=== PATIENT | male | born 1940 | race Caucasian/White ===

== ENCOUNTER 2018-01-25 16:14 | Inpatient (IN) | payer MEDICARE ==
[2018-01-25] MEDS ORDERED: SODIUM CHLORIDE 0.9% 500 ML IV STA (16:49)
[2018-01-25] MEDS ORDERED: DILTIAZEM DRIP BOLUS FROM BAG 1 MG SOLN IV ONE (16:54)
--- NOTE | 2018-01-25 16:54 | ED ---
General Adult HPI - General Chief complaint: Shortness of Breath Stated complaint: JAMES Source: patient Mode of arrival: wheelchair Limitations: no limitations - History of Present Illness Initial comments: Dictation was produced using [employer] dictation software. please excuse any grammatical, word or spelling errors. Chief Complaint: 77-year-old male past medical history of paroxysmal atrial fibrillation ablation, COPD, coronary artery disease, dyslipidemia presents with shortness of breath. History of Present Illness: He reports that he woke up this morning about 5:30 PM when he felt short of breath. He did not think much of it. He went about his business throughout the day. He was at lunch with his friends when his shortness breath was persistent. Patient is on home oxygen at 2 L. Turn his oxygen up to 3 L however still is short of breath. Patient felt like he was in A. fib came to the emergency department. 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 Patient has any pain symptoms. Denies any lower extremity symptoms. The ROS documented in this emergency department record has been reviewed and confirmed by me. Those systems with pertinent positive or negative responses have been documented in the HPI. All other systems are other negative and/or noncontributory. - Related Data Home Medications Medication Instructions Recorded Confirmed Ipratropium/Albuterol Sulfate 3 ml INHALATION RT-QID 11/13/13 01/25/18 [Duoneb 0.5 mg-3 mg/3 ml Soln] Montelukast [Singulair] 10 mg PO HS 11/13/13 01/25/18 Ranitidine HCl [Zantac] 300 mg PO DAILY 11/13/13 01/25/18 Atorvastatin [Lipitor] 40 mg PO HS 08/14/14 01/25/18 Budesonide [Pulmicort] 1 mg INHALATION RT-BID 01/25/18 01/25/18 Cholecalciferol [Vitamin D3] 1,000 unit PO DAILY 01/25/18 01/25/18 Furosemide [Lasix] 20 mg PO DAILY 01/25/18 01/25/18 HYDROcodone/APAP 5-325MG [[place] 1 tab PO DAILY PRN 01/25/18 01/25/18 5-325] Magnesium 200 mg PO DAILY 01/25/18 01/25/18 Previous Rx's Medication Instructions Recorded Aspirin EC [Ecotrin Low Dose] 81 mg PO DAILY #30 tablet. 08/19/14 Metoprolol Tartrate [Lopressor] 25 mg PO BID #60 tab 08/19/14 Allergies Allergy/AdvReac Type Severity Reaction Status Date / Time No Known Allergies Allergy Verified 01/25/18 17:00 Review of Systems ROS Statement: Those systems with pertinent positive or pertinent negative responses have been documented in the HPI. ROS Other: All systems not noted in ROS Statement are negative. Past Medical History Past Medical History: Atrial Fibrillation, Asthma, Coronary Artery Disease (CAD) , Cancer, COPD, GERD/Reflux, GI Bleed, Hyperlipidemia, Hypertension, Myocardial Infarction (MD), Osteoarthritis (OA), Pneumonia Additional Past Medical History / Comment(s): Other HX: Home O2 on a prn basis at 1.8-2L/NC. GI bleed 2010 from duodenal ulcer, MONO when a child, shingelles as a child, SKIN CANCER, OA bilateral hands, L leg vein graft site got infected. Last Myocardial Infarction Date:: unknown History of Any Multi-Drug Resistant Organisms: None Reported Past Surgical History: Cardiac Valve Replacement, Coronary Bypass/CABG, Heart Catheterization, Tonsillectomy Additional Past Surgical History / Comment(s): 2010 AORTIC ANEURYSM REPAIR, 1993 cardiac angioplasty, 2011 CABG with mitral vavle replacement with #30 Esquivel mitral ring and triple bypass with reverse saphenous venous graft to the LAD, RCA, intermediate branch,, EGD, colonoscopy, bilateral cataract removal, right carpal tunnel release, bilateral inguinal hernia repair, bilateral facial cyst removed, aortobifemoral bypass, bilateral profundoplasty. Past Anesthesia/Blood Transfusion Reactions: No Reported Reaction Additional Past Anesthesia/Blood Transfusion Reaction / Comment(s): Pt has had blood transfusion without reaction. Past Psychological History: No Psychological Hx Reported Smoking Status: Former smoker Past Alcohol Use History: Daily Past Drug Use History: None Reported - Past Family History Mother Family Medical History: Coronary Artery Disease (CAD) (Mother at age of 77 from coronary artery disease and she also developed cardiac dysrhythmia and had permanent pacemaker placement as well as abdominal aortic aneurysm.) Additional Family Medical History / Comment(s): Mother had pacemaker. She at age 77yrs. Father Family Medical History: Coronary Artery Disease (CAD) (Father at age of 60 from coronary artery disease as well as atherosclerosis.) Additional Family Medical History / Comment(s): Father at age 60 yrs after having Flu. Brother(s) Family Medical History: Vascular Disorder (Brother at age of 64 from a ruptured aortic aneurysm) Additional Family Medical History / Comment(s): Brother of ruptured abdominal aortic anuerysm at age 64 yrs. General Exam - General Exam Comments Initial Comments: PHYSICAL EXAM: General Impression: Alert and oriented x3, not in acute distress HEENT: Normocephalic atraumatic, extra-ocular movements intact, pupils equal and reactive to light bilaterally, mucous membranes moist. Cardiovascular: Heart regular rate and rhythm, S1&S2 audible, no murmurs, rubs or gallops Chest: Mild lung crackles diffusely Abdomen: Bowel sounds present, abdomen soft, non-tender, non-distended, no organomegaly Musculoskeletal: Pulses present and equal in all extremities, no peripheral edema Motor: Power 5/5 bilaterally, no focal deficits noted Neurological: CN II-XII grossly intact, no focal motor or sensory deficits noted Skin: Intact with no visualized rashes Psych: Normal affect and mood Limitations: no limitations Course Vital Signs 01/25/18 01/25/18 01/25/18 16:17 17:15 18:05 Temperature 98.4 F Pulse Rate 120 H 110 H 79 Respiratory 22 20 18 Rate Blood Pressure 122/74 90/65 101/58 O2 Sat by Pulse 84 L 87 L 90 L Oximetry 01/25/18 01/25/18 18:38 19:00 Temperature 98.5 F Pulse Rate 95 74 Respiratory 20 18 Rate Blood Pressure 147/70 109/73 O2 Sat by Pulse 88 L 94 L Oximetry Medical Decision Making - Medical Decision Making ED course: 77-year-old male with past medical history of paroxysmal atrial fibrillation presents with shortness of breath 1 day. It is unclear when his symptoms started. He progressed through today where his symptoms worse. As upon arrival shows heart rate of 120, oxygen of 84. Patient is hypoxic. He is normally on 2 L. Patient however does appear well. Denies any chest pain. Patient started on Cardizem. Patient has a known history of paroxysmal atrial fibrillation and has not been on any anticoagulation. Patient 's symptoms began prior to 48 hours. At this point I feel the risks outweigh the benefits before starting heparin. Laboratory evaluation obtained. Leukocytosis of 11.0. Hemoglobin stable. Platelets 113. Coag panel unremarkable. Metabolic panel shows sodium 133. Chloride of 97. Mild elevation in V1. Total bilirubin 1.5. Mild nonspecific transaminitis. Elevated troponin. Chest x-ray was obtained showing findings that may suggest pulmonary infiltrates. There is some concern that patient's symptoms may reflect pulmonary embolus. CT angios obtained showing no findings to suggest pulmonary embolus. There was however [place] to suggest pulmonary infiltrate. His atrial fibrillation likely secondary to pulmonary infection. Patient treated with antibiotics. Patient be admitted for hypoxic respiratory failure, A. fib with rapid ventricular rate, and pneumonia EKG Interpretation: A 12 lead EKG was obtained. It was interpreted by myself and attending physician. There is a P wave before every QRS complex. Rate is 108. Rhythm is H or fibrillation with RVR, QRS 136, QTC 418. QT is not prolonged. No ST segment depression or elevation. This EKG was compared to a previous EKG that was obtained on [default value] and showed no significant change. Overall, this EKG is unremarkable - Lab Data Result diagrams: 01/25/18 16:41 01/25/18 16:41 Lab Results 01/25/18 01/25/18 01/25/18 Range/Units 16:41 16:41 16:41 WBC 11.0 H (3.8-10.6) k/uL RBC 5.15 (4.30-5.90) m/uL Hgb 16.4 (13.0-17.5) gm/dL Hct 48.5 (39.0-53.0) % MCV 94.3 (80.0-100.0) fL MCH 31.9 (25.0-35.0) pg MCHC 33.8 (31.0-37.0) g/dL RDW 14.0 (11.5-15.5) % Plt Count 113 L (150-450) k/uL Neutrophils % 88 % Lymphocytes % 5 % Monocytes % 5 % Eosinophils % 1 % Basophils % 0 % Neutrophils # 9.6 H (1.3-7.7) k/uL Lymphocytes # 0.5 L (1.0-4.8) k/uL Monocytes # 0.6 (0-1.0) k/uL Eosinophils # 0.1 (0-0.7) k/uL Basophils # 0.1 (0-0.2) k/uL PT (9.0-12.0) sec INR (<1.2) APTT (22.0-30.0) sec Sodium 133 L (137-145) mmol/L Potassium 4.3 (3.5-5.1) mmol/L Chloride 97 L (98-107) mmol/L Carbon Dioxide 24 (22-30) mmol/L Anion Gap 12 mmol/L BUN 26 H (9-20) mg/dL Creatinine 1.10 (0.66-1.25) mg/dL Est GFR (CKD-EPI)AfAm 75 (>60 ml/min/1.73 sqM) Est GFR (CKD-EPI)NonAf 65 (>60 ml/min/1.73 sqM) Glucose 83 (74-99) mg/dL Calcium 9.3 (8.4-10.2) mg/dL Total Bilirubin 1.5 H (0.2-1.3) mg/dL AST 37 (17-59) U/L ALT 33 (21-72) U/L Alkaline Phosphatase 147 H (38-126) U/L Total Creatine Kinase 68 (55-170) U/L CK-MB (CK-2) 2.9 H* (0.0-2.4) ng/mL CK-MB (CK-2) Rel Index 4.3 Troponin I 0.017 (0.000-0.034) ng/mL Total Protein 6.8 (6.3-8.2) g/dL Albumin 4.1 (3.5-5.0) g/dL 01/25/18 Range/Units 16:41 WBC (3.8-10.6) k/uL RBC (4.30-5.90) m/uL Hgb (13.0-17.5) gm/dL Hct (39.0-53.0) % MCV (80.0-100.0) fL MCH (25.0-35.0) pg MCHC (31.0-37.0) g/dL RDW (11.5-15.5) % Plt Count (150-450) k/uL Neutrophils % % Lymphocytes % % Monocytes % % Eosinophils % % Basophils % % Neutrophils # (1.3-7.7) k/uL Lymphocytes # (1.0-4.8) k/uL Monocytes # (0-1.0) k/uL Eosinophils # (0-0.7) k/uL Basophils # (0-0.2) k/uL PT 11.0 (9.0-12.0) sec INR 1.1 (<1.2) APTT 24.5 (22.0-30.0) sec Sodium (137-145) mmol/L Potassium (3.5-5.1) mmol/L Chloride (98-107) mmol/L Carbon Dioxide (22-30) mmol/L Anion Gap mmol/L BUN (9-20) mg/dL Creatinine (0.66-1.25) mg/dL Est GFR (CKD-EPI)AfAm (>60 ml/min/1.73 sqM) Est GFR (CKD-EPI)NonAf (>60 ml/min/1.73 sqM) Glucose (74-99) mg/dL Calcium (8.4-10.2) mg/dL Total Bilirubin (0.2-1.3) mg/dL AST (17-59) U/L ALT (21-72) U/L Alkaline Phosphatase (38-126) U/L Total Creatine Kinase (55-170) U/L CK-MB (CK-2) (0.0-2.4) ng/mL CK-MB (CK-2) Rel Index Troponin I (0.000-0.034) ng/mL Total Protein (6.3-8.2) g/dL Albumin (3.5-5.0) g/dL Disposition Clinical Impression: Atrial fibrillation with RVR, Community acquired bacterial pneumonia, Acute respiratory failure with hypoxia Disposition: ADMITTED IP TO THIS HOSP Condition: Fair Referrals: Erasmo Mary MD [Primary Care Provider] - 1-2 days Time of Disposition: 19:50
[2018-01-25] MEDS ORDERED: METOPROLOL TARTRATE 5 MG/5 ML VIAL IVP SCH (17:00)
[2018-01-25 17:14] LABS: Basophils # (A) 0.1 k/uL (0-0.2); Basophils % (A) 0 %; Eosinophils # (A) 0.1 k/uL (0-0.7); Eosinophils % (A) 1 %; HCT 48.5 % (39.0-53.0); HGB 16.4 gm/dL (13.0-17.5); Lymphocytes # (A) 0.5 k/uL (1.0-4.8); Lymphocytes % (A) 5 %; MCH 31.9 pg (25.0-35.0); MCHC 33.8 g/dL (31.0-37.0); MCV 94.3 fL (80.0-100.0); Mean Platelet Volume 9.2; Monocytes # (A) 0.6 k/uL (0-1.0); Monocytes % (A) 5 %; Neutrophils # (A) 9.6 k/uL (1.3-7.7); Neutrophils % (A) 88 %; Platelet Count 113 k/uL (150-450); RBC 5.15 m/uL (4.30-5.90)
[2018-01-25] MEDS: DILTIAZEM 50 MG in SODIUM CHLORIDE 0.9% 40 ML IV SCH (17:17)
[2018-01-25 17:29] LABS: INR 1.1 (<1.2); Partial Thromboplastin Time 24.5 sec (22.0-30.0)
[2018-01-25 17:31] LABS: Albumin 4.1 g/dL (3.5-5.0); Calcium 9.3 mg/dL (8.4-10.2); Potassium 4.3 mmol/L (3.5-5.1); Total Bilirubin 1.5 mg/dL (0.2-1.3); Total Protein 6.8 g/dL (6.3-8.2)
--- NOTE | 2018-01-25 17:37 | XR ---
EXAMINATION TYPE: XR chest 2V DATE OF EXAM: 01/25/2018 COMPARISON: 03/19/2015 HISTORY: Short of breath TECHNIQUE: Frontal and lateral views of the chest are obtained. FINDINGS: There is some patchy infiltrate in the lower lobes. There are sternal wires. There are renetta st leads. There is no gross heart failure. IMPRESSION: Interstitial lower lobe pulmonary infiltrates are increased compared to old exam. No marlene ss heart failure.
[2018-01-25 17:42] LABS: Troponin I 0.017 ng/mL (0.000-0.034)
[2018-01-25 18:03] LABS: Creatine Kinase MB 2.9 ng/mL (0.0-2.4)
[2018-01-25] MEDS ORDERED: AZITHROMYCIN 500 MG in DEXTROSE 5% IN WATER 250 ML IVPB STA ×2 (18:31)
[2018-01-25] MEDS ORDERED: cefTRIAXone IN SWFI 1,000 MG/10 ML SYRINGE IVP ONE (18:45)
--- NOTE | 2018-01-25 19:15 | CT ---
EXAMINATION TYPE: CT angio chest DATE OF EXAM: 01/25/2018 7:06 PM COMPARISON: 10/30/2011 HISTORY: Shortness of breath. CT DLP: 593 mGycm Automated exposure control for dose reduction was used. CONTRAST: CTA scan of the thorax is performed with IV Contrast, patient injected with 100 mL of Isovue 370, pul monary embolism protocol. There are 3-D post processed images.. FINDINGS: There is diffuse pulmonary emphysema. There is subpleural reticular interstitial infiltrate in the po sterior lung smith. There is a wedge-shaped area of patchy consolidation in the right middle lobe. I see no filling defects in the pulmonary arteries. Thoracic aorta is atheromatous. There is no evide nce of aneurysm or dissection. There is no mediastinal adenopathy. There are no hilar masses. There a re large central pulmonary arteries. There is large right atrium. Right ventricle is relatively small . IMPRESSION: NO EVIDENCE OF PULMONARY EMBOLISM. PULMONARY EMPHYSEMA. THERE IS CLEARING OF THE PLEURAL EFFUSIONS CO MPARED TO OLD EXAM. THERE IS NEW RIGHT MIDDLE LOBE CONSOLIDATION ALONG THE RIGHT LATERAL CHEST WALL. PULMONARY FIBROSIS. THERE IS ENLARGEMENT OF THE RIGHT ATRIUM COMPARED TO OLD EXAM COULD RELATE TO TRI CUSPID STENOSIS.
[2018-01-25] MEDS ORDERED: NALOXONE 0.4 MG/ML 1 ML VIAL IV PRN (19:46)
[2018-01-25 22:33] VITALS: BMI 21.3
[2018-01-26] MEDS: DILTIAZEM 50 MG in SODIUM CHLORIDE 0.9% 40 ML IV SCH ×3 (05:50→23:04)
[2018-01-26] MEDS: METOPROLOL TARTRATE 25 MG TAB PO SCH ×2 (08:15→21:37)
[2018-01-26] MEDS: ASPIRIN 81 MG PO SCH (08:15)
[2018-01-26] MEDS: IPRATROPIUM-ALBUTEROL 3 ML NEB INHALATION SCH ×3 (10:36→19:03)
--- NOTE | 2018-01-26 10:54 | P.CRDCN ---
History of Present Illness Consult date: 01/26/18 Requesting physician: Farhad Grullon Consult reason: atrial fibrillation Chief complaint: Shortness of breath History of present illness: This is a 77 year old gentleman who follows regularly with Dr. Hagan in the office, he has a previous medical history significant for hypertension, coronary artery disease with prior myocardial infarction, prior bypass surgery with the patient underwent a reverse saphenous vein graft to the LAD, intermediate branch, and RCA, along with a #31. Mitral valve ring, history of aortic aneurysm status post repair, history of paroxysmal atrial fibrillation, patient is not on anticoagulation, he does have history of prior bleeding ulcers , and states that he does not want to be on blood thinners although Dr. Hagan has discussed this with him on several different occasions. History also of COPD with home O2 use. He presents to the hospital on this occasion with symptoms of progressively worsening shortness of breath. Initial chest x-ray on arrival here showed interstitial lower lobe pulmonary infiltrates increased as compared with prior exam. CTA of the chest was performed which did not reveal any evidence of pulmonary embolism. It did show pulmonary emphysema and clearing of pleural effusions as compared with prior exam. There is a new right middle lobe consolidation noted. Pulmonary fibrosis. EKG on arrival here showed atrial fibrillation with a rapid ventricular response, right bundle branch block pattern and nonspecific ST-T wave changes. White blood cell count is normal, hemoglobin 16.4, platelet count 113. Sodium 133, potassium 4.3, BUN 26, creatinine 1.1, troponin 0.107. At the time of my examination this morning , patient states his breathing is short but normal for him according to the patient. Past Medical History Past Medical History: Atrial Fibrillation, Asthma, Coronary Artery Disease (CAD) , Cancer, COPD, GERD/Reflux, GI Bleed, Hyperlipidemia, Hypertension, Myocardial Infarction (CT), Osteoarthritis (OA), Pneumonia Additional Past Medical History / Comment(s): Other HX: Home O2 at 2L/NC. GI bleed 2010 from duodenal ulcer, MONO when a child, shingelles as a child, SKIN CANCER, OA bilateral hands, L leg vein graft site got infected. Last Myocardial Infarction Date:: unknown History of Any Multi-Drug Resistant Organisms: None Reported Past Surgical History: Cardiac Valve Replacement, Coronary Bypass/CABG, Heart Catheterization, Tonsillectomy Additional Past Surgical History / Comment(s): 2010 AORTIC ANEURYSM REPAIR, 1993 cardiac angioplasty, 2011 CABG with mitral vavle replacement with #30 Esquivel mitral ring and triple bypass with reverse saphenous venous graft to the LAD, RCA, intermediate branch,, EGD, colonoscopy, bilateral cataract removal, right carpal tunnel release, bilateral inguinal hernia repair, bilateral facial cyst removed, aortobifemoral bypass, bilateral profundoplasty. Past Anesthesia/Blood Transfusion Reactions: No Reported Reaction Additional Past Anesthesia/Blood Transfusion Reaction / Comment(s): Pt has had blood transfusion without reaction. Past Psychological History: No Psychological Hx Reported Additional Psychological History / Comment(s): Pt lives alone. Pt is independent. Pt drives a car. Pt cooks. Pt sometimes has a person come in to do lite housework. Pt has home oxygen that he uses on a prn basis. Pt did stay at [facility] for a few days after CABG surgery when he had a L leg vein graft infection. Smoking Status: Former smoker Past Alcohol Use History: Daily Additional Past Alcohol Use History / Comment(s): Pt drinks 2 alcoholic beverages a day. Past Drug Use History: None Reported - Past Family History Mother Family Medical History: Coronary Artery Disease (CAD) Additional Family Medical History / Comment(s): Mother had pacemaker. She at age 77yrs. Father Family Medical History: Coronary Artery Disease (CAD) Additional Family Medical History / Comment(s): Father at age 60 yrs after having Flu. Brother(s) Family Medical History: Vascular Disorder Additional Family Medical History / Comment(s): Brother of ruptured abdominal aortic anuerysm at age 64 yrs. Medications and Allergies Home Medications Medication Instructions Recorded Confirmed Type Ipratropium/Albuterol Sulfate 3 ml INHALATION RT-QID 11/13/13 01/25/18 History [Duoneb 0.5 mg-3 mg/3 ml Soln] Montelukast [Singulair] 10 mg PO HS 11/13/13 01/25/18 History Ranitidine HCl [Zantac] 300 mg PO DAILY 11/13/13 01/25/18 History Atorvastatin [Lipitor] 40 mg PO HS 08/14/14 01/25/18 History Aspirin EC [Ecotrin Low Dose] 81 mg PO DAILY #30 tablet. 08/19/14 01/25/18 Rx Metoprolol Tartrate [Lopressor] 25 mg PO BID #60 tab 08/19/14 01/25/18 Rx Budesonide [Pulmicort] 1 mg INHALATION RT-BID 01/25/18 01/25/18 History Cholecalciferol [Vitamin D3] 1,000 unit PO DAILY 01/25/18 01/25/18 History Furosemide [Lasix] 20 mg PO DAILY 01/25/18 01/25/18 History HYDROcodone/APAP 5-325MG [[place] 1 tab PO DAILY PRN 01/25/18 01/25/18 History 5-325] Magnesium 200 mg PO DAILY 01/25/18 01/25/18 History Allergies Allergy/AdvReac Type Severity Reaction Status Date / Time No Known Allergies Allergy Verified 01/25/18 17:00 Physical Exam Vitals: Vital Signs Temp Pulse Pulse Resp BP BP Pulse Ox 01/26/18 03:25 97.4 F L 61 18 155/65 94 L 01/25/18 23:45 97.4 F L 65 18 125/55 94 L 01/25/18 22:22 98.2 F 56 L 20 133/60 93 L 01/25/18 21:48 98.4 F 69 20 120/72 94 L 01/25/18 21:01 71 16 90 L 01/25/18 19:00 98.5 F 74 18 109/73 94 L 01/25/18 18:38 95 20 147/70 88 L 01/25/18 18:05 79 18 101/58 90 L 01/25/18 17:15 110 H 20 90/65 87 L 01/25/18 16:17 98.4 F 120 H 22 122/74 84 L Intake and Output 01/25/18 01/26/18 01/26/18 22:59 06:59 14:59 Other: Voiding Method Urinal # Voids 0 1 Weight 60 kg 60.3 kg PHYSICAL EXAMINATION: 77-year-old gentleman in no apparent distress at the time of my examination HEENT: Head is atraumatic, normocephalic. Pupils equal, round. Neck is supple. There is no elevated jugular venous pressure. HEART EXAMINATION: Heart S1 and S2 irregular irregular a systolic murmur is heard CHEST EXAMINATION: Lungs are clear to auscultation and precussion. No chest wall tenderness is noted on palpation or with deep breathing. ABDOMEN: Soft, nontender. Bowel sounds are heard. No organomegaly noted. EXTREMITIES: 1+ peripheral pulses with no evidence of peripheral edema and no calf tenderness noted. NEUROLOGIC patient is awake, alert and oriented -3. Results 01/25/18 16:41 01/25/18 16:41 Cardiac Enzymes 01/25/18 01/25/18 Range/Units 16:41 16:41 AST 37 (17-59) U/L CK-MB (CK-2) 2.9 H* (0.0-2.4) ng/mL Troponin I 0.017 (0.000-0.034) ng/mL Coagulation 01/25/18 Range/Units 16:41 PT 11.0 (9.0-12.0) sec APTT 24.5 (22.0-30.0) sec CBC 01/25/18 Range/Units 16:41 WBC 11.0 H (3.8-10.6) k/uL RBC 5.15 (4.30-5.90) m/uL Hgb 16.4 (13.0-17.5) gm/dL Hct 48.5 (39.0-53.0) % Plt Count 113 L (150-450) k/uL Comprehensive Metabolic Panel 01/25/18 Range/Units 16:41 Sodium 133 L (137-145) mmol/L Potassium 4.3 (3.5-5.1) mmol/L Chloride 97 L (98-107) mmol/L Carbon Dioxide 24 (22-30) mmol/L BUN 26 H (9-20) mg/dL Creatinine 1.10 (0.66-1.25) mg/dL Glucose 83 (74-99) mg/dL Calcium 9.3 (8.4-10.2) mg/dL AST 37 (17-59) U/L ALT 33 (21-72) U/L Alkaline Phosphatase 147 H (38-126) U/L Total Protein 6.8 (6.3-8.2) g/dL Albumin 4.1 (3.5-5.0) g/dL Current Medications Generic Name Dose Route Start Last Admin Trade Name Freq PRN Reason Stop Dose Admin Hydrocodone Bitart/Acetaminophen 1 each 01/26/18 10:00 [place] 5-325 PO DAILY PRN Moderate Pain Albuterol/Ipratropium 3 ml 01/26/18 12:00 Duoneb 0.5 Mg-3 Mg/3 Ml Soln INHALATION RT-QID [facility] Aspirin 81 mg 01/26/18 09:00 01/26/18 08:15 Aspirin PO 81 mg DAILY [facility] Administration Atorvastatin Calcium 40 mg 01/26/18 21:00 Lipitor PO HS ELOISE Budesonide 1 mg 01/26/18 20:00 Pulmicort INHALATION RT-BID [facility] Cholecalciferol 1,000 unit 01/27/18 09:00 Vitamin D3 PO DAILY [facility] Famotidine 20 mg 01/26/18 10:15 Pepcid PO DAILY ELOISE Furosemide 20 mg 01/27/18 09:00 Lasix PO DAILY [facility] Heparin Sodium (Porcine) 5,000 unit 01/26/18 10:15 Heparin SQ Q8HR [facility] Diltiazem HCl 50 mg/ Sodium 50 mls @ 5 mls/hr 01/25/18 17:00 01/26/18 05:50 Chloride IV Not Given .Q10H ELOISE 5 MG/HR Insulin Aspart 0 unit 01/26/18 12:30 Novolog SQ ACHS [facility] Protocol Magnesium Oxide 400 mg 01/27/18 09:00 Mag-Ox PO DAILY [facility] Methylprednisolone Sodium Succinate 60 mg 01/26/18 12:00 Solu-Medrol IV Q6HR [facility] Metoprolol Tartrate 25 mg 01/26/18 09:00 01/26/18 08:15 Lopressor PO 25 mg BID [facility] Administration Montelukast Sodium 10 mg 01/26/18 21:00 Singulair PO HS [facility] Naloxone HCl 0.2 mg 01/25/18 19:46 Narcan IV Q2M PRN Opioid Reversal Intake and Output 01/25/18 01/26/18 01/26/18 22:59 06:59 14:59 Other: Voiding Method Urinal # Voids 0 1 Weight 60 kg 60.3 kg 01/25/18 16:41 01/25/18 16:41 EKG Interpretations (text) EKG shows atrial fibrillation with right bundle branch block pattern Assessment and Plan Plan: Assessment and plan #1 atrial fibrillation, paroxysmal #2 history of upper GI bleed #3 coronary artery disease with prior bypass surgery #4 history of mitral valve ring #5 history of AAA #6 hyperlipidemia #7 COPD with home O2 use #8 evidence of pneumonia on chest x-ray Plan We will obtain an echocardiogram with Doppler study. IV Cardizem has been discontinued, heart rate in the 60s, continue metoprolol. Because of the patient's history of prior GI bleeding, anticoagulation contraindicated because of history of GI bleeding. Further Recommendations to follow DNP note has been reviewed, I agree with a documented findings and plan of care. Patient was seen and examined.
[2018-01-26] MEDS: FAMOTIDINE 20 MG TAB PO SCH (11:54)
[2018-01-26] MEDS: methylPREDNISolone SOD SUCCI 125 MG/2 ML VIAL IV SCH ×3 (11:54→23:19)
[2018-01-26] MEDS: HEPARIN SODIUM,PORCINE 5,000 UNIT/ML 1 ML VIAL SQ SCH ×3 (11:54→23:19)
[2018-01-26 12:34] LABS: Glucose,Whole Blood 77 mg/dL (75-99)
--- NOTE | 2018-01-26 13:34 | P.HPIM ---
History of Present Illness H&P Date: 01/26/18 Chief Complaint: Dyspnea and shortness of breath, A. fib with RVR, middle lobe pneumonia, CO 77-year-old male one of Dr. Erasmo Mary's patient who was Dr. Hagan patient at cardiology as well was known to have history of coronary artery disease, post AK in the past post CABG and angioplasty who is also known to have history of mitral valve disease and aortic aneurysm postrepair. Patient also had paroxysmal atrophy fibrillation on and off has been treated medically he is not on any anticoagulation 4. History of bleeding and full discussion with Dr. Hagan in Dr. Mary about the comorbidity not been on anticoagulation. Patient apparently developed to have worsening symptom over the last 48 hours with significant shortness of breath, not been able to ambulate and walk and developed to have mild tightness and pressure with palpitation. Apparently had seen Dr. Childers and Dr. Mary in the past month for his current medical problem no major abnormality of A. fib with RVR was found at the time of infection. Patient presented to the emergency department at [facility] with above problem. Chest x-ray and CAT scan of the chest showed right middle lobe pneumonia, EKG and heart monitor shows A. fib with RVR. Patient also had a right bundle-branch block with nonspecific ST elevation. Patient also mildly marginal white blood cell elevation troponin was normal. Patient was started on antibiotics and started on Cardizem drip initially pulse rate become slow he will be back on his oral metoprolol and further discussion with cardiology for further management whether benefit from increasing the metoprolol or add Cardizem or not will be up to cardiology. Review of Systems CONSTITUTIONAL: Well-developed no acute respiratory distress. EYES: No icterus sclerae, no conjunctivitis. EARS, NOSE, MOUTH, THROAT, and FACE: No sore throat, lymphadenopathy, carotid bruits or deformity. RESPIRATORY: Positive shortness of breath cough wheezes CARDIOVASCULAR: Positive dyspnea with palpitation, PND and orthopnea. GASTROINTESTINAL: No Abd pain, Nausea or vomiting, no Diarrhea or constipation, No GI Bleed, no distention or masses. GENITOURINARY: Negative for Hematuria or UTI, no kidney stones. INTEGUMENT/BREAST: Negative for any muscular injury with mild osteoarthritis.. HEMATOLOGIC/LYMPHATIC: Negative for bleed or purpura. MUSCULOSKELTAL: Negative for Myalgia or arthralgia. NEURLOGICAL: No LOC, Sz or syncope, blurred vision dizziness or abnormality.. BEHAVIORAL/PSYCH: Negative. ENDOCRINE: Negative. Past Medical History Past Medical History: Atrial Fibrillation, Asthma, Coronary Artery Disease (CAD) , Cancer, COPD, GERD/Reflux, GI Bleed, Hyperlipidemia, Hypertension, Myocardial Infarction (AK), Osteoarthritis (OA), Pneumonia Additional Past Medical History / Comment(s): Other HX: Home O2 at 2L/NC. GI bleed 2010 from duodenal ulcer, MONO when a child, shingelles as a child, SKIN CANCER, OA bilateral hands, L leg vein graft site got infected. Last Myocardial Infarction Date:: unknown History of Any Multi-Drug Resistant Organisms: None Reported Past Surgical History: Cardiac Valve Replacement, Coronary Bypass/CABG, Heart Catheterization, Tonsillectomy Additional Past Surgical History / Comment(s): 2010 AORTIC ANEURYSM REPAIR, 1993 cardiac angioplasty, 2011 CABG with mitral vavle replacement with #30 Esquivel mitral ring and triple bypass with reverse saphenous venous graft to the LAD, RCA, intermediate branch,, EGD, colonoscopy, bilateral cataract removal, right carpal tunnel release, bilateral inguinal hernia repair, bilateral facial cyst removed, aortobifemoral bypass, bilateral profundoplasty. Past Anesthesia/Blood Transfusion Reactions: No Reported Reaction Additional Past Anesthesia/Blood Transfusion Reaction / Comment(s): Pt has had blood transfusion without reaction. Past Psychological History: No Psychological Hx Reported Additional Psychological History / Comment(s): Pt lives alone. Pt is independent. Pt drives a car. Pt cooks. Pt sometimes has a person come in to do lite housework. Pt has home oxygen that he uses on a prn basis. Pt did stay at [facility] for a few days after CABG surgery when he had a L leg vein graft infection. Smoking Status: Former smoker Past Alcohol Use History: Daily Additional Past Alcohol Use History / Comment(s): Pt drinks 2 alcoholic beverages a day. Past Drug Use History: None Reported - Past Family History Mother Family Medical History: Coronary Artery Disease (CAD) Additional Family Medical History / Comment(s): Mother had pacemaker. She at age 77yrs. Father Family Medical History: Coronary Artery Disease (CAD) Additional Family Medical History / Comment(s): Father at age 60 yrs after having Flu. Brother(s) Family Medical History: Vascular Disorder Additional Family Medical History / Comment(s): Brother of ruptured abdominal aortic anuerysm at age 64 yrs. Medications and Allergies Home Medications Medication Instructions Recorded Confirmed Type Ipratropium/Albuterol Sulfate 3 ml INHALATION RT-QID 11/13/13 01/25/18 History [Duoneb 0.5 mg-3 mg/3 ml Soln] Montelukast [Singulair] 10 mg PO HS 11/13/13 01/25/18 History Ranitidine HCl [Zantac] 300 mg PO DAILY 11/13/13 01/25/18 History Atorvastatin [Lipitor] 40 mg PO HS 08/14/14 01/25/18 History Aspirin EC [Ecotrin Low Dose] 81 mg PO DAILY #30 tablet. 08/19/14 01/25/18 Rx Metoprolol Tartrate [Lopressor] 25 mg PO BID #60 tab 08/19/14 01/25/18 Rx Budesonide [Pulmicort] 1 mg INHALATION RT-BID 01/25/18 01/25/18 History Cholecalciferol [Vitamin D3] 1,000 unit PO DAILY 01/25/18 01/25/18 History Furosemide [Lasix] 20 mg PO DAILY 01/25/18 01/25/18 History HYDROcodone/APAP 5-325MG [[place] 1 tab PO DAILY PRN 01/25/18 01/25/18 History 5-325] Magnesium 200 mg PO DAILY 01/25/18 01/25/18 History Allergies Allergy/AdvReac Type Severity Reaction Status Date / Time No Known Allergies Allergy Verified 01/25/18 17:00 Physical Exam Vitals: Vital Signs Temp Pulse Pulse Resp BP BP Pulse Ox 01/26/18 11:46 91 18 01/26/18 10:48 68 01/26/18 10:37 64 01/26/18 08:00 98.1 F 91 18 107/69 98 01/26/18 03:25 97.4 F L 61 18 155/65 94 L 01/25/18 23:45 97.4 F L 65 18 125/55 94 L 01/25/18 22:22 98.2 F 56 L 20 133/60 93 L 01/25/18 21:48 98.4 F 69 20 120/72 94 L 01/25/18 21:01 71 16 90 L 01/25/18 19:00 98.5 F 74 18 109/73 94 L 01/25/18 18:38 95 20 147/70 88 L 01/25/18 18:05 79 18 101/58 90 L 01/25/18 17:15 110 H 20 90/65 87 L 01/25/18 16:17 98.4 F 120 H 22 122/74 84 L Intake and Output 01/25/18 01/26/18 01/26/18 22:59 06:59 14:59 Intake Total 180 Balance 180 Intake: Oral 180 Other: Voiding Method Urinal Urinal # Voids 0 1 Weight 60 kg 60.3 kg General Appearance: Alert, cooperative, no distress, appears stated age. Neck HEENT: Supple, no lymphadenopathy, no thyroid enlargement, no carotid bruits. Lungs: Decreased breaths in bilaterally with fine rhonchi positive mild expiratory wheezes in both side with more crackles in the right middle and lower side than the left side. Chest Wall: Chest wall normal expansion with deep inspiration no tenderness and no deformity was found on exam, no costochondral pain or discomfort. Heart: Irregular rhythm and rate S1-S2 positive S3 positive JVD positive mitral valve click with systolic murmur. Back: Symmetric, no curvature, ROM normal, no CVA tenderness. Abdomen: Soft, non-tender, bowel sounds active all four quadrants, no masses, no organomegaly. Extremities: Trace edema, decreased pulse in the dorsalis pedis and posterior tibial. Pulses: 2+ and symmetric. Skin: Skin color, texture, tugor normal, no rashes or lesions. Neurologic: Alert oriented x3 cranial nerves II through XII intact, no motor deficit, no abnormal balance or gait. Results CBC & Chem 7: 01/25/18 16:41 01/25/18 16:41 Labs: Abnormal Lab Results - Last 24 Hours (Table) 01/25/18 01/25/18 01/25/18 Range/Units 16:41 16:41 16:41 WBC 11.0 H (3.8-10.6) k/uL Plt Count 113 L (150-450) k/uL Neutrophils # 9.6 H (1.3-7.7) k/uL Lymphocytes # 0.5 L (1.0-4.8) k/uL Sodium 133 L (137-145) mmol/L Chloride 97 L (98-107) mmol/L BUN 26 H (9-20) mg/dL Total Bilirubin 1.5 H (0.2-1.3) mg/dL Alkaline Phosphatase 147 H (38-126) U/L CK-MB (CK-2) 2.9 H* (0.0-2.4) ng/mL Thrombosis Risk Factor Assmnt - DVT/VTE Prophylaxis DVT/VTE Prophylaxis: Mechanical Prophylaxis ordered - Choose All That Apply Any of the Below Risk Factors Present?: Yes Each Factor Represents 1 point: Abnormal pulmonary function (COPD), Serious lung disease incl. pneumonia (< 1month) Other Risk Factors: Yes Each Risk Factor Represents 3 Points: Age 75 years or older Thrombosis Risk Factor Assessment Total Risk Factor Score: 5 Thrombosis Risk Factor Assessment Level: High Risk Assessment and Plan Plan: 1 severe dyspnea and shortness of breath: Combination off A. fib with RVR, COPD exacerbation, and right middle lobe pneumonia with treat although street problem keep watching symptoms. 2 A. fib with RVR: Most likely brought by the hypoxia caused by the pneumonia and COPD. Patient was on Cardizem drip we'll convert him back to oral beta marlen and whether adding Cardizem or verapamil orally or not will be left up to cardiology. Patient still insists not going on any anticoagulation. Also he is not a good candidate for product like amiodarone in the long run specially with his current lung problem. 3 COPD exacerbation: Patient is seen Dr. Childers will consult Dr. Childers, also patient will be started on Solu-Medrol, along with DuoNeb and Pulmicort and resume patient's Singulair. 4 right middle lobe pneumonia: With his current symptoms patient be started on azithromycin and Rocephin chest x-ray will be repeated in 48 hours, will consult pulmonary as well. 5 CAD: Post CABG and angioplasty, had been seeing cardiology regular basis. 6 history of GI bleed: With no sign of anemia or bleeding lately patient is still insists not been on any anticoagulation. 7 hyperlipidemia: Remain on Lipitor 40 mg a day. 8 hypertension: Still on metoprolol if needed smaller dose of abdias inhibitor can be beneficial. 9 chronic pain syndrome: Has been on hydrocodone 5/325 mg every 6 hours as needed. 10 GI prophylaxis: Patient will be on Pepcid 20 mg daily switch him back to his ranitidine when he leaves the hospital. 11 DVT prophylaxis: Patient cannot be on any anticoagulation will continue Venodyne boots and knee-high DOUGIE hose, early mobilization and watch for any symptoms. CODE STATUS: Full code. Admit patient to inpatient status for more than 2 nights.
--- NOTE | 2018-01-26 14:33 | P.CNPUL ---
History of Present Illness Consult date: 01/26/18 Reason for consult: COPD, pneumonia Chief complaint: shortness of breath History of present illness: The 77-year-old male patient being seen examined and evaluated today for consultation while covering for Dr. Childers. The patient follows with Dr. Childers closely in the outpatient setting. He came into the hospital with having ongoing severity of shortness of breath and weakness. The patient also did complain of some mild chest tightness and pressure with palpitations. Chest x- ray and CAT scan of the chest showed right middle lobe pneumonia, EKG and heart monitor shows A. fib with RVR. Patient also had a right bundle-branch block with nonspecific ST elevation. Patient also mildly marginal white blood cell elevation troponin was normal. Patient was started on antibiotics and started on Cardizem drip which as been stopped and switched to oral agents. Upon examination the patient is admitted on 4 L of supplemental oxygen via nasal cannula. He does utilize 2 L of oxygen at home. He did require 6 L of oxygen at one point. Continues to complain of shortness of breath cough and congestion and green productive sputum. Review of Systems 14 point review of systems was completed and is negative unless noted in the HPI. Past Medical History Past Medical History: Atrial Fibrillation, Asthma, Coronary Artery Disease (CAD) , Cancer, COPD, GERD/Reflux, GI Bleed, Hyperlipidemia, Hypertension, Myocardial Infarction (VT), Osteoarthritis (OA), Pneumonia Additional Past Medical History / Comment(s): Other HX: Home O2 at 2L/NC. GI bleed 2010 from duodenal ulcer, MONO when a child, shingelles as a child, SKIN CANCER, OA bilateral hands, L leg vein graft site got infected. Last Myocardial Infarction Date:: unknown History of Any Multi-Drug Resistant Organisms: None Reported Past Surgical History: Cardiac Valve Replacement, Coronary Bypass/CABG, Heart Catheterization, Tonsillectomy Additional Past Surgical History / Comment(s): 2010 AORTIC ANEURYSM REPAIR, 1993 cardiac angioplasty, 2011 CABG with mitral vavle replacement with #30 Esquivel mitral ring and triple bypass with reverse saphenous venous graft to the LAD, RCA, intermediate branch,, EGD, colonoscopy, bilateral cataract removal, right carpal tunnel release, bilateral inguinal hernia repair, bilateral facial cyst removed, aortobifemoral bypass, bilateral profundoplasty. Past Anesthesia/Blood Transfusion Reactions: No Reported Reaction Additional Past Anesthesia/Blood Transfusion Reaction / Comment(s): Pt has had blood transfusion without reaction. Past Psychological History: No Psychological Hx Reported Additional Psychological History / Comment(s): Pt lives alone. Pt is independent. Pt drives a car. Pt cooks. Pt sometimes has a person come in to do lite housework. Pt has home oxygen that he uses on a prn basis. Pt did stay at [facility] for a few days after CABG surgery when he had a L leg vein graft infection. Smoking Status: Former smoker Past Alcohol Use History: Daily Additional Past Alcohol Use History / Comment(s): Pt drinks 2 alcoholic beverages a day. Past Drug Use History: None Reported - Past Family History Mother Family Medical History: Coronary Artery Disease (CAD) Additional Family Medical History / Comment(s): Mother had pacemaker. She at age 77yrs. Father Family Medical History: Coronary Artery Disease (CAD) Additional Family Medical History / Comment(s): Father at age 60 yrs after having Flu. Brother(s) Family Medical History: Vascular Disorder Additional Family Medical History / Comment(s): Brother of ruptured abdominal aortic anuerysm at age 64 yrs. Medications and Allergies Home Medications Medication Instructions Recorded Confirmed Type Ipratropium/Albuterol Sulfate 3 ml INHALATION RT-QID 11/13/13 01/25/18 History [Duoneb 0.5 mg-3 mg/3 ml Soln] Montelukast [Singulair] 10 mg PO HS 11/13/13 01/25/18 History Ranitidine HCl [Zantac] 300 mg PO DAILY 11/13/13 01/25/18 History Atorvastatin [Lipitor] 40 mg PO HS 08/14/14 01/25/18 History Aspirin EC [Ecotrin Low Dose] 81 mg PO DAILY #30 tablet. 08/19/14 01/25/18 Rx Metoprolol Tartrate [Lopressor] 25 mg PO BID #60 tab 08/19/14 01/25/18 Rx Budesonide [Pulmicort] 1 mg INHALATION RT-BID 01/25/18 01/25/18 History Cholecalciferol [Vitamin D3] 1,000 unit PO DAILY 01/25/18 01/25/18 History Furosemide [Lasix] 20 mg PO DAILY 01/25/18 01/25/18 History HYDROcodone/APAP 5-325MG [[place] 1 tab PO DAILY PRN 01/25/18 01/25/18 History 5-325] Magnesium 200 mg PO DAILY 01/25/18 01/25/18 History Allergies Allergy/AdvReac Type Severity Reaction Status Date / Time No Known Allergies Allergy Verified 01/25/18 17:00 Physical Exam Vitals: Vital Signs Temp Pulse Pulse Resp BP BP Pulse Ox 01/26/18 11:46 91 18 01/26/18 10:48 68 01/26/18 10:37 64 01/26/18 08:00 98.1 F 91 18 107/69 98 01/26/18 03:25 97.4 F L 61 18 155/65 94 L 01/25/18 23:45 97.4 F L 65 18 125/55 94 L 01/25/18 22:22 98.2 F 56 L 20 133/60 93 L 01/25/18 21:48 98.4 F 69 20 120/72 94 L 01/25/18 21:01 71 16 90 L 01/25/18 19:00 98.5 F 74 18 109/73 94 L 01/25/18 18:38 95 20 147/70 88 L 01/25/18 18:05 79 18 101/58 90 L 01/25/18 17:15 110 H 20 90/65 87 L 01/25/18 16:17 98.4 F 120 H 22 122/74 84 L Intake and Output 01/25/18 01/26/18 01/26/18 22:59 06:59 14:59 Intake Total 180 Balance 180 Intake: Oral 180 Other: Voiding Method Urinal Urinal # Voids 0 1 Weight 60 kg 60.3 kg GENERAL EXAM: Alert, active, comfortable in no apparent distress. HEAD: Normocephalic. EYES: Normal reaction of pupils, equal size. NOSE: Clear with pink turbinates. THROAT: No erythema or exudates. NECK: No masses, + JVD. CHEST: No chest wall deformity. LUNGS: Lungs noted to be coarse rhonchi throughout with some expiratory wheezing , some basilar crackles. CVS: S1 and S2 normal with no audible mumurs, A. fib ABDOMEN: No hepatosplenomegaly, normal bowel sounds, no guarding or rigidity. EXTREMITIES: trace edema noted, pedal pulses palpable. CENTRAL NERVOUS SYSTEM: No focal deficits, tone is normal in all 4 extremities. Results - Laboratory Findings CBC and BMP: 01/25/18 16:41 01/25/18 16:41 PT/INR, D-dimer PT 11.0 sec (9.0-12.0) 01/25/18 16:41 INR 1.1 (<1.2) 01/25/18 16:41 Abnormal lab findings: Abnormal Labs 01/25/18 01/25/18 01/25/18 16:41 16:41 16:41 WBC 11.0 H Plt Count 113 L Neutrophils # 9.6 H Lymphocytes # 0.5 L Sodium 133 L Chloride 97 L BUN 26 H Total Bilirubin 1.5 H Alkaline Phosphatase 147 H CK-MB (CK-2) 2.9 H* - Diagnostic Findings Chest x-ray: report reviewed, image reviewed CT scan - chest: report reviewed, image reviewed Assessment and Plan Assessment: Assessment Atrial fibrillation Acute on chronic hypoxic respiratory failure requiring supplemental oxygen Pneumonia Tracheobronchitis Acute exacerbation of COPD CAD Hypertension Hyperlipidemia Plan Medications have been reviewed and will be continued as ordered. Antibiotics and steroids. Cardio on consult as well Obtain sputum culture Mucinex Encourage IS and flutter valve Continue with pulmonary hygiene, coughing and deep breathing exercises, and supportive care. Supplemental oxygen to maintain oxygen saturations of 92% or better. Continue nebulizer treatments. GI and DVT prophylaxis. We will continue to monitor labs/results and adjust treatment as necessary. Further recommendations pending. I performed an examination of the patient and discussed their management with the nurse practitioner. I have reviewed the nurse practitioner's note and agree with the documented findings and plan of care.
[2018-01-26] MEDS: INSULIN ASPART 100 UNIT/ML 1 ML 10 ML VIAL SQ SCH ×3 (15:17→21:32)
[2018-01-26] MEDS: AZITHROMYCIN 500 MG in DEXTROSE 5% IN WATER 250 ML IVPB SCH ×2 (15:27)
[2018-01-26] MEDS: HYDROcodone/APAP 5-325MG 1 EACH TAB PO PRN (15:28)
[2018-01-26] MEDS: cefTRIAXone IN SWFI 1,000 MG/10 ML SYRINGE IVP SCH (15:28)
[2018-01-26] MEDS: guaiFENesin 600 MG TABLET.ER PO SCH ×2 (15:29→21:36)
[2018-01-26 16:47] LABS: Glucose,Whole Blood 135 mg/dL (75-99)
[2018-01-26] MEDS: BUDESONIDE 1 MG/2 ML NEBU INHALATION SCH (19:03)
[2018-01-26 20:31] LABS: Glucose,Whole Blood 176 mg/dL (75-99)
[2018-01-26] MEDS: ATORVASTATIN 40 MG TAB PO SCH (21:32)
[2018-01-26] MEDS: MONTELUKAST 10 MG TAB PO SCH (21:37)
[2018-01-27] MEDS: methylPREDNISolone SOD SUCCI 125 MG/2 ML VIAL IV SCH (05:39)
[2018-01-27 06:24] LABS: Basophils % (A) 0 %; Eosinophils % (A) 0 %; HCT 45.1 % (39.0-53.0); Lymphocytes # (A) 0.8 k/uL (1.0-4.8); Lymphocytes % (A) 8 %; MCH 32.2 pg (25.0-35.0); MCHC 33.3 g/dL (31.0-37.0); MCV 96.7 fL (80.0-100.0); Mean Platelet Volume 9.1; Monocytes # (A) 0.4 k/uL (0-1.0); Monocytes % (A) 4 %; Neutrophils # (A) 8.5 k/uL (1.3-7.7); Neutrophils % (A) 88 %; Platelet Count 106 k/uL (150-450); RBC 4.66 m/uL (4.30-5.90); WBC 9.7 k/uL (3.8-10.6)
[2018-01-27 06:35] LABS: Glucose,Whole Blood 180 mg/dL (75-99)
[2018-01-27 06:35] LABS: Albumin 3.5 g/dL (3.5-5.0); Calcium 8.9 mg/dL (8.4-10.2); Total Bilirubin 1.1 mg/dL (0.2-1.3)
[2018-01-27] MEDS: INSULIN ASPART 100 UNIT/ML 1 ML 10 ML VIAL SQ SCH ×4 (06:44→21:40)
[2018-01-27] MEDS: FAMOTIDINE 20 MG TAB PO SCH (08:13)
[2018-01-27] MEDS: MAGNESIUM OXIDE 400 MG TAB PO SCH (08:13)
[2018-01-27] MEDS: ASPIRIN 81 MG PO SCH (08:13)
[2018-01-27] MEDS: METOPROLOL TARTRATE 25 MG TAB PO SCH ×2 (08:13→20:09)
[2018-01-27] MEDS: FUROSEMIDE 20 MG TAB PO SCH (08:13)
[2018-01-27] MEDS: guaiFENesin 600 MG TABLET.ER PO SCH ×2 (08:13→20:09)
[2018-01-27] MEDS: CHOLECALCIFEROL 1,000 UNIT TAB PO SCH (08:14)
[2018-01-27] MEDS: cefTRIAXone IN SWFI 1,000 MG/10 ML SYRINGE IVP SCH (08:14)
[2018-01-27] MEDS: HEPARIN SODIUM,PORCINE 5,000 UNIT/ML 1 ML VIAL SQ SCH ×3 (08:14→23:58)
[2018-01-27] MEDS: IPRATROPIUM-ALBUTEROL 3 ML NEB INHALATION SCH ×4 (08:28→18:57)
[2018-01-27] MEDS: BUDESONIDE 1 MG/2 ML NEBU INHALATION SCH ×2 (08:28→18:57)
[2018-01-27] MEDS ORDERED: FAMOTIDINE 20 MG TAB PO SCH (09:00)
[2018-01-27] MEDS: AZITHROMYCIN 500 MG in DEXTROSE 5% IN WATER 250 ML IVPB SCH ×2 (09:35)
--- NOTE | 2018-01-27 10:53 | P.PN ---
Subjective Progress Note Date: 01/27/18 77-year-old male one of Dr. Erasmo Mary's patient who was Dr. Hagan patient at cardiology as well was known to have history of coronary artery disease, post [place] in the past post CABG and angioplasty who is also known to have history of mitral valve disease and aortic aneurysm postrepair. Patient also had paroxysmal atrophy fibrillation on and off has been treated medically he is not on any anticoagulation 4. History of bleeding and full discussion with Dr. Hagan in Dr. Mary about the comorbidity not been on anticoagulation. Patient apparently developed to have worsening symptom over the last 48 hours with significant shortness of breath, not been able to ambulate and walk and developed to have mild tightness and pressure with palpitation. Apparently had seen Dr. Childers and Dr. Mary in the past month for his current medical problem no major abnormality of A. fib with RVR was found at the time of infection. Patient presented to the emergency department at [facility] with above problem. Chest x-ray and CAT scan of the chest showed right middle lobe pneumonia, EKG and heart monitor shows A. fib with RVR. Patient also had a right bundle-branch block with nonspecific ST elevation. Patient also mildly marginal white blood cell elevation troponin was normal. Patient was started on antibiotics and started on Cardizem drip initially pulse rate become slow he will be back on his oral metoprolol and further discussion with cardiology for further management whether benefit from increasing the metoprolol or add Cardizem or not will be up to cardiology. 01/27: Patient has been seen by cardiology, Cardizem drip discontinued as heart rate was low and patient was recommended to continue metoprolol. Anticoagulation has been contraindicated because of history of GI bleeding. Pulmonary medicine is following for COPD exacerbation and pneumonia. Pulse ox is 95% on 2 L nasal cannula. Patient is on home O2 at 2 L nasal cannula. He states he has had a little bit of blood in his sputum. His white count is now down to 9.7. Breathing is improving and we'll change Solu-Medrol down to 40 mg every 12 hours. Objective - Vital Signs Vital signs: Vital Signs Temp 97.7 F 01/27/18 04:00 Pulse 67 01/27/18 04:00 Resp 18 01/27/18 04:00 BP 137/72 01/27/18 04:00 Pulse Ox 95 01/27/18 04:00 Intake & Output 01/26/18 01/27/18 01/27/18 18:59 06:59 18:59 Intake Total 600 480 Output Total 600 Balance 0 480 Weight 60.5 kg Intake: Oral 600 480 Output: Urine 600 Other: Voiding Method Urinal Toilet Urinal # Voids 2 - Exam General Appearance: Alert, cooperative, no distress, appears stated age. Neck HEENT: Supple, no lymphadenopathy, no thyroid enlargement, no carotid bruits. Lungs: Decreased breaths in bilaterally with fine rhonchi positive mild expiratory wheezes in both side with more crackles in the right middle and lower side than the left side. Chest Wall: Chest wall normal expansion with deep inspiration no tenderness and no deformity was found on exam, no costochondral pain or discomfort. Heart: Irregular rhythm and rate S1-S2 positive S3 positive JVD positive mitral valve click with systolic murmur. Back: Symmetric, no curvature, ROM normal, no CVA tenderness. Abdomen: Soft, non-tender, bowel sounds active all four quadrants, no masses, no organomegaly. Extremities: Trace edema, decreased pulse in the dorsalis pedis and posterior tibial. Pulses: 2+ and symmetric. Skin: Skin color, texture, tugor normal, no rashes or lesions. Neurologic: Alert oriented x3 cranial nerves II through XII intact, no motor deficit, no abnormal balance or gait. - Labs CBC & Chem 7: 01/27/18 05:51 01/27/18 05:51 Labs: Abnormal Lab Results - Last 24 Hours (Table) 01/26/18 01/26/18 01/27/18 Range/Units 16:41 20:28 05:51 Plt Count 106 L (150-450) k/uL Neutrophils # 8.5 H (1.3-7.7) k/uL Lymphocytes # 0.8 L (1.0-4.8) k/uL Sodium (137-145) mmol/L BUN (9-20) mg/dL Glucose (74-99) mg/dL POC Glucose (mg/dL) 135 H 176 H (75-99) mg/dL Total Protein (6.3-8.2) g/dL 01/27/18 01/27/18 Range/Units 05:51 06:31 Plt Count (150-450) k/uL Neutrophils # (1.3-7.7) k/uL Lymphocytes # (1.0-4.8) k/uL Sodium 133 L (137-145) mmol/L BUN 26 H (9-20) mg/dL Glucose 119 H (74-99) mg/dL POC Glucose (mg/dL) 180 H (75-99) mg/dL Total Protein 6.0 L (6.3-8.2) g/dL Assessment and Plan Plan: 1. Acute on chronic hypoxic respiratory failure requiring increased oxygen needs with known home O2 at 2 L nasal cannula secondary to a combination of A. fib with RVR, COPD exacerbation, and right middle lobe pneumonia. Consult with cardiology and pulmonary medicine appreciated. 2 A. fib with RVR: Most likely brought by the hypoxia caused by the pneumonia and COPD with underlying paroxysmal atrial fibrillation. Continue Lopressor 25 mg twice daily. Patient has not been a candidate for anticoagulation due to history of GI bleed. Cardiology consult is appreciated. 3 COPD exacerbation: Patient is seen Dr. Childers. Pulmonary consult is appreciated. Continue DuoNeb treatments 4 times daily, Pulmicort 1 mg twice daily, azithromycin and Rocephin, Solu-Medrol decreased to 40 mg every 12 hours 4 right middle lobe pneumonia: Continue azathioprine mycin and ceftriaxone. 5 CAD: Post CABG and angioplasty, had been seeing cardiology regular basis. 6 history of GI bleed: With no sign of anemia or bleeding lately patient is still insists not been on any anticoagulation. 7 hyperlipidemia: Remain on Lipitor 40 mg a day. 8 hypertension: Still on metoprolol if needed smaller dose of abdias inhibitor can be beneficial. 9 chronic pain syndrome: Has been on hydrocodone 5/325 mg every 6 hours as needed. 10 GI prophylaxis: Patient will be on Pepcid 20 mg daily switch him back to his ranitidine when he leaves the hospital. 11 DVT prophylaxis: Patient cannot be on any anticoagulation will continue Venodyne boots and knee-high DOUGIE hose, early mobilization and watch for any symptoms. CODE STATUS: Full code. Discharge plan: Return home dose likely tomorrow Impression and plan of care have been directed as dictated by the signing physician. Maylin Arcos nurse practitioner acting as scribe for signing physician.
[2018-01-27 11:48] LABS: Glucose,Whole Blood 153 mg/dL (75-99)
--- NOTE | 2018-01-27 13:15 | PN ---
PROGRESS NOTE DATE OF SERVICE: 01/27/2018 He was seen again on January2017. He has been hemodynamically stable. He has been having some hemoptysis, but this is quite minimal at this time. PHYSICAL EXAMINATION: His respiratory rate is 18, pulse rate 96, temperature 98.8, blood pressure 108/62, O2 saturation on 2 L by nasal cannula is 94%. HEENT: Unremarkable. Chest reveals occasional rhonchi. Cardiovascular system is S1, S2. ABDOMEN: Soft. There is no pedal edema. LABS: Reviewed. Medications were reviewed. IMPRESSION: 1. Atrial fibrillation. 2. Acute on chronic respiratory failure. 3. Chronic obstructive pulmonary disease with exacerbation. 4. Hemoptysis, most likely secondary to chronic obstructive pulmonary disease. 5. Pneumonia in the right middle zone, which is new and may be due to aspiration etiology because of its location. Would continue current antibiotics as he is improving. Continue IV steroids as this may help decrease inflammatory status of the airways. May require a repeat CT scan if he continues to bleed. We will follow him closely during his hospital stay. MMBABARL / IJN: [id number] /
--- NOTE | 2018-01-27 13:40 | P.PN ---
Subjective Progress Note Date: 01/27/18 This is a 77 year old gentleman who follows regularly with Dr. Hagan in the office, he has a previous medical history significant for hypertension, coronary artery disease with prior myocardial infarction, prior bypass surgery with the patient underwent a reverse saphenous vein graft to the LAD, intermediate branch, and RCA, along with a #31. Mitral valve ring, history of aortic aneurysm status post repair, history of paroxysmal atrial fibrillation, patient is not on anticoagulation, he does have history of prior bleeding ulcers , and states that he does not want to be on blood thinners although Dr. Hagan has discussed this with him on several different occasions. History also of COPD with home O2 use. He presents to the hospital on this occasion with symptoms of progressively worsening shortness of breath. Initial chest x-ray on arrival here showed interstitial lower lobe pulmonary infiltrates increased as compared with prior exam. CTA of the chest was performed which did not reveal any evidence of pulmonary embolism. It did show pulmonary emphysema and clearing of pleural effusions as compared with prior exam. There is a new right middle lobe consolidation noted. Pulmonary fibrosis. EKG on arrival here showed atrial fibrillation with a rapid ventricular response, right bundle branch block pattern and nonspecific ST-T wave changes. White blood cell count is normal, hemoglobin 16.4, platelet count 113. Sodium 133, potassium 4.3, BUN 26, creatinine 1.1, troponin 0.107. At the time of my examination this morning , patient states his breathing is short but normal for him according to the patient. 01/27/2018 Patient seen and examined this morning, coughing up blood-tinged sputum today. Continues to be in atrial fibrillation with a heart rate in the 60s. Blood pressure 124/50. Hemoglobin stable, platelet count 106. Sodium 133, potassium 5.0, BUN 26, creatinine 1.1. Objective - Vital Signs Vital signs: Vital Signs Temp 98.8 F 01/27/18 08:00 Pulse 66 01/27/18 12:04 Resp 18 01/27/18 12:00 BP 124/55 01/27/18 12:00 Pulse Ox 96 01/27/18 12:00 Intake & Output 01/26/18 01/27/18 01/27/18 18:59 06:59 18:59 Intake Total 600 480 615 Output Total 600 450 Balance 0 480 165 Weight 60.5 kg Intake: Intake, IV Titration 255 Amount Azithromycin 500 mg In 250 Dextrose 5% in Water 250 ml @ 125 mls/hr IVPB DAILY ELOISE Rx#:[id number] cefTRIAXone 1,000 mg In 5 Sodium Chloride 0.9% 50 ml @ 100 mls/hr IVPB Q24HR ELOISE Rx#:[id number] Oral 600 480 360 Output: Urine 600 450 Other: Voiding Method Urinal Toilet Urinal # Voids 2 - Exam PHYSICAL EXAMINATION: 77-year-old gentleman in no apparent distress at the time of my examination HEENT: Head is atraumatic, normocephalic. Pupils equal, round. Neck is supple. There is no elevated jugular venous pressure. HEART EXAMINATION: Heart S1 and S2 irregular irregular a systolic murmur is heard CHEST EXAMINATION: Lungs are clear to auscultation and precussion. No chest wall tenderness is noted on palpation or with deep breathing. ABDOMEN: Soft, nontender. Bowel sounds are heard. No organomegaly noted. EXTREMITIES: 1+ peripheral pulses with no evidence of peripheral edema and no calf tenderness noted. NEUROLOGIC patient is awake, alert and oriented -3. - Labs CBC & Chem 7: 01/27/18 05:51 01/27/18 05:51 Labs: Abnormal Lab Results - Last 24 Hours (Table) 01/26/18 01/26/18 01/27/18 Range/Units 16:41 20:28 05:51 Plt Count 106 L (150-450) k/uL Neutrophils # 8.5 H (1.3-7.7) k/uL Lymphocytes # 0.8 L (1.0-4.8) k/uL Sodium (137-145) mmol/L BUN (9-20) mg/dL Glucose (74-99) mg/dL POC Glucose (mg/dL) 135 H 176 H (75-99) mg/dL Total Protein (6.3-8.2) g/dL 01/27/18 01/27/18 01/27/18 Range/Units 05:51 06:31 11:35 Plt Count (150-450) k/uL Neutrophils # (1.3-7.7) k/uL Lymphocytes # (1.0-4.8) k/uL Sodium 133 L (137-145) mmol/L BUN 26 H (9-20) mg/dL Glucose 119 H (74-99) mg/dL POC Glucose (mg/dL) 180 H 153 H (75-99) mg/dL Total Protein 6.0 L (6.3-8.2) g/dL Microbiology - Last 24 Hours (Table) 01/26/18 15:38 Gram Stain - Preliminary Sputum Sputum Culture - Preliminary Assessment and Plan Plan: Assessment and plan #1 atrial fibrillation, paroxysmal #2 history of upper GI bleed #3 coronary artery disease with prior bypass surgery #4 history of mitral valve ring #5 history of AAA #6 hyperlipidemia #7 COPD with home O2 use #8 evidence of pneumonia on chest x-ray Plan From cardiology's perspective, we will recommend to continue the patient on his current medications. DNP note has been reviewed, I agree with a documented findings and plan of care. Patient was seen and examined.
[2018-01-27 17:00] LABS: Glucose,Whole Blood 112 mg/dL (75-99)
[2018-01-27] MEDS: methylPREDNISolone SOD SUCCI 40 MG/ML 1 ML VIAL IV SCH (17:21)
[2018-01-27] MEDS: ATORVASTATIN 40 MG TAB PO SCH (20:09)
[2018-01-27] MEDS: MONTELUKAST 10 MG TAB PO SCH (20:09)
[2018-01-27 20:53] LABS: Glucose,Whole Blood 167 mg/dL (75-99)
[2018-01-28 03:52] VITALS: RESP 18
[2018-01-28] MEDS: methylPREDNISolone SOD SUCCI 40 MG/ML 1 ML VIAL IV SCH (06:08)
[2018-01-28 06:14] LABS: Glucose,Whole Blood 118 mg/dL (75-99)
[2018-01-28] MEDS: INSULIN ASPART 100 UNIT/ML 1 ML 10 ML VIAL SQ SCH ×2 (06:15→12:00)
[2018-01-28] MEDS: IPRATROPIUM-ALBUTEROL 3 ML NEB INHALATION SCH ×2 (07:33→11:07)
[2018-01-28] MEDS: BUDESONIDE 1 MG/2 ML NEBU INHALATION SCH (07:33)
[2018-01-28] MEDS: guaiFENesin 600 MG TABLET.ER PO SCH (08:20)
[2018-01-28] MEDS: HEPARIN SODIUM,PORCINE 5,000 UNIT/ML 1 ML VIAL SQ SCH (08:20)
[2018-01-28] MEDS: ASPIRIN 81 MG PO SCH (08:20)
[2018-01-28] MEDS: CHOLECALCIFEROL 1,000 UNIT TAB PO SCH (08:20)
[2018-01-28] MEDS: MAGNESIUM OXIDE 400 MG TAB PO SCH (08:20)
[2018-01-28] MEDS: METOPROLOL TARTRATE 25 MG TAB PO SCH (08:20)
[2018-01-28] MEDS: FAMOTIDINE 20 MG TAB PO SCH (08:20)
[2018-01-28] MEDS: AZITHROMYCIN 500 MG in DEXTROSE 5% IN WATER 250 ML IVPB SCH ×2 (08:21)
[2018-01-28] MEDS: cefTRIAXone IN SWFI 1,000 MG/10 ML SYRINGE IVP SCH (08:21)
[2018-01-28] MEDS: FUROSEMIDE 20 MG TAB PO SCH (08:21)
[2018-01-28 08:33] VITALS: BP 119/70; TEMP 97.5
[2018-01-28] MEDS: HYDROcodone/APAP 5-325MG 1 EACH TAB PO PRN (08:36)
--- NOTE | 2018-01-28 10:44 | P.DS ---
Providers Date of admission: 01/25/18 19:47 Expected date of discharge: 01/28/18 Attending physician: Farhad Grullon Consults: 01/25/18 22:16 Consult Physician Routine Consulting Provider: Adebayo Coto Consult Reason/Comments: afib w rvr Do you want consulting provider notified?: Yes, Notify in am 01/26/18 10:07 Consult Physician Routine Consulting Provider: Hermelindo Childers Consult Reason/Comments: copd Do you want consulting provider notified?: Yes Primary care physician: Erasmo [facility] [place] [facility] Course: 77-year-old male one of Dr. Erasmo Mary's patient who was Dr. Hagan patient at cardiology as well was known to have history of coronary artery disease, post [place] in the past post CABG and angioplasty who is also known to have history of mitral valve disease and aortic aneurysm postrepair. Patient also had paroxysmal atrophy fibrillation on and off has been treated medically he is not on any anticoagulation 4. History of bleeding and full discussion with Dr. Hagan in Dr. Mary about the comorbidity not been on anticoagulation. Patient apparently developed to have worsening symptom over the last 48 hours with significant shortness of breath, not been able to ambulate and walk and developed to have mild tightness and pressure with palpitation. Apparently had seen Dr. Childers and Dr. Mary in the past month for his current medical problem no major abnormality of A. fib with RVR was found at the time of infection. Patient presented to the emergency department at [facility] with above problem. Chest x-ray and CAT scan of the chest showed right middle lobe pneumonia, EKG and heart monitor shows A. fib with RVR. Patient also had a right bundle-branch block with nonspecific ST elevation. Patient also mildly marginal white blood cell elevation troponin was normal. Patient was started on antibiotics and started on Cardizem drip initially pulse rate become slow he will be back on his oral metoprolol and further discussion with cardiology for further management whether benefit from increasing the metoprolol or add Cardizem or not will be up to cardiology. 01/27: Patient has been seen by cardiology, Cardizem drip discontinued as heart rate was low and patient was recommended to continue metoprolol. Anticoagulation has been contraindicated because of history of GI bleeding. Pulmonary medicine is following for COPD exacerbation and pneumonia. Pulse ox is 95% on 2 L nasal cannula. Patient is on home O2 at 2 L nasal cannula. He states he has had a little bit of blood in his sputum. His white count is now down to 9.7. Breathing is improving and we'll change Solu-Medrol down to 40 mg every 12 hours. 01/28: has been afebrile. Pulse ox is 95-98% on 2 L nasal cannula. Sputum cultures in progress. Patient states that his breathing is much improved. Heart rate is currently controlled in the 60s and 70s. Patient will be discharged home today in stable condition. Discharge diagnoses: 1. Acute on chronic hypoxic respiratory failure requiring increased oxygen needs with known home O2 at 2 L nasal cannula secondary to a combination of A. fib with RVR, COPD exacerbation, and right middle lobe pneumonia. 2 A. fib with RVR: Most likely brought on by hypoxia caused by the pneumonia and COPD with underlying paroxysmal atrial fibrillation. 3 COPD exacerbation 4 right middle lobe pneumonia 5 CAD: Post CABG and angioplasty 6 history of GI bleed: With no sign of anemia or bleeding 7 hyperlipidemia 8 hypertension 9 chronic pain syndrome Discharge plan: Return home Impression and plan of care have been directed as dictated by the signing physician. Maylin Arcos nurse practitioner acting as scribe for signing physician. Patient Condition at Discharge: Good Plan - Discharge Summary New Discharge Prescriptions: New guaiFENesin [Mucinex] 1,200 mg PO Q12HR tablet.er Azithromycin [Zithromax] 500 mg PO DAILY #7 tab Continue Ipratropium/Albuterol Sulfate [Duoneb 0.5 mg-3 mg/3 ml Soln] 3 ml INHALATION RT-QID Ranitidine HCl [Zantac] 300 mg PO DAILY Montelukast [Singulair] 10 mg PO HS Atorvastatin [Lipitor] 40 mg PO HS Metoprolol Tartrate [Lopressor] 25 mg PO BID #60 tab Aspirin EC [Ecotrin Low Dose] 81 mg PO DAILY #30 tablet.dr Magnesium 200 mg PO DAILY Furosemide [Lasix] 20 mg PO DAILY Cholecalciferol [Vitamin D3] 1,000 unit PO DAILY Budesonide [Pulmicort] 1 mg INHALATION RT-BID HYDROcodone/APAP 5-325MG [[place] 5-325] 1 tab PO DAILY PRN PRN Reason: Pain Discharge Medication List Ipratropium/Albuterol Sulfate [Duoneb 0.5 mg-3 mg/3 ml Soln] 3 ml INHALATION RT- QID 11/13/13 [History] Montelukast [Singulair] 10 mg PO HS 11/13/13 [History] Ranitidine HCl [Zantac] 300 mg PO DAILY 11/13/13 [History] Atorvastatin [Lipitor] 40 mg PO HS 08/14/14 [History] Aspirin EC [Ecotrin Low Dose] 81 mg PO DAILY #30 tablet.dr 08/19/14 [Rx] Metoprolol Tartrate [Lopressor] 25 mg PO BID #60 tab 08/19/14 [Rx] Budesonide [Pulmicort] 1 mg INHALATION RT-BID 01/25/18 [History] Cholecalciferol [Vitamin D3] 1,000 unit PO DAILY 01/25/18 [History] Furosemide [Lasix] 20 mg PO DAILY 01/25/18 [History] HYDROcodone/APAP 5-325MG [[place] 5-325] 1 tab PO DAILY PRN 01/25/18 [History] Magnesium 200 mg PO DAILY 01/25/18 [History] Azithromycin [Zithromax] 500 mg PO DAILY #7 tab 01/28/18 [Rx] guaiFENesin [Mucinex] 1,200 mg PO Q12HR tablet.er 01/28/18 [Rx] Follow up Appointment(s)/Referral(s): Jaxon Hagan MD [STAFF PHYSICIAN] - 2 Weeks Hermelindo Childers MD [STAFF PHYSICIAN] - 1 Week Erasmo Mary MD [Primary Care Provider] - 1 Week Discharge Disposition: HOME SELF-CARE
[2018-01-28 11:20] VITALS: PULSE 85
[2018-01-28 12:16] LABS: Glucose,Whole Blood 93 mg/dL (75-99)
--- NOTE | 2018-01-28 13:34 | PN ---
PROGRESS NOTE DATE OF SERVICE: January 28, 2018. He is hemodynamically stable. He has less hemoptysis. On physical examination, vital signs are stable. He is afebrile. His chest reveals faint expiratory wheeze. Cardiovascular system is S1, S2. Abdomen is soft. There is no pedal edema. LABS: Labs and medications were reviewed. CT scan of the chest was personally reviewed by me and the airway was reconstructed using virtual bronchoscopy software and failed to show any endobronchial lesions. IMPRESSION: At this time: 1. Hemoptysis, most likely secondary to airway inflammation. 2. Atrial fibrillation with RVR. 3. Pneumonia. Continue current medications. Increase his activity level. His prognosis is fair. MMODL / IJN: [id number] /
--- NOTE | 2018-01-28 13:43 | PN ---
PROGRESS NOTE Mr. Ac is a 77-year-old male with known history of coronary artery disease, history of atrial fibrillation, history of chronic obstructive lung disease, who presented with symptoms of progressive dyspnea. He has chronic atrial fibrillation, but has declined anticoagulation. He is status post mitral valve surgery. He is feeling well this morning. His is breathing stable. He has some cough with blood- tinged sputum, but better. He denies any dizziness or palpitations. He has been ambulating without difficulty. He continues to be at this time on aspirin 81 mg daily, Lipitor 40 mg daily, furosemide 20 mg daily, methylprednisone, metoprolol tartrate 25 mg twice a day. PHYSICAL EXAMINATION: Blood pressure 119/70 with a heart rate in the 60s. LUNGS: Clear. Heart irregularly irregular, S1, S2. No S3. No rub with a systolic murmur. ABDOMEN: Soft nontender. EXTREMITIES: No edema. IMPRESSION: 1. Atrial fibrillation, persistent. Patient has declined anticoagulation. 2. History of upper gastrointestinal bleeding. 3. Coronary artery disease status post coronary artery bypass grafting with mitral valve repair. 4. Prior history of abdominal aortic aneurysm repair. 5. History of chronic obstructive pulmonary disease. 6. Pneumonia on presentation. RECOMMENDATIONS: Patient is stable to be discharged home from the cardiac standpoint, and he will be followed as an outpatient. MMODL / IJN: [id number] /
== END 2018-01-28 14:25 | disposition home or self-care (01) | DRG 193 ==
LOC: EC 16:14 → 6SEL 19:47
PROVIDERS: ADMIT Internal Medicine Geriatric Medicine; ATTEND Internal Medicine Geriatric Medicine
DX: J18.9 Pneumonia, unspecified organism (principal); J96.21 Acute and chronic respiratory failure with hypoxia; J44.0 Chronic obstructive pulmonary disease with (acute) lower respiratory infection; J44.1 Chronic obstructive pulmonary disease with (acute) exacerbation; J90 Pleural effusion, not elsewhere classified; R04.2 Hemoptysis; E78.5 Hyperlipidemia, unspecified; G89.4 Chronic pain syndrome; I05.9 Rheumatic mitral valve disease, unspecified; I10 Essential (primary) hypertension; I25.10 Atherosclerotic heart disease of native coronary artery without angina pectoris; I25.2 Old myocardial infarction; I45.10 Unspecified right bundle-branch block; I48.2 Chronic atrial fibrillation; J84.10 Pulmonary fibrosis, unspecified; K21.9 Gastro-esophageal reflux disease without esophagitis; M19.042 Primary osteoarthritis, left hand; M19.041 Primary osteoarthritis, right hand; Z79.82 Long term (current) use of aspirin; Z79.899 Other long term (current) drug therapy; Z99.81 Dependence on supplemental oxygen; Z95.2 Presence of prosthetic heart valve; Z95.1 Presence of aortocoronary bypass graft; Z87.891 Personal history of nicotine dependence; Z86.79 Personal history of other diseases of the circulatory system; Z85.828 Personal history of other malignant neoplasm of skin; Z87.01 Personal history of pneumonia (recurrent); Z98.42 Cataract extraction status, left eye; Z98.41 Cataract extraction status, right eye; Z96.1 Presence of intraocular lens; Z87.11 Personal history of peptic ulcer disease; Z82.49 Family history of ischemic heart disease and other diseases of the circulatory system
CPT/HCPCS: 36415; 71046; 71275; 80053; 82550; 82553; 83036; 84484; 85025; 85610; 85730; 87070; 87205; 93005; 94640; 94667; 96365; 96366; 96368; 96375; 96376; 99285

== ENCOUNTER 2019-05-10 02:07 | Inpatient (IN) | payer MEDICARE ==
--- NOTE | 2019-05-10 02:17 | ED ---
SOB HPI - General Chief Complaint: Shortness of Breath Stated Complaint: JAMES Time Seen by Provider: 05/10/19 02:15 Source: patient, EMS Mode of arrival: EMS Limitations: no limitations - History of Present Illness Initial Comments: Grant is a 79-year-old gentleman with past medical history of coronary artery disease, CHF, A. fib for which he is not on anticoagulation, COPD oxygen dependent at 2-3 L at baseline. Patient presents the emergency department today for evaluation of progressively worsening shortness of breath. Patient reports over the past week he's had nonproductive cough, he's been using 60 breathing treatments a day, he feels short of breath. He denies any chest pain though does report palpitations especially after breathing treatments. Patient denies any recent fevers chills nausea or vomiting. Patient reports he went to his primary care office to get a flu shot however there was a long wait and he decided not to therefore he hasn't had a flu shot yet this season. - Related Data Home Medications Medication Instructions Recorded Confirmed Ipratropium/Albuterol Sulfate 3 ml INHALATION RT-QID 11/13/13 05/10/19 [Duoneb 0.5 mg-3 mg/3 ml Soln] Montelukast [Singulair] 10 mg PO HS 11/13/13 05/10/19 Ranitidine HCl [Zantac] 300 mg PO DAILY 11/13/13 05/10/19 Atorvastatin [Lipitor] 40 mg PO HS 08/14/14 05/10/19 Budesonide [Pulmicort] 1 mg INHALATION RT-BID 01/25/18 05/10/19 Cholecalciferol [Vitamin D3 (25 1,000 unit PO DAILY 01/25/18 05/10/19 Mcg = 1000 Iu)] Furosemide [Lasix] 20 mg PO DAILY 01/25/18 05/10/19 HYDROcodone/APAP 5-325MG [[place] 1 tab PO DAILY PRN 01/25/18 05/10/19 5-325] Magnesium 200 mg PO DAILY 01/25/18 05/10/19 Potassium Chloride [Klor-Con 10] 10 meq PO DAILY 05/10/19 05/10/19 Previous Rx's Medication Instructions Recorded Aspirin EC [Ecotrin Low Dose] 81 mg PO DAILY #30 tablet. 08/19/14 Metoprolol Tartrate [Lopressor] 25 mg PO BID #60 tab 08/19/14 Allergies Allergy/AdvReac Type Severity Reaction Status Date / Time prednisone AdvReac Unknown Verified 05/10/19 02:23 Review of Systems ROS Statement: Those systems with pertinent positive or pertinent negative responses have been documented in the HPI. ROS Other: All systems not noted in ROS Statement are negative. Past Medical History Past Medical History: Atrial Fibrillation, Asthma, Coronary Artery Disease (CAD), Cancer, COPD, GERD/Reflux, GI Bleed, Hyperlipidemia, Hypertension, Myocardial Infarction (NC), Osteoarthritis (OA), Pneumonia Additional Past Medical History / Comment(s): Other HX: Home O2 at 2L/NC. GI bleed 2010 from duodenal ulcer, MONO when a child, shingelles as a child, SKIN CANCER, OA bilateral hands, L leg vein graft site got infected. Last Myocardial Infarction Date:: unknown History of Any Multi-Drug Resistant Organisms: None Reported Past Surgical History: Cardiac Valve Replacement, Coronary Bypass/CABG, Heart Catheterization, Tonsillectomy Additional Past Surgical History / Comment(s): 2010 AORTIC ANEURYSM REPAIR, 1993 cardiac angioplasty, 2011 CABG with mitral vavle replacement with #30 [place] mitral ring and triple bypass with reverse saphenous venous graft to the LAD, RCA, intermediate branch,, EGD, colonoscopy, bilateral cataract removal, right carpal tunnel release, bilateral inguinal hernia repair, bilateral facial cyst removed, aortobifemoral bypass, bilateral profundoplasty. Past Anesthesia/Blood Transfusion Reactions: No Reported Reaction Additional Past Anesthesia/Blood Transfusion Reaction / Comment(s): Pt has had blood transfusion without reaction. Past Psychological History: No Psychological Hx Reported Smoking Status: Former smoker Past Alcohol Use History: Daily Past Drug Use History: None Reported - Past Family History Mother Family Medical History: Coronary Artery Disease (CAD) Additional Family Medical History / Comment(s): Mother had pacemaker. She at age 77yrs. Father Family Medical History: Coronary Artery Disease (CAD) Additional Family Medical History / Comment(s): Father at age 60 yrs after having Flu. Brother(s) Family Medical History: Vascular Disorder Additional Family Medical History / Comment(s): Brother of ruptured abdominal aortic anuerysm at age 64 yrs. General Exam - General Exam Comments Initial Comments: Physical Exam GENERAL: Elderly, chronically ill-appearing HENT: Normocephalic, Atraumatic. EYES: PERRL, EOMI PULMONARY: Mild expiratory wheezing CARDIOVASCULAR: Irregularly irregular, tachycardic, warm and well perfused extremities ABDOMEN: Soft and nontender with normal bowel sounds. SKIN: Skin is clear with no lesions or rashes and otherwise unremarkable. : Deferred NEUROLOGIC: Patient is alert and oriented x3. Moving all extremities spontaneously MUSCULOSKELETAL: Normal extremities with adequate strength and full range of motion. No lower extremity swelling or edema. No calf tenderness. PSYCHIATRIC: Normal psychiatric evaluation. Limitations: no limitations Course Vital Signs 05/10/19 02:09 Temperature 98 F Pulse Rate 120 H Respiratory 23 Rate Blood Pressure 114/88 O2 Sat by Pulse 90 L Oximetry Medical Decision Making - Medical Decision Making The patient was seen and evaluated, history is obtained from the patient and review of medical record EKG was obtained due to tachycardia, EKG was obtained at 2:11 AM, rate is 1:15 rhythm is narrow complex irregularly irregular tachycardia consistent with atrial fibrillation ER, there is a right bundle branch block. QRS is 134, QTC is 495. When this EKG was compared EKGs obtained in 2018 there is no significant change in the morphology. Labs and chest x-ray were ordered Chest x-ray was reviewed, the patient significantly rotated but there is no definitive consolidations, no pleural effusions, there is emphysematous changes Labs with elevated BNP consistent with heart failure, otherwise no emergent abnormalities In the patient's advanced age, multiple comorbidities, presentation with CHF, COPD A. fib with RVR in the setting of using additional reading treatments that he would patient would benefit from admission to the hospital [id number] steroids [id number] breathing treatments evaluation by cardiology and pulmonology. This plan was discussed with the admitting physician Dr. Ramirez who agrees. Admission orders were placed. - Lab Data Result diagrams: 05/10/19 02:18 05/10/19 02:18 Lab Results 05/10/19 05/10/19 05/10/19 Range/Units 02:18 02:18 02:18 WBC 11.2 H (3.8-10.6) k/uL RBC 5.40 (4.30-5.90) m/uL Hgb 16.9 (13.0-17.5) gm/dL Hct 51.4 (39.0-53.0) % MCV 95.1 (80.0-100.0) fL MCH 31.2 (25.0-35.0) pg MCHC 32.8 (31.0-37.0) g/dL RDW 14.0 (11.5-15.5) % Plt Count 107 L (150-450) k/uL Neutrophils % 88 % Lymphocytes % 3 % Monocytes % 4 % Eosinophils % 2 % Basophils % 3 % Neutrophils # 9.8 H (1.3-7.7) k/uL Lymphocytes # 0.4 L (1.0-4.8) k/uL Monocytes # 0.4 (0-1.0) k/uL Eosinophils # 0.2 (0-0.7) k/uL Basophils # 0.3 H (0-0.2) k/uL PT (9.0-12.0) sec INR (<1.2) APTT (22.0-30.0) sec Sodium 136 L (137-145) mmol/L Potassium 4.8 (3.5-5.1) mmol/L Chloride 100 (98-107) mmol/L Carbon Dioxide 27 (22-30) mmol/L Anion Gap 9 mmol/L BUN 15 (9-20) mg/dL Creatinine 0.98 (0.66-1.25) mg/dL Est GFR (CKD-EPI)AfAm 86 (>60 ml/min/1.73 sqM) Est GFR (CKD-EPI)NonAf 74 (>60 ml/min/1.73 sqM) Glucose 100 H (74-99) mg/dL Calcium 9.1 (8.4-10.2) mg/dL Magnesium 1.7 (1.6-2.3) mg/dL Total Bilirubin 1.3 (0.2-1.3) mg/dL AST 51 (17-59) U/L ALT 30 (21-72) U/L Alkaline Phosphatase 125 (38-126) U/L Troponin I (0.000-0.034) ng/mL NT-Pro-B Natriuret Pep 4390 pg/mL Total Protein 7.3 (6.3-8.2) g/dL Albumin 4.2 (3.5-5.0) g/dL 05/10/19 05/10/19 Range/Units 02:18 02:18 WBC (3.8-10.6) k/uL RBC (4.30-5.90) m/uL Hgb (13.0-17.5) gm/dL Hct (39.0-53.0) % MCV (80.0-100.0) fL MCH (25.0-35.0) pg MCHC (31.0-37.0) g/dL RDW (11.5-15.5) % Plt Count (150-450) k/uL Neutrophils % % Lymphocytes % % Monocytes % % Eosinophils % % Basophils % % Neutrophils # (1.3-7.7) k/uL Lymphocytes # (1.0-4.8) k/uL Monocytes # (0-1.0) k/uL Eosinophils # (0-0.7) k/uL Basophils # (0-0.2) k/uL PT 10.6 (9.0-12.0) sec INR 1.0 (<1.2) APTT 26.6 (22.0-30.0) sec Sodium (137-145) mmol/L Potassium (3.5-5.1) mmol/L Chloride (98-107) mmol/L Carbon Dioxide (22-30) mmol/L Anion Gap mmol/L BUN (9-20) mg/dL Creatinine (0.66-1.25) mg/dL Est GFR (CKD-EPI)AfAm (>60 ml/min/1.73 sqM) Est GFR (CKD-EPI)NonAf (>60 ml/min/1.73 sqM) Glucose (74-99) mg/dL Calcium (8.4-10.2) mg/dL Magnesium (1.6-2.3) mg/dL Total Bilirubin (0.2-1.3) mg/dL AST (17-59) U/L ALT (21-72) U/L Alkaline Phosphatase (38-126) U/L Troponin I 0.026 (0.000-0.034) ng/mL NT-Pro-B Natriuret Pep pg/mL Total Protein (6.3-8.2) g/dL Albumin (3.5-5.0) g/dL Disposition Clinical Impression: Congestive heart failure, Acute exacerbation of chronic obstructive pulmonary disease, Atrial fibrillation with RVR, Hx of CABG Disposition: ADMITTED IP TO THIS HOSP Condition: Serious Referrals: Erasmo Mary MD [Primary Care Provider] - 1-2 days
[2019-05-10] MEDS ORDERED: SODIUM CHLORIDE 0.9% 500 ML 500 ML IV STA (02:19)
[2019-05-10 02:30] LABS: Basophils # (A) 0.3 k/uL (0-0.2); Basophils % (A) 3 %; Eosinophils # (A) 0.2 k/uL (0-0.7); Eosinophils % (A) 2 %; HCT 51.4 % (39.0-53.0); HGB 16.9 gm/dL (13.0-17.5); Lymphocytes # (A) 0.4 k/uL (1.0-4.8); Lymphocytes % (A) 3 %; MCH 31.2 pg (25.0-35.0); MCHC 32.8 g/dL (31.0-37.0); MCV 95.1 fL (80.0-100.0); Mean Platelet Volume 8.9; Monocytes # (A) 0.4 k/uL (0-1.0); Monocytes % (A) 4 %; Neutrophils # (A) 9.8 k/uL (1.3-7.7); Neutrophils % (A) 88 %; Platelet Count 107 k/uL (150-450); WBC 11.2 k/uL (3.8-10.6)
[2019-05-10 02:40] LABS: Albumin 4.2 g/dL (3.5-5.0); Calcium 9.1 mg/dL (8.4-10.2); Magnesium 1.7 mg/dL (1.6-2.3); Partial Thromboplastin Time 26.6 sec (22.0-30.0); Prothrombin Time 10.6 sec (9.0-12.0); Total Bilirubin 1.3 mg/dL (0.2-1.3); Total Protein 7.3 g/dL (6.3-8.2)
--- NOTE | 2019-05-10 02:40 | XR ---
EXAMINATION TYPE: XR chest 2V DATE OF EXAM: 05/10/2019 COMPARISON: NONE HISTORY: Difficulty breathing TECHNIQUE: Frontal and lateral views of the chest are obtained. FINDINGS: There is coarsening of the mid and lower lobe lung markings. There are sternal wires. Ther e are chest leads. There is osteopenia. There is mild anterior wedging of mid thoracic vertebra. IMPRESSION: Pulmonary fibrotic changes. No obvious heart failure. There is probably some new mild at electasis right lower lobe compared to old exam. Stable multiple osteoporotic thoracic compression fr actures.
[2019-05-10 02:43] LABS: Potassium 4.8 mmol/L (3.5-5.1)
[2019-05-10] MEDS: FUROSEMIDE 10 MG/ML 4 ML VIAL IV SCH ×2 (03:54→15:06)
[2019-05-10 04:39] LABS: Glucose,Whole Blood 99 mg/dL (75-99)
[2019-05-10] MEDS: IPRATROPIUM-ALBUTEROL 3 ML NEB INHALATION SCH ×5 (05:21→19:53)
[2019-05-10] MEDS: METOPROLOL TARTRATE 25 MG TAB PO SCH ×2 (08:24→21:07)
[2019-05-10] MEDS ORDERED: HEPARIN SODIUM,PORCINE 5,000 UNIT/ML 1 ML VIAL SQ SCH (09:00)
[2019-05-10 10:15] VITALS: BMI 21.4
--- NOTE | 2019-05-10 10:34 | ECHOF ---
Referral Reason:acute chf MEASUREMENTS -------- HEIGHT: 162.6 cm WEIGHT: 56.7 kg BP: 119/85 RVIDd: 4.3 cm (< 3.3) IVSd: 1.4 cm (0.6 - 1.1) LVIDd: 3.1 cm (3.9 - 5.3) LVPWd: 1.6 cm (0.6 - 1.1) IVSs: 1.8 cm LVIDs: 2.7 cm LVPWs: 1.7 cm LA Diam: 4.7 cm (2.7 - 3.8) Ao Diam: 3.0 cm (2.0 - 3.7) MV E Mp: 1.11 m/s MV DecT: 167 ms MV A Mp: 0.22 m/s MV E/A Ratio: 5.13 AV maxP.68 mmHg AV meanP.59 mmHg RAP: 5.00 mmHg RVSP: 64.45 mmHg FINDINGS -------- Sinus rhythm. This was a technically adequate study. The left ventricular size is normal. There is moderate concentric left ventricular hypertrophy. O verall left ventricular systolic function is low-normal with, an EF between 50 - 55 %. The right ventricle is mild to moderately enlarged. The left atrium is moderately dilated. The right atrium is moderately enlarged. Interatrial and interventricular septum intact. There is mild aortic valve sclerosis. There is mild aortic regurgitation. Peak/mean gradient acro ss the Aortic Valve is 11.68mmHg / 6.59mmHg. The peak and mean MV gradients are 7.06mmHg 1.64mmHg as measured by doppler. Mitral ring annullopla sty is in place. Mild tricuspid regurgitation present. Right ventricular systolic pressure is normal at < 35 mmHg. There is moderate pulmonary hypertension. Trace/mild (physiologic) pulmonic regurgitation. The aortic root size is normal. There is no pericardial effusion. CONCLUSIONS -------- 1. Sinus rhythm. 2. This was a technically adequate study. 3. The left ventricular size is normal. 4. There is moderate concentric left ventricular hypertrophy. 5. Overall left ventricular systolic function is low-normal with, an EF between 50 - 55 %. 6. The right ventricle is mild to moderately enlarged. 7. The left atrium is moderately dilated. 8. The right atrium is moderately enlarged. 9. Interatrial and interventricular septum intact. 10. There is mild aortic valve sclerosis. 11. There is mild aortic regurgitation. 12. Peak/mean gradient across the Aortic Valve is 11.68mmHg / 6.59mmHg. 13. The peak and mean MV gradients are 7.06mmHg 1.64mmHg as measured by doppler. 14. Mitral ring annulloplasty is in place. 15. Mild tricuspid regurgitation present. 16. Right ventricular systolic pressure is normal at < 35 mmHg. 17. There is moderate pulmonary hypertension. 18. Trace/mild (physiologic) pulmonic regurgitation. 19. The aortic root size is normal. 20. There is no pericardial effusion. BELT WORKER: Chantale Serrano RDCS
--- NOTE | 2019-05-10 11:55 | CONS ---
JEANNETTE Burns is a 79-year-old gentleman with history of coronary artery disease, mitral regurgitation, status post mitral valve repair, congestive heart failure, atrial fibrillation, and COPD who presented to hospital complaining of progressively worsening shortness of breath for the last 1 week. He also has nonproductive cough. He denies any chest pain. There is no history of leg edema, PND or orthopnea. At the time of my evaluation, patient is appearing comfortable at rest and is on oxygen. Patient has chronic atrial fibrillation, but opted not to take any anticoagulation. His admission BNP was elevated at 4390. Troponin is 0.026. Potassium is 4.8, hemoglobin is 16.9. PHYSICAL EXAM: Patient is comfortable at rest. Vital signs are stable. Chest exam reveals good air entry bilaterally. Heart exam reveals first and second heart sounds, a grade 3 x 6 systolic murmur at the left lower sternal border. Abdomen is soft. Exam of extremities did not reveal any edema. Peripheral pulses are felt. LABS: Show that one set of troponin is negative. BNP is elevated. Potassium is normal. Hemoglobin is 16.9. ASSESSMENT: 1. Acute exacerbation of chronic systolic heart failure. 2. Persistent atrial fibrillation. 3. Coronary artery disease, status post coronary artery bypass grafting. 4. Mitral regurgitation status post mitral valve repair. PLAN: I will obtain a 2D echo on him to document his LV functions. Review his records. Obtain serial troponins to rule out myocardial infarction, continue the IV Lasix, aspirin, Lipitor, and beta-marlen that he is on and adjust therapies based on testing and clinical response. MMODL / IJN: [id number] /
[2019-05-10] MEDS ORDERED: HYDROcodone/APAP 5-325MG 1 EACH TAB PO PRN (12:04)
[2019-05-10] MEDS ORDERED: FAMOTIDINE 20 MG TAB PO SCH (12:15)
[2019-05-10] MEDS ORDERED: ASPIRIN 81 MG PO SCH (12:15)
[2019-05-10] MEDS: HYDROcodone/APAP 5-325MG 1 EACH TAB PO PRN (13:25)
[2019-05-10] MEDS: POTASSIUM CHLORIDE ER 10 MEQ TAB.ER.PRT PO SCH (13:25)
[2019-05-10] MEDS: methylPREDNISolone SOD SUCCI 40 MG/ML 1 ML VIAL IV SCH ×2 (13:26→18:39)
--- NOTE | 2019-05-10 14:37 | P.HPIM ---
History of Present Illness H&P Date: 05/10/19 79 years old male patient of Dr. Erasmo Hagan with past medical history of coronary artery disease, history of [place] status post CABG and angioplasty also known history of mitral valve disease and aortic aneurysm repair, history of paroxysmal atrial fibrillation arm treated medically not on any anticoagulation due to history of bleeding comes in with shortness of breath progressing over the past week. Patient is currently on 2 L off oxygen from his COPD and pulmonary fibrosis and sees Dr. Childers. Patient has been short of breath on walking short distance and has been using his breathing treatment multiple times a day without any improvement. On evaluation in the ER, patient was afebrile tachycardic 120 in atrial fibrillation respiratory rate of 23 saturating at 90% on 2 L oxygen was increased to 4 L. EKG was done that suggested irregularly irregular tachycardia suggested atrial fibrillation with right bundle branch block on chest x-ray was negative for any acute changes. BNP was elevated. Patient was admitted for CHF exacerbation COPD exacerbation. Dr. Reynaga consulted. Review of Systems Constitutional: Denies chills, Denies fever, Denies lethargy, Denies malaise, Denies poor appetite, Denies weakness, Denies weight loss Eyes: denies decreased vision, denies diplopia, denies discharge, denies pain Ears: deny: decreased hearing Ears, nose, mouth and throat: Denies dental pain, Denies headache, Denies nasal discharge, Denies nose pain Cardiovascular: Denies chest pain, Denies decreased exercise tolerance, Denies edema, Denies high blood pressure, Denies irregular heart beat, Denies palpitations, Denies paroxysmal nocturnal dyspnea, endorses rapid heart beat, endorses shortness of breath Respiratory: Denies congestion, endorses nonproductive cough, Denies cough with sputum, endorses dyspnea, uses 2 L home oxygen, Denies wheezing Gastrointestinal: Denies abdominal pain, Denies change in bowel habits, Denies coffee ground emesis, Denies early satiety, Denies excessive gas, Denies heartburn, Denies hematemesis, Denies hematochezia, Denies loss of appetite, Denies nausea, Denies vomiting Genitourinary: Denies dysuria, Denies flank pain, Denies kidney stones, Denies menorrhagia, Denies urgency, Denies urinary frequency Musculoskeletal: Denies gait dysfunction, Denies limitation of motion, Denies morning stiffness, Denies muscle cramps Integumentary: Denies rash, Denies wounds, Denies brittle nails, Denies change in hair/nails, Denies darkening of skin Neurological: Denies balance difficulties, Denies change in speech, Denies double vision, Denies gait dysfunction, Denies loss of vision, Denies motor disturbance, Denies numbness, Denies paralysis, Denies paresthesias, Denies seizures Psychiatric: Denies anxiety, Denies depression Endocrine: Denies excessive sweating, Denies excessive thirst, Denies high blood sugars, Denies palpitations Hematologic/Lymphatic: Denies easy bruising, Denies lymphadenopathy Past Medical History Past Medical History: Atrial Fibrillation, Asthma, Coronary Artery Disease (CAD), Cancer, COPD, GERD/Reflux, GI Bleed, Hyperlipidemia, Hypertension, Myocardial Infarction ([place]), Osteoarthritis (OA), Pneumonia Additional Past Medical History / Comment(s): Other HX: Home O2 at 2L/[place]. GI bleed 2010 from duodenal ulcer, MONO when a child, shingelles as a child, SKIN CANCER, OA bilateral hands, L leg vein graft site got infected. Last Myocardial Infarction Date:: unknown History of Any Multi-Drug Resistant Organisms: None Reported Past Surgical History: Cardiac Valve Replacement, Coronary Bypass/CABG, Heart Catheterization, Tonsillectomy Additional Past Surgical History / Comment(s): 2010 AORTIC ANEURYSM REPAIR, 1993 cardiac angioplasty, 2011 CABG with mitral vavle replacement with #30 Esquivel mitral ring and triple bypass with reverse saphenous venous graft to the LAD, RCA, intermediate branch,, EGD, colonoscopy, bilateral cataract removal, right carpal tunnel release, bilateral inguinal hernia repair, bilateral facial cyst removed, aortobifemoral bypass, bilateral profundoplasty. Past Anesthesia/Blood Transfusion Reactions: No Reported Reaction Additional Past Anesthesia/Blood Transfusion Reaction / Comment(s): Pt has had blood transfusion without reaction. Past Psychological History: No Psychological Hx Reported Additional Psychological History / Comment(s): Pt lives alone. Pt is independent. Pt drives a car. Pt cooks. Pt sometimes has a person come in to do lite housework. Pt has home oxygen that he uses on a prn basis. Pt did stay at [facility] for a few days after CABG surgery when he had a L leg vein graft infection. Smoking Status: Former smoker Past Alcohol Use History: Daily Additional Past Alcohol Use History / Comment(s): Pt drinks 2 alcoholic beverages a day. Past Drug Use History: None Reported - Past Family History Mother Family Medical History: Coronary Artery Disease (CAD) Additional Family Medical History / Comment(s): Mother had pacemaker. She at age 77yrs. Father Family Medical History: Coronary Artery Disease (CAD) Additional Family Medical History / Comment(s): Father at age 60 yrs after having Flu. Brother(s) Family Medical History: Vascular Disorder Additional Family Medical History / Comment(s): Brother of ruptured abdominal aortic anuerysm at age 64 yrs. Medications and Allergies Home Medications Medication Instructions Recorded Confirmed Type Ipratropium/Albuterol Sulfate 3 ml INHALATION RT-QID 11/13/13 05/10/19 History [Duoneb 0.5 mg-3 mg/3 ml Soln] Montelukast [Singulair] 10 mg PO HS 11/13/13 05/10/19 History Ranitidine HCl [Zantac] 300 mg PO DAILY 11/13/13 05/10/19 History Atorvastatin [Lipitor] 40 mg PO HS 08/14/14 05/10/19 History Aspirin EC [Ecotrin Low Dose] 81 mg PO DAILY #30 tablet. 08/19/14 05/10/19 Rx Metoprolol Tartrate [Lopressor] 25 mg PO BID #60 tab 08/19/14 05/10/19 Rx Budesonide [Pulmicort] 1 mg INHALATION RT-BID 01/25/18 05/10/19 History Cholecalciferol [Vitamin D3 (25 1,000 unit PO DAILY 01/25/18 05/10/19 History Mcg = 1000 Iu)] Furosemide [Lasix] 20 mg PO DAILY 01/25/18 05/10/19 History HYDROcodone/APAP 5-325MG [[place] 1 tab PO DAILY PRN 01/25/18 05/10/19 History 5-325] Magnesium 200 mg PO DAILY 01/25/18 05/10/19 History Potassium Chloride [Klor-Con 10] 10 meq PO DAILY 05/10/19 05/10/19 History Allergies Allergy/AdvReac Type Severity Reaction Status Date / Time prednisone Allergy Unknown Verified 05/10/19 10:31 Physical Exam Vitals: Vital Signs Temp Pulse Resp BP Pulse Ox 05/10/19 12:12 88 05/10/19 12:00 98.9 F 87 18 122/67 93 L 05/10/19 11:59 87 05/10/19 08:00 98.7 F 92 17 123/74 92 L 05/10/19 07:52 87 05/10/19 07:41 86 05/10/19 05:36 92 05/10/19 05:21 92 05/10/19 05:00 97.8 F 90 24 119/85 92 L 05/10/19 03:58 110 H 21 110/82 91 L 05/10/19 02:09 98 F 120 H 23 114/88 90 L Intake and Output 05/09/19 05/10/19 05/10/19 22:59 06:59 14:59 Intake Total 240 Output Total 0 200 Balance 0 40 Intake: Oral 240 Output: Urine 0 200 Other: Voiding Method Urinal Urinal # Voids 1 Weight 56.699 kg 56.699 kg - Constitutional General appearance: cooperative, no acute distress, thin-appearing - EENT Eyes: anicteric sclerae, PERRLA, normal appearance ENT: hearing grossly normal - Neck Neck: no lymphadenopathy, normal ROM, no other, no rigidity, no stridor, no thyromegaly - Respiratory Respiratory: Deformity of the chest noted with midline scarring decreased air entry bilaterally with fine crackles diminished air entry bilaterally - Cardiovascular Rhythm: Irregularly irregular Heart sounds: normal: S1, S2 Abnormal Heart Sounds: no systolic murmur, no diastolic murmur, no rub, no S3 Gallop, no S4 Gallop, no click, no other - Gastrointestinal General gastrointestinal: normal bowel sounds, soft - Integumentary Integumentary: no rash - Neurologic Neurologic: CNII-XII intact - Musculoskeletal Musculoskeletal: gait normal, strength equal bilaterally - Psychiatric Psychiatric: A&O x's 3, appropriate affect Results CBC & Chem 7: 05/10/19 02:18 05/10/19 02:18 Labs: Abnormal Lab Results - Last 24 Hours (Table) 05/10/19 05/10/19 05/10/19 Range/Units 01:20 01:20 02:18 WBC 11.2 H (3.8-10.6) k/uL Plt Count 107 L (150-450) k/uL Neutrophils # 9.8 H (1.3-7.7) k/uL Lymphocytes # 0.4 L (1.0-4.8) k/uL Basophils # 0.3 H (0-0.2) k/uL Sodium (137-145) mmol/L Glucose (74-99) mg/dL Troponin I 0.068 H* (0.000-0.034) ng/mL C-Reactive Protein 57.0 H (<10.0) mg/L 05/10/19 05/10/19 Range/Units 02:18 08:36 WBC (3.8-10.6) k/uL Plt Count (150-450) k/uL Neutrophils # (1.3-7.7) k/uL Lymphocytes # (1.0-4.8) k/uL Basophils # (0-0.2) k/uL Sodium 136 L (137-145) mmol/L Glucose 100 H (74-99) mg/dL Troponin I 0.059 H* (0.000-0.034) ng/mL C-Reactive Protein (<10.0) mg/L Thrombosis Risk Factor Assmnt - DVT/VTE Prophylaxis DVT/VTE Prophylaxis: Low risk, early ambulation encouraged - Choose All That Apply Each Factor Represents 1 point: Abnormal pulmonary function (COPD), Heart failure (<1month) Other Risk Factors: No Other congenital or acquired thrombophilia - If yes, enter type in comment: No Thrombosis Risk Factor Assessment Total Risk Factor Score: 2 Thrombosis Risk Factor Assessment Level: Low Risk Assessment and Plan Plan: #1 acute on chronic hypoxic respiratory failure requiring go for liter of oxygen and uses 2 L of oxygen at home for the combination of atrial fibrillation with R VR, COPD exacerbation, CHF. Pulmonary consult placed. Continue Lasix at 40 IV twice a day continue Solu-Medrol 40 IV every 6 with duo nebs as needed for shortness of breath Pulmicort twice twice a day #2 atrial fibrillation with RVR heart rate controlled with metoprolol 25 twice a day. Not on anticoagulation due to history of GI bleed in the past from a duodenal ulcer. #3 acute CHF exacerbation continue Lasix 40 IV twice a day. I nose monitor daily weights continue daily potassium 10 mEq daily magnesium 200 mg by mouth daily #4 coronary artery disease status post CABG and angioplasty. Continue aspirin and Lipitor continue metoprolol 25 twice a day #6 history of GI bleed. No sign of anemia or bleeding currently. Patient insists on not being on anticoagulation Dr. Mary aware of patient's risk and has discussed that with the patient and cardiology in the past and decision was made to continue patient off anticoagulation for treatment of atrial fibrillation #7 hyperlipidemia continue Lipitor 40 mg by mouth daily #7 can history of hypertension continue metoprolol. #92 chronic pain syndrome continue hydrocodone 11/09/2024 every 6 hours #10 history of GI prophylaxis continue Pepcid 20 mg by mouth daily #11 DVT prophylaxis. Early mobilization #12 CODE STATUS full code #13 discharge plan patient will need 1-2 inpatient nights for recovery discharge as patient is medically stable
--- NOTE | 2019-05-10 15:10 | P.CNPUL ---
History of Present Illness Consult date: 05/10/19 Reason for consult: dyspnea, cough, COPD, hypoxemia, pneumonia Chief complaint: Shortness of breath along with A. fib and RVR History of present illness: This is a 79-year-old patient with the significant past medical history of coronary artery disease status post CABG also has a history a history of aneurysm which was repaired in the past, 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 has been on supplemental oxygen at 2 L at rest and 3 L on exertion and activity 24 7, he is also on nebulizer treatment at home, patient presented in emergency department is 1 week history of increasing shortness of breath cough congestion and purulent sputum production, patient is afebrile but found to be in atrial fibrillation with RVR and respiratory distress patient has been admitted into the selective care and has been on IV steroids breathing treatments antibiotics are being initiated, sputum samples are obtained, sputum is thick tenacious green in discoloration, heart rate is down to 70-80 in A. fib, patient is not on long-term anticoagulation due to history of prior multiple GI bleeds and ulceration Review of Systems All systems: negative Past Medical History Past Medical History: Atrial Fibrillation, Asthma, Coronary Artery Disease (CAD), Cancer, COPD, GERD/Reflux, GI Bleed, Hyperlipidemia, Hypertension, Hua cardial Infarction ([place]), Osteoarthritis (OA), Pneumonia Additional Past Medical History / Comment(s): Other HX: Home O2 at 2L/[place]. GI bleed 2010 from duodenal ulcer, MONO when a child, shingelles as a child, SKIN CANCER, OA bilateral hands, L leg vein graft site got infected. Last Myocardial Infarction Date:: unknown History of Any Multi-Drug Resistant Organisms: None Reported Past Surgical History: Cardiac Valve Replacement, Coronary Bypass/CABG, Heart Catheterization, Tonsillectomy Additional Past Surgical History / Comment(s): 2010 AORTIC ANEURYSM REPAIR, 1993 cardiac angioplasty, 2011 CABG with mitral vavle replacement with #30 Esquivel mitral ring and triple bypass with reverse saphenous venous graft to the LAD, RCA, intermediate branch,, EGD, colonoscopy, bilateral cataract removal, right carpal tunnel release, bilateral inguinal hernia repair, bilateral facial cyst removed, aortobifemoral bypass, bilateral profundoplasty. Past Anesthesia/Blood Transfusion Reactions: No Reported Reaction Additional Past Anesthesia/Blood Transfusion Reaction / Comment(s): Pt has had blood transfusion without reaction. Past Psychological History: No Psychological Hx Reported Additional Psychological History / Comment(s): Pt lives alone. Pt is independent. Pt drives a car. Pt cooks. Pt sometimes has a person come in to do lite housework. Pt has home oxygen that he uses on a prn basis. Pt did stay at [facility] for a few days after CABG surgery when he had a L leg vein graft infection. Smoking Status: Former smoker Past Alcohol Use History: Daily Additional Past Alcohol Use History / Comment(s): Pt drinks 2 alcoholic beverages a day. Past Drug Use History: None Reported - Past Family History Mother Family Medical History: Coronary Artery Disease (CAD) Additional Family Medical History / Comment(s): Mother had pacemaker. She at age 77yrs. Father Family Medical History: Coronary Artery Disease (CAD) Additional Family Medical History / Comment(s): Father at age 60 yrs after having Flu. Brother(s) Family Medical History: Vascular Disorder Additional Family Medical History / Comment(s): Brother of ruptured abdominal aortic anuerysm at age 64 yrs. Medications and Allergies Home Medications Medication Instructions Recorded Confirmed Type Ipratropium/Albuterol Sulfate 3 ml INHALATION RT-QID 11/13/13 05/10/19 History [Duoneb 0.5 mg-3 mg/3 ml Soln] Montelukast [Singulair] 10 mg PO HS 11/13/13 05/10/19 History Ranitidine HCl [Zantac] 300 mg PO DAILY 11/13/13 05/10/19 History Atorvastatin [Lipitor] 40 mg PO HS 08/14/14 05/10/19 History Aspirin EC [Ecotrin Low Dose] 81 mg PO DAILY #30 tablet. 08/19/14 05/10/19 Rx Metoprolol Tartrate [Lopressor] 25 mg PO BID #60 tab 08/19/14 05/10/19 Rx Budesonide [Pulmicort] 1 mg INHALATION RT-BID 01/25/18 05/10/19 History Cholecalciferol [Vitamin D3 (25 1,000 unit PO DAILY 01/25/18 05/10/19 History Mcg = 1000 Iu)] Furosemide [Lasix] 20 mg PO DAILY 01/25/18 05/10/19 History HYDROcodone/APAP 5-325MG [[place] 1 tab PO DAILY PRN 01/25/18 05/10/19 History 5-325] Magnesium 200 mg PO DAILY 01/25/18 05/10/19 History Potassium Chloride [Klor-Con 10] 10 meq PO DAILY 05/10/19 05/10/19 History Allergies Allergy/AdvReac Type Severity Reaction Status Date / Time prednisone Allergy Unknown Verified 05/10/19 10:31 Physical Exam Vitals: Vital Signs Temp Pulse Resp BP Pulse Ox 05/10/19 12:12 88 05/10/19 12:00 98.9 F 87 18 122/67 93 L 05/10/19 11:59 87 05/10/19 08:00 98.7 F 92 17 123/74 92 L 05/10/19 07:52 87 05/10/19 07:41 86 05/10/19 05:36 92 05/10/19 05:21 92 05/10/19 05:00 97.8 F 90 24 119/85 92 L 05/10/19 03:58 110 H 21 110/82 91 L 05/10/19 02:09 98 F 120 H 23 114/88 90 L Intake and Output 05/09/19 05/10/19 05/10/19 22:59 06:59 14:59 Intake Total 240 Output Total 0 200 Balance 0 40 Intake: Oral 240 Output: Urine 0 200 Other: Voiding Method Urinal Urinal # Voids 1 Weight 56.699 kg 56.699 kg - Constitutional General appearance: average body habitus, disheveled, mild distress - EENT Eyes: EOMI, PERRLA, normal appearance ENT: normal oropharynx Ears: bilateral: normal - Neck Neck: lymphadenopathy Carotids: bilateral: upstroke normal Thyroid: bilateral: normal size - Respiratory Respiratory: bilateral: diminished, rales, rhonchi, wheezing, negative: CTA, dullness - Cardiovascular Rhythm: regular Heart sounds: normal: S1, S2 - Gastrointestinal General gastrointestinal: decreased bowel sounds, normal bowel sounds, soft - Neurologic Neurologic: CNII-XII intact - Musculoskeletal Musculoskeletal: gait normal, generalized weakness, strength equal bilaterally - Psychiatric Psychiatric: A&O x's 3, appropriate affect, intact judgment & insight Results - Laboratory Findings CBC and BMP: 05/10/19 02:18 05/10/19 02:18 PT/INR, D-dimer PT 10.6 sec (9.0-12.0) 05/10/19 02:18 INR 1.0 (<1.2) 05/10/19 02:18 Abnormal lab findings: Abnormal Labs 05/10/19 05/10/19 05/10/19 01:20 01:20 02:18 WBC 11.2 H Plt Count 107 L Neutrophils # 9.8 H Lymphocytes # 0.4 L Basophils # 0.3 H Sodium Glucose Troponin I 0.068 H* C-Reactive Protein 57.0 H 05/10/19 05/10/19 02:18 08:36 WBC Plt Count Neutrophils # Lymphocytes # Basophils # Sodium 136 L Glucose 100 H Troponin I 0.059 H* C-Reactive Protein - Diagnostic Findings Chest x-ray: report reviewed, image reviewed (Bilateral basal pneumonia cannot be excluded) Assessment and Plan Assessment: Bilateral basal pneumonia Acute on chronic hypoxic respiratory failure Acute COPD exacerbation Atrial fibrillation chronic with rapid ventricular response Coronary artery disease History of severe COPD History of GI bleed with gastric ulceration Plan: Broad-spectrum antibiotics Gentle rehydration IV steroids Supplemental oxygen Breathing treatments Sputum for Gram stain and culture Further recommendations pending plan of care as per clinical response of the patient Time with Patient: Greater than 30
[2019-05-10] MEDS: BUDESONIDE 1 MG/2 ML NEBU INHALATION SCH (19:53)
[2019-05-10] MEDS: MONTELUKAST 10 MG TAB PO SCH (21:07)
[2019-05-10] MEDS: ATORVASTATIN 40 MG TAB PO SCH (21:07)
[2019-05-11] MEDS: IPRATROPIUM-ALBUTEROL 3 ML NEB INHALATION SCH ×7 (00:02→23:37)
[2019-05-11] MEDS: methylPREDNISolone SOD SUCCI 40 MG/ML 1 ML VIAL IV SCH ×4 (00:16→23:51)
[2019-05-11 04:44] LABS: HCT 42.7 % (39.0-53.0); HGB 14.3 gm/dL (13.0-17.5); MCH 32.4 pg (25.0-35.0); MCHC 33.5 g/dL (31.0-37.0); MCV 96.6 fL (80.0-100.0); Mean Platelet Volume 8.9; Platelet Count 101 k/uL (150-450); RBC 4.42 m/uL (4.30-5.90); RDW 13.9 % (11.5-15.5); WBC 12.5 k/uL (3.8-10.6)
[2019-05-11 04:56] LABS: Potassium 4.6 mmol/L (3.5-5.1)
[2019-05-11] MEDS: ASPIRIN 325 MG TAB PO SCH ×2 (05:09→08:37)
[2019-05-11] MEDS: HYDROcodone/APAP 5-325MG 1 EACH TAB PO PRN (05:09)
[2019-05-11] MEDS: FUROSEMIDE 10 MG/ML 4 ML VIAL IV SCH (05:09)
--- NOTE | 2019-05-11 06:05 | XR ---
EXAMINATION TYPE: XR chest 1V portable DATE OF EXAM: 05/11/2019 HISTORY: exertional dyspnea. REFERENCE: NONE. FINDINGS: There has been a midline sternotomy. The lungs are overinflated. There is an infiltrate present in the right basilar region. I suspect this is in the right lower lobe . Left lung is clear. Pleural spaces are clear. The heart is enlarged. IMPRESSION: 1. COPD. 2. CARDIOMEGALY. 3. RIGHT LOWER LOBE INFILTRATE, LIKELY REPRESENTING PNEUMONIA.
[2019-05-11] MEDS: BUDESONIDE 1 MG/2 ML NEBU INHALATION SCH ×2 (07:58→19:41)
[2019-05-11] MEDS: METOPROLOL TARTRATE 25 MG TAB PO SCH ×3 (08:34→21:36)
[2019-05-11] MEDS: MAGNESIUM OXIDE 400 MG TAB PO SCH (08:34)
[2019-05-11] MEDS: POTASSIUM CHLORIDE ER 10 MEQ TAB.ER.PRT PO SCH (08:35)
[2019-05-11] MEDS: FAMOTIDINE 20 MG TAB PO SCH (08:35)
--- NOTE | 2019-05-11 13:12 | P.PN ---
Subjective Progress Note Date: 05/11/19 79 years old male patient of Dr. Erasmo Hagan with past medical history of coronary artery disease, history of OR status post CABG and angioplasty also known history of mitral valve disease and aortic aneurysm repair, history of paroxysmal atrial fibrillation arm treated medically not on any anticoagulation due to history of bleeding comes in with shortness of breath progressing over the past week. Patient is currently on 2 L off oxygen from his COPD and pulmonary fibrosis and sees Dr. Childers. Patient has been short of breath on walking short distance and has been using his breathing treatment multiple times a day without any improvement. On evaluation in the ER, patient was afebrile tachycardic 120 in atrial fibrillation respiratory rate of 23 saturating at 90% on 2 L oxygen was increased to 4 L. EKG was done that suggested irregularly irregular tachycardia suggested atrial fibrillation with right bundle branch block on chest x-ray was negative for any acute changes. BNP was elevated. Patient was admitted for CHF exacerbation COPD exacerbation. Dr. Reynaga consulted. 05/11/19: Patient is resting sitting up in bed without any acute distress. Patient states that his breathing is better than it was yesterday. Chest x-ray shows COPD, cardiomegaly, right lower lobe infiltrate likely representing pneumonia. The CBC 12.5, hemoglobin 14.3, platelets 101, potassium 4.6, BUN 22, creatinine 1.04 pro-calcitonin 0.85, urinalysis is adequate, vital signs of hemodynamic be stable, patient is afebrile, patient's pulse ox a 94% on 3 L. Patient did have an episode of seeing a woman struggling in the parking lot getting into a car. However recently view showing trees. We will continue to monitor this. Review of Systems: Constitutional: Denies chills, Denies fever, Denies lethargy, Denies malaise, Denies poor appetite, Denies weakness, Denies weight loss Eyes: denies decreased vision, denies diplopia, denies discharge, denies pain Ears: deny: decreased hearing Ears, nose, mouth and throat: Denies dental pain, Denies headache, Denies nasal discharge, Denies nose pain Cardiovascular: Denies chest pain, Denies decreased exercise tolerance, Denies edema, Denies high blood pressure, Denies irregular heart beat, Denies palpitations, Denies paroxysmal nocturnal dyspnea, endorses rapid heart beat, endorses shortness of breath Respiratory: Denies congestion, endorses nonproductive cough, Denies cough with sputum, endorses dyspnea, uses 2 L home oxygen, Denies wheezing Gastrointestinal: Denies abdominal pain, Denies change in bowel habits, Denies coffee ground emesis, Denies early satiety, Denies excessive gas, Denies heartburn, Denies hematemesis, Denies hematochezia, Denies loss of appetite, Denies nausea, Denies vomiting Genitourinary: Denies dysuria, Denies flank pain, Denies kidney stones, Denies menorrhagia, Denies urgency, Denies urinary frequency Musculoskeletal: Denies gait dysfunction, Denies limitation of motion, Denies morning stiffness, Denies muscle cramps Integumentary: Denies rash, Denies wounds, Denies brittle nails, Denies change in hair/nails, Denies darkening of skin Neurological: Denies balance difficulties, Denies change in speech, Denies double vision, Denies gait dysfunction, Denies loss of vision, Denies motor disturbance, Denies numbness, Denies paralysis, Denies paresthesias, Denies seizures Psychiatric: Denies anxiety, Denies depression Endocrine: Denies excessive sweating, Denies excessive thirst, Denies high blood sugars, Denies palpitations Hematologic/Lymphatic: Denies easy bruising, Denies lymphadenopathy Objective - Vital Signs Vital signs: Vital Signs Temp 97.8 F 05/11/19 12:00 Pulse 93 05/11/19 12:00 Resp 26 H 05/11/19 12:00 BP 117/91 05/11/19 12:00 Pulse Ox 97 05/11/19 12:00 Intake & Output 05/10/19 05/11/19 05/11/19 18:59 06:59 18:59 Intake Total 240 100 Output Total 750 675 250 Balance -654 -675 -150 Weight 56.699 kg 59.7 kg Intake: IV 100 cefTRIAXone 1 gm In 100 Sodium Chloride 0.9% 50 ml @ 100 mls/hr IVPB Q24HR [facility] Rx#:[id number] Oral 240 Output: Urine 750 675 250 Other: Voiding Method Urinal Urinal Urinal # Voids 1 1 - Exam General Appearance: Alert, cooperative, no distress, appears stated age. Neck HEENT: Supple, no lymphadenopathy, no thyroid enlargement, no carotid bruits. Lungs: Deformity of the chest noted with midline scar and decreased air entry bilaterally with fine crackles diminished air entry bilaterally Chest Wall: Chest wall normal expansion with deep inspiration no tenderness and no deformity was found on exam, no costochondral pain or discomfort. Heart: Regular rate and rhythm, S1, S2 normal, no murmur, rub or gallop. Back: Symmetric, no curvature, ROM normal, no CVA tenderness. Abdomen: Soft, non-tender, no rebound or rigidity, no hepatosplenomegaly. Extremities: Extremities normal, atraumatic, no cyanosis or edema. Pulses: 2+ and symmetric. Skin: Skin color, texture, tugor normal, no rashes or lesions. Neurologic: Alert oriented x3 cranial nerves II through XII intact, no motor deficit - Labs CBC & Chem 7: 05/11/19 04:21 05/11/19 04:21 Labs: Abnormal Lab Results - Last 24 Hours (Table) 05/10/19 05/10/19 05/10/19 Range/Units 01:20 01:20 01:20 WBC (3.8-10.6) k/uL Plt Count (150-450) k/uL BUN (9-20) mg/dL Glucose (74-99) mg/dL Troponin I 0.068 H* (0.000-0.034) ng/mL C-Reactive Protein 57.0 H (<10.0) mg/L Procalcitonin 0.85 H (0.02-0.09) ng/mL 05/11/19 05/11/19 Range/Units 04:21 04:21 WBC 12.5 H (3.8-10.6) k/uL Plt Count 101 L (150-450) k/uL BUN 22 H (9-20) mg/dL Glucose 128 H (74-99) mg/dL Troponin I (0.000-0.034) ng/mL C-Reactive Protein (<10.0) mg/L Procalcitonin (0.02-0.09) ng/mL Microbiology - Last 24 Hours (Table) 05/10/19 14:28 Gram Stain - Preliminary Sputum Sputum Culture - Preliminary Assessment and Plan Plan: 1. acute on chronic hypoxic respiratory failure requiring go for liter of oxygen and uses 2 L of oxygen at home for the combination of atrial fibrillation with RVR, COPD exacerbation, CHF. Pulmonary consult placed. Continue Lasix at 40 IV twice a day continue Solu-Medrol 40 IV every 6 with duo nebs as needed for shortness of breath Pulmicort twice twice a day 2. atrial fibrillation with RVR heart rate controlled with metoprolol 25 twice a day. Not on anticoagulation due to history of GI bleed in the past from a duodenal ulcer. 3. acute CHF exacerbation continue Lasix 40 IV twice a day. I nose monitor daily weights continue daily potassium 10 mEq daily magnesium 200 mg by mouth daily 4. coronary artery disease status post CABG and angioplasty. Continue aspirin and Lipitor continue metoprolol 25 twice a day 5. history of GI bleed. No sign of anemia or bleeding currently. Patient insists on not being on anticoagulation Dr. Mary aware of patient's risk and has discussed that with the patient and cardiology in the past and decision was made to continue patient off anticoagulation for treatment of atrial fibrillation 6. hyperlipidemia continue Lipitor 40 mg by mouth day 7. can history of hypertension continue metoprolol. 8. chronic pain syndrome continue hydrocodone 11/09/2024 every 6 hours 9. GI prophylaxis continue Pepcid 20 mg by mouth daily 10. DVT prophylaxis. Early mobilization CODE STATUS: full code discharge plan: 1-2 inpatient nights for recovery discharge as patient is medically stable Impression and plan of care have been directed as dictated by the signing physician. Alia Fernandez nurse practitioner acting as scribe for signing physician.
--- NOTE | 2019-05-11 13:44 | PN ---
PROGRESS NOTE Mr. Ac is a gentleman, chronic atrial fibrillation, status post mitral valve repair, came in with predominantly exacerbation of COPD and some CHF with a faster rate. His atrial fib rate is better controlled. He is on low metoprolol tartrate 25 mg b.i.d. I am going to increase this to t.i.d. He is resting comfortable. Breathing is easier. His lungs are clearer. Vitals are stable JVD is 1 cm. No carotid bruit. S1-S2 heard normally with irregular rhythm. Short systolic murmur. Lungs reveal improved air entry. Abdomen is soft. Lower extremities reveal diminished pulses. Central nervous system is normal. His atrial fibrillation rate is better controlled. I am recommending that we will increase the metoprolol tartrate 25 mg 3 times a day and switch him from IV to oral Lasix this evening and see how he does. HOLLIE / GUALBERTO: [id number] /
[2019-05-11] MEDS: FUROSEMIDE 40 MG TAB PO SCH (15:51)
[2019-05-11] MEDS: ATORVASTATIN 40 MG TAB PO SCH (21:36)
[2019-05-11] MEDS: MONTELUKAST 10 MG TAB PO SCH (21:36)
[2019-05-12] MEDS: IPRATROPIUM-ALBUTEROL 3 ML NEB INHALATION SCH ×5 (03:21→19:41)
[2019-05-12 04:35] LABS: Basophils % (A) 0 %; Eosinophils % (A) 0 %; HCT 40.7 % (39.0-53.0); HGB 13.7 gm/dL (13.0-17.5); Lymphocytes # (A) 0.6 k/uL (1.0-4.8); Lymphocytes % (A) 5 %; MCH 32.2 pg (25.0-35.0); MCHC 33.6 g/dL (31.0-37.0); MCV 95.8 fL (80.0-100.0); Mean Platelet Volume 8.6; Monocytes # (A) 0.3 k/uL (0-1.0); Monocytes % (A) 3 %; Neutrophils # (A) 10.5 k/uL (1.3-7.7); Neutrophils % (A) 91 %; Platelet Count 103 k/uL (150-450); RBC 4.25 m/uL (4.30-5.90); RDW 13.7 % (11.5-15.5); WBC 11.5 k/uL (3.8-10.6)
[2019-05-12 04:43] LABS: Calcium 8.3 mg/dL (8.4-10.2); Potassium 4.2 mmol/L (3.5-5.1)
[2019-05-12] MEDS: BUDESONIDE 1 MG/2 ML NEBU INHALATION SCH ×2 (07:23→19:41)
--- NOTE | 2019-05-12 07:50 | PN ---
PROGRESS NOTE Mr. Ac is in atrial fib. Rate is well controlled. He is feeling better. He has a mitral valve repair, history of recurrent GI bleed, not on anticoagulants. Vital signs stable. Heart rate is in the 70s to 80s. S1-S2 are normal. Short systolic murmur audible. Lungs are clear. Abdomen and lower extremity exam unchanged. Plan is to increase Lopressor to 50 mg b.i.d., decrease Solu-Medrol and patient can be moved to telemetry when bed is available. I will see the patient as needed. MMODL / IJN: [id number] /
--- NOTE | 2019-05-12 08:16 | P.PN ---
Subjective Progress Note Date: 05/11/19 Principal diagnosis: Bilateral basal pneumonia Acute on chronic hypoxic respiratory failure Acute COPD exacerbation Atrial fibrillation chronic with rapid ventricular response Coronary artery disease History of severe COPD History of GI bleed with gastric ulceration 05/11/2019, vision was still having significant shortness of breath however denies any chest pain remains in atrial fibrillation without any rapid ventricular response labs reviewed medications reviewed noted troponin are mildly elevated, sputum culture results are pending patient has been tolerating IV steroids and breathing treatment along with antibiotics fairly well This is a 79-year-old patient with the significant past medical history of coronary artery disease status post CABG also has a history a history of aneurysm which was repaired in the past, 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 has been on supplemental oxygen at 2 L at rest and 3 L on exertion and activity 24 7, he is also on nebulizer treatment at home, patient presented in emergency department is 1 week history of increasing shortness of breath cough congestion and purulent sputum production, patient is afebrile but found to be in atrial fibrillation with RVR and respiratory distress patient has been admitted into the selective care and has been on IV steroids breathing treatments antibiotics are being initiated, sputum samples are obtained, sputum is thick tenacious green in discoloration, heart rate is down to 70-80 in A. fib, patient is not on long-term anticoagulation due to history of prior multiple GI bleeds and ulceration Objective - Vital Signs Vital signs: Vital Signs Temp 97.5 F L 05/11/19 20:00 Pulse 76 05/11/19 23:49 Resp 23 05/11/19 20:00 BP 126/70 05/11/19 20:00 Pulse Ox 94 L 05/11/19 20:00 Intake & Output 05/11/19 05/11/19 05/12/19 06:59 18:59 05:59 Intake Total 650 Output Total 675 500 375 Balance -675 150 -375 Weight 59.7 kg Intake: IV 100 cefTRIAXone 1 gm In 100 Sodium Chloride 0.9% 50 ml @ 100 mls/hr IVPB Q24HR [facility] Rx#:[id number] Oral 550 Output: Urine 675 500 375 Other: Voiding Method Urinal Urinal # Voids 1 - Exam - Constitutional General appearance: average body habitus, disheveled, mild distress - EENT Eyes: EOMI, PERRLA, normal appearance ENT: normal oropharynx Ears: bilateral: normal - Neck Neck: lymphadenopathy Carotids: bilateral: upstroke normal Thyroid: bilateral: normal size - Respiratory Respiratory: bilateral: diminished, rales, rhonchi, wheezing, negative: CTA, dullness - Cardiovascular Rhythm: regular Heart sounds: normal: S1, S2 - Gastrointestinal General gastrointestinal: decreased bowel sounds, normal bowel sounds, soft - Neurologic Neurologic: CNII-XII intact - Musculoskeletal Musculoskeletal: gait normal, generalized weakness, strength equal bilaterally - Psychiatric Psychiatric: A&O x's 3, appropriate affect, intact judgment & insight - Labs CBC & Chem 7: 05/12/19 03:56 05/12/19 04:00 Labs: Abnormal Lab Results - Last 24 Hours (Table) 05/11/19 05/11/19 Range/Units 04:21 04:21 WBC 12.5 H (3.8-10.6) k/uL Plt Count 101 L (150-450) k/uL BUN 22 H (9-20) mg/dL Glucose 128 H (74-99) mg/dL Microbiology - Last 24 Hours (Table) 05/10/19 14:28 Gram Stain - Preliminary Sputum Sputum Culture - Preliminary Assessment and Plan Assessment: Bilateral basal pneumonia Acute on chronic hypoxic respiratory failure Acute COPD exacerbation Atrial fibrillation chronic with rapid ventricular response Coronary artery disease History of severe COPD History of GI bleed with gastric ulceration Plan: Broad-spectrum antibiotics Gentle rehydration IV steroids Supplemental oxygen Breathing treatments Follow-up on Sputum for Gram stain and culture Further recommendations pending plan of care as per clinical response of the patient Time with Patient: Greater than 30
--- NOTE | 2019-05-12 08:19 | P.PN ---
Subjective Progress Note Date: 05/12/19 Principal diagnosis: Bilateral basal pneumonia Acute on chronic hypoxic respiratory failure Acute COPD exacerbation Atrial fibrillation chronic with rapid ventricular response Coronary artery disease History of severe COPD History of GI bleed with gastric ulceration 05/12/2019, patient seen eval reexamined during the rounds labs reviewed medications reviewed care plan discussed with the patient at length wheezing cough congestion is improved patient remains in proximal atrial fibrillation but controlled ventricular response, chest x-ray at last performed on May 11 continue show resolving right lower lobe pneumonia along with COPD and cardiomegaly 05/11/2019, patient was still having significant shortness of breath however denies any chest pain remains in atrial fibrillation without any rapid ventricular response labs reviewed medications reviewed noted troponin are mildly elevated, sputum culture results are pending patient has been tolerating IV steroids and breathing treatment along with antibiotics fairly well This is a 79-year-old patient with the significant past medical history of coronary artery disease status post CABG also has a history a history of aneurysm which was repaired in the past, 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 has been on supplemental oxygen at 2 L at rest and 3 L on exertion and activity 24 7, he is also on nebulizer treatment at home, patient presented in emergency department is 1 week history of increasing shortness of breath cough congestion and purulent sputum production, patient is afebrile but found to be in atrial fibrillation with RVR and respiratory distress patient has been admitted into the selective care and has been on IV steroids breathing treatments antibiotics are being initiated, sputum samples are obtained, sputum is thick tenacious green in discoloration, heart rate is down to 70-80 in A. fib, patient is not on long-term anticoagulation due to history of prior multiple GI bleeds and ulceration Objective - Vital Signs Vital signs: Vital Signs Temp 97.4 F L 05/12/19 04:00 Pulse 87 05/12/19 07:38 Resp 10 L 05/12/19 04:00 BP 110/63 05/12/19 04:00 Pulse Ox 94 L 05/12/19 04:00 Intake & Output 05/11/19 05/12/19 05/12/19 19:59 06:59 18:59 Intake Total Output Total Balance Weight Intake: IV cefTRIAXone 1 gm In Sodium Chloride 0.9% 50 ml @ 100 mls/hr IVPB Q24HR [facility] Rx#:[id number] Oral Output: Urine Other: Voiding Method - Exam - Constitutional General appearance: average body habitus, disheveled, mild distress - EENT Eyes: EOMI, PERRLA, normal appearance ENT: normal oropharynx Ears: bilateral: normal - Neck Neck: lymphadenopathy Carotids: bilateral: upstroke normal Thyroid: bilateral: normal size - Respiratory Respiratory: bilateral: diminished, rales, rhonchi, wheezing, negative: CTA, dullness - Cardiovascular Rhythm: regular Heart sounds: normal: S1, S2 - Gastrointestinal General gastrointestinal: decreased bowel sounds, normal bowel sounds, soft - Neurologic Neurologic: CNII-XII intact - Musculoskeletal Musculoskeletal: gait normal, generalized weakness, strength equal bilaterally - Psychiatric Psychiatric: A&O x's 3, appropriate affect, intact judgment & insight - Labs CBC & Chem 7: 05/12/19 03:56 05/12/19 04:00 Labs: Abnormal Lab Results - Last 24 Hours (Table) 05/12/19 05/12/19 Range/Units 03:56 04:00 WBC 11.5 H (3.8-10.6) k/uL RBC 4.25 L (4.30-5.90) m/uL Plt Count 103 L (150-450) k/uL Neutrophils # 10.5 H (1.3-7.7) k/uL Lymphocytes # 0.6 L (1.0-4.8) k/uL Sodium 133 L (137-145) mmol/L Chloride 97 L (98-107) mmol/L BUN 26 H (9-20) mg/dL Glucose 122 H (74-99) mg/dL Calcium 8.3 L (8.4-10.2) mg/dL Microbiology - Last 24 Hours (Table) 05/10/19 14:28 Gram Stain - Preliminary Sputum Sputum Culture - Preliminary Assessment and Plan Assessment: Bilateral basal pneumonia, predominant right lower lobe pneumonia Acute on chronic hypoxic respiratory failure Acute COPD exacerbation Atrial fibrillation chronic with rapid ventricular response Coronary artery disease History of severe COPD History of GI bleed with gastric ulceration Plan: Broad-spectrum antibiotics Gentle rehydration IV steroids Supplemental oxygen Breathing treatments Follow-up on Sputum for Gram stain and culture still pending Further recommendations pending plan of care as per clinical response of the patient should be stable next 24-48 hours for possible discharge
[2019-05-12] MEDS: methylPREDNISolone SOD SUCCI 40 MG/ML 1 ML VIAL IV SCH ×2 (08:34→20:48)
[2019-05-12] MEDS: ASPIRIN 325 MG TAB PO SCH (08:35)
[2019-05-12] MEDS: POTASSIUM CHLORIDE ER 10 MEQ TAB.ER.PRT PO SCH (08:35)
[2019-05-12] MEDS: FAMOTIDINE 20 MG TAB PO SCH (08:35)
[2019-05-12] MEDS: METOPROLOL TARTRATE 50 MG TAB PO SCH ×2 (08:35→20:47)
[2019-05-12] MEDS: FUROSEMIDE 40 MG TAB PO SCH ×2 (08:35→19:07)
[2019-05-12] MEDS: MAGNESIUM OXIDE 400 MG TAB PO SCH (08:35)
[2019-05-12 12:19] LABS: Glucose,Whole Blood 107 mg/dL (75-99)
--- NOTE | 2019-05-12 13:32 | P.PN ---
Subjective Progress Note Date: 05/12/19 79 years old male patient of Dr. Erasmo Hagan with past medical history of coronary artery disease, history of [place] status post CABG and angioplasty also known history of mitral valve disease and aortic aneurysm repair, history of paroxysmal atrial fibrillation arm treated medically not on any anticoagulation due to history of bleeding comes in with shortness of breath progressing over the past week. Patient is currently on 2 L off oxygen from his COPD and pulmonary fibrosis and sees Dr. Childers. Patient has been short of breath on walking short distance and has been using his breathing treatment multiple times a day without any improvement. On evaluation in the ER, patient was afebrile tachycardic 120 in atrial fibrillation respiratory rate of 23 saturating at 90% on 2 L oxygen was increased to 4 L. EKG was done that suggested irregularly irregular tachycardia suggested atrial fibrillation with right bundle branch block on chest x-ray was negative for any acute changes. BNP was elevated. Patient was admitted for CHF exacerbation COPD exacerbation. Dr. Reynaga consulted. 05/11/19: Patient is resting sitting up in bed without any acute distress. Patient states that his breathing is better than it was yesterday. Chest x-ray shows COPD, cardiomegaly, right lower lobe infiltrate likely representing pneumonia. The CBC 12.5, hemoglobin 14.3, platelets 101, potassium 4.6, BUN 22, creatinine 1.04 pro-calcitonin 0.85, urinalysis is adequate, vital signs of hemodynamic be stable, patient is afebrile, patient's pulse ox a 94% on 3 L. Patient did have an episode of seeing a woman struggling in the parking lot getting into a car. However recently view showing trees. We will continue to monitor this. 11.3: Patient is resting sitting up in bed without any acute distress. Patient states that his breathing is much better he is more talkative compared to yesterday. Didn't feel 0.5, hemoglobin 13.7, platelets 103, potassium 4.2, BUN 26, creatinine 1.1 patient has been afebrile, vital signs hemodynamically stable. No concerns of seen hallucinations or confusion noted today. Review Of Systems: Constitutional: No fever, no chills, no night sweats. No weight change. No weakness, fatigue or lethargy. No daytime sleepiness. EENT: No headache. No blurred vision or double vision, no loss of vision. No loss of Hearing, no ringing in the ears, no dizziness. No nasal drainage or congestion. No epistaxis. No sore throat. Lungs: No shortness of breath, cough, no sputum production. No wheezing. Cardiovascular: No chest pain, no lower extremity edema. No palpitations. No paroxysmal nocturnal dyspnea. No orthopnea. No lightheadedness or dizziness. No syncopal episodes. Abdominal: no abdominal discomfort. No nausea, vomiting. no diarrhea. No constipation. No bloody or tarry stools. no loss of appetite. Genitourinary: No dysuria, increased frequency, urgency. No urinary retention. Musculoskeletal: No myalgias. No muscle weakness, no gait dysfunction, no frequent falls. No back pain. No neck pain. Integumentary: No wounds, no lesions. No rash or pruritus. No unusual bruising. No change in hair or nails. Neurologic: No aphasia. No facial droop. No change in mentation. No head injury. No headache. No paralysis. No paresthesia. Psychiatric: No depression. No anxiety. No mood swings. Endocrine: No abnormal blood sugars. No weight change. No excessive sweating or thirst. Objective - Vital Signs Vital signs: Vital Signs Temp 98.0 F 05/12/19 08:00 Pulse 81 05/12/19 11:30 Resp 10 L 05/12/19 08:00 BP 128/83 05/12/19 08:00 Pulse Ox 95 05/12/19 08:00 Intake & Output 05/11/19 05/12/19 05/12/19 19:59 06:59 18:59 Intake Total 50 Output Total 200 Balance -150 Weight Intake: IV 50 cefTRIAXone 1 gm In 50 Sodium Chloride 0.9% 50 ml @ 100 mls/hr IVPB Q24HR [facility] Rx#:[id number] Oral Output: Urine 200 Other: Voiding Method Urinal # Voids 1 - Exam General Appearance: Alert, cooperative, no distress, appears stated age. Neck HEENT: Supple, no lymphadenopathy, no thyroid enlargement, no carotid bruits. Lungs: Deformity of the chest noted with midline scar and decreased air entry bilaterally with fine crackles diminished air entry bilaterally Chest Wall: Chest wall normal expansion with deep inspiration no tenderness and no deformity was found on exam, no costochondral pain or discomfort. Heart: Regular rate and rhythm, S1, S2 normal, no murmur, rub or gallop. Back: Symmetric, no curvature, ROM normal, no CVA tenderness. Abdomen: Soft, non-tender, no rebound or rigidity, no hepatosplenomegaly. Extremities: Extremities normal, atraumatic, no cyanosis or edema. Pulses: 2+ and symmetric. Skin: Skin color, texture, tugor normal, no rashes or lesions. Neurologic: Alert oriented x3 cranial nerves II through XII intact, no motor deficit - Labs CBC & Chem 7: 05/12/19 03:56 05/12/19 04:00 Labs: Abnormal Lab Results - Last 24 Hours (Table) 05/12/19 05/12/19 05/12/19 Range/Units 03:56 04:00 12:07 WBC 11.5 H (3.8-10.6) k/uL RBC 4.25 L (4.30-5.90) m/uL Plt Count 103 L (150-450) k/uL Neutrophils # 10.5 H (1.3-7.7) k/uL Lymphocytes # 0.6 L (1.0-4.8) k/uL Sodium 133 L (137-145) mmol/L Chloride 97 L (98-107) mmol/L BUN 26 H (9-20) mg/dL Glucose 122 H (74-99) mg/dL POC Glucose (mg/dL) 107 H (75-99) mg/dL Calcium 8.3 L (8.4-10.2) mg/dL Assessment and Plan Plan: 1. acute on chronic hypoxic respiratory failure requiring go for liter of oxygen and uses 2 L of oxygen at home for the combination of atrial fibrillation with RVR, COPD exacerbation, CHF. Pulmonary consult placed. Continue Lasix at 40 IV twice a day continue Solu-Medrol 40 IV every 6 with duo nebs as needed for shortness of breath Pulmicort twice twice a day 2. atrial fibrillation with RVR heart rate controlled with metoprolol 25 twice a day. Not on anticoagulation due to history of GI bleed in the past from a duodenal ulcer. 3. acute CHF exacerbation continue Lasix 40 IV twice a day. I nose monitor daily weights continue daily potassium 10 mEq daily magnesium 200 mg by mouth daily 4. coronary artery disease status post CABG and angioplasty. Continue aspirin and Lipitor continue metoprolol 25 twice a day 5. history of GI bleed. No sign of anemia or bleeding currently. Patient insists on not being on anticoagulation Dr. Mary aware of patient's risk and has discussed that with the patient and cardiology in the past and decision was made to continue patient off anticoagulation for treatment of atrial fibri llation 6. hyperlipidemia continue Lipitor 40 mg by mouth day 7. can history of hypertension continue metoprolol. 8. chronic pain syndrome continue hydrocodone 11/09/2024 every 6 hours 9. GI prophylaxis continue Pepcid 20 mg by mouth daily 10. DVT prophylaxis. Early mobilization CODE STATUS: full code discharge plan: 1-2 inpatient nights for recovery discharge as patient is medically stable Impression and plan of care have been directed as dictated by the signing physician. Alia Fernandez nurse practitioner acting as scribe for signing physician.
[2019-05-12] MEDS: ATORVASTATIN 40 MG TAB PO SCH (20:47)
[2019-05-12] MEDS: MONTELUKAST 10 MG TAB PO SCH (20:47)
[2019-05-12] MEDS: HYDROcodone/APAP 5-325MG 1 EACH TAB PO PRN (20:47)
[2019-05-13] MEDS: IPRATROPIUM-ALBUTEROL 3 ML NEB INHALATION SCH ×6 (00:18→20:19)
[2019-05-13 04:54] LABS: Basophils % (A) 0 %; Eosinophils % (A) 0 %; HCT 41.1 % (39.0-53.0); HGB 13.5 gm/dL (13.0-17.5); Lymphocytes # (A) 0.6 k/uL (1.0-4.8); Lymphocytes % (A) 8 %; MCH 31.5 pg (25.0-35.0); MCHC 32.9 g/dL (31.0-37.0); MCV 95.8 fL (80.0-100.0); Mean Platelet Volume 8.5; Monocytes # (A) 0.3 k/uL (0-1.0); Monocytes % (A) 4 %; Neutrophils % (A) 86 %; Platelet Count 120 k/uL (150-450); RBC 4.29 m/uL (4.30-5.90); RDW 13.7 % (11.5-15.5)
[2019-05-13 05:05] LABS: Calcium 8.2 mg/dL (8.4-10.2)
[2019-05-13 05:35] LABS: Potassium 4.3 mmol/L (3.5-5.1)
[2019-05-13] MEDS: BUDESONIDE 1 MG/2 ML NEBU INHALATION SCH ×2 (08:14→20:20)
[2019-05-13] MEDS: FAMOTIDINE 20 MG TAB PO SCH (09:14)
[2019-05-13] MEDS: METOPROLOL TARTRATE 50 MG TAB PO SCH ×2 (09:14→20:07)
[2019-05-13] MEDS: POTASSIUM CHLORIDE ER 10 MEQ TAB.ER.PRT PO SCH (09:14)
[2019-05-13] MEDS: ASPIRIN 325 MG TAB PO SCH (09:15)
[2019-05-13] MEDS: methylPREDNISolone SOD SUCCI 40 MG/ML 1 ML VIAL IV SCH ×2 (09:15→20:07)
[2019-05-13] MEDS: FUROSEMIDE 40 MG TAB PO SCH ×2 (09:15→17:29)
[2019-05-13] MEDS: MAGNESIUM OXIDE 400 MG TAB PO SCH (09:15)
--- NOTE | 2019-05-13 11:34 | P.PN ---
Subjective Progress Note Date: 05/13/19 Principal diagnosis: Bilateral basal pneumonia Acute on chronic hypoxic respiratory failure Acute COPD exacerbation Atrial fibrillation chronic with rapid ventricular response Coronary artery disease History of severe COPD History of GI bleed with gastric ulceration 05/13/2019, patient seen eval examined during the rounds labs reviewed medications reviewed and she is feeling better with decreased cough congestion shortness of breath is present left from today has been reviewed white cell count is down to 7000 sodium is up to 07/13/1933 BUN/creatinine remains stable, breathing has significantly improved as well his sputum is negative is predominantly normal respiratory josemanuel 05/12/2019, patient seen eval reexamined during the rounds labs reviewed medications reviewed care plan discussed with the patient at length wheezing cough congestion is improved patient remains in proximal atrial fibrillation but controlled ventricular response, chest x-ray at last performed on May 11 continue show resolving right lower lobe pneumonia along with COPD and cardiomegaly 05/11/2019, patient was still having significant shortness of breath however denies any chest pain remains in atrial fibrillation without any rapid ventricular response labs reviewed medications reviewed noted troponin are mildly elevated, sputum culture results are pending patient has been tolerating IV steroids and breathing treatment along with antibiotics fairly well This is a 79-year-old patient with the significant past medical history of coronary artery disease status post CABG also has a history a history of aneurysm which was repaired in the past, 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 has been on supplemental oxygen at 2 L at rest and 3 L on exertion and activity 24 7, he is also on nebulizer treatment at home, patient presented in emergency department is 1 week history of increasing shortness of breath cough congestion and purulent sputum production, patient is afebrile but found to be in atrial fibrillation with RVR and respiratory distress patient has been admitted into the selective care and has been on IV steroids breathing treatments antibiotics are being initiated, sputum samples are obtained, sputum is thick tenacious green in discoloration, heart rate is down to 70-80 in A. fib, patient is not on long-term anticoagulation due to history of prior multiple GI bleeds and ulceration Objective - Vital Signs Vital signs: Vital Signs Temp 97.8 F 05/13/19 08:00 Pulse 78 05/13/19 08:35 Resp 22 05/13/19 08:00 BP 113/80 05/13/19 08:00 Pulse Ox 96 05/13/19 08:00 Intake & Output 05/12/19 05/13/19 05/13/19 18:59 06:59 18:59 Intake Total 50 200 Output Total 600 Balance -550 200 Weight 56.2 kg Intake: IV 50 cefTRIAXone 1 gm In 50 Sodium Chloride 0.9% 50 ml @ 100 mls/hr IVPB Q24HR [facility] Rx#:[id number] Oral 200 Output: Urine 600 Other: Voiding Method Urinal Toilet Toilet Urinal Urinal # Voids 1 2 - Exam - Constitutional General appearance: average body habitus, disheveled, mild distress - EENT Eyes: EOMI, PERRLA, normal appearance ENT: normal oropharynx Ears: bilateral: normal - Neck Neck: lymphadenopathy Carotids: bilateral: upstroke normal Thyroid: bilateral: normal size - Respiratory Respiratory: bilateral: diminished, rales, rhonchi, wheezing, negative: CTA, dullness - Cardiovascular Rhythm: regular Heart sounds: normal: S1, S2 - Gastrointestinal General gastrointestinal: decreased bowel sounds, normal bowel sounds, soft - Neurologic Neurologic: CNII-XII intact - Musculoskeletal Musculoskeletal: gait normal, generalized weakness, strength equal bilaterally - Psychiatric Psychiatric: A&O x's 3, appropriate affect, intact judgment & insight - Labs CBC & Chem 7: 05/13/19 04:08 05/13/19 04:11 Labs: Abnormal Lab Results - Last 24 Hours (Table) 05/12/19 05/13/19 05/13/19 Range/Units 12:07 04:08 04:11 RBC 4.29 L (4.30-5.90) m/uL Plt Count 120 L (150-450) k/uL Lymphocytes # 0.6 L (1.0-4.8) k/uL Sodium 135 L (137-145) mmol/L Carbon Dioxide 32 H (22-30) mmol/L BUN 30 H (9-20) mg/dL Glucose 114 H (74-99) mg/dL POC Glucose (mg/dL) 107 H (75-99) mg/dL Calcium 8.2 L (8.4-10.2) mg/dL Microbiology - Last 24 Hours (Table) 05/10/19 14:28 Gram Stain - Final Sputum Sputum Culture - Final Assessment and Plan Assessment: Bilateral basal pneumonia, predominant right lower lobe pneumonia Acute on chronic hypoxic respiratory failure Acute COPD exacerbation Atrial fibrillation chronic with rapid ventricular response Coronary artery disease History of severe COPD History of GI bleed with gastric ulceration Plan: Can go home from pulmonary standpoint in next 24 hours with follow-up in one week Broad-spectrum antibiotics, switched to oral like Ceftin 250 mg by mouth 2 times a day for a week Gentle rehydration IV steroids, we'll not give oral prednisone given history of GI bleed and patient's reluctance of taking it in the past Supplemental oxygen Breathing treatments Reviewed Sputum for Gram stain and culture normal respiratory josemanuel Further recommendations pending plan of care as per clinical response of the patient should be stable next 24-48 hours for possible discharge Time with Patient: Greater than 30
--- NOTE | 2019-05-13 13:36 | P.PN ---
Subjective Progress Note Date: 05/13/19 This is a 79-year-old male patient of Dr. Erasmo Hagan with past medical history of coronary artery disease, history of [place] status post CABG and angioplasty also known history of mitral valve disease and aortic aneurysm repair, history of paroxysmal atrial fibrillation arm treated medically not on any anticoagulation due to history of bleeding comes in with shortness of breath progressing over the past week. Patient is currently on 2 L off oxygen from his COPD and pulmonary fibrosis and sees Dr. Childers. Patient has been short of breath on walking short distance and has been using his breathing treatment multiple times a day without any improvement. On evaluation in the ER, patient was afebrile tachycardic 120 in atrial fibrillation respiratory rate of 23 saturating at 90% on 2 L oxygen was increased to 4 L. EKG was done that suggested irregularly irregular tachycardia suggested atrial fibrillation with right bundle branch block on chest x-ray was negative for any acute changes. BNP was elevated. Patient was admitted for CHF exacerbation COPD exacerbation. Dr. Reynaga consulted. 05/11/19: Patient is resting sitting up in bed without any acute distress. Patient states that his breathing is better than it was yesterday. Chest x-ray shows COPD, cardiomegaly, right lower lobe infiltrate likely representing pneumonia. The CBC 12.5, hemoglobin 14.3, platelets 101, potassium 4.6, BUN 22, creatinine 1.04 pro-calcitonin 0.85, urinalysis is adequate, vital signs of hemodynamic be stable, patient is afebrile, patient's pulse ox a 94% on 3 L. Patient did have an episode of seeing a woman struggling in the parking lot getting into a car. However recently view showing trees. We will continue to monitor this. 11.3: Patient is resting in bed without any acute distress. Patient states that his breathing is much better he is more talkative compared to yesterday. Didn't feel 0.5, hemoglobin 13.7, platelets 103, potassium 4.2, BUN 26, creatinine 1.1 patient has been afebrile, vital signs hemodynamically stable. No concerns of seen hallucinations or confusion noted today. 05/13: Patient remains in intensive care unit but has been downgraded waiting for bed side. Patient states his breathing is much improved and getting better each day. He is followed by cardiology and Dr. Childers. 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 No anticoagulation due to history of GI bleed. Patient is afebrile, heart rate 87, blood pressure 126/80, pulse ox 94% on 2 L nasal cannula. WBC 7.0, hemoglobin 13.5, CO2 is 32, BUN 30 creatinine 1.02. Weight is down a total of 3.5 kg. Anticipate discharge home tomorrow. Review Of Systems: Constitutional: No fever, no chills, no night sweats. No weakness, fatigue or lethargy. No daytime sleepiness. EENT: No headache. No blurred vision or double vision, no loss of vision. No loss of Hearing, no ringing in the ears, no dizziness. No nasal drainage or congestion. No epistaxis. No sore throat. Lungs: No shortness of breath, cough, no sputum production. No wheezing. Cardiovascular: No chest pain, no lower extremity edema. No palpitations. No paroxysmal nocturnal dyspnea. No orthopnea. No lightheadedness or dizziness. No syncopal episodes. Abdominal: no abdominal discomfort. No nausea, vomiting. no diarrhea. No constipation. No bloody or tarry stools. no loss of appetite. Genitourinary: No dysuria, increased frequency, urgency. No urinary retention. Musculoskeletal: No myalgias. No muscle weakness, no gait dysfunction, no frequent falls. No back pain. No neck pain. Integumentary: No wounds, no lesions. No rash or pruritus. No unusual bruising. No change in hair or nails. Neurologic: No aphasia. No facial droop. No change in mentation. No head injury. No headache. No paralysis. No paresthesia. Psychiatric: No depression. No anxiety. No mood swings. Endocrine: No abnormal blood sugars. Objective - Vital Signs Vital signs: Vital Signs Temp 97.8 F 05/13/19 08:00 Pulse 78 05/13/19 08:35 Resp 22 05/13/19 08:00 BP 113/80 05/13/19 08:00 Pulse Ox 96 05/13/19 08:00 Intake & Output 05/12/19 05/13/19 05/13/19 18:59 06:59 18:59 Intake Total 50 200 Output Total 600 Balance -550 200 Weight 56.2 kg Intake: IV 50 cefTRIAXone 1 gm In 50 Sodium Chloride 0.9% 50 ml @ 100 mls/hr IVPB Q24HR [facility] Rx#:[id number] Oral 200 Output: Urine 600 Other: Voiding Method Urinal Toilet Toilet Urinal Urinal # Voids 1 2 - Exam General Appearance: Alert, cooperative, no distress, appears stated age. Patient is resting in the ICU. Neck HEENT: Supple, no lymphadenopathy, no thyroid enlargement, no carotid bruits. Lungs: Deformity of the chest noted with midline scar and decreased air entry bilaterally with diminished air entry bilaterally Chest Wall: Chest wall normal expansion with deep inspiration no tenderness and no deformity was found on exam, no costochondral pain or discomfort. Heart: Regular rate and rhythm, S1, S2 normal, systolic murmur, rub or gallop. Back: Symmetric, no curvature, ROM normal, no CVA tenderness. Abdomen: Soft, non-tender, no rebound or rigidity, no hepatosplenomegaly. Extremities: Extremities normal, atraumatic, no cyanosis or edema. Pulses: 2+ and symmetric. Skin: Skin color, texture, tugor normal, no rashes or lesions. Neurologic: Alert oriented x3 cranial nerves II through XII intact, no motor deficit - Labs CBC & Chem 7: 05/13/19 04:08 05/13/19 04:11 Labs: Abnormal Lab Results - Last 24 Hours (Table) 05/12/19 05/13/19 05/13/19 Range/Units 12:07 04:08 04:11 RBC 4.29 L (4.30-5.90) m/uL Plt Count 120 L (150-450) k/uL Lymphocytes # 0.6 L (1.0-4.8) k/uL Sodium 135 L (137-145) mmol/L Carbon Dioxide 32 H (22-30) mmol/L BUN 30 H (9-20) mg/dL Glucose 114 H (74-99) mg/dL POC Glucose (mg/dL) 107 H (75-99) mg/dL Calcium 8.2 L (8.4-10.2) mg/dL Microbiology - Last 24 Hours (Table) 05/10/19 14:28 Gram Stain - Final Sputum Sputum Culture - Final Assessment and Plan Plan: 1. Acute on chronic hypoxic respiratory failure requiring 4L oxygen and uses 2 L of oxygen at home for the combination of atrial fibrillation with RVR, COPD exacerbation, CHF. Pulmonary consult placed. Continue Lasix at 40 IV twice a day continue Solu-Medrol 40 IV every 6 with duo nebs as needed for shortness of breath Pulmicort twice twice a day 2. Chronic persistent atrial fibrillation presenting with RVR. Continue metoprolol 25 twice a day. Not on anticoagulation due to history of GI bleed in the past from a duodenal ulcer. 3. Acute on chronic systolic heart failure. Continue to monitor I&O and daily weights. Cardiology consult appreciated. Continue Lasix 40 mg twice daily. 4. Acute exacerbation of COPD. Continue Solu-Medrol 40 mg IV every 12 hours, DuoNeb treatments every 4 hours, Pulmicort 1 mg twice daily. Consult with Dr. Childers appreciated. 5. Coronary artery disease status post CABG and angioplasty. Continue aspirin and Lipitor continue metoprolol increased to 50 twice a day 6. History of GI bleed. No sign of anemia or bleeding currently. Patient insists on not being on anticoagulation. Dr. Mary aware of patient's risk and has discussed that with the patient and cardiology in the past and decision was made to continue patient off anticoagulation for treatment of atrial fibr illation 7. Hyperlipidemia continue Lipitor 40 mg by mouth day 8. Hypertension continue metoprolol. 9. Chronic pain syndrome continue hydrocodone 11/09/2024 every 6 hours GI prophylaxis continue Pepcid 20 mg by mouth daily DVT prophylaxis. Early mobilization CODE STATUS: full code Discharge plan: Home Monday with [facility]. Impression and plan of care have been directed as dictated by the signing physician. Maylin Arcos nurse practitioner acting as scribe for signing physician.
--- NOTE | 2019-05-13 14:06 | PN ---
PROGRESS NOTE Grant is a 79-year-old gentleman with history of chronic atrial fibrillation, mitral valve repair, who is admitted to the hospital with shortness of breath. At the time of my evaluation this morning, his heart rate is well controlled, shortness of breath has improved and he does not have any leg edema. Patient has opted not to take long-term anticoagulation. PHYSICAL EXAM: He is comfortable at rest. Heart rate is 88 beats per minute. Blood pressure is 113/80. Respirations 18. Chest exam reveals diminished air entry at the bases with occasional rhonchi. Heart exam reveals first and second heart sounds, irregular rhythm and a systolic murmur at the left lower sternal border. Abdomen is soft. Exam of extremities reveals trace edema. Peripheral pulses are felt. LAB: Show a hemoglobin of 13.5, potassium is 4.3. Creatinine is 1. ASSESSMENT: 1. Persistent atrial fibrillation with controlled ventricular rate. 2. Mitral regurgitation status post mitral valve repair. 3. Coronary artery disease, status post coronary artery bypass grafting. 4. Congestive heart failure exacerbation. 5. Chronic obstructive pulmonary disease exacerbation. PLAN: Patient is doing well. He will continue current medications including aspirin Lipitor, oral Lasix, Lopressor, and along with nebulizers and antibiotics. Hopefully, the patient will be discharged home tomorrow. MMODL / IJN: [id number] /
[2019-05-13] MEDS: MONTELUKAST 10 MG TAB PO SCH (20:07)
[2019-05-13] MEDS: ATORVASTATIN 40 MG TAB PO SCH (20:07)
[2019-05-14] MEDS: IPRATROPIUM-ALBUTEROL 3 ML NEB INHALATION SCH ×4 (00:14→10:48)
[2019-05-14] MEDS: HYDROcodone/APAP 5-325MG 1 EACH TAB PO PRN (01:34)
[2019-05-14] MEDS: BUDESONIDE 1 MG/2 ML NEBU INHALATION SCH (07:34)
[2019-05-14] MEDS ORDERED: INFLUENZA VACCINE (6 MOS+) 60 MCG/0.5 ML SYRINGE IM ONE (08:00)
[2019-05-14] MEDS: FUROSEMIDE 40 MG TAB PO SCH (08:22)
[2019-05-14] MEDS: ASPIRIN 325 MG TAB PO SCH (08:22)
[2019-05-14] MEDS: MAGNESIUM OXIDE 400 MG TAB PO SCH (08:23)
[2019-05-14] MEDS: FAMOTIDINE 20 MG TAB PO SCH (08:23)
[2019-05-14] MEDS: METOPROLOL TARTRATE 50 MG TAB PO SCH (08:23)
[2019-05-14] MEDS: POTASSIUM CHLORIDE ER 10 MEQ TAB.ER.PRT PO SCH (08:23)
[2019-05-14] MEDS: methylPREDNISolone SOD SUCCI 40 MG/ML 1 ML VIAL IV SCH (08:23)
--- NOTE | 2019-05-14 13:26 | PN ---
PROGRESS NOTE Grant is a 79-year-old gentleman who is admitted to the hospital with persistent atrial fibrillation, chronic systolic heart failure, and COPD. At the time of my evaluation this morning, he remains in atrial fibrillation with controlled ventricular rate. His shortness of breath had improved. He is ready to be discharged home. On exam, patient is afebrile. Heart rate is 80 beats per minute, blood pressure is 118/75, respiratory rate is 14. There is no jugular venous distention. Carotid upstroke is diminished. Chest exam reveals good air entry bilaterally. I do not hear any crackles or rhonchi. Heart exam reveals first and second heart sounds and a systolic murmur at the apex. Abdomen is soft. Exam of the extremities reveals mild edema. Labs show a hemoglobin of 13.5. Potassium is 4.3. Creatinine is 1. ASSESSMENT: 1. Shortness of breath secondary to a combination of chronic obstructive pulmonary disease and congestive heart failure exacerbations. 2. Coronary artery disease status post CABG. 3. Mitral regurgitation status post mitral valve repair. 4. Chronic persistent atrial fibrillation with controlled ventricular rate. PLAN: The patient will continue with current medications. He has opted not to take an anticoagulant. Stable for discharge. Followup with Dr. Hagan in the office. MMODL / IJN: [id number] /
[2019-05-14 14:04] VITALS: BP 112/83; PULSE 80; RESP 28; TEMP 97.8
--- NOTE | 2019-05-14 14:14 | P.PN ---
Subjective Progress Note Date: 05/14/19 Principal diagnosis: Bilateral basal pneumonia Acute on chronic hypoxic respiratory failure Acute COPD exacerbation Atrial fibrillation chronic with rapid ventricular response Coronary artery disease History of severe COPD History of GI bleed with gastric ulceration May 14 2019, patient seen eval reexamined during the rounds labs reviewed medications reviewed cough congestion shortness of breath is improved breathing is improved as well not wheezing 05/13/2019, patient seen eval examined during the rounds labs reviewed medications reviewed and she is feeling better with decreased cough congestion shortness of breath is present left from today has been reviewed white cell count is down to 7000 sodium is up to [birth year]/1934 BUN/creatinine remains stable, breathing has significantly improved as well his sputum is negative is predominantly normal respiratory josemanuel 05/12/2019, patient seen eval reexamined during the rounds labs reviewed medications reviewed care plan discussed with the patient at length wheezing cough congestion is improved patient remains in proximal atrial fibrillation but controlled ventricular response, chest x-ray at last performed on May 11 continue show resolving right lower lobe pneumonia along with COPD and cardiomegaly 05/11/2019, patient was still having significant shortness of breath however denies any chest pain remains in atrial fibrillation without any rapid ventricular response labs reviewed medications reviewed noted troponin are mildly elevated, sputum culture results are pending patient has been tolerating IV steroids and breathing treatment along with antibiotics fairly well This is a 79-year-old patient with the significant past medical history of coronary artery disease status post CABG also has a history a history of aneurysm which was repaired in the past, 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 has been on supplemental oxygen at 2 L at rest and 3 L on exertion and activity 24 7, he is also on nebulizer treatment at home, patient presented in emergency department is 1 week history of increasing shortness of breath cough congestion and purulent sputum production, patient is afebrile but found to be in atrial fibrillation with RVR and respiratory distress patient has been admitted into the selective care and has been on IV steroids breathing treatments antibiotics are being initiated, sputum samples are obtained, sputum is thick tenacious green in discoloration, heart rate is down to 70-80 in A. fib, patient is not on long-term anticoagulation due to history of prior multiple GI bleeds and ulceration Objective - Vital Signs Vital signs: Vital Signs Temp 97.8 F 05/14/19 12:00 Pulse 80 05/14/19 12:00 Resp 28 H 05/14/19 12:00 BP 112/83 05/14/19 12:00 Pulse Ox 96 05/14/19 12:00 Intake & Output 05/13/19 05/14/19 05/14/19 18:59 06:59 18:59 Intake Total 50 350 50 Balance 50 350 50 Weight 55.6 kg Intake: IV 50 50 cefTRIAXone 1 gm In 50 50 Sodium Chloride 0.9% 50 ml @ 100 mls/hr IVPB Q24HR [facility] Rx#:[id number] Oral 350 Other: Voiding Method Toilet Toilet Urinal Urinal # Voids 1 1 1 - Exam - Constitutional General appearance: average body habitus, disheveled, mild distress - EENT Eyes: EOMI, PERRLA, normal appearance ENT: normal oropharynx Ears: bilateral: normal - Neck Neck: lymphadenopathy Carotids: bilateral: upstroke normal Thyroid: bilateral: normal size - Respiratory Respiratory: bilateral: diminished, rales, rhonchi, wheezing, negative: CTA, dullness - Cardiovascular Rhythm: regular Heart sounds: normal: S1, S2 - Gastrointestinal General gastrointestinal: decreased bowel sounds, normal bowel sounds, soft - Neurologic Neurologic: CNII-XII intact - Musculoskeletal Musculoskeletal: gait normal, generalized weakness, strength equal bilaterally - Psychiatric Psychiatric: A&O x's 3, appropriate affect, intact judgment & insight - Labs CBC & Chem 7: 05/13/19 04:08 05/13/19 04:11 Labs: Microbiology - Last 24 Hours (Table) 05/10/19 14:28 Gram Stain - Final Sputum Sputum Culture - Final Assessment and Plan Assessment: Bilateral basal pneumonia, predominant right lower lobe pneumonia Acute on chronic hypoxic respiratory failure Acute COPD exacerbation Atrial fibrillation chronic with rapid ventricular response Coronary artery disease History of severe COPD History of GI bleed with gastric ulceration Plan: Can go home from pulmonary standpoint with follow-up in one week Broad-spectrum antibiotics, switched to oral like Ceftin 250 mg by mouth 2 times a day for a week Gentle rehydration IV steroids, we'll not give oral prednisone given history of GI bleed and patient's reluctance of taking it in the past, Medrol is okay Supplemental oxygen Breathing treatments Reviewed Sputum for Gram stain and culture normal respiratory josemanuel Further recommendations pending plan of care as per clinical response of the patient should be stable next 24-48 hours for possible discharge Time with Patient: Greater than 30
== END 2019-05-14 14:53 | disposition home health service (06) | DRG 291 ==
LOC: EC 02:07 → 2SICU 03:29
PROVIDERS: ADMIT Internal Medicine; ATTEND Internal Medicine
DX: I11.0 Hypertensive heart disease with heart failure (principal); J18.1 Lobar pneumonia, unspecified organism; J96.21 Acute and chronic respiratory failure with hypoxia; I48.19 Other persistent atrial fibrillation; E78.5 Hyperlipidemia, unspecified; G89.4 Chronic pain syndrome; I25.10 Atherosclerotic heart disease of native coronary artery without angina pectoris; I25.2 Old myocardial infarction; I34.0 Nonrheumatic mitral (valve) insufficiency; I45.10 Unspecified right bundle-branch block; I50.23 Acute on chronic systolic (congestive) heart failure; J84.10 Pulmonary fibrosis, unspecified; Z79.82 Long term (current) use of aspirin; Z79.899 Other long term (current) drug therapy; Z79.891 Long term (current) use of opiate analgesic; J43.9 Emphysema, unspecified; Z79.51 Long term (current) use of inhaled steroids; Z82.49 Family history of ischemic heart disease and other diseases of the circulatory system; Z86.79 Personal history of other diseases of the circulatory system; Z87.11 Personal history of peptic ulcer disease; Z87.891 Personal history of nicotine dependence; Z95.1 Presence of aortocoronary bypass graft; Z95.2 Presence of prosthetic heart valve; Z99.81 Dependence on supplemental oxygen; Z98.61 Coronary angioplasty status; Z85.828 Personal history of other malignant neoplasm of skin; M19.042 Primary osteoarthritis, left hand; M19.041 Primary osteoarthritis, right hand; R44.1 Visual hallucinations
CPT/HCPCS: 36415; 71045; 71046; 80048; 80053; 83735; 83880; 84145; 84484; 85025; 85027; 85610; 85730; 86140; 87070; 87205; 93005; 93306; 94640; 96361; 96374; 99285

== ENCOUNTER 2019-06-05 06:21 | Observation (INO) | payer MEDICARE ==
[2019-06-05] MEDS ORDERED: PANTOPRAZOLE 40 MG/10 ML VIAL IVP STA (06:35)
--- NOTE | 2019-06-05 06:37 | ED ---
GI Bleed HPI - General Chief complaint: GI Bleed Stated complaint: GI Bleed Time Seen by Provider: 06/05/19 06:22 Source: patient, EMS, RN notes reviewed Mode of arrival: EMS Limitations: no limitations - History of Present Illness Initial comments: 79-year-old male presents emergency department via EMS chief complaint of abdominal discomfort, black tarry stools. He states the pain is intermittent. He states he's been up all night with slightly loose black tarry stools. Patient has a history of GI bleed. Patient does take current baby dose aspirin for A. fib. Patient states also states he has underlying COPD, recent misperceived be CHF. Patient states that his breathing is improving he still wears at home oxygen. Patient states he feels weak, fatigued. Patient has no dysuria no hematuria. Denies any recent abdominal surgeries. Patient denies fever, chills - Related Data Home Medications Medication Instructions Recorded Confirmed Ipratropium/Albuterol Sulfate 3 ml INHALATION RT-QID 11/13/13 06/05/19 [Duoneb 0.5 mg-3 mg/3 ml Soln] Montelukast [Singulair] 10 mg PO HS 11/13/13 06/05/19 Atorvastatin [Lipitor] 40 mg PO HS 08/14/14 06/05/19 Budesonide [Pulmicort] 1 mg INHALATION RT-BID 01/25/18 06/05/19 Cholecalciferol [Vitamin D3 (25 1,000 unit PO DAILY 01/25/18 06/05/19 Mcg = 1000 Iu)] HYDROcodone/APAP 5-325MG [[place] 1 tab PO DAILY PRN 01/25/18 06/05/19 5-325] Magnesium 200 mg PO DAILY 01/25/18 06/05/19 Potassium Chloride [Klor-Con 10] 10 meq PO DAILY 05/10/19 06/05/19 Previous Rx's Medication Instructions Recorded Aspirin EC [Ecotrin Low Dose] 81 mg PO DAILY #30 tablet. 08/19/14 Metoprolol Tartrate [Lopressor] 25 mg PO BID #60 tab 08/19/14 Famotidine [Pepcid] 20 mg PO DAILY tab 05/14/19 Furosemide [Lasix] 40 mg PO BID #0 05/14/19 Allergies Allergy/AdvReac Type Severity Reaction Status Date / Time prednisone Allergy Unknown Verified 06/05/19 08:30 Review of Systems ROS Statement: Those systems with pertinent positive or pertinent negative responses have been documented in the HPI. ROS Other: All systems not noted in ROS Statement are negative. Past Medical History Past Medical History: Atrial Fibrillation, Asthma, Coronary Artery Disease (CAD), Cancer, COPD, GERD/Reflux, GI Bleed, Hyperlipidemia, Hypertension, Myocardial Infarction (NC), Osteoarthritis (OA), Pneumonia Additional Past Medical History / Comment(s): Other HX: Home O2 at 2L/NC. GI bleed 2010 from duodenal ulcer, MONO when a child, shingelles as a child, SKIN CANCER, OA bilateral hands, L leg vein graft site got infected. Last Myocardial Infarction Date:: unknown History of Any Multi-Drug Resistant Organisms: None Reported Past Surgical History: Cardiac Valve Replacement, Coronary Bypass/CABG, Heart Catheterization, Tonsillectomy Additional Past Surgical History / Comment(s): 2010 AORTIC ANEURYSM REPAIR, 1993 cardiac angioplasty, 2011 CABG with mitral vavle replacement with #30 [place] mitral ring and triple bypass with reverse saphenous venous graft to the LAD, RCA, intermediate branch,, EGD, colonoscopy, bilateral cataract removal, right carpal tunnel release, bilateral inguinal hernia repair, bilateral facial cyst removed, aortobifemoral bypass, bilateral profundoplasty. Past Anesthesia/Blood Transfusion Reactions: No Reported Reaction Additional Past Anesthesia/Blood Transfusion Reaction / Comment(s): Pt has had blood transfusion without reaction. Past Psychological History: No Psychological Hx Reported Smoking Status: Former smoker Past Alcohol Use History: Daily Past Drug Use History: None Reported - Past Family History Mother Family Medical History: Coronary Artery Disease (CAD) Additional Family Medical History / Comment(s): Mother had pacemaker. She at age 77yrs. Father Family Medical History: Coronary Artery Disease (CAD) Additional Family Medical History / Comment(s): Father at age 60 yrs after having Flu. Brother(s) Family Medical History: Vascular Disorder Additional Family Medical History / Comment(s): Brother of ruptured abdominal aortic anuerysm at age 64 yrs. General Exam Limitations: no limitations General appearance: alert, in no apparent distress Head exam: Present: atraumatic, normocephalic, normal inspection Eye exam: Present: normal appearance, PERRL, EOMI. Absent: scleral icterus, conjunctival injection, periorbital swelling ENT exam: Present: normal exam, normal oropharynx, mucous membranes moist Neck exam: Present: normal inspection. Absent: tenderness, meningismus, lymp hadenopathy Respiratory exam: Present: wheezes, decreased breath sounds, other (Patient is barrel chested). Absent: normal lung sounds bilaterally, respiratory distress, rales, rhonchi, stridor Cardiovascular Exam: Present: regular rate, normal rhythm, normal heart sounds. Absent: systolic murmur, diastolic murmur, rubs, gallop, clicks GI/Abdominal exam: Present: soft, tenderness (Minimal nonlocalized), normal bowel sounds. Absent: distended, guarding, rebound, rigid Back exam: Absent: CVA tenderness (R), CVA tenderness (L) Neurological exam: Present: alert, oriented X3 Skin exam: Present: warm, dry, intact, normal color. Absent: rash Course Vital Signs 06/05/19 06/05/19 06:24 07:43 Temperature 97.6 F Pulse Rate 94 92 Respiratory 20 16 Rate Blood Pressure 125/51 78/52 O2 Sat by Pulse 97 95 Oximetry - Reevaluation(s) Reevaluation #1: 06/05/19 08:18 Reevaluated states he has no complaints at this time blood pressure was noted to be lower than prior. Patient ordered fluid bolus. He has no current abdominal pain denies feeling more weak, fatigued than he was. Denies chest pain or shortness of breath. Medical Decision Making - Medical Decision Making Patiently admitted for GI bleed with GI consult, repeat H&H and blood pressure monitoring. - Lab Data Result diagrams: 06/05/19 07:03 06/05/19 07:03 Lab Results 06/05/19 06/05/19 06/05/19 Range/Units 07:03 07:03 07:03 WBC 10.1 (3.8-10.6) k/uL RBC 4.31 (4.30-5.90) m/uL Hgb 14.0 (13.0-17.5) gm/dL Hct 41.2 (39.0-53.0) % MCV 95.7 (80.0-100.0) fL MCH 32.5 (25.0-35.0) pg MCHC 34.0 (31.0-37.0) g/dL RDW 14.2 (11.5-15.5) % Plt Count 87 L (150-450) k/uL Neutrophils % 86 % Lymphocytes % 7 % Monocytes % 3 % Eosinophils % 3 % Basophils % 0 % Neutrophils # 8.7 H (1.3-7.7) k/uL Lymphocytes # 0.7 L (1.0-4.8) k/uL Monocytes # 0.3 (0-1.0) k/uL Eosinophils # 0.3 (0-0.7) k/uL Basophils # 0.0 (0-0.2) k/uL Manual Slide Review Performed RBC Morphology Normal PT (9.0-12.0) sec INR (<1.2) APTT (22.0-30.0) sec Sodium 140 (137-145) mmol/L Potassium 3.8 (3.5-5.1) mmol/L Chloride 100 (98-107) mmol/L Carbon Dioxide 33 H (22-30) mmol/L Anion Gap 7 mmol/L BUN 32 H (9-20) mg/dL Creatinine 1.11 (0.66-1.25) mg/dL Est GFR (CKD-EPI)AfAm 73 (>60 ml/min/1.73 sqM) Est GFR (CKD-EPI)NonAf 63 (>60 ml/min/1.73 sqM) Glucose 91 (74-99) mg/dL Calcium 9.3 (8.4-10.2) mg/dL Magnesium 1.9 (1.6-2.3) mg/dL Total Bilirubin 1.7 H (0.2-1.3) mg/dL AST 35 (17-59) U/L ALT 38 (21-72) U/L Alkaline Phosphatase 150 H (38-126) U/L Troponin I (0.000-0.034) ng/mL NT-Pro-B Natriuret Pep pg/mL Total Protein 6.1 L (6.3-8.2) g/dL Albumin 3.0 L (3.5-5.0) g/dL Lipase 62 (23-300) U/L Stool Occult Blood (Negative) Blood Type O Positive Blood Type Recheck O Pos Bld Type Recheck Status No Antibody Screen NEGATIVE Spec Expiration Date 06/08/2019230206/05/1906/05/19 11/27/19 Range/Units 07:03 07:03 07:03 WBC (3.8-10.6) k/uL RBC (4.30-5.90) m/uL Hgb (13.0-17.5) gm/dL Hct (39.0-53.0) % MCV (80.0-100.0) fL MCH (25.0-35.0) pg MCHC (31.0-37.0) g/dL RDW (11.5-15.5) % Plt Count (150-450) k/uL Neutrophils % % Lymphocytes % % Monocytes % % Eosinophils % % Basophils % % Neutrophils # (1.3-7.7) k/uL Lymphocytes # (1.0-4.8) k/uL Monocytes # (0-1.0) k/uL Eosinophils # (0-0.7) k/uL Basophils # (0-0.2) k/uL Manual Slide Review RBC Morphology PT 10.8 (9.0-12.0) sec INR 1.0 (<1.2) APTT 26.9 (22.0-30.0) sec Sodium (137-145) mmol/L Potassium (3.5-5.1) mmol/L Chloride (98-107) mmol/L Carbon Dioxide (22-30) mmol/L Anion Gap mmol/L BUN (9-20) mg/dL Creatinine (0.66-1.25) mg/dL Est GFR (CKD-EPI)AfAm (>60 ml/min/1.73 sqM) Est GFR (CKD-EPI)NonAf (>60 ml/min/1.73 sqM) Glucose (74-99) mg/dL Calcium (8.4-10.2) mg/dL Magnesium (1.6-2.3) mg/dL Total Bilirubin (0.2-1.3) mg/dL AST (17-59) U/L ALT (21-72) U/L Alkaline Phosphatase (38-126) U/L Troponin I 0.043 H* (0.000-0.034) ng/mL NT-Pro-B Natriuret Pep 2150 pg/mL Total Protein (6.3-8.2) g/dL Albumin (3.5-5.0) g/dL Lipase (23-300) U/L Stool Occult Blood (Negative) Blood Type Blood Type Recheck Bld Type Recheck Status Antibody Screen Spec Expiration Date 06/05/19 Range/Units 07:50 WBC (3.8-10.6) k/uL RBC (4.30-5.90) m/uL Hgb (13.0-17.5) gm/dL Hct (39.0-53.0) % MCV (80.0-100.0) fL MCH (25.0-35.0) pg MCHC (31.0-37.0) g/dL RDW (11.5-15.5) % Plt Count (150-450) k/uL Neutrophils % % Lymphocytes % % Monocytes % % Eosinophils % % Basophils % % Neutrophils # (1.3-7.7) k/uL Lymphocytes # (1.0-4.8) k/uL Monocytes # (0-1.0) k/uL Eosinophils # (0-0.7) k/uL Basophils # (0-0.2) k/uL Manual Slide Review RBC Morphology PT (9.0-12.0) sec INR (<1.2) APTT (22.0-30.0) sec Sodium (137-145) mmol/L Potassium (3.5-5.1) mmol/L Chloride (98-107) mmol/L Carbon Dioxide (22-30) mmol/L Anion Gap mmol/L BUN (9-20) mg/dL Creatinine (0.66-1.25) mg/dL Est GFR (CKD-EPI)AfAm (>60 ml/min/1.73 sqM) Est GFR (CKD-EPI)NonAf (>60 ml/min/1.73 sqM) Glucose (74-99) mg/dL Calcium (8.4-10.2) mg/dL Magnesium (1.6-2.3) mg/dL Total Bilirubin (0.2-1.3) mg/dL AST (17-59) U/L ALT (21-72) U/L Alkaline Phosphatase (38-126) U/L Troponin I (0.000-0.034) ng/mL NT-Pro-B Natriuret Pep pg/mL Total Protein (6.3-8.2) g/dL Albumin (3.5-5.0) g/dL Lipase (23-300) U/L Stool Occult Blood Positive (Negative) Blood Type Blood Type Recheck Bld Type Recheck Status Antibody Screen Spec Expiration Date - EKG Data -: EKG Interpreted by Me EKG Comments: EKG performed at 6:31 A. fib with PVCs, right bundle rate of 92 QRS 136 QT/QTC 398/492 Critical Care Time Critical Care Time: Yes Total Critical Care Time: 35 Critical Care Time: Total 35 minutes of critical care time were used to initially evaluated patient, reviewed past medical history, medications and vitals. Patient had labs including CBC, CMP, type and screen, troponin EKG and chest x-ray. Chest x-ray shows resolving infiltrate in which she has been treated for. I do not feel there is an infiltrate. Patient is Hemoccult positive, patient was given Protonix. Patient also found to have mild hypotension given fluid bolus and which this did resolve. Patient will be admitted case discussed with admitting physician, consult to GI. Disposition Clinical Impression: Melena, GI bleed, A-fib, Dehydration Disposition: ADMITTED IP TO THIS [facility] Condition: Serious Referrals: Erasmo Mary MD [Primary Care Provider] - 1-2 days
--- NOTE | 2019-06-05 07:06 | XR ---
EXAMINATION TYPE: XR chest 2V DATE OF EXAM: 06/05/2019 COMPARISON: Chest x-ray May 11, 2019 and older studies. CTA chest January 25, 2018. HISTORY: Shortness of breath. TECHNIQUE: Frontal and lateral views of the chest are obtained. FINDINGS: There is background chronic emphysematous change with scattered parenchymal fibrosis. Ther e is developing right basilar opacity thought present. No pleural effusion or pneumothorax is seen. C ardiac silhouette size is stable and within normal limits with right-sided shift redemonstrated. Athe rosclerotic aorta is again seen. Overlying sternal wires are redemonstrated. Mitral valvular ring ag ain seen. The osseous structures are intact. IMPRESSION: Chronic emphysematous and parenchymal fibrotic changes with new right basilar infiltrate thought present.
[2019-06-05 07:31] LABS: Partial Thromboplastin Time 26.9 sec (22.0-30.0); Prothrombin Time 10.8 sec (9.0-12.0)
[2019-06-05 07:33] LABS: Calcium 9.3 mg/dL (8.4-10.2); Magnesium 1.9 mg/dL (1.6-2.3); Potassium 3.8 mmol/L (3.5-5.1); Total Bilirubin 1.7 mg/dL (0.2-1.3); Total Protein 6.1 g/dL (6.3-8.2)
[2019-06-05] MEDS ORDERED: SODIUM CHLORIDE 0.9% 500 ML 500 ML IV STA (07:47)
[2019-06-05 08:14] LABS: Basophils % (A) 0 %; Eosinophils # (A) 0.3 k/uL (0-0.7); Eosinophils % (A) 3 %; HCT 41.2 % (39.0-53.0); Lymphocytes # (A) 0.7 k/uL (1.0-4.8); Lymphocytes % (A) 7 %; MCH 32.5 pg (25.0-35.0); MCV 95.7 fL (80.0-100.0); Mean Platelet Volume 8.5; Monocytes # (A) 0.3 k/uL (0-1.0); Monocytes % (A) 3 %; Neutrophils # (A) 8.7 k/uL (1.3-7.7); Neutrophils % (A) 86 %; RBC 4.31 m/uL (4.30-5.90); RDW 14.2 % (11.5-15.5); WBC 10.1 k/uL (3.8-10.6)
[2019-06-05] MEDS ORDERED: SODIUM CHLORIDE 0.9% 1,000 ML IV ONE (08:16)
[2019-06-05 08:33] LABS: Platelet Count 87 k/uL (150-450)
[2019-06-05] MEDS ORDERED: ACETAMINOPHEN TAB 325 MG TAB PO PRN (08:48)
[2019-06-05] MEDS ORDERED: ONDANSETRON 4 MG/2 ML VIAL IVP PRN (08:48)
[2019-06-05] MEDS ORDERED: NALOXONE 0.4 MG/ML 1 ML VIAL IV PRN (08:48)
[2019-06-05] MEDS: PANTOPRAZOLE 40 MG/10 ML VIAL IV SCH ×2 (09:04→21:16)
[2019-06-05] MEDS: HYDROcodone/APAP 5-325MG 1 EACH TAB PO PRN (10:27)
[2019-06-05] MEDS ORDERED: HYDROcodone/APAP 5-325MG 1 EACH TAB PO PRN (12:22)
[2019-06-05 13:43] LABS: Basophils % (A) 0 %; Eosinophils # (A) 0.3 k/uL (0-0.7); Eosinophils % (A) 4 %; HGB 11.7 gm/dL (13.0-17.5); Lymphocytes # (A) 0.9 k/uL (1.0-4.8); Lymphocytes % (A) 10 %; MCH 32.7 pg (25.0-35.0); MCHC 34.4 g/dL (31.0-37.0); MCV 95.1 fL (80.0-100.0); Mean Platelet Volume 8.2; Monocytes # (A) 0.4 k/uL (0-1.0); Monocytes % (A) 4 %; Neutrophils # (A) 7.3 k/uL (1.3-7.7); Neutrophils % (A) 81 %; RBC 3.57 m/uL (4.30-5.90); RDW 14.2 % (11.5-15.5); WBC 9.1 k/uL (3.8-10.6)
--- NOTE | 2019-06-05 13:43 | P.HPIM ---
History of Present Illness H&P Date: 06/05/19 79 years old male patient of Dr. Erasmo Hagan and with past medical history of coronary artery disease history of ME status post CABG and angioplasty, known history of mitral valve disease and aortic aneurysm repair history of paroxysmal atrial fibrillation not on any anticoagulation due to history of bleeding last admitted on 05/23 acute on chronic hypoxic respirato ry failure secondary to COPD CHF and atrial fibrillation with RVR. patient comes in to the ER with multiple episodes of dark stools. Patient states that he felt like passing out but did not lose his consciousness he called his friend at 5 in the morning and called ambulance to come to the ER. Patient endorses rectal pain but denies any abdominal pain. Patient denies any nausea and vomiting but does drink alcohol every day. He denies any use of NSAIDs or previous such episodes. He denies any nausea or bright red blood via vomiting or stool. Vital signs as suggest a pulse of 92 irregular blood pressure 78/52 and saturating at 95% on 2 L blood pressure improved to 105/16 after a liter and a half of IV fluids. On evaluation of the lab patient has a hemoglobin of 14 and platelet is low 87 carbon dioxide of 33 BUN 32 LFTs are normal,.. Stool occult was positive. One dose of 80 mg IV Protonix was given and patient was initiated on Protonix 40 mg IV twice a day. Gastroenterology consult was placed. Patient is kept nothing by mouth until evaluated by GI Review of Systems Constitutional: Denies chills, Denies fever, endorses lethargy Denies poor appetite Denies weight loss Eyes: denies decreased vision, denies diplopia, denies discharge, denies pain Ears: deny: decreased hearing Ears, nose, mouth and throat: Denies dental pain, Denies headache, Denies nasal discharge, Denies nose pain Cardiovascular: Denies chest pain, Denies decreased exercise tolerance, Denies edema, Denies high blood pressure, endorses irregular heart beat, Denies palpitations, Denies paroxysmal nocturnal dyspnea, Denies rapid heart beat, Denies shortness of breath Respiratory: Denies congestion, Denies cough, Denies cough with sputum, Denies dyspnea, on 2 L home oxygen, Denies wheezing Gastrointestinal: Endorses rectal pain, endorses loose bowel movement Denies coffee ground emesis, Denies early satiety, Denies excessive gas, Denies heartburn, Denies hematemesis, Denies hematochezia, Denies loss of appetite, Denies nausea, Denies vomiting endorses melena Genitourinary: Denies dysuria, Denies flank pain, Denies kidney stones, Denies menorrhagia, Denies urgency, Denies urinary frequency Musculoskeletal: Denies gait dysfunction, Denies limitation of motion, Denies morning stiffness, Denies muscle cramps Integumentary: Denies rash, Denies wounds, Denies brittle nails, Denies change in hair/nails, Denies darkening of skin Neurological: Denies balance difficulties, Denies change in speech, Denies double vision, Denies gait dysfunction, Denies loss of vision, Denies motor disturbance, Denies numbness, Denies paralysis, Denies paresthesias, Denies seizures Psychiatric: Denies anxiety, Denies depression Endocrine: Denies excessive sweating, Denies excessive thirst, Denies high blood sugars, Denies palpitations Hematologic/Lymphatic: Denies easy bruising, Denies lymphadenopathy Past Medical History Past Medical History: Atrial Fibrillation, Asthma, Coronary Artery Disease (CAD), Cancer, COPD, GERD/Reflux, GI Bleed, Hyperlipidemia, Hypertension, Myocardial Infarction (ME), Osteoarthritis (OA), Pneumonia, Vascular Disorder Additional Past Medical History / Comment(s): Pt recently admitted to [facility] on 05/10/19 with acute on chronic hypoxic respiratory failure/Afib with RVR/acute on chronic exacerbations of CHF and COPD. Other hx: Home oxygen at 2L/[place] ATC, lower GI bleed, duodenal and antral ulcers, pt states he was told he had a ME after CABG-saw area of damage, PAD bilateral legs, chronic arthritic pain in bilateral hands, squamous cell skin cancer removal, mono and shingelles as a child Last Myocardial Infarction Date:: unknown History of Any Multi-Drug Resistant Organisms: None Reported Past Surgical History: Cardiac Valve Replacement, Coronary Bypass/CABG, Heart Catheterization, Orthopedic Surgery, Tonsillectomy Additional Past Surgical History / Comment(s): 2010 AORTIC ANEURYSM REPAIR/aorto bifem bypass, 1993 cardiac angioplasty, 2011 CABG 3 vessel with mitral valve replacement, EGD, colonoscopy, bilateral cataract removal with lens implants, right carpal tunnel release, bilateral facial cyst removed, cyst removed from back, skin cancer removal, aortobifemoral bypass, bilateral profundoplasty, EGD, colonoscopy. Past Anesthesia/Blood Transfusion Reactions: No Reported Reaction Additional Past Anesthesia/Blood Transfusion Reaction / Comment(s): Pt has had blood transfusion without reaction. Smoking Status: Former smoker (Smoked for 25 years) Past Alcohol Use History: Daily - Past Family History Mother Family Medical History: Coronary Artery Disease (CAD) Additional Family Medical History / Comment(s): Mother had pacemaker. She at age 77yrs. Father Family Medical History: Coronary Artery Disease (CAD) Additional Family Medical History / Comment(s): Father at age 60 yrs after having Flu. Brother(s) Family Medical History: Vascular Disorder Additional Family Medical History / Comment(s): Brother of ruptured abdominal aortic anuerysm at age 64 yrs. Medications and Allergies Home Medications Medication Instructions Recorded Confirmed Type Ipratropium/Albuterol Sulfate 3 ml INHALATION RT-QID 11/13/13 06/05/19 History [Duoneb 0.5 mg-3 mg/3 ml Soln] Montelukast [Singulair] 10 mg PO HS 11/13/13 06/05/19 History Atorvastatin [Lipitor] 40 mg PO HS 08/14/14 06/05/19 History Aspirin EC [Ecotrin Low Dose] 81 mg PO DAILY #30 tablet. 08/19/14 06/05/19 Rx Metoprolol Tartrate [Lopressor] 25 mg PO BID #60 tab 08/19/14 06/05/19 Rx Budesonide [Pulmicort] 1 mg INHALATION RT-BID 01/25/18 06/05/19 History Cholecalciferol [Vitamin D3 (25 1,000 unit PO DAILY 01/25/18 06/05/19 History Mcg = 1000 Iu)] HYDROcodone/APAP 5-325MG [[place] 1 tab PO DAILY PRN 01/25/18 06/05/19 History 5-325] Magnesium 200 mg PO DAILY 01/25/18 06/05/19 History Potassium Chloride [Klor-Con 10] 10 meq PO DAILY 05/10/19 06/05/19 History Famotidine [Pepcid] 20 mg PO DAILY tab 05/14/19 06/05/19 Rx Furosemide [Lasix] 40 mg PO BID #0 05/14/19 06/05/19 Rx Allergies Allergy/AdvReac Type Severity Reaction Status Date / Time prednisone Allergy Unknown Verified 06/05/19 08:30 Physical Exam Vitals: Vital Signs Temp Pulse Resp BP Pulse Ox 06/05/19 11:31 96 16 105/68 95 06/05/19 09:52 89 16 102/55 97 06/05/19 08:40 106/72 06/05/19 08:15 80/65 06/05/19 07:43 92 16 78/52 95 06/05/19 06:24 97.6 F 94 20 125/51 97 Intake and Output 06/04/19 06/05/19 06/05/19 22:59 06:59 14:59 Other: Weight 56.69 kg 56.69 kg - Constitutional General appearance: cooperative, no acute distress, cachectic appearing - EENT Eyes: anicteric sclerae, PERRLA, normal appearance ENT: hearing grossly normal - Neck Neck: no lymphadenopathy, normal ROM, no other, no rigidity, no stridor, no thyromegaly - Respiratory Respiratory: bilateral: CTA, negative: diminished, dullness, rales, rhonchi - Cardiovascular Rhythm: Irregularly irregular Heart sounds: normal: S1, S2 Abnormal Heart Sounds: 2/6 systolic murmur, no diastolic murmur, no rub, no S3 Gallop, no S4 Gallop, no click, no other - Gastrointestinal General gastrointestinal: normal bowel sounds, soft nontender with central incision scar healed - Integumentary Integumentary: no rash - Neurologic Neurologic: CNII-XII intact - Musculoskeletal Musculoskeletal: gait normal, strength equal bilaterally - Psychiatric Psychiatric: A&O x's 3, appropriate affect Results CBC & Chem 7: 06/05/19 07:03 06/05/19 07:03 Labs: Abnormal Lab Results - Last 24 Hours (Table) 06/05/19 06/05/19 06/05/19 Range/Units 07:03 07:03 07:03 Plt Count 87 L (150-450) k/uL Neutrophils # 8.7 H (1.3-7.7) k/uL Lymphocytes # 0.7 L (1.0-4.8) k/uL Carbon Dioxide 33 H (22-30) mmol/L BUN 32 H (9-20) mg/dL Total Bilirubin 1.7 H (0.2-1.3) mg/dL Alkaline Phosphatase 150 H (38-126) U/L Troponin I 0.043 H* (0.000-0.034) ng/mL Total Protein 6.1 L (6.3-8.2) g/dL Albumin 3.0 L (3.5-5.0) g/dL Thrombosis Risk Factor Assmnt - DVT/VTE Prophylaxis DVT/VTE Prophylaxis: Mechanical Prophylaxis ordered, Contraindicated - See note (Low platelets) - Choose All That Apply Any of the Below Risk Factors Present?: Yes Each Factor Represents 1 point: Abnormal pulmonary function (COPD), Serious lung disease incl. pneumonia (< 1month) Other Risk Factors: Yes Each Risk Factor Represents 2 Points: Malignancy Each Risk Factor Represents 3 Points: Age 75 years or older Other congenital or acquired thrombophilia - If yes, enter type in comment: No Thrombosis Risk Factor Assessment Total Risk Factor Score: 7 Thrombosis Risk Factor Assessment Level: High Risk Assessment and Plan Plan: #1 melena likely secondary to GI bleed. History of peptic ulcer disease/du odenal ulcer in the past patient denies any use of NSAIDs. But does drink alcohol every single day keep patient nothing by mouth have gastroenterology come and see the patient. Continue Protonix 40 mg IV twice a day status post 80 mg of IV Protonix one dose. CBC every 6 hours hemoglobin stable at this point #2 end-stage COPD on home oxygen patient does have wheezing on examination and has ALLERGY to prednisone. Will continue with breathing treatment and Pulmicort for now patient is currently not complaining of shortness of breath and always have some baseline wheezing will continue to monitor #2 atrial fibrillation rate controlled heart rate controlled with metoprolol 25 twice a day. Not on anticoagulation due to history of GI bleed in the past from a duodenal ulcer. Hold aspirin #3 history of diastolic CHF will hold Lasix as patient's blood pressure is on the lower side continue to monitor daily weights daily iron on his #4 coronary artery disease status post CABG and angioplasty. Hold aspirin continue Lipitor continue metoprolol 25 twice a day #6 thrombocytopenia patient has low platelets and the previous visits. We will evaluate with PT/INR PTT and peripheral smear. #7 hyperlipidemia continue Lipitor 40 mg by mouth daily #hypertensive cardiovascular diseaseue metoprolol. #92 chronic pain syndrome continue hydrocodone 11/09/2024 every 6 hours #10 history of GI prophylaxis contin Protonix 40 IV twice a day #11 DVT prophylaxis. Early mobilizationLow platelets #12 CODE STATUS full code #13 discharge plan patient will need 1-2 inpatient nights for recovery discharge as patient is medically stable
[2019-06-05 13:54] LABS: Platelet Count 77 k/uL (150-450)
[2019-06-05] MEDS: IPRATROPIUM-ALBUTEROL 3 ML NEB INHALATION SCH ×2 (14:03→20:04)
[2019-06-05 14:53] VITALS: BMI 20.1
[2019-06-05] MEDS: METOPROLOL TARTRATE 25 MG TAB PO SCH ×2 (15:27→21:16)
[2019-06-05 19:46] LABS: HCT 34.2 % (39.0-53.0); HGB 11.6 gm/dL (13.0-17.5); MCH 33.1 pg (25.0-35.0); MCHC 34.1 g/dL (31.0-37.0); Mean Platelet Volume 8.4; RBC 3.52 m/uL (4.30-5.90); RDW 14.3 % (11.5-15.5); WBC 8.9 k/uL (3.8-10.6)
[2019-06-05 19:49] LABS: Platelet Count 70 k/uL (150-450)
[2019-06-05] MEDS: BUDESONIDE 1 MG/2 ML NEBU INHALATION SCH (20:04)
[2019-06-05] MEDS: ATORVASTATIN 40 MG TAB PO SCH (21:16)
[2019-06-05] MEDS: MONTELUKAST 10 MG TAB PO SCH (21:16)
[2019-06-06] MEDS: HYDROcodone/APAP 5-325MG 1 EACH TAB PO PRN ×2 (01:10→06:04)
[2019-06-06] MEDS: IPRATROPIUM-ALBUTEROL 3 ML NEB INHALATION SCH ×4 (07:58→19:59)
[2019-06-06] MEDS: BUDESONIDE 1 MG/2 ML NEBU INHALATION SCH ×2 (07:58→19:59)
[2019-06-06] MEDS: METOPROLOL TARTRATE 25 MG TAB PO SCH ×2 (08:49→21:43)
[2019-06-06] MEDS: MAGNESIUM OXIDE 400 MG TAB PO SCH (08:49)
[2019-06-06] MEDS: PANTOPRAZOLE 40 MG/10 ML VIAL IV SCH ×2 (08:49→21:43)
--- NOTE | 2019-06-06 09:47 | CONS ---
CONSULTATION CHIEF COMPLAINT: Elevated troponin Mr. Ac is a 79-year-old gentleman with history of coronary artery disease, mitral regurgitation status post mitral valve repair, congestive heart failure, atrial fibrillation, and COPD who presented to hospital with progressively worsening shortness of breath, fatigue and tired. He also complains of black tarry stools. The patient is currently being evaluated for GI bleed and I have been consulted because of elevated troponin. The patient does not have any chest pain. There is no history of leg edema, PND or orthopnea. He has known coronary artery disease and has had bypass surgery. He has history of atrial fibrillation, but is currently not on an anticoagulant due to history of GI bleed. On this admission, the EKG showed atrial fibrillation with right bundle branch block and secondary ST-T wave changes. LABS: Labs show that the troponin is elevated at 0.04, 0.05 and 0.1. BNP is elevated at 2150. The patient is anemic with a hemoglobin of 11.6, platelet count is 70. Potassium is 3.8, BUN is 32, and creatinine is 1.1. The patient's clinical presentation is probably related to the GI bleed and COPD. The patient had an echocardiogram at his last admission, which was just 2 weeks ago and his ejection fraction was 50-55 percent with a moderately dilated left atrium and mild aortic stenosis. The patient's troponin elevation could be due to anemia and supply demand mismatch. He is not a candidate for invasive procedures at this time given the GI bleed and melanotic stools. We are unable to give him any antiplatelets or anticoagulants. For the same reason, he is not a candidate for intravenous heparin. We will treat him with optimal medical therapy with Lipitor and Lopressor and I will add nitrates to what he is on. PAST MEDICAL HISTORY: Significant for coronary artery disease status post CABG, COPD, mitral regurgitation status post mitral valve repair, chronic persistent atrial fibrillation, and GI bleed. MEDICATIONS: Medications at home included K-Dur, Singulair, Lopressor 25 b.i.d., DuoNeb, [place], Lasix, Pepcid, Pulmicort, Lipitor and aspirin. ALLERGIES: ALLERGIC TO PENICILLIN. FAMILY HISTORY: Negative for premature coronary artery disease. SOCIAL HISTORY: Negative for current smoking, EtOH abuse, or drug abuse. REVIEW OF SYSTEMS: HEENT is unremarkable. Cardiac as described above. Respiratory as described above. GI significant for melanotic stools. Genitourinary negative. Allergy/Immunology: Negative. Skin negative. Musculoskeletal significant for arthritis. Psychosocial negative. Endocrine negative. Derm negative. Constitutional significant for fatigue and tiredness. Rest of the system review is not relevant. EXAM: Patient is afebrile. Heart rate is 90 beats per minute, blood pressure is 110/57, respiratory O2 sat is 98% on 2 L. There is no jugular venous distention. Chest exam reveals occasional rhonchi bilaterally with diminished air entry. Heart exam reveals first and second heart sounds. Systolic murmur in the left lower sternal border and an ejection systolic murmur in the left upper sternal border. ABDOMEN: Soft. Exam of extremities did not reveal any edema. Peripheral pulses are felt. LABORATORY DATA: Lab show a hemoglobin of 11.6 that is a drop from 14 on admission. Platelet count is low at 70. Potassium is normal at 3.8, BUN is elevated at 32, creatinine is 1.1. Tropes are elevated at 0.04, 0.05 and 0.1. ASSESSMENT: 1. Elevated troponin probably secondary to supply demand mismatch. 2. Melanotic stools, probably related to gastrointestinal bleed. 3. BNP elevation inconsistent with a diagnosis of congestive heart failure. 4. Chronic chronic obstructive pulmonary disease. 5. Coronary artery disease status post coronary artery bypass grafting. 6. Mitral regurgitation status post mitral valve repair. PLAN: Patient is not a candidate for invasive procedures. We will treat him with optimal medical therapy with nitrates, beta blockers and statin. I am going to add Imdur 30 mg daily and I will resume the Lasix that he was on at home. MMODL / IJN: [id number] /
--- NOTE | 2019-06-06 10:41 | P.CONS ---
History of Present Illness - Reason for Consult Consult date: 06/05/19 GI bleed Requesting physician: Kal Ramirez - Chief Complaint Melena - History of Present Illness 79-year-old male with multiple medical comorbidities including coronary artery disease status post prior coronary artery bypass grafting, aortic aneurysm repair, paroxysmal atrial fibrillation, COPD on home oxygen therapy who was recently admitted earlier in the month. He presented back to the hospital for evaluation of dark-colored stools. The patient reports approximately 2 days of dark-colored stool. He reports multiple episodes more than he could count of dark stool. No bright red blood per rectum, nausea, vomiting, coffee-ground emesis or hematemesis reported. The patient denies any NSAID therapy but does take baby aspirin daily. He is not on any home PPI therapy. She was previously seen for GI bleed in 2014 at which time he reports he is on prednisone therapy. He did have an EGD on 08/2014 with findings of an antral ulcer and reports findings of a duodenal ulcer on EGD prior to this. He has a remote history of colonoscopy. He also reports associated symptoms of shortness of breath dizziness and fatigue. Review of Systems REVIEW OF SYSTEMS: CONSTITUTIONAL: Denies any fevers, chills, weight change but does report fatigue. CARDIOVASCULAR: Denies any chest pain, palpitations high or low blood pressures, but does have a known history of atrial fibrillation. RESPIRATORY: Denies any hemoptysis or cough but does have shortness of breath MUSCULOSKELETAL: No weakness reported. GENITOURINARY: No dysuria or hematuria. SKIN: Denies any new rashes or lesions, jaundice or pallor. PSYCHIATRIC: Denies any depression or anxiety. NEUROLOGY: Denies headache, denies any new focal deficits. EARS/NOSE/THROAT: No recent hearing change, congestion, nasal discharge or sore throat. EYES: No pain in eyes, discharge or change in vision. GASTROINTESTINAL: As per HPI Past Medical History Past Medical History: Atrial Fibrillation, Asthma, Coronary Artery Disease (CAD), Cancer, COPD, GERD/Reflux, GI Bleed, Hyperlipidemia, Hypertension, Myocardial Infarction (MD), Osteoarthritis (OA), Pneumonia, Vascular Disorder Additional Past Medical History / Comment(s): Pt recently admitted to [facility] on 05/10/19 with acute on chronic hypoxic respiratory failure/Afib with RVR/acute on chronic exacerbations of CHF and COPD. Other hx: Home oxygen at 2L/[place] ATC, lower GI bleed, duodenal and antral ulcers, pt states he was told he had a MD after CABG-saw area of damage, PAD bilateral legs, chronic arthritic pain in bilateral hands, squamous cell skin cancer removal, mono and shingelles as a child Last Myocardial Infarction Date:: unknown History of Any Multi-Drug Resistant Organisms: None Reported Past Surgical History: Cardiac Valve Replacement, Coronary Bypass/CABG, Heart Catheterization, Orthopedic Surgery, Tonsillectomy Additional Past Surgical History / Comment(s): 2010 AORTIC ANEURYSM REPAIR/aortobifem bypass, 1993 cardiac angioplasty, 2011 CABG 3 vessel with mitral valve replacement, EGD, colonoscopy, bilateral cataract removal with lens implants, right carpal tunnel release, bilateral facial cyst removed, cyst removed from back, skin cancer removal, aortobifemoral bypass, bilateral profundoplasty, EGD, colonoscopy. Past Anesthesia/Blood Transfusion Reactions: No Reported Reaction Additional Past Anesthesia/Blood Transfusion Reaction / Comm: Pt has had blood transfusion without reaction. Smoking Status: Former smoker - Past Family History Mother Family Medical History: Coronary Artery Disease (CAD) Additional Family Medical History / Comment(s): Mother had pacemaker. She at age 77yrs. Father Family Medical History: Coronary Artery Disease (CAD) Additional Family Medical History / Comment(s): Father at age 60 yrs after having Flu. Brother(s) Family Medical History: Vascular Disorder Additional Family Medical History / Comment(s): Brother of ruptured abdominal aortic anuerysm at age 64 yrs. Medications and Allergies Home Medications Medication Instructions Recorded Confirmed Type Ipratropium/Albuterol Sulfate 3 ml INHALATION RT-QID 11/13/13 06/05/19 History [Duoneb 0.5 mg-3 mg/3 ml Soln] Montelukast [Singulair] 10 mg PO HS 11/13/13 06/05/19 History Atorvastatin [Lipitor] 40 mg PO HS 08/14/14 06/05/19 History Aspirin EC [Ecotrin Low Dose] 81 mg PO DAILY #30 tablet. 08/19/14 06/05/19 Rx Metoprolol Tartrate [Lopressor] 25 mg PO BID #60 tab 08/19/14 06/05/19 Rx Budesonide [Pulmicort] 1 mg INHALATION RT-BID 01/25/18 06/05/19 History Cholecalciferol [Vitamin D3 (25 1,000 unit PO DAILY 01/25/18 06/05/19 History Mcg = 1000 Iu)] HYDROcodone/APAP 5-325MG [[place] 1 tab PO DAILY PRN 01/25/18 06/05/19 History 5-325] Magnesium 200 mg PO DAILY 01/25/18 06/05/19 History Potassium Chloride [Klor-Con 10] 10 meq PO DAILY 05/10/19 06/05/19 History Famotidine [Pepcid] 20 mg PO DAILY tab 05/14/19 06/05/19 Rx Furosemide [Lasix] 40 mg PO BID #0 05/14/19 06/05/19 Rx Allergies Allergy/AdvReac Type Severity Reaction Status Date / Time prednisone Allergy Unknown Verified 06/05/19 08:30 Physical Exam Vitals: Vital Signs Temp Pulse Resp BP Pulse Ox 06/05/19 11:31 96 16 105/68 95 06/05/19 09:52 89 16 102/55 97 06/05/19 08:40 106/72 06/05/19 08:15 80/65 06/05/19 07:43 92 16 78/52 95 06/05/19 06:24 97.6 F 94 20 125/51 97 Intake and Output 06/04/19 06/05/19 06/05/19 22:59 06:59 14:59 Other: Weight 56.69 kg 56.69 kg On physical examination, patient appears comfortable in no apparent distress. HEAD: Normocephalic, atraumatic. EYES: No scleral icterus. No conjunctival injection. MOUTH: No lesions, tongue midline. NECK: Trachea midline, no gross abnormalities. CHEST: Decreased air entry appreciated in all lung smith with no wheezing appreciated. HEART: S1-S2 appreciated. ABDOMEN: Soft, thin. Bowel sounds are positive. No organomegaly. No guarding or rigidity. EXTREMITIES: No pedal edema. SKIN: No rashes, no jaundice. NEUROLOGIC: Alert and oriented x3. No focal deficits. Results CBC & Chem 7: 06/05/19 19:05 06/05/19 07:03 Labs: Abnormal Lab Results - Last 24 Hours (Table) 06/05/19 06/05/19 06/05/19 Range/Units 07:03 07:03 07:03 Plt Count 87 L (150-450) k/uL Neutrophils # 8.7 H (1.3-7.7) k/uL Lymphocytes # 0.7 L (1.0-4.8) k/uL Carbon Dioxide 33 H (22-30) mmol/L BUN 32 H (9-20) mg/dL Total Bilirubin 1.7 H (0.2-1.3) mg/dL Alkaline Phosphatase 150 H (38-126) U/L Troponin I 0.043 H* (0.000-0.034) ng/mL Total Protein 6.1 L (6.3-8.2) g/dL Albumin 3.0 L (3.5-5.0) g/dL Chest x-ray: report reviewed (Chronic emphysematous and parenchymal fibrotic changes seen on chest x-ray.) Assessment and Plan (1) GI bleed Narrative/Plan: 79-year-old male with multiple medical comorbidities who presented to the hospital after recent discharge during which she was treated for an exacerbation of his CHF and COPD with complaints of dark tarry stool. The patient has a remote history of prior upper GI bleed which he associates with prior prednisone therapy. He reports 2 days of dark-colored bowel movements with no associated nausea, vomiting, hematemesis or bright red blood per rectum. No abdominal pain reported. His last EGD was in 08/2014 at which time he had findings of an antral ulcer. Hemoglobin on presentation was found to be 14 from 13.5 previously was subsequently fell. He denies any home NSAID therapy but is on aspirin daily. He reports using Tylenol for pain. Remote history of colonoscopy. Unknown etiology with suspicion for upper GI bleed with differential including peptic ulcer disease, AVM, Dieulafoy lesion, or other etiology. Current Visit: Yes Status: Acute Code(s): K92.2 - GASTROINTESTINAL HEMORRHAGE, UNSPECIFIED SNOMED Code(s): 25290274 (2) Anemia associated with acute blood loss Current Visit: Yes Status: Acute Code(s): D62 - ACUTE POSTHEMORRHAGIC ANEMIA SNOMED Code(s): 724262920 (3) Melena Current Visit: Yes Status: Acute Code(s): K92.1 - MELENA SNOMED Code(s): 4051746 Plan: Supportive care Okay for clear liquid diet Protonix 40 mg IV twice daily Avoid NSAID therapy Continue to monitor hemoglobin and hematocrit and transfuse as needed Continue to monitor stool output Plan for upper endoscopy with timing to be determined based on medical stability Thank you for allowing us to participate in the care of the patient we will continue to follow
--- NOTE | 2019-06-06 12:00 | P.PN ---
Subjective Progress Note Date: 06/06/19 79 years old male patient of Dr. Erasmo Hagan and with past medical history of coronary artery disease history of HI status post CABG and angioplasty, known history of mitral valve disease and aortic aneurysm repair history of paroxysmal atrial fibrillation not on any anticoagulation due to history of bleeding last admitted on 05/23 acute on chronic hypoxic respiratory failure secondary to COPD CHF and atrial fibrillation with RVR. patient comes in to the ER with multiple episodes of dark stools. Patient states that he felt like passing out but did not lose his consciousness he called his friend at 5 in the morning and called ambulance to come to the ER. Patient endorses rectal pain but denies any abdominal pain. Patient denies any nausea and vomiting but does drink alcohol every day. He denies any use of NSAIDs or previous such episodes. He denies any nausea or bright red blood via vomiting or stool. Vital signs as suggest a pulse of 92 irregular blood p ressure 78/52 and saturating at 95% on 2 L blood pressure improved to 105/16 after a liter and a half of IV fluids. On evaluation of the lab patient has a hemoglobin of 14 and platelet is low 87 carbon dioxide of 33 BUN 32 LFTs are normal,.. Stool occult was positive. One dose of 80 mg IV Protonix was given and patient was initiated on Protonix 40 mg IV twice a day. Gastroenterology consult was placed. Patient is kept nothing by mouth until evaluated by GI Review of Systems Constitutional: Denies chills, Denies fever, endorses lethargy Denies poor appetite Denies weight loss Eyes: denies decreased vision, denies diplopia, denies discharge, denies pain Ears: deny: decreased hearing Ears, nose, mouth and throat: Denies dental pain, Denies headache, Denies nasal discharge, Denies nose pain Cardiovascular: Denies chest pain, Denies decreased exercise tolerance, Denies edema, Denies high blood pressure, endorses irregular heart beat, Denies palpitations, Denies paroxysmal nocturnal dyspnea, Denies rapid heart beat, Denies shortness of breath Respiratory: Denies congestion, Denies cough, Denies cough with sputum, Denies dyspnea, on 2 L home oxygen, Denies wheezing Gastrointestinal: Endorses rectal pain, endorses loose bowel movement Denies coffee ground emesis, Denies early satiety, Denies excessive gas, Denies heartburn, Denies hematemesis, Denies hematochezia, Denies loss of appetite, Denies nausea, Denies vomiting endorses melena Genitourinary: Denies dysuria, Denies flank pain, Denies kidney stones, Denies menorrhagia, Denies urgency, Denies urinary frequency Musculoskeletal: Denies gait dysfunction, Denies limitation of motion, Denies morning stiffness, Denies muscle cramps Integumentary: Denies rash, Denies wounds, Denies brittle nails, Denies change in hair/nails, Denies darkening of skin Neurological: Denies balance difficulties, Denies change in speech, Denies double vision, Denies gait dysfunction, Denies loss of vision, Denies motor disturbance, Denies numbness, Denies paralysis, Denies paresthesias, Denies seizures Psychiatric: Denies anxiety, Denies depression Endocrine: Denies excessive sweating, Denies excessive thirst, Denies high blood sugars, Denies palpitations Hematologic/Lymphatic: Denies easy bruising, Denies lymphadenopathy Objective - Vital Signs Vital signs: Vital Signs Temp 97.5 F L 06/06/19 04:00 Pulse 88 06/06/19 11:39 Resp 16 06/06/19 09:45 BP 112/64 06/06/19 08:47 Pulse Ox 99 06/06/19 08:47 Intake & Output 06/05/19 06/06/19 06/06/19 18:59 06:59 18:59 Intake Total 240 Output Total 850 0 Balance -610 0 Weight 56.69 kg 33 kg Intake: Oral 240 Output: Urine 850 0 Straight 425 Other: Voiding Method Urinal Urinal Urinal Diaper Diaper # Voids 1 - Exam General Appearance: Alert, cooperative, no distress, appears older stated age. Neck HEENT: Supple, no lymphadenopathy, no thyroid enlargement, no carotid bruits. Lungs: Clear to auscultation without crackles or wheezes no rhonchi, no deformity. Chest Wall: Chest wall normal expansion with deep inspiration no tenderness and no deformity was found on exam, no costochondral pain or discomfort. Heart: Irregularly irregular, 2/6 systolic murmur , S1, S2 normal, no rub or gallop. Back: Symmetric, no curvature, ROM normal, no CVA tenderness. Abdomen: Soft, non-tender, no rebound or rigidity, no hepatosplenomegaly. Central incision scar healed Extremities: Extremities normal, atraumatic, no cyanosis or edema. Pulses: 2+ and symmetric. Skin: Skin color pale, texture dry, tugor decrease, no rashes or lesions. Neurologic: Alert oriented x3 cranial nerves II through XII intact, no motor deficit, - Labs CBC & Chem 7: 06/05/19 19:05 06/05/19 07:03 Labs: Abnormal Lab Results - Last 24 Hours (Table) 06/05/19 06/05/19 06/05/19 Range/Units 13:17 13:55 19:05 RBC 3.57 L (4.30-5.90) m/uL Hgb 11.7 L (13.0-17.5) gm/dL Hct 34.0 L (39.0-53.0) % Plt Count 77 L (150-450) k/uL Lymphocytes # 0.9 L (1.0-4.8) k/uL Troponin I 0.050 H* 0.150 H* (0.000-0.034) ng/mL 06/05/19 Range/Units 19:05 RBC 3.52 L (4.30-5.90) m/uL Hgb 11.6 L (13.0-17.5) gm/dL Hct 34.2 L (39.0-53.0) % Plt Count 70 L (150-450) k/uL Lymphocytes # (1.0-4.8) k/uL Troponin I (0.000-0.034) ng/mL Assessment and Plan Plan: 1. melena likely secondary to GI bleed. History of peptic ulcer disease/duodenal ulcer in the past patient denies any use of NSAIDs. But does drink alcohol every single day keep patient nothing by mouth have gastroenterology come and see the patient. Continue Protonix 40 mg IV twice a day status post 80 mg of IV Protonix one dose. CBC every 6 hours hemoglobin stable at this point. GI consult appreciated. Patient is scheduled for colonoscopy tomorrow. 2. end-stage COPD on home oxygen patient does have wheezing on examination and has ALLERGY to prednisone. Will continue with breathing treatment and Pulmicort for now patient is currently not complaining of shortness of breath and always have some baseline wheezing will continue to monitor 3. atrial fibrillation rate controlled heart rate controlled with metoprolol 25 twice a day. Not on anticoagulation due to history of GI bleed in the past from a duodenal ulcer. Hold aspirin 4. history of diastolic CHF will hold Lasix continue to monitor daily weights daily iron 5. coronary artery disease status post CABG and angioplasty. Hold aspirin continue Lipitor continue metoprolol 25 twice a day 6. thrombocytopenia patient has low platelets and the previous visits. We will evaluate with PT/INR PTT and peripheral smear. 7. hyperlipidemia continue Lipitor 40 mg by mouth daily 8. hypertensive cardiovascular diseaseue metoprolol. 9. chronic pain syndrome continue hydrocodone 11/09/2024 every 6 hours 10. history of GI prophylaxis contin Protonix 40 IV twice a day 11. DVT prophylaxis. Early mobilizationLow platelets CODE STATUS full code Discharge plan patient will need 1-2 inpatient nights for recovery discharge as patient is medically stable Impression and plan of care have been directed as dictated by the signing physician. Alia Fernandez nurse practitioner acting as scribe for signing physician.
[2019-06-06] MEDS: FUROSEMIDE 20 MG TAB PO SCH (13:29)
[2019-06-06] MEDS: ISOSORBIDE MONONITRATE ER 30 MG TAB.ER.24H PO SCH (13:30)
[2019-06-06] MEDS: CHOLECALCIFEROL 1,000 UNIT TAB PO SCH (13:30)
[2019-06-06] MEDS: MONTELUKAST 10 MG TAB PO SCH (21:42)
[2019-06-06] MEDS: ATORVASTATIN 40 MG TAB PO SCH (21:42)
[2019-06-07 01:40] VITALS: RESP 18
[2019-06-07 04:55] VITALS: TEMP 97.6
[2019-06-07] MEDS: BUDESONIDE 1 MG/2 ML NEBU INHALATION SCH (07:52)
[2019-06-07] MEDS: IPRATROPIUM-ALBUTEROL 3 ML NEB INHALATION SCH ×2 (07:52→11:28)
[2019-06-07] MEDS: PANTOPRAZOLE 40 MG/10 ML VIAL IV SCH (08:39)
[2019-06-07 08:45] VITALS: BP 115/55
[2019-06-07] MEDS ORDERED: LIDOCAINE 1% INJ 10MG/ML (20 ML MDV) ONE (08:53)
[2019-06-07] MEDS ORDERED: PHENYLEPHRINE-0.9% NACL SYG 1 MG/10 ML SYRINGE ONE (08:53)
[2019-06-07] MEDS ORDERED: PROPOFOL 10 MG/ML 20 ML VIAL IV ONE (08:53)
[2019-06-07] MEDS ORDERED: LACTATED RINGERS 1,000 ML IV ONE (08:59)
--- NOTE | 2019-06-07 09:18 | P.PN ---
Subjective Progress Note Date: 06/06/19 Principal diagnosis: Melena, GI bleed Patient is seen lying in bed still reporting dark stool. No abdominal pain reported. He has tolerated a liquid diet. Objective - Vital Signs Vital signs: Vital Signs Temp 97.5 F L 06/06/19 04:00 Pulse 88 06/06/19 11:39 Resp 16 06/06/19 09:45 BP 112/64 06/06/19 08:47 Pulse Ox 99 06/06/19 08:47 Intake & Output 06/05/19 06/06/19 06/06/19 18:59 06:59 18:59 Intake Total 240 Output Total 850 0 Balance -610 0 Weight 56.69 kg 33 kg Intake: Oral 240 Output: Urine 850 0 Straight 425 Other: Voiding Method Urinal Urinal Urinal Diaper Diaper # Voids 1 - Exam On physical examination, patient appears comfortable in no apparent distress. HEAD: Normocephalic, atraumatic. EYES: No scleral icterus. No conjunctival injection. MOUTH: No lesions, tongue midline. NECK: Trachea midline, no gross abnormalities. CHEST: Decreased air entry in all lung smith. ABDOMEN: Soft, thin and nontender. Bowel sounds are positive. No organomegaly. No guarding or rigidity. EXTREMITIES: No pedal edema. SKIN: No rashes, no jaundice. NEUROLOGIC: Alert and oriented x3. No focal deficits. - Labs CBC & Chem 7: 06/05/19 19:05 06/05/19 07:03 Labs: Abnormal Lab Results - Last 24 Hours (Table) 06/05/19 06/05/19 06/05/19 Range/Units 13:17 13:55 19:05 RBC 3.57 L (4.30-5.90) m/uL Hgb 11.7 L (13.0-17.5) gm/dL Hct 34.0 L (39.0-53.0) % Plt Count 77 L (150-450) k/uL Lymphocytes # 0.9 L (1.0-4.8) k/uL Troponin I 0.050 H* 0.150 H* (0.000-0.034) ng/mL 06/05/19 Range/Units 19:05 RBC 3.52 L (4.30-5.90) m/uL Hgb 11.6 L (13.0-17.5) gm/dL Hct 34.2 L (39.0-53.0) % Plt Count 70 L (150-450) k/uL Lymphocytes # (1.0-4.8) k/uL Troponin I (0.000-0.034) ng/mL Assessment and Plan (1) GI bleed Narrative/Plan: 79-year-old male with multiple medical comorbidities who presented to the hospital after recent discharge during which she was treated for an exacerbation of his CHF and COPD with complaints of dark tarry stool. The patient has a remote history of prior upper GI bleed which he associates with prior prednisone therapy. He reports 2 days of dark-colored bowel movements with no associated nausea, vomiting, hematemesis or bright red blood per rectum. No abdominal pain reported. His last EGD was in 08/2014 at which time he had findings of an antral ulcer. Hemoglobin on presentation was found to be 14 from 13.5 previously was subsequently fell. He denies any home NSAID therapy but is on aspirin daily. He reports using Tylenol for pain. Remote history of colonoscopy. Unknown etiology with suspicion for upper GI bleed with differential including peptic ulcer disease, AVM, Dieulafoy lesion, or other etiology. Current Visit: Yes Status: Acute Code(s): K92.2 - GASTROINTESTINAL HEMORRHAGE, UNSPECIFIED SNOMED Code(s): 14493598 (2) Anemia associated with acute blood loss Current Visit: Yes Status: Acute Code(s): D62 - ACUTE POSTHEMORRHAGIC ANEMIA SNOMED Code(s): 484421124 (3) Melena Current Visit: Yes Status: Acute Code(s): K92.1 - MELENA SNOMED Code(s): 8300340 Plan: Supportive care Okay for clear liquid diet, nothing by mouth after midnight Protonix 40 mg IV twice daily Avoid NSAID therapy Continue to monitor hemoglobin and hematocrit and transfuse as needed Continue to monitor stool output Plan for upper endoscopy tomorrow Thank you for allowing us to participate in the care of the patient we will continue to follow
--- NOTE | 2019-06-07 09:23 | P.PCN ---
Date of Procedure: 06/07/19 Description of Procedure: BRIEF HISTORY: 79-year-old male with multiple medical comorbidities including coronary artery disease status post prior coronary artery bypass grafting, aortic aneurysm repair, paroxysmal atrial fibrillation, COPD on home oxygen therapy who was recently admitted earlier in the month. He presented back to the hospital for evaluation of dark-colored stools. The patient reports approximately 2 days of dark-colored stool. He reports multiple episodes more than he could count of dark stool. No bright red blood per rectum, nausea, vomiting, coffee-ground emesis or hematemesis reported. The patient denies any NSAID therapy but does take baby aspirin daily. He is not on any home PPI therapy. She was previously seen for GI bleed in 2014 at which time he reports he is on prednisone therapy. He did have an EGD on 08/2014 with findings of an antral ulcer and reports findings of a duodenal ulcer on EGD prior to this. He has a remote history of colonoscopy. He also reports associated symptoms of shortness of breath dizziness and fatigue.. PROCEDURE PERFORMED: Esophagogastroduodenoscopy with biopsy. PREOPERATIVE DIAGNOSIS: GI bleed, melena. ESTIMATED BLOOD LOSS: Minimal. IV sedation per anesthesia. PROCEDURE: After informed consent was obtained, the patient was brought into the endoscopy unit. IV sedation was administered by Anesthesia under continuous monitoring. Initially the Olympus GIF-190 video endoscope was inserted into the mouth. Esophagus intubated without any difficulty. It was gradually advanced into the stomach and duodenum and carefully examined. The bulb and the second part of the duodenum appeared normal, with biopsies taken. The scope at this time was withdrawn to the stomach, adequately insufflated with air, and upon careful examination, mucosa of the antrum, body, cardia and the fundus appeared grossly normal however there were 2 superficial nonbleeding antral ulcers noted in the antrum of the stomach. No high or stigmata were noted from the ulcers. Mild scattered erythema in the antrum and body suggestive of mild gastritis, biopsies were taken of the gastric antrum and body to rule out Helicobacter pylori. The scope was then withdrawn into the esophagus. The GE junction was located at 36 cm from the incisors, with a small hiatal hernia noted. The esophagus appeared normal. There were no erosions or ulcerations seen and the patient tolerated the procedure well. IMPRESSION: 1. No active bleeding or old blood noted on EGD. 2. 2 nonbleeding antral ulcers without high-risk. 3. Mild gastritis antrum body, biopsied 4. Small hiatal hernia 5. Duodenal biopsies RECOMMENDATIONS: The findings of this examination were discussed with the patient. Okay to resume diet. Okay to resume the medications today. Okay to resume any anticoagulation if needed tomorrow. Continue to monitor hemoglobin and hematocrit. Patient should be discharged on Protonix 40 mg twice daily. Consideration for repeat EGD in 6 weeks to check for ulcer healing.
[2019-06-07 09:53] LABS: HCT 33.9 % (39.0-53.0); MCH 33.7 pg (25.0-35.0); MCHC 35.3 g/dL (31.0-37.0); MCV 95.5 fL (80.0-100.0); Mean Platelet Volume 7.7; RBC 3.55 m/uL (4.30-5.90); RDW 14.5 % (11.5-15.5); WBC 6.9 k/uL (3.8-10.6)
[2019-06-07 09:56] LABS: Platelet Count 64 k/uL (150-450)
[2019-06-07 10:13] LABS: Albumin 2.2 g/dL (3.5-5.0); Calcium 7.4 mg/dL (8.4-10.2); Potassium 3.8 mmol/L (3.5-5.1); Total Bilirubin 1.9 mg/dL (0.2-1.3); Total Protein 4.8 g/dL (6.3-8.2)
[2019-06-07] MEDS: FUROSEMIDE 20 MG TAB PO SCH (10:47)
[2019-06-07] MEDS: MAGNESIUM OXIDE 400 MG TAB PO SCH (10:47)
[2019-06-07] MEDS: METOPROLOL TARTRATE 25 MG TAB PO SCH (10:47)
[2019-06-07] MEDS: CHOLECALCIFEROL 1,000 UNIT TAB PO SCH (10:47)
[2019-06-07] MEDS: ISOSORBIDE MONONITRATE ER 30 MG TAB.ER.24H PO SCH (10:48)
[2019-06-07 11:30] VITALS: PULSE 92
--- NOTE | 2019-06-07 12:15 | P.DS ---
Providers Date of admission: 06/05/19 08:48 Expected date of discharge: 06/07/19 Attending physician: Kal Ramirez MD Consults: 06/05/19 08:48 Consult Physician Stat Consulting Provider: Jeremy Rankin Consult Reason/Comments: GI bleed Do you want consulting provider notified?: Yes 06/05/19 13:37 Consult Physician Routine Consulting Provider: Jaxon Hagan Consult Reason/Comments: troponin elevation, h/o CAD, ECG with q waves in inferior leads Do you want consulting provider notified?: Yes [facility]: 79 years old male patient of Dr. Erasmo Hagan and with past medical history of coronary artery disease history of HI status post CABG and angioplasty, known history of mitral valve disease and aortic aneurysm repair history of paroxysmal atrial fibrillation not on any anticoagulation due to history of bleeding last admitted on 05/23 acute on chronic hypoxic respiratory failure secondary to COPD CHF and atrial fibrillation with RVR. patient comes in to the ER with multiple episodes of dark stools. Patient states that he felt like passing out but did not lose his consciousness he called his friend at 5 in the morning and called ambulance to come to the ER. Patient endorses rectal pain but denies any abdominal pain. Patient denies any nausea and vomiting but does drink alcohol every day. He denies any use of NSAIDs or previous such episodes. He denies any nausea or bright red blood via vomiting or stool. Vital signs as suggest a pulse of 92 irregular blood pressure 78/52 and saturating at 95% on 2 L blood pressure improved to 105/16 after a liter and a half of IV fluids. On evaluation of the lab patient has a hemoglobin of 14 and platelet is low 87 carbon dioxide of 33 BUN 32 LFTs are normal,.. Stool occult was positive. One dose of 80 mg IV Protonix was given and patient was initiated on Protonix 40 mg IV twice a day. Gastroenterology consult was placed. Patient is kept nothing by mouth until evaluated by GI 06/07: Patient underwent EGD and biopsy that found no bleeding or old blood noted. 2 nonbleeding antral ulcers without high risk. Mild gastritis antrum body which was biopsied. Small hiatal hernia, duodenal biopsies. Recommendations to continue Protonix 40 mg twice daily and consider repeat EGD in 6 weeks. Patient will be started on diet and plan for discharge home today. Repeat hemoglobin is 12, platelet count 64, BUN 27 creatinine 1. Patient was seen by Dr. Helen Boo for elevated troponin secondary to supply demand mismatch. He recommends optimizing medical therapy with beta marlen statin and added Imdur, resume Lasix. Patient will be discharged home later today. We will resume home Lasix at a lower dose. Discharge diagnoses: 1. melena likely secondary to GI bleed possibly related to gastritis and nonbleeding ulcers found on EGD. 2. end-stage COPD with chronic hypoxic respiratory failure on home O2 3. Chronic atrial fibrillation rate controlled 4. Chronic diastolic heart failure 5. coronary artery disease status post CABG and angioplasty. 6. thrombocytopenia, chronic 7. hyperlipidemia 8. hypertensive cardiovascular disease 9. chronic pain syndrome Discharge plan: home Impression and plan of care have been directed as dictated by the signing physician. Maylin Arcos nurse practitioner acting as scribe for signing physician. Patient Condition at Discharge: Good Plan - Discharge Summary Discharge Rx Participant: No New Discharge Prescriptions: New Pantoprazole [Protonix] 40 mg PO BID #60 tablet. Isosorbide Mononitrate ER [Imdur] 30 mg PO DAILY #30 tab.er.24h Continue Ipratropium/Albuterol Sulfate [Duoneb 0.5 mg-3 mg/3 ml Soln] 3 ml INHALATION RT-QID Montelukast [Singulair] 10 mg PO HS Atorvastatin [Lipitor] 40 mg PO HS Metoprolol Tartrate [Lopressor] 25 mg PO BID #60 tab Aspirin EC [Ecotrin Low Dose] 81 mg PO DAILY #30 tablet. Magnesium 200 mg PO DAILY Cholecalciferol [Vitamin D3 (25 Mcg = 1000 Iu)] 1,000 unit PO DAILY Budesonide [Pulmicort] 1 mg INHALATION RT-BID HYDROcodone/APAP 5-325MG [Opp 5-325] 1 tab PO DAILY PRN PRN Reason: Pain Potassium Chloride [Klor-Con 10] 10 meq PO DAILY Changed Furosemide [Lasix] 20 mg PO BID #0 Discontinued Famotidine [Pepcid] 20 mg PO DAILY tab Discharge Medication List Ipratropium/Albuterol Sulfate [Duoneb 0.5 mg-3 mg/3 ml Soln] 3 ml INHALATION RT- QID 11/13/13 [History] Montelukast [Singulair] 10 mg PO HS 11/13/13 [History] Atorvastatin [Lipitor] 40 mg PO HS 08/14/14 [History] Aspirin EC [Ecotrin Low Dose] 81 mg PO DAILY #30 tablet. 08/19/14 [Rx] Metoprolol Tartrate [Lopressor] 25 mg PO BID #60 tab 08/19/14 [Rx] Budesonide [Pulmicort] 1 mg INHALATION RT-BID 01/25/18 [History] Cholecalciferol [Vitamin D3 (25 Mcg = 1000 Iu)] 1,000 unit PO DAILY 01/25/18 [History] HYDROcodone/APAP 5-325MG [Opp 5-325] 1 tab PO DAILY PRN 01/25/18 [History] Magnesium 200 mg PO DAILY 01/25/18 [History] Potassium Chloride [Klor-Con 10] 10 meq PO DAILY 05/10/19 [History] Furosemide [Lasix] 20 mg PO BID #0 06/07/19 [Rx] Isosorbide Mononitrate ER [Imdur] 30 mg PO DAILY #30 tab.er.24h 06/07/19 [Rx] Pantoprazole [Protonix] 40 mg PO BID #60 tablet. 06/07/19 [Rx] Follow up Appointment(s)/Referral(s): Jaxon Hagan MD [STAFF PHYSICIAN] - 06/18/19 4:30 pm Erasmo Mary MD [Primary Care Provider] - 1 Week (Office closed until Monday. Please call Monday for a follow up appointment. ) Jeremy Raknin MD [STAFF PHYSICIAN] - 4 Weeks (Message left for office to return call with a follow up appointment. ) Patient Instructions/Handouts: Gastrointestinal Bleeding (DC), Diet for Stomach Ulcers and Gastritis (ED) Activity/Diet/Wound Care/Special Instructions: GI BLEED 1. Take all new medication as directed. 2. Avoid foods that can be irritating to your intestines (See dietary teaching). 3. Avoid motrin (ibuprofen) and aleve (naproxen). These medications can increase your risk of internal bleeding. Tylenol (acetaminophen) is safe to take as long as you do not have any liver disease. 4. Avoid drinking alcohol and smoking, these can also irritate your intestines and increase risk of internal bleeding. 5. Increase activity gradually, do not overexert yourself. Your blood count is lower and your body will need time to recover. Discharge Disposition: HOME SELF-CARE
[2019-06-07] MEDS ORDERED: PANTOPRAZOLE 40 MG TABLET PO SCH (17:30)
== END 2019-06-07 13:59 | disposition home or self-care (01) ==
LOC: EC 06:21 → 3SCARD 08:48
PROVIDERS: ADMIT Internal Medicine; ATTEND Internal Medicine
DX: K29.81 Duodenitis with bleeding (principal); K29.51 Unspecified chronic gastritis with bleeding; K25.4 Chronic or unspecified gastric ulcer with hemorrhage; K44.9 Diaphragmatic hernia without obstruction or gangrene; J44.9 Chronic obstructive pulmonary disease, unspecified; J96.11 Chronic respiratory failure with hypoxia; I48.19 Other persistent atrial fibrillation; I11.0 Hypertensive heart disease with heart failure; I50.30 Unspecified diastolic (congestive) heart failure; I25.10 Atherosclerotic heart disease of native coronary artery without angina pectoris; D69.6 Thrombocytopenia, unspecified; E78.5 Hyperlipidemia, unspecified; G89.4 Chronic pain syndrome; D62 Acute posthemorrhagic anemia; E86.0 Dehydration; I95.9 Hypotension, unspecified; I49.3 Ventricular premature depolarization; K21.9 Gastro-esophageal reflux disease without esophagitis; M19.90 Unspecified osteoarthritis, unspecified site; I71.9 Aortic aneurysm of unspecified site, without rupture; I73.9 Peripheral vascular disease, unspecified; M19.042 Primary osteoarthritis, left hand; M19.041 Primary osteoarthritis, right hand; K08.109 Complete loss of teeth, unspecified cause, unspecified class; I45.10 Unspecified right bundle-branch block; I25.2 Old myocardial infarction; Z79.82 Long term (current) use of aspirin; Z87.19 Personal history of other diseases of the digestive system; Z79.899 Other long term (current) drug therapy; Z79.51 Long term (current) use of inhaled steroids; Z79.891 Long term (current) use of opiate analgesic; Z88.8 Allergy status to other drugs, medicaments and biological substances; Z88.0 Allergy status to penicillin; Z85.828 Personal history of other malignant neoplasm of skin; Z87.01 Personal history of pneumonia (recurrent); Z99.81 Dependence on supplemental oxygen; Z86.19 Personal history of other infectious and parasitic diseases; Z95.2 Presence of prosthetic heart valve; Z95.1 Presence of aortocoronary bypass graft; Z98.890 Other specified postprocedural states; Z90.89 Acquired absence of other organs; Z98.61 Coronary angioplasty status; Z98.42 Cataract extraction status, left eye; Z98.41 Cataract extraction status, right eye; Z96.1 Presence of intraocular lens; Z86.69 Personal history of other diseases of the nervous system and sense organs; Z87.891 Personal history of nicotine dependence; Z87.09 Personal history of other diseases of the respiratory system; Z87.11 Personal history of peptic ulcer disease; Z82.49 Family history of ischemic heart disease and other diseases of the circulatory system
CPT/HCPCS: 96361; 96374; 99285; 36415; 94640 ×5; 93005; 86900; 86901; 88305; 83880; 80053 ×2; 83690; 83735; 84484; 85025; 85027 ×2; 85610; 85730; 86850; 82272; 71046; 43239; G0378 ×3; J2001; J2370; J2704; C9113 ×3

== ENCOUNTER 2020-02-12 22:16 | Inpatient (IN) | payer MEDICARE ==
[2020-02-12] MEDS ORDERED: SODIUM CHLORIDE 0.9% 1,000 ML IV STA (22:51)
[2020-02-12] MEDS ORDERED: SODIUM CHLORIDE 0.9% 1,200 ML IV ONE (22:51)
--- NOTE | 2020-02-12 22:51 | ED ---
General Adult HPI - General Chief complaint: Shortness of Breath Stated complaint: SOB Time Seen by Provider: 02/12/20 22:34 Source: patient, EMS Mode of arrival: EMS Limitations: no limitations - History of Present Illness Initial comments: This patient is 79-year-old man with COPD and other medical problems, who presents to be evaluated for generalized weakness and fatigue. The patient states that he has not been feeling right since the morning. Earlier in the day he was feeling short of breath, he had a neighbor come over and found that he had been disconnected from his home oxygen supply. Once that problem was fixed, the patient still was having generalized weakness and fatigue. He found that he was not able to make the walk from his sofa to his kitchen which is usually able to do. The patient denies having any specific symptoms of infection, no fever or chills. No new cough. Patient has some underlying dyspnea related to his COPD. He is not having nausea, vomiting or diarrhea. No change in urination. No change in leg swelling. No leg pain. Onset/Timin -: days(s) Severity scale (1-10): 0 Improves with: none Worsens with: none Associated Symptoms: weakness Treatments Prior to Arrival: none - Related Data Home Medications Medication Instructions Recorded Confirmed Ipratropium/Albuterol Sulfate 3 ml INHALATION RT-QID 11/13/13 06/05/19 [Duoneb 0.5 mg-3 mg/3 ml Soln] Montelukast [Singulair] 10 mg PO HS 11/13/13 06/05/19 Atorvastatin [Lipitor] 40 mg PO HS 08/14/14 06/05/19 Budesonide [Pulmicort] 1 mg INHALATION RT-BID 01/25/18 06/05/19 Cholecalciferol [Vitamin D3 (25 1,000 unit PO DAILY 01/25/18 06/05/19 Mcg = 1000 Iu)] HYDROcodone/APAP 5-325MG [[place] 1 tab PO DAILY PRN 01/25/18 06/05/19 5-325] Magnesium 200 mg PO DAILY 01/25/18 06/05/19 Potassium Chloride [Klor-Con 10] 10 meq PO DAILY 05/10/19 06/05/19 Previous Rx's Medication Instructions Recorded Aspirin EC [Ecotrin Low Dose] 81 mg PO DAILY #30 tablet. 08/19/14 Metoprolol Tartrate [Lopressor] 25 mg PO BID #60 tab 08/19/14 Furosemide [Lasix] 20 mg PO BID #0 06/07/19 Isosorbide Mononitrate ER [Imdur] 30 mg PO DAILY #30 tab.er.24h 06/07/19 Pantoprazole [Protonix] 40 mg PO BID #60 tablet. 06/07/19 Allergies Allergy/AdvReac Type Severity Reaction Status Date / Time prednisone Allergy Unknown Verified 02/12/20 22:36 Review of Systems ROS Statement: Those systems with pertinent positive or pertinent negative responses have been documented in the HPI. ROS Other: All systems not noted in ROS Statement are negative. Constitutional: Reports: weakness. Denies: fever, chills Eyes: Denies: vision change ENT: Denies: congestion Respiratory: Reports: as per HPI, dyspnea. Denies: cough, wheezes, hemoptysis Cardiovascular: Reports: dyspnea on exertion. Denies: chest pain, palpitations, orthopnea, edema, syncope Gastrointestinal: Denies: abdominal pain, nausea, vomiting, diarrhea, melena, hematochezia Genitourinary: Denies: dysuria, hematuria Musculoskeletal: Denies: back pain Skin: Denies: rash Neurological: Denies: headache, weakness, numbness, paresthesias Past Medical History Past Medical History: Atrial Fibrillation, Asthma, Coronary Artery Disease (CAD), Cancer, COPD, GERD/Reflux, GI Bleed, Hyperlipidemia, Hypertension, Myocardial Infarction ([place]), Osteoarthritis (OA), Pneumonia, Vascular Disorder Additional Past Medical History / Comment(s): Pt recently admitted to [facility] on 05/10/19 with acute on chronic hypoxic respiratory failure/Afib with RVR/acute on chronic exacerbations of CHF and COPD. Other hx: Home oxygen at 2L/[place] AT C, lower GI bleed, duodenal and antral ulcers, pt states he was told he had a [place] after CABG-saw area of damage, PAD bilateral legs, chronic arthritic pain in bilateral hands, squamous cell skin cancer removal, mono and shingelles as a child Last Myocardial Infarction Date:: unknown History of Any Multi-Drug Resistant Organisms: None Reported Past Surgical History: Cardiac Valve Replacement, Coronary Bypass/CABG, Heart Catheterization, Orthopedic Surgery, Tonsillectomy Additional Past Surgical History / Comment(s): 2010 AORTIC ANEURYSM REPAIR/aortobifem bypass, 1993 cardiac angioplasty, 2011 CABG 3 vessel with mitral valve replacement, EGD, colonoscopy, bilateral cataract removal with lens implants, right carpal tunnel release, bilateral facial cyst removed, cyst removed from back, skin cancer removal, aortobifemoral bypass, bilateral profundoplasty, EGD, colonoscopy. Past Anesthesia/Blood Transfusion Reactions: No Reported Reaction Additional Past Anesthesia/Blood Transfusion Reaction / Comment(s): Pt has had blood transfusion without reaction. Past Psychological History: No Psychological Hx Reported Past Alcohol Use History: Daily - Past Family History Mother Family Medical History: Coronary Artery Disease (CAD) Additional Family Medical History / Comment(s): Mother had pacemaker. She at age 77yrs. Father Family Medical History: Coronary Artery Disease (CAD) Additional Family Medical History / Comment(s): Father at age 60 yrs after having Flu. Brother(s) Family Medical History: Vascular Disorder Additional Family Medical History / Comment(s): Brother of ruptured abdominal aortic anuerysm at age 64 yrs. General Exam Limitations: no limitations General appearance: alert, in no apparent distress, cachectic Head exam: Present: atraumatic, normocephalic Eye exam: Present: normal appearance. Absent: scleral icterus, conjunctival injection ENT exam: Present: normal oropharynx Neck exam: Present: normal inspection, full ROM Respiratory exam: Present: wheezes (Mild wheeze throughout). Absent: respiratory distress, rales, rhonchi, stridor, accessory muscle use, decreased breath sounds, prolonged expiratory Cardiovascular Exam: Present: tachycardia, irregular rhythm, systolic murmur. Absent: diastolic murmur, rubs, gallop GI/Abdominal exam: Present: soft. Absent: distended, tenderness, guarding, rebound, rigid, normal bowel sounds Extremities exam: Present: normal inspection, normal capillary refill. Absent: pedal edema, calf tenderness Back exam: Present: normal inspection. Absent: CVA tenderness (R), CVA tenderness (L) Neurological exam: Present: alert. Absent: motor sensory deficit Skin exam: Present: warm, dry, intact, normal color. Absent: rash Course Vital Signs 02/12/20 02/12/20 02/12/20 22:21 22:23 23:00 Temperature 98.5 F Pulse Rate 113 H 82 Respiratory 18 21 Rate Blood Pressure 91/73 71/34 O2 Sat by Pulse 81 L 96 88 L Oximetry 02/12/20 02/12/20 02/12/20 23:27 23:54 23:59 Temperature Pulse Rate Respiratory 18 Rate Blood Pressure 99/54 O2 Sat by Pulse 96 Oximetry 02/13/20 02/13/20 02/13/20 00:00 00:30 01:15 Temperature Pulse Rate 90 86 Respiratory 12 22 Rate Blood Pressure 148/128 71/55 116/84 O2 Sat by Pulse 96 88 L Oximetry 02/13/20 02/13/20 02/13/20 01:58 02:15 03:00 Temperature Pulse Rate 86 79 66 Respiratory 15 18 18 Rate Blood Pressure 90/62 88/57 97/59 O2 Sat by Pulse 97 90 L 100 Oximetry 02/13/20 02/13/20 02/13/20 03:30 03:51 04:55 Temperature 99.8 F H Pulse Rate 86 85 90 Respiratory 20 20 20 Rate Blood Pressure 79/67 101/72 78/58 O2 Sat by Pulse 95 Oximetry 02/13/20 05:00 Temperature Pulse Rate 92 Respiratory 18 Rate Blood Pressure 133/93 O2 Sat by Pulse 91 L Oximetry EKG Findings - EKG Comments: EKG Findings:: Suspect there is old inferior infarct. ECG is similar to comparison from 06/05/2019 - EKG Results: EKG: normal axis - Dysrhythmias: Supraventricular dysrhythmia: atrial fibrillation (Rate approximately 96 bpm) - Blocks, [place], Hypertrophy, ST Abn: AV and intraventricular conduction: right bundle branch block (fixed/intermittent, complete/incomplete) Chamber hypertrophy or enlargement: right ventricular hypertrophy or enlargement Procedures - Sepsis Sepsis Focused Exam #1 Time Sepsis Criteria Met: 22:50 Sepsis Focused Exam Date: 02/13/20 Sepsis Focused Exam Time: 03:35 Sepsis Focused Exam Complete: Yes Vital Signs & RN Notes Reviewed: Yes Capillary Refill: < 2 Seconds: Fingers Peripheral Pulses: Weak: Radial (R) Skin Color: Mottled Respiratory Exam: wheezes, rhonchi Cardiovascular Exam: irregular rhythm, systolic murmur Medical Decision Making - Lab Data Result diagrams: 02/12/20 22:56 02/12/20 22:56 Lab Results 02/12/20 02/12/20 02/12/20 Range/Units 22:56 22:56 22:56 WBC 13.1 H (3.8-10.6) k/uL RBC 4.54 (4.30-5.90) m/uL Hgb 12.8 L (13.0-17.5) gm/dL Hct 40.0 (39.0-53.0) % MCV 88.0 (80.0-100.0) fL MCH 28.3 (25.0-35.0) pg MCHC 32.1 (31.0-37.0) g/dL RDW 14.2 (11.5-15.5) % Plt Count 128 L (150-450) k/uL Neutrophils % (Manual) 72 % Band Neutrophils % 13 % Lymphocytes % (Manual) 5 % Monocytes % (Manual) 10 % Neutrophils # (Manual) 11.10 H (1.3-7.7) k/uL Lymphocytes # (Manual) 0.66 L (1.0-4.8) k/uL Monocytes # (Manual) 1.31 H (0-1.0) k/uL Nucleated RBCs 0 (0-0) /100 WBC Differential Comment Manual Slide Review Performed Ovalocytes Present PT 12.4 H (9.0-12.0) sec INR 1.2 H (<1.2) APTT 29.5 (22.0-30.0) sec Sodium 130 L (137-145) mmol/L Potassium 4.4 (3.5-5.1) mmol/L Chloride 94 L (98-107) mmol/L Carbon Dioxide 26 (22-30) mmol/L Anion Gap 10 mmol/L BUN 19 (9-20) mg/dL Creatinine 1.24 (0.66-1.25) mg/dL Est GFR (CKD-EPI)AfAm 64 (>60 ml/min/1.73 sqM) Est GFR (CKD-EPI)NonAf 56 (>60 ml/min/1.73 sqM) Glucose 84 (74-99) mg/dL Lactic Ac Sepsis Rflx Plasma Lactic Acid Archie (0.7-2.0) mmol/L Calcium 9.1 (8.4-10.2) mg/dL Magnesium 1.5 L (1.6-2.3) mg/dL Total Bilirubin 1.7 H (0.2-1.3) mg/dL AST 39 (17-59) U/L ALT 13 (4-49) U/L Alkaline Phosphatase 114 (38-126) U/L Troponin I (0.000-0.034) ng/mL NT-Pro-B Natriuret Pep pg/mL Total Protein 6.3 (6.3-8.2) g/dL Albumin 3.3 L (3.5-5.0) g/dL 02/12/20 02/12/20 02/12/20 Range/Units 22:56 22:56 22:56 WBC (3.8-10.6) k/uL RBC (4.30-5.90) m/uL Hgb (13.0-17.5) gm/dL Hct (39.0-53.0) % MCV (80.0-100.0) fL MCH (25.0-35.0) pg MCHC (31.0-37.0) g/dL RDW (11.5-15.5) % Plt Count (150-450) k/uL Neutrophils % (Manual) % Band Neutrophils % % Lymphocytes % (Manual) % Monocytes % (Manual) % Neutrophils # (Manual) (1.3-7.7) k/uL Lymphocytes # (Manual) (1.0-4.8) k/uL Monocytes # (Manual) (0-1.0) k/uL Nucleated RBCs (0-0) /100 WBC Differential Comment Manual Slide Review Ovalocytes PT (9.0-12.0) sec INR (<1.2) APTT (22.0-30.0) sec Sodium (137-145) mmol/L Potassium (3.5-5.1) mmol/L Chloride (98-107) mmol/L Carbon Dioxide (22-30) mmol/L Anion Gap mmol/L BUN (9-20) mg/dL Creatinine (0.66-1.25) mg/dL Est GFR (CKD-EPI)AfAm (>60 ml/min/1.73 sqM) Est GFR (CKD-EPI)NonAf (>60 ml/min/1.73 sqM) Glucose (74-99) mg/dL Lactic Ac Sepsis Rflx Plasma Lactic Acid Archie 3.1 H* (0.7-2.0) mmol/L Calcium (8.4-10.2) mg/dL Magnesium (1.6-2.3) mg/dL Total Bilirubin (0.2-1.3) mg/dL AST (17-59) U/L ALT (4-49) U/L Alkaline Phosphatase (38-126) U/L Troponin I 0.117 H* (0.000-0.034) ng/mL NT-Pro-B Natriuret Pep 6600 pg/mL Total Protein (6.3-8.2) g/dL Albumin (3.5-5.0) g/dL 02/12/20 Range/Units 23:23 WBC (3.8-10.6) k/uL RBC (4.30-5.90) m/uL Hgb (13.0-17.5) gm/dL Hct (39.0-53.0) % MCV (80.0-100.0) fL MCH (25.0-35.0) pg MCHC (31.0-37.0) g/dL RDW (11.5-15.5) % Plt Count (150-450) k/uL Neutrophils % (Manual) % Band Neutrophils % % Lymphocytes % (Manual) % Monocytes % (Manual) % Neutrophils # (Manual) (1.3-7.7) k/uL Lymphocytes # (Manual) (1.0-4.8) k/uL Monocytes # (Manual) (0-1.0) k/uL Nucleated RBCs (0-0) /100 WBC Differential Comment Manual Slide Review Ovalocytes PT (9.0-12.0) sec INR (<1.2) APTT (22.0-30.0) sec Sodium (137-145) mmol/L Potassium (3.5-5.1) mmol/L Chloride (98-107) mmol/L Carbon Dioxide (22-30) mmol/L Anion Gap mmol/L BUN (9-20) mg/dL Creatinine (0.66-1.25) mg/dL Est GFR (CKD-EPI)AfAm (>60 ml/min/1.73 sqM) Est GFR (CKD-EPI)NonAf (>60 ml/min/1.73 sqM) Glucose (74-99) mg/dL Lactic Ac Sepsis Rflx Y Plasma Lactic Acid Archie (0.7-2.0) mmol/L Calcium (8.4-10.2) mg/dL Magnesium (1.6-2.3) mg/dL Total Bilirubin (0.2-1.3) mg/dL AST (17-59) U/L ALT (4-49) U/L Alkaline Phosphatase (38-126) U/L Troponin I (0.000-0.034) ng/mL NT-Pro-B Natriuret Pep pg/mL Total Protein (6.3-8.2) g/dL Albumin (3.5-5.0) g/dL Critical Care Time Critical Care Time: Yes (35 minutes) Disposition Clinical Impression: Afib, Sepsis, Elevated troponin I level, COPD (chronic obstructive pulmonary disease), Urinary tract infection Disposition: ADMITTED IP TO THIS HOSP Condition: Serious
--- NOTE | 2020-02-12 23:09 | XR ---
EXAMINATION TYPE: XR chest 1V portable DATE OF EXAM: 02/12/2020 COMPARISON: 06/05/2019 HISTORY: Short of breath TECHNIQUE: Single view FINDINGS: Heart is enlarged. There is some pulmonary vascular congestion. There is coarse interstitia l density in the lungs. There are chest leads. There are sternal wires. IMPRESSION: Pulmonary interstitial infiltrates. Mild pulmonary vascular congestion. Infiltrate in the right lower lobe is partly cleared compared to old exam. Appearance of the chest is consistent with mild heart failure and underlying pulmonary fibrosis.
[2020-02-12 23:10] LABS: HGB 12.8 gm/dL (13.0-17.5); MCH 28.3 pg (25.0-35.0); MCHC 32.1 g/dL (31.0-37.0); Platelet Count 128 k/uL (150-450); RBC 4.54 m/uL (4.30-5.90); RDW 14.2 % (11.5-15.5); WBC 13.1 k/uL (3.8-10.6)
[2020-02-12 23:18] LABS: Albumin 3.3 g/dL (3.5-5.0); Calcium 9.1 mg/dL (8.4-10.2); Magnesium 1.5 mg/dL (1.6-2.3); Potassium 4.4 mmol/L (3.5-5.1); Total Bilirubin 1.7 mg/dL (0.2-1.3); Total Protein 6.3 g/dL (6.3-8.2)
[2020-02-12 23:21] LABS: INR 1.2 (<1.2); Partial Thromboplastin Time 29.5 sec (22.0-30.0); Prothrombin Time 12.4 sec (9.0-12.0)
[2020-02-12 23:35] LABS: Band Neutrophils % 13 %; Lymphocytes # (M) 0.66 k/uL (1.0-4.8); Monocytes # (M) 1.31 k/uL (0-1.0); Neutrophils % (M) 72 %; Nucleated Red Blood Cells 0 /100 WBC (0-0); Total Cells Counted 100
[2020-02-12 23:36] LABS: Ovalocytes Present
[2020-02-13] MEDS ORDERED: HYDROcodone/APAP 5-325MG 1 EACH TAB PO PRN (03:34)
[2020-02-13] MEDS ORDERED: PIPERACILLIN-TAZOBACTAM 3.375 GM in SODIUM CHLORIDE 0.9% 100 ML IVPB STA (04:07)
[2020-02-13] MEDS: NOREPINEPHRINE 4 MG in SODIUM CHLORIDE 0.9% 250 ML IV ONE (04:19)
[2020-02-13] MEDS ORDERED: LEVOFLOXACIN 750MG-D5W PMX 750 MG in DEXTROSE/WATER 1 150ML.BAG IVPB ONE (04:30)
[2020-02-13 05:06] LABS: Appearance,Urine Cloudy (Clear); Bacteria,Urine Rare /hpf; Bilirubin,Urine Negative (Negative); Blood,Urine Small (Negative); Color,Urine Yellow; Glucose,Urine (UA) Negative (Negative); Ketones,Urine Negative (Negative); Leukocyte Esterase,Urine Large (Negative); Nitrite,Urine Negative (Negative); Protein,Urine Trace (Negative); RBC,Urine 3 /hpf (0-5); Specific Gravity,Urine 1.016 (1.001-1.035); Squamous Epithelial Cell,Urine 1 /hpf (0-4); Urobilinogen,Urine <2.0 mg/dL (<2.0); WBC,Urine >182 /hpf (0-5)
[2020-02-13] MEDS ORDERED: Magnesium Replacement Protocol 1 EACH MISC MISCELLANE PRN (05:08)
[2020-02-13] MEDS ORDERED: ENOXAPARIN 60 MG/0.6 ML SYRINGE SQ ONE ×2 (05:15→06:00)
[2020-02-13] MEDS: MAGNESIUM SULFATE-D5W PMX 1 GM in DEXTROSE/WATER 1 100ML.BAG IVPB SCH ×2 (05:38→06:44)
[2020-02-13 05:44] LABS: Glucose,Whole Blood 75 mg/dL (75-99)
[2020-02-13] MEDS: BUDESONIDE 1 MG/2 ML NEBU INHALATION SCH ×2 (07:40→19:58)
--- NOTE | 2020-02-13 07:53 | P.CRDCN ---
History of Present Illness Consult date: 02/13/20 Chief complaint: Generalized weakness History of present illness: This is a very pleasant 79-year-old gentleman who sees Dr. Hagan as an outpati ent with a past medical history significant for coronary artery disease and status post CABG, aortic valve replacement using bioprosthetic valve, chronic obstructive pulmonary disease, chronic hypoxic respiratory failure on home oxygen, as well as long-standing persistent atrial fibrillation not on oral anticoagulation secondary to GI bleeding, was admitted to the hospital for further evaluation off increasing shortness of breath. The patient somewhat is a poor historian. For the last several days he has been experiencing symptoms of being more tired and fatigued and has no energy. Beside that he was experiencing increasing in the shortness of breath. No symptoms of fever or chills. No symptoms of chest pain or chest discomfort. No dizziness or lightheadedness or any loss of consciousness or syncope. He called his neighbor to come and check on him were the neighbor from the patient not on oxygen at home which she is normally on and ambulance was called and the patient was brought to the emergency department. When the ambulance was called the patient was hypoxic. He was admitted to the hospital for COPD exacerbation and possible underlying pneumonia/sepsis. As a matter of fact his lactic acid is elevated. Currently the patient is on small doses of norepinephrine. When he was seen this morning he was completely asymptomatic from the cardiovascular standpoint of view. He does have severe diminished breathing sounds bilaterally. The chest x-ray showed findings consistent with COPD may only. The troponin is slightly elevated. The EKG showed atrial fibrillation with diffuse nonspecific ST and T wave abnormalities. The patient remains hemodynamically unstable and requiring small dose of norepinephrine. Past Medical History Past Medical History: Atrial Fibrillation, Asthma, Coronary Artery Disease (CAD), Cancer, COPD, GERD/Reflux, GI Bleed, Hyperlipidemia, Hypertension, Myocardial Infarction ([place]), Osteoarthritis (OA), Pneumonia, Vascular Disorder Additional Past Medical History / Comment(s): Pt recently admitted to [facility] on 05/10/19 with acute on chronic hypoxic respiratory failure/Afib with RVR/acute on chronic exacerbations of CHF and COPD. Other hx: Home oxygen at 2L/[place] ATC, lower GI bleed, duodenal and antral ulcers, pt states he was told he had a [place] after CABG-saw area of damage, PAD bilateral legs, chronic arthritic pain in bilateral hands, squamous cell skin cancer removal, mono and shingelles as a child Last Myocardial Infarction Date:: unknown History of Any Multi-Drug Resistant Organisms: None Reported Past Surgical History: Cardiac Valve Replacement, Coronary Bypass/CABG, Heart Catheterization, Orthopedic Surgery, Tonsillectomy Additional Past Surgical History / Comment(s): 2010 AORTIC ANEURYSM REPAIR/aortobifem bypass, 1993 cardiac angioplasty, 2011 CABG 3 vessel with mitral valve replacement, EGD, colonoscopy, bilateral cataract removal with lens implants, right carpal tunnel release, bilateral facial cyst removed, cyst removed from back, skin cancer removal, aortobifemoral bypass, bilateral profundoplasty, EGD, colonoscopy. Past Anesthesia/Blood Transfusion Reactions: No Reported Reaction Additional Past Anesthesia/Blood Transfusion Reaction / Comment(s): Pt has had blood transfusion without reaction. Past Psychological History: No Psychological Hx Reported Past Alcohol Use History: Daily - Past Family History Mother Family Medical History: Coronary Artery Disease (CAD) Additional Family Medical History / Comment(s): Mother had pacemaker. She at age 77yrs. Father Family Medical History: Coronary Artery Disease (CAD) Additional Family Medical History / Comment(s): Father at age 60 yrs after having Flu. Brother(s) Family Medical History: Vascular Disorder Additional Family Medical History / Comment(s): Brother of ruptured abd ominal aortic anuerysm at age 64 yrs. Medications and Allergies Home Medications Medication Instructions Recorded Confirmed Type Ipratropium/Albuterol Sulfate 3 ml INHALATION RT-QID 11/13/13 06/05/19 History [Duoneb 0.5 mg-3 mg/3 ml Soln] Montelukast [Singulair] 10 mg PO HS 11/13/13 06/05/19 History Atorvastatin [Lipitor] 40 mg PO HS 08/14/14 06/05/19 History Aspirin EC [Ecotrin Low Dose] 81 mg PO DAILY #30 tablet. 08/19/14 06/05/19 Rx Metoprolol Tartrate [Lopressor] 25 mg PO BID #60 tab 08/19/14 06/05/19 Rx Budesonide [Pulmicort] 1 mg INHALATION RT-BID 01/25/18 06/05/19 History Cholecalciferol [Vitamin D3 (25 1,000 unit PO DAILY 01/25/18 06/05/19 History Mcg = 1000 Iu)] HYDROcodone/APAP 5-325MG [[place] 1 tab PO DAILY PRN 01/25/18 06/05/19 History 5-325] Magnesium 200 mg PO DAILY 01/25/18 06/05/19 History Potassium Chloride [Klor-Con 10] 10 meq PO DAILY 05/10/19 06/05/19 History Furosemide [Lasix] 20 mg PO BID #0 06/07/19 06/05/19 Rx Isosorbide Mononitrate ER [Imdur] 30 mg PO DAILY #30 tab.er.24h 06/07/19 Rx Pantoprazole [Protonix] 40 mg PO BID #60 tablet.dr 06/07/19 Rx Allergies Allergy/AdvReac Type Severity Reaction Status Date / Time prednisone Allergy Unknown Verified 02/12/20 22:36 Physical Exam Vitals: Vital Signs Temp Pulse Resp BP Pulse Ox 02/13/20 07:40 76 02/13/20 07:00 74 19 77/48 95 02/13/20 06:00 99.4 F 87 26 H 95/69 95 02/13/20 05:00 92 18 133/93 91 L 02/13/20 04:55 90 20 78/58 02/13/20 03:51 99.8 F H 85 20 101/72 95 02/13/20 03:30 86 20 79/67 02/13/20 03:00 66 18 97/59 100 02/13/20 02:15 79 18 88/57 90 L 02/13/20 01:58 86 15 90/62 97 02/13/20 01:15 116/84 02/13/20 00:30 86 22 71/55 88 L 02/13/20 00:00 90 12 148/128 96 02/12/20 23:59 18 02/12/20 23:54 96 02/12/20 23:27 99/54 02/12/20 23:00 82 21 71/34 88 L 02/12/20 22:23 98.5 F 113 H 18 91/73 96 02/12/20 22:21 81 L Intake and Output 02/12/20 02/13/20 02/13/20 22:59 06:59 14:59 Intake Total 230 330 Output Total 0 0 Balance 230 330 Intake: IV 230 330 Levofloxacin 750Mg-D5w 100 Pmx 750 mg In Dextrose/ Water 1 150ml.bag @ 100 mls/hr IVPB ONCE ONE Rx#: [id number] Magnesium Sulfate-D5w Pmx 200 1 gm In Dextrose/Water 1 100ml.bag @ 100 mls/hr IVPB Q1H [facility] Rx#: [id number] Sodium Chloride 0.9% 1, 130 130 000 ml @ 130 mls/hr IV . Q7H42M STA Rx#:[id number] Output: Urine 0 0 Other: Voiding Method Urinal Weight 52.163 kg 52.163 kg - Constitutional General appearance: no acute distress - Respiratory Respiratory: bilateral: diminished - Cardiovascular Rhythm: irregularly irregular Heart sounds: normal: S1, S2 Abnormal Heart Sounds: systolic murmur Results 02/12/20 22:56 02/12/20 22:56 Cardiac Enzymes 02/12/20 02/12/20 02/13/20 Range/Units 22:56 22:56 04:04 AST 39 (17-59) U/L Troponin I 0.117 H* 0.483 H* (0.000-0.034) ng/mL Coagulation 02/12/20 Range/Units 22:56 PT 12.4 H (9.0-12.0) sec APTT 29.5 (22.0-30.0) sec CBC 02/12/20 Range/Units 22:56 WBC 13.1 H (3.8-10.6) k/uL RBC 4.54 (4.30-5.90) m/uL Hgb 12.8 L (13.0-17.5) gm/dL Hct 40.0 (39.0-53.0) % Plt Count 128 L (150-450) k/uL Comprehensive Metabolic Panel 02/12/20 Range/Units 22:56 Sodium 130 L (137-145) mmol/L Potassium 4.4 (3.5-5.1) mmol/L Chloride 94 L (98-107) mmol/L Carbon Dioxide 26 (22-30) mmol/L BUN 19 (9-20) mg/dL Creatinine 1.24 (0.66-1.25) mg/dL Glucose 84 (74-99) mg/dL Calcium 9.1 (8.4-10.2) mg/dL AST 39 (17-59) U/L ALT 13 (4-49) U/L Alkaline Phosphatase 114 (38-126) U/L Total Protein 6.3 (6.3-8.2) g/dL Albumin 3.3 L (3.5-5.0) g/dL Current Medications Generic Name Dose Route Start Last Admin Trade Name Freq PRN Reason Stop Dose Admin Hydrocodone Bitart/Acetaminophen 1 each 02/13/20 03:34 [place] 5-325 PO DAILY PRN Pain Aspirin 81 mg 02/13/20 09:00 Aspirin PO DAILY [facility] Atorvastatin Calcium 40 mg 02/13/20 21:00 Lipitor PO HS [facility] Budesonide 1 mg 02/13/20 08:00 02/13/20 07:40 Pulmicort INHALATION 1 mg RT-BID [facility] Administration Cholecalciferol 1,000 unit 02/13/20 09:00 Vitamin D3 (25 Mcg = 1000 Iu) PO DAILY [facility] Famotidine 20 mg 02/13/20 09:00 Pepcid IV BID [facility] Norepinephrine Bitartrate 4 mg 254 mls @ 9.937 mls/hr 02/13/20 04:00 02/13/20 04:19 / Sodium Chloride IV 02/14/20 03:59 0.05 mcg/kg/min .Q24H ONE 9.937 mls/hr Administration Protocol 0.05 MCG/KG/MIN Piperacillin Sod/Tazobactam 100 mls @ 25 mls/hr 02/13/20 13:00 Sod 3.375 gm/ Sodium Chloride IVPB Q8H [facility] Levofloxacin 750 mg/ IV 150 mls @ 100 mls/hr 02/15/20 06:00 Solution IVPB Q48H [facility] Sodium Chloride 1,000 mls @ 75 mls/hr 02/13/20 07:30 Saline 0.9% IV .[id number] [facility] Miscellaneous Information 1 each 02/13/20 05:08 Magnesium Per Protocol MISCELLANE DAILY PRN Per Protocol Protocol Montelukast Sodium 10 mg 02/13/20 21:00 Singulair PO HS [facility] Intake and Output 02/12/20 02/13/20 02/13/20 22:59 06:59 14:59 Intake Total 230 330 Output Total 0 0 Balance 230 330 Intake: IV 230 330 Levofloxacin 750Mg-D5w 100 Pmx 750 mg In Dextrose/ Water 1 150ml.bag @ 100 mls/hr IVPB ONCE ONE Rx#: [id number] Magnesium Sulfate-D5w Pmx 200 1 gm In Dextrose/Water 1 100ml.bag @ 100 mls/hr IVPB Q1H [facility] Rx#: [id number] Sodium Chloride 0.9% 1, 130 130 000 ml @ 130 mls/hr IV . Q7H42M [facility] Rx#:[id number] Output: Urine 0 0 Other: Voiding Method Urinal Weight 52.163 kg 52.163 kg 02/12/20 22:56 02/12/20 22:56 Assessment and Plan Assessment: Assessment #1 pneumonia/sepsis #2 COPD exacerbation #3 mildly abnormal troponin #4 coronary artery disease with prior revascularization #5 status post aortic valve replacement in the past #6 long-standing persistent atrial fibrillation was controlled heart rate #7 history of GI bleeding #8 multiple comorbid conditions Plan #1 consider conservative medical approach for the mildly abnormal troponin in view of the asymptomatic state. #2 the abnormalities in the troponin is likely related to hypotension as well as hypoxemia #3 discontinue the oral nitrate at this point in view of the low blood pressure requiring norepinephrine #4 continue the aspirin and statin #5 obtain an echocardiogram was Doppler #6 follow-up with the patient
[2020-02-13] MEDS: SODIUM CHLORIDE 0.9% 1,000 ML IV SCH ×2 (08:09→20:08)
[2020-02-13] MEDS: CHOLECALCIFEROL 1,000 UNIT TAB PO SCH (08:09)
[2020-02-13] MEDS: ASPIRIN 81 MG PO SCH (08:09)
[2020-02-13] MEDS ORDERED: FAMOTIDINE 20 MG/2 ML VIAL IV SCH (09:00)
[2020-02-13] MEDS ORDERED: ISOSORBIDE MONONITRATE ER 30 MG TAB.ER.24H PO SCH (09:00)
[2020-02-13] MEDS ORDERED: AZITHROMYCIN 500 MG TAB PO SCH (09:00)
[2020-02-13] MEDS ORDERED: IPRATROPIUM-ALBUTEROL 3 ML NEB INHALATION PRN (10:58)
--- NOTE | 2020-02-13 11:27 | P.HPIM ---
History of Present Illness H&P Date: 02/13/20 Chief Complaint: Difficulty breathing History of Present Illness This is a 79-year-old male patient of Dr. Erasmo Mary, Dr. Hagan, Dr. 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 Patient presented to [facility] for generalized weakness and fatigue after he was found by the neighbor and was disconnected from his home oxygen supply. Patient presented with pulse ox of 81%, afebrile, heart rate 113, blood pressure was low initially 91/73 but then dropped to 71/34. EKG atrial fibrillation with diffuse nonspecific ST and T-wave abnormalities, right bundle branch block. WBC 13.1, hemoglobin 12.8, platelet count 128. Sodium 130, potassium 4.4, chloride 94, CO2 26, BUN 19 and creatinine 1.24, blood sugar 84. Blood sugar 84. Magnesium 1.5, total bilirubin 1.7, AST 39, a ALT 13, alkaline phosphatase 114. Lactic acid 3.1. Initial troponin 0.117. ProBNP 6600. Chest x-ray reveals pulmonary interstitial infiltrates. Mild pulmonary vascular congestion. Infiltrate in the right lower lobe is partly cleared compared to old exam. Appearance of the chest is consistent with mild heart failure and underlying pulmonary fibrosis. Patient was started on norepinephrine and admitted into the intensive care unit with consult for cardiology, infectious disease and pulmonary medicine. Review of Systems Constitutional: No fever, no chills, no night sweats. No weight change. Reports weakness, Reports fatigue Reports lethargy. Reports daytime sleepiness. EENT: No headache. No blurred vision or double vision, no loss of vision. no dizziness. No nasal drainage or congestion. No epistaxis. No sore throat. Lungs: No shortness of breath, cough, no sputum production. No wheezing. Cardiovascular: No chest pain, no lower extremity edema. No palpitations. No paroxysmal nocturnal dyspnea. No orthopnea. No lightheadedness or dizziness. No syncopal episodes. Abdominal: No abdominal pain. No nausea, vomiting. No diarrhea. No consti pation. No bloody or tarry stools.. No loss of appetite. Genitourinary: No dysuria, increased frequency, urgency. No urinary retention. Musculoskeletal: No myalgias. No muscle weakness, no gait dysfunction, no frequent falls. No back pain. No neck pain. Integumentary: No wounds, no lesions. No rash or pruritus. No unusual bruising. No change in hair or nails. Neurologic: No aphasia. No facial droop. No change in mentation. No head injury. No headache. No paralysis. No paresthesia. Psychiatric: No depression. No anxiety. No mood swings. Endocrine: No abnormal blood sugars. No weight change. No excessive sweating or thirst. No cold intolerance. Physical Examination Gen: This is a 79-year-old thin male, he is resting in the ICU bed and appears to be comfortable at rest. HEENT: Head is atraumatic, normocephalic. Pupils equal, round. Sclerae is anicteric. NECK: Supple. No JVD. No lymphadenopathy. No thyromegaly. LUNGS: Diminished bilaterally with bibasilar rhonchi, prolonged expiration. No intercostal retractions. HEART: Regular rate and rhythm. No murmur. ABDOMEN: Soft. Bowel sounds are present. No masses. No tenderness. EXTREMITIES: No pedal edema. No calf tenderness. NEUROLOGICAL: Patient is awake, alert and oriented x3. Cranial nerves 2 through 12 are grossly intact. Assessment and Plan 1. Acute on chronic hypoxic respiratory failure secondary to COPD exacerbation, possible pneumonia, gram-negative pneumonia, chronic diastolic heart failure. Consult with pulmonary medicine, continue oxygen therapy. 2. Sepsis and lactic acidosis. Patient has required vasopressor support. Continue Zosyn, Levaquin, consult with Dr. Childers in infectious disease. 3. Persistent atrial fibrillation. Cardiology consult appreciated. 4. Mild elevation in troponin most likely secondary to sepsis, rule out non-ST elevated myocardial infarction. Cardiology consult. Echocardiogram has been ordered. Repeat troponins. 5. COPD exacerbation. Continue Pulmicort 1 mg twice daily, DuoNeb treatments 4 times daily and as needed, pulmonary consult. 6. History of CAD status post CABG as well as mitral regurgitation status post mitral valve replacement. Hold Imdur, Lasix and Lopressor secondary to hypot ension. Continue aspirin 81 mg daily, Lipitor 40 mg daily. 7. Hypertension and hypertensive cardiovascular disease. Patient is currently hypotensive. 8. Abdominal aortic aneurysm status post repair in 2010, stable. 9. Hyperlipidemia. Continue Lipitor. 10. ALLERGIC rhinitis. Continue singulair 10 mg at bedtime. 11 Chronic thrombocytopenia. 12. Chronic kidney disease stage III. 13. Chronic hyponatremia and hypomagnesemia, status post replacement, recheck in the morning. 14. History of peptic ulcer disease and GI prophylaxis. Continue Protonix 40 mg oral twice daily. 15. Daily alcohol use. 16. Remote history of tobacco use and dependence. 17. DVT prophylaxis. Heparin subcu. 18. COVID-19 testing. Patient will be admitted to the hospital for a minimum of 2 night stay. Discharge plan: To be determined. Impression and plan of care have been directed as dictated by the signing physician. Maylin Arcos nurse practitioner acting as scribe for signing physician. Past Medical History Past Medical History: Atrial Fibrillation, Asthma, Coronary Artery Disease (CAD), Cancer, COPD, GERD/Reflux, GI Bleed, Hyperlipidemia, Hypertension, Myocardial Infarction (NC), Osteoarthritis (OA), Pneumonia, Vascular Disorder Additional Past Medical History / Comment(s): Pt recently admitted to [facility] on 05/10/19 with acute on chronic hypoxic respiratory failure/Afib with RVR/acute on chronic exacerbations of CHF and COPD. Other hx: Home oxygen at 2L/NC ATC, lower GI bleed, duodenal and antral ulcers, pt states he was told he had a NC after CABG-saw area of damage, PAD bilateral legs, chronic arthritic pain in bilateral hands, squamous cell skin cancer removal, mono and shingelles as a child Last Myocardial Infarction Date:: unknown History of Any Multi-Drug Resistant Organisms: None Reported Past Surgical History: Cardiac Valve Replacement, Coronary Bypass/CABG, Heart Catheterization, Orthopedic Surgery, Tonsillectomy Additional Past Surgical History / Comment(s): 2010 AORTIC ANEURYSM REPAIR /aortobifem bypass, 1993 cardiac angioplasty, 2011 CABG 3 vessel with mitral valve replacement, EGD, colonoscopy, bilateral cataract removal with lens implants, right carpal tunnel release, bilateral facial cyst removed, cyst removed from back, skin cancer removal, aortobifemoral bypass, bilateral p rofundoplasty, EGD, colonoscopy. Past Anesthesia/Blood Transfusion Reactions: No Reported Reaction Additional Past Anesthesia/Blood Transfusion Reaction / Comment(s): Pt has had blood transfusion without reaction. Past Psychological History: No Psychological Hx Reported Past Alcohol Use History: Daily Additional Past Alcohol Use History / Comment(s): Patient used to smoke about a pack and a half a day since he was 21-year-old and he quit in 2010. Patient drinks 2 scotch mixed with water on a daily basis. - Past Family History Mother Family Medical History: Coronary Artery Disease (CAD) Additional Family Medical History / Comment(s): Mother at age of 77 from coronary artery disease and she also developed cardiac dysrhythmia and had permanent pacemaker placement as well as abdominal aortic aneurysm. Father Family Medical History: Coronary Artery Disease (CAD) Additional Family Medical History / Comment(s): Father at age 60 yrs after having Flu. Brother(s) Family Medical History: Vascular Disorder Additional Family Medical History / Comment(s): Brother of ruptured abdominal aortic anuerysm at age 64 yrs. Medications and Allergies Home Medications Medication Instructions Recorded Confirmed Type Ipratropium/Albuterol Sulfate 3 ml INHALATION RT-QID 11/13/13 02/13/20 History [Duoneb 0.5 mg-3 mg/3 ml Soln] Montelukast [Singulair] 10 mg PO HS 11/13/13 02/13/20 History Atorvastatin [Lipitor] 40 mg PO HS 08/14/14 02/13/20 History Aspirin EC [Ecotrin Low Dose] 81 mg PO DAILY #30 tablet. 08/19/14 02/13/20 Rx Metoprolol Tartrate [Lopressor] 25 mg PO BID #60 tab 08/19/14 02/13/20 Rx Budesonide [Pulmicort] 1 mg INHALATION RT-BID 01/25/18 02/13/20 History Cholecalciferol [Vitamin D3 (25 1,000 unit PO DAILY 01/25/18 02/13/20 History Mcg = 1000 Iu)] Magnesium 200 mg PO DAILY 01/25/18 02/13/20 History Potassium Chloride [Klor-Con 10] 10 meq PO DAILY 05/10/19 02/13/20 History Isosorbide Mononitrate ER [Imdur] 30 mg PO DAILY #30 tab.er.24h 06/07/19 02/13/20 Rx Pantoprazole [Protonix] 40 mg PO BID #60 tablet. 06/07/19 02/13/20 Rx Furosemide [Lasix] 40 mg PO DAILY 02/13/20 02/13/20 History Allergies Allergy/AdvReac Type Severity Reaction Status Date / Time prednisone Allergy Unknown Verified 02/13/20 08:24 Physical Exam Vitals: Vital Signs Temp Pulse Resp BP Pulse Ox 02/13/20 07:48 75 02/13/20 07:40 76 02/13/20 07:00 74 19 77/48 95 02/13/20 06:00 99.4 F 87 26 H 95/69 95 02/13/20 05:00 92 18 133/93 91 L 02/13/20 04:55 90 20 78/58 02/13/20 03:51 99.8 F H 85 20 101/72 95 02/13/20 03:30 86 20 79/67 02/13/20 03:00 66 18 97/59 100 02/13/20 02:15 79 18 88/57 90 L 02/13/20 01:58 86 15 90/62 97 02/13/20 01:15 116/84 02/13/20 00:30 86 22 71/55 88 L 02/13/20 00:00 90 12 148/128 96 02/12/20 23:59 18 02/12/20 23:54 96 02/12/20 23:27 99/54 02/12/20 23:00 82 21 71/34 88 L 02/12/20 22:23 98.5 F 113 H 18 91/73 96 02/12/20 22:21 81 L Intake and Output 02/12/20 02/13/20 02/13/20 22:59 06:59 14:59 Intake Total 230 330 Output Total 0 0 Balance 230 330 Intake: IV 230 330 Levofloxacin 750Mg-D5w 100 Pmx 750 mg In Dextrose/ Water 1 150ml.bag @ 100 mls/hr IVPB ONCE ONE Rx#: [id number] Magnesium Sulfate-D5w Pmx 200 1 gm In Dextrose/Water 1 100ml.bag @ 100 mls/hr IVPB Q1H [facility] Rx#: [id number] Sodium Chloride 0.9% 1, 130 130 000 ml @ 130 mls/hr IV . Q7H42M [facility] Rx#:[id number] Output: Urine 0 0 Other: Voiding Method Urinal Weight 52.163 kg 52.163 kg Results CBC & Chem 7: 02/14/20 05:12 02/14/20 11:22 Labs: Abnormal Lab Results - Last 24 Hours (Table) 02/12/20 02/12/20 02/12/20 Range/Units 22:56 22:56 22:56 WBC 13.1 H (3.8-10.6) k/uL Hgb 12.8 L (13.0-17.5) gm/dL Plt Count 128 L (150-450) k/uL Neutrophils # (Manual) 11.10 H (1.3-7.7) k/uL Lymphocytes # (Manual) 0.66 L (1.0-4.8) k/uL Monocytes # (Manual) 1.31 H (0-1.0) k/uL PT 12.4 H (9.0-12.0) sec INR 1.2 H (<1.2) Sodium 130 L (137-145) mmol/L Chloride 94 L (98-107) mmol/L Plasma Lactic Acid Archie (0.7-2.0) mmol/L Magnesium 1.5 L (1.6-2.3) mg/dL Total Bilirubin 1.7 H (0.2-1.3) mg/dL Troponin I (0.000-0.034) ng/mL Albumin 3.3 L (3.5-5.0) g/dL Urine Protein (Negative) Urine Blood (Negative) Ur Leukocyte Esterase (Negative) Urine WBC (0-5) /hpf Urine Bacteria (None) /hpf 02/12/20 02/12/20 02/13/20 Range/Units 22:56 22:56 04:04 WBC (3.8-10.6) k/uL Hgb (13.0-17.5) gm/dL Plt Count (150-450) k/uL Neutrophils # (Manual) (1.3-7.7) k/uL Lymphocytes # (Manual) (1.0-4.8) k/uL Monocytes # (Manual) (0-1.0) k/uL PT (9.0-12.0) sec INR (<1.2) Sodium (137-145) mmol/L Chloride (98-107) mmol/L Plasma Lactic Acid Archie 3.1 H* (0.7-2.0) mmol/L Magnesium (1.6-2.3) mg/dL Total Bilirubin (0.2-1.3) mg/dL Troponin I 0.117 H* 0.483 H* (0.000-0.034) ng/mL Albumin (3.5-5.0) g/dL Urine Protein (Negative) Urine Blood (Negative) Ur Leukocyte Esterase (Negative) Urine WBC (0-5) /hpf Urine Bacteria (None) /hpf 02/13/20 Range/Units 04:36 WBC (3.8-10.6) k/uL Hgb (13.0-17.5) gm/dL Plt Count (150-450) k/uL Neutrophils # (Manual) (1.3-7.7) k/uL Lymphocytes # (Manual) (1.0-4.8) k/uL Monocytes # (Manual) (0-1.0) k/uL PT (9.0-12.0) sec INR (<1.2) Sodium (137-145) mmol/L Chloride (98-107) mmol/L Plasma Lactic Acid Archie (0.7-2.0) mmol/L Magnesium (1.6-2.3) mg/dL Total Bilirubin (0.2-1.3) mg/dL Troponin I (0.000-0.034) ng/mL Albumin (3.5-5.0) g/dL Urine Protein Trace H (Negative) Urine Blood Small H (Negative) Ur Leukocyte Esterase Large H (Negative) Urine WBC >182 H (0-5) /hpf Urine Bacteria Rare H (None) /hpf Thrombosis Risk Factor Assmnt - Choose All That Apply Any of the Below Risk Factors Present?: Yes Each Factor Represents 1 point: Abnormal pulmonary function (COPD), Heart failure (<1month), Medical pt on bed rest, Sepsis (< 1month) Other Risk Factors: Yes Each Risk Factor Represents 3 Points: Age 75 years or older Thrombosis Risk Factor Assessment Total Risk Factor Score: 7 Thrombosis Risk Factor Assessment Level: High Risk
[2020-02-13] MEDS: IPRATROPIUM-ALBUTEROL 3 ML NEB INHALATION SCH ×3 (12:27→19:58)
[2020-02-13] MEDS: PANTOPRAZOLE 40 MG TABLET PO SCH ×2 (12:46→18:03)
[2020-02-13] MEDS ORDERED: IPRATROPIUM-ALBUTEROL 3 ML NEB INHALATION SCH (13:00)
[2020-02-13] MEDS: PIPERACILLIN-TAZOBACTAM 3.375 GM in SODIUM CHLORIDE 0.9% 100 ML IVPB SCH ×2 (14:51→20:08)
[2020-02-13] MEDS: MONTELUKAST 10 MG TAB PO SCH (20:08)
[2020-02-13] MEDS: ATORVASTATIN 40 MG TAB PO SCH (20:08)
--- NOTE | 2020-02-13 23:35 | P.CONS ---
History of Present Illness - Reason for Consult Consult date: 02/13/20 Sepsis and antibiotic recommendation Requesting physician: Maylin Arcos - Chief Complaint Weakness and shortness of breath x one day - History of Present Illness Patient is 79-year-old male with a past medical history significant for end-stage COPD on home O2 patient was brought into the ER for evaluation of increasing shortness of breath and weakness patient was noticed by his neighbor he was discontinued from his oxygen that problem was suggested however the patient also complaining of weakness he was unable to move from his couch to his kitchen, patient was complaining of increasing shortness of breath he did have a cough which is [id number] intensity with occasional sputum production. Denies having any nausea and vomiting which revealed "no abdominal pain no diarrhea also has slight difficulty urination but no significant burning suprapubic or flank pain on arrival to the patient was noticed to be hypoxic he did have a low-grade fever of 99.8 patient did have elevated white count 13.1 thousand and did have elevated lactate is 3.1 patient did have a positive UA and a chest x-ray with right lower lobe infiltrate patient was admitted to the ICU has been started on pressors supplemental oxygen was started on Zosyn and Levaquin infectious disease was consulted for further management of antibiotic therapy with concern for possible sepsis Review of Systems Positive point has been mentioned in the HPI rest of the systems are negative Past Medical History Past Medical History: Atrial Fibrillation, Asthma, Coronary Artery Disease (CAD), Cancer, COPD, GERD/Reflux, GI Bleed, Hyperlipidemia, Hypertension, Myocardial Infarction (AL), Osteoarthritis (OA), Pneumonia, Vascular Disorder Additional Past Medical History / Comment(s): Pt recently admitted to [facility] on 05/10/19 with acute on chronic hypoxic respiratory failure/Afib with RVR/acute on chronic exacerbations of CHF and COPD. Other hx: Home oxygen at 2L/NC ATC, lower GI bleed, duodenal and antral ulcers, pt states he was told he had a AL after CABG-saw area of damage, PAD bilateral legs, chronic arthritic pain in bilateral hands, squamous cell skin cancer removal, mono and shingelles as a child Last Myocardial Infarction Date:: unknown History of Any Multi-Drug Resistant Organisms: None Reported Past Surgical History: Cardiac Valve Replacement, Coronary Bypass/CABG, Heart Catheterization, Orthopedic Surgery, Tonsillectomy Additional Past Surgical History / Comment(s): 2010 AORTIC ANEURYSM REPAIR/aortobifem bypass, 1993 cardiac angioplasty, 2011 CABG 3 vessel with arian ral valve replacement, EGD, colonoscopy, bilateral cataract removal with lens implants, right carpal tunnel release, bilateral facial cyst removed, cyst removed from back, skin cancer removal, aortobifemoral bypass, bilateral profundoplasty, EGD, colonoscopy. Past Anesthesia/Blood Transfusion Reactions: No Reported Reaction Additional Past Anesthesia/Blood Transfusion Reaction / Comm: Pt has had blood transfusion without reaction. Past Psychological History: No Psychological Hx Reported Past Alcohol Use History: Daily Additional Past Alcohol Use History / Comment(s): Patient used to smoke about a pack and a half a day since he was 21-year-old and he quit in 2010. Patient drinks 2 scotch mixed with water on a daily basis. - Past Family History Mother Family Medical History: Coronary Artery Disease (CAD) Additional Family Medical History / Comment(s): Mother at age of 77 from co ronary artery disease and she also developed cardiac dysrhythmia and had permanent pacemaker placement as well as abdominal aortic aneurysm. Father Family Medical History: Coronary Artery Disease (CAD) Additional Family Medical History / Comment(s): Father at age 60 yrs after having Flu. Brother(s) Family Medical History: Vascular Disorder Additional Family Medical History / Comment(s): Brother of ruptured abdominal aortic anuerysm at age 64 yrs. Medications and Allergies Home Medications Medication Instructions Recorded Confirmed Type Ipratropium/Albuterol Sulfate 3 ml INHALATION RT-QID 11/13/13 02/13/20 History [Duoneb 0.5 mg-3 mg/3 ml Soln] Montelukast [Singulair] 10 mg PO HS 11/13/13 02/13/20 History Atorvastatin [Lipitor] 40 mg PO HS 08/14/14 02/13/20 History Aspirin EC [Ecotrin Low Dose] 81 mg PO DAILY #30 tablet. 08/19/14 02/13/20 Rx Metoprolol Tartrate [Lopressor] 25 mg PO BID #60 tab 08/19/14 02/13/20 Rx Budesonide [Pulmicort] 1 mg INHALATION RT-BID 01/25/18 02/13/20 History Cholecalciferol [Vitamin D3 (25 1,000 unit PO DAILY 01/25/18 02/13/20 History Mcg = 1000 Iu)] Magnesium 200 mg PO DAILY 01/25/18 02/13/20 History Potassium Chloride [Klor-Con 10] 10 meq PO DAILY 05/10/19 02/13/20 History Isosorbide Mononitrate ER [Imdur] 30 mg PO DAILY #30 tab.er.24h 06/07/19 02/13/20 Rx Pantoprazole [Protonix] 40 mg PO BID #60 tablet.dr 06/07/19 02/13/20 Rx Furosemide [Lasix] 40 mg PO DAILY 02/13/20 02/13/20 History Allergies Allergy/AdvReac Type Severity Reaction Status Date / Time prednisone Allergy Unknown Verified 02/13/20 08:24 Physical Exam Vitals: Vital Signs Temp Pulse Resp BP Pulse Ox 02/13/20 14:00 72 26 H 02/13/20 13:00 98.1 F 85 28 H 90/63 90 L 02/13/20 12:00 98.1 F 72 26 H 113/93 92 L 02/13/20 11:00 90 24 96/47 90 L 02/13/20 10:00 86 28 H 96/60 89 L 02/13/20 09:00 87 28 H 94/78 84 L 02/13/20 08:00 97.6 F 72 24 92 L 02/13/20 07:48 75 02/13/20 07:40 76 02/13/20 07:00 74 19 77/48 95 02/13/20 06:00 99.4 F 87 26 H 95/69 95 02/13/20 05:00 92 18 133/93 91 L 02/13/20 04:55 90 20 78/58 02/13/20 03:51 99.8 F H 85 20 101/72 95 02/13/20 03:30 86 20 79/67 02/13/20 03:00 66 18 97/59 100 02/13/20 02:15 79 18 88/57 90 L 02/13/20 01:58 86 15 90/62 97 02/13/20 01:15 116/84 02/13/20 00:30 86 22 71/55 88 L 02/13/20 00:00 90 12 148/128 96 02/12/20 23:59 18 02/12/20 23:54 96 02/12/20 23:27 99/54 02/12/20 23:00 82 21 71/34 88 L 02/12/20 22:23 98.5 F 113 H 18 91/73 96 02/12/20 22:21 81 L Intake and Output 02/13/20 02/13/20 02/13/20 06:59 14:59 22:59 Intake Total 230 1095 Output Total 0 100 Balance 230 995 Intake: IV 230 330 Levofloxacin 750Mg-D5w 100 Pmx 750 mg In Dextrose/ Water 1 150ml.bag @ 100 mls/hr IVPB ONCE ONE Rx#: [id number] Magnesium Sulfate-D5w Pmx 200 1 gm In Dextrose/Water 1 100ml.bag @ 100 mls/hr IVPB Q1H [facility] Rx#: [id number] Sodium Chloride 0.9% 1, 130 130 000 ml @ 130 mls/hr IV . Q7H42M [facility] Rx#:[id number] Intake, IV Titration 525 Amount Sodium Chloride 0.9% 1, 525 000 ml @ 75 mls/hr IV . [id number] [facility] Rx#:[id number] Oral 240 Output: Urine 0 100 Other: Voiding Method Urinal Weight 52.163 kg 52.163 kg GENERAL DESCRIPTION: Elderly male lying in bed, no distress. No tachypnea or accessory muscle of respiration use. HEENT: Shows Pallor , no scleral icterus. Oral mucous membrane is dry. No pharyngeal erythema or thrush NECK: Trachea central, no thyromegaly. LUNGS: Unlabored breathing. Coarse breath sounds bilaterally HEART: S1, S2, regular rate and rhythm. No loud murmur ABDOMEN: Soft, no tenderness , guarding or rigidity, no organomegaly EXTREMITIES: No edema of feet. SKIN: No rash, no masses palpable. NEUROLOGICAL: The patient is awake, alert, oriented x2, mood and affect normal. Results CBC & Chem 7: 02/12/20 22:56 02/12/20 22:56 Labs: Abnormal Lab Results - Last 24 Hours (Table) 02/12/20 02/12/20 02/12/20 Range/Units 22:56 22:56 22:56 WBC 13.1 H (3.8-10.6) k/uL Hgb 12.8 L (13.0-17.5) gm/dL Plt Count 128 L (150-450) k/uL Neutrophils # (Manual) 11.10 H (1.3-7.7) k/uL Lymphocytes # (Manual) 0.66 L (1.0-4.8) k/uL Monocytes # (Manual) 1.31 H (0-1.0) k/uL PT 12.4 H (9.0-12.0) sec INR 1.2 H (<1.2) Sodium 130 L (137-145) mmol/L Chloride 94 L (98-107) mmol/L Plasma Lactic Acid Archie (0.7-2.0) mmol/L Magnesium 1.5 L (1.6-2.3) mg/dL Total Bilirubin 1.7 H (0.2-1.3) mg/dL Troponin I (0.000-0.034) ng/mL Albumin 3.3 L (3.5-5.0) g/dL Urine Protein (Negative) Urine Blood (Negative) Ur Leukocyte Esterase (Negative) Urine WBC (0-5) /hpf Urine Bacteria (None) /hpf 02/12/20 02/12/20 02/13/20 Range/Units 22:56 22:56 04:04 WBC (3.8-10.6) k/uL Hgb (13.0-17.5) gm/dL Plt Count (150-450) k/uL Neutrophils # (Manual) (1.3-7.7) k/uL Lymphocytes # (Manual) (1.0-4.8) k/uL Monocytes # (Manual) (0-1.0) k/uL PT (9.0-12.0) sec INR (<1.2) Sodium (137-145) mmol/L Chloride (98-107) mmol/L Plasma Lactic Acid Archie 3.1 H* (0.7-2.0) mmol/L Magnesium (1.6-2.3) mg/dL Total Bilirubin (0.2-1.3) mg/dL Troponin I 0.117 H* 0.483 H* (0.000-0.034) ng/mL Albumin (3.5-5.0) g/dL Urine Protein (Negative) Urine Blood (Negative) Ur Leukocyte Esterase (Negative) Urine WBC (0-5) /hpf Urine Bacteria (None) /hpf 02/13/20 02/13/20 Range/Units 04:36 10:30 WBC (3.8-10.6) k/uL Hgb (13.0-17.5) gm/dL Plt Count (150-450) k/uL Neutrophils # (Manual) (1.3-7.7) k/uL Lymphocytes # (Manual) (1.0-4.8) k/uL Monocytes # (Manual) (0-1.0) k/uL PT (9.0-12.0) sec INR (<1.2) Sodium (137-145) mmol/L Chloride (98-107) mmol/L Plasma Lactic Acid Archie (0.7-2.0) mmol/L Magnesium (1.6-2.3) mg/dL Total Bilirubin (0.2-1.3) mg/dL Troponin I 0.693 H* (0.000-0.034) ng/mL Albumin (3.5-5.0) g/dL Urine Protein Trace H (Negative) Urine Blood Small H (Negative) Ur Leukocyte Esterase Large H (Negative) Urine WBC >182 H (0-5) /hpf Urine Bacteria Rare H (None) /hpf Microbiology - Last 24 Hours (Table) 02/13/20 04:36 Urine Culture - Preliminary Urine,Voided Assessment and Plan Assessment: 1- patient is a 79-year-old male with a past medical history signifi cant for end-stage COPD on home O2 presented to hospital with increasing weakness and shortness of breath in this patient noticed to be hypotensive hypoxemic did have elevated white count and elevated lactic acid concern for sepsis possible source pneumonia patient also have some urinary symptoms sy mptomatically detected infection from gram-negative pathogen not entirely excluded (1) Pneumonia Current Visit: Yes Status: Acute Code(s): J18.9 - PNEUMONIA, UNSPECIFIED ORGANISM SNOMED Code(s): 610155927 (2) Sepsis Current Visit: Yes Status: Acute Code(s): A41.9 - SEPSIS, UNSPECIFIED ORGANISM SNOMED Code(s): 53786003 (3) Urinary tract infection Current Visit: Yes Status: Acute Code(s): N39.0 - URINARY TRACT INFECTION, SITE NOT SPECIFIED SNOMED Code(s): 70585840 Plan: 1- obtain sputum for Gram stain and culture 2-Zosyn 3.375 g every 8 hours We will follow on clinical condition and cultures to further adjust medication if needed Thank you for this consultation will follow this patient with you
[2020-02-14] MEDS: NOREPINEPHRINE 4 MG in SODIUM CHLORIDE 0.9% 250 ML IV ONE (00:10)
[2020-02-14] MEDS: PIPERACILLIN-TAZOBACTAM 3.375 GM in SODIUM CHLORIDE 0.9% 100 ML IVPB SCH ×3 (04:41→19:56)
[2020-02-14] MEDS: NOREPINEPHRINE 4 MG in SODIUM CHLORIDE 0.9% 250 ML IV SCH (05:12)
[2020-02-14 05:52] LABS: HCT 40.1 % (39.0-53.0); HGB 12.8 gm/dL (13.0-17.5); Hypochromasia Slight; MCH 28.7 pg (25.0-35.0); MCHC 31.9 g/dL (31.0-37.0); Mean Platelet Volume 10.4; Platelet Count 124 k/uL (150-450); RBC 4.46 m/uL (4.30-5.90); RDW 14.3 % (11.5-15.5); WBC 12.9 k/uL (3.8-10.6)
[2020-02-14 06:00] LABS: Calcium 8.2 mg/dL (8.4-10.2); Magnesium 1.9 mg/dL (1.6-2.3); Potassium 3.8 mmol/L (3.5-5.1)
[2020-02-14] MEDS ORDERED: Potassium Replacement Protocol 1 EACH MISC MISCELLANE PRN (06:14)
[2020-02-14] MEDS: PANTOPRAZOLE 40 MG TABLET PO SCH ×2 (06:41→18:10)
[2020-02-14] MEDS ORDERED: POTASSIUM CHLORIDE ER 20 MEQ TAB.ER PO SCH (07:00)
--- NOTE | 2020-02-14 07:21 | XR ---
EXAMINATION TYPE: XR chest 1V portable DATE OF EXAM: 02/14/2020 CLINICAL HISTORY: Difficulty breathing progress study. TECHNIQUE: Single AP portable upright view of the chest is obtained. COMPARISON: Chest x-ray from 2 days earlier and older studies. CTA chest January 25, 2018. FINDINGS: Overlying sternal wires are redemonstrated. Background chronic emphysematous and fibrotic change with right-sided volume loss all again seen. Worsening bilateral right basilar area more perip heral right midlung opacity. Left lung remains predominantly clear. Vascular calcification bilateral axillary region. Cardiac silhouette size stable and mildly enlarged with atherosclerotic and ectatic aortic knob IMPRESSION: Chronic emphysematous and pulmonary fibrotic changes along with cardiomegaly and right-s ided volume loss all redemonstrated. Worsening right mid and lower lung acute infiltrates noted on ba ckground chronic change.
--- NOTE | 2020-02-14 07:39 | P.PN ---
Subjective Progress Note Date: 02/14/20 Principal diagnosis: Long-standing persistent atrial fibrillation This is a very pleasant 79-year-old gentleman who sees Dr. Hagan as an outpatient with a past medical history significant for coronary artery disease and status post CABG, aortic valve replacement using bioprosthetic valve, chronic obstructive pulmonary disease, chronic hypoxic respiratory failure on home oxygen, as well as long-standing persistent atrial fibrillation not on oral anticoagulation secondary to GI bleeding, was admitted to the hospital for further evaluation off increasing shortness of breath. The patient somewhat is a poor historian. For the last several days he has been experiencing symptoms of being more tired and fatigued and has no energy. Beside that he was experiencing increasing in the shortness of breath. No symptoms of fever or chills. No symptoms of chest pain or chest discomfort. No dizziness or lightheadedness or any loss of consciousness or syncope. He called his neighbor to come and check on him were the neighbor from the patient not on oxygen at home which she is normally on and ambulance was called and the patient was brought to the emergency department. When the ambulance was called the patient was hypoxic. He was admitted to the hospital for COPD exacerbation and possible underlying pneumonia/sepsis. As a matter of fact his lactic acid is elevated. Currently the patient is on small doses of norepinephrine. When he was seen this morning he was completely asymptomatic from the cardiovascular standpoint of view. He does have severe diminished breathing sounds bilaterally. The chest x-ray showed findings consistent with COPD may only. The troponin is slightly elevated. The EKG showed atrial fibrillation with diffuse nonspecific ST and T wave abnormalities. The patient remains hemodynamically unstable and requiring small dose of norepinephrine. The patient was seen today, February [id number]. Overall he is feeling better. Hemodynamically he is stable and he is not on any vasopressors. He continues to be in atrial fibrillation was controlled heart rate. He is not on any AV jay marlen agents but the heart rate is controlled. He is not on any oral anticoagulation in view of history of GI bleeding and the patient refused to damián e any oral anticoagulation. An echocardiogram was ordered and will follow-up on that. Objective - Vital Signs Vital signs: Vital Signs Temp 98.7 F 02/14/20 04:00 Pulse 89 02/14/20 07:00 Resp 18 02/14/20 07:00 BP 94/65 02/14/20 07:00 Pulse Ox 93 L 02/14/20 07:00 Intake & Output 02/13/20 02/14/20 02/14/20 18:59 06:59 18:59 Intake Total 4220.706 4597.409 75 Output Total 400 100 0 Balance 1125.316 977.409 75 Weight 52.163 kg 51.8 kg Intake: IV 330 825 75 Magnesium Sulfate-D5w Pmx 200 1 gm In Dextrose/Water 1 100ml.bag @ 100 mls/hr IVPB Q1H [facility] Rx#: [id number] Sodium Chloride 0.9% 1, 130 000 ml @ 130 mls/hr IV . [id number] [facility] Rx#:[id number] Sodium Chloride 0.9% 1, 825 75 000 ml @ 75 mls/hr IV . [id number] [facility] Rx#:[id number] Intake, IV Titration 955.316 252.409 Amount Norepinephrine 4 mg In 55.316 240.816 Sodium Chloride 0.9% 250 ml @ 0.05 MCG/KG/MIN 9. 937 mls/hr IV .Q24H [facility] Rx#:[id number] Norepinephrine 4 mg In 11.593 Sodium Chloride 0.9% 250 ml @ 0.05 MCG/KG/MIN 9. 937 mls/hr IV .Q24H [facility] Rx#:[id number] Sodium Chloride 0.9% 1, 900 000 ml @ 75 mls/hr IV . [id number] [facility] [place] Rx#:[id number] Oral 240 Output: Urine 400 100 0 Other: Voiding Method Urinal Urinal # Voids 1 - Constitutional General appearance: Present: no acute distress - Respiratory Respiratory: bilateral: diminished - Cardiovascular Rhythm: irregularly irregular Heart sounds: normal: S1, S2 - Labs CBC & Chem 7: 02/14/20 05:12 02/14/20 05:12 Labs: Abnormal Lab Results - Last 24 Hours (Table) 02/13/20 02/14/20 02/14/20 Range/Units 10:30 05:12 05:12 WBC 12.9 H (3.8-10.6) k/uL Hgb 12.8 L (13.0-17.5) gm/dL Plt Count 124 L (150-450) k/uL Sodium 131 L (137-145) mmol/L Carbon Dioxide 20 L (22-30) mmol/L BUN 23 H (9-20) mg/dL Calcium 8.2 L (8.4-10.2) mg/dL Troponin I 0.693 H* (0.000-0.034) ng/mL Microbiology - Last 24 Hours (Table) 02/12/20 23:18 Blood Culture - Preliminary Blood No Growth after 24 hours 02/13/20 04:36 Urine Culture - Preliminary Urine,Voided Assessment and Plan Assessment: Assessment #1 pneumonia/sepsis #2 COPD exacerbation #3 mildly abnormal troponin #4 coronary artery disease with prior revascularization #5 status post aortic valve replacement in the past #6 long-standing persistent atrial fibrillation was controlled heart rate #7 history of GI bleeding #8 multiple comorbid conditions Plan #1 consider conservative medical approach for the mildly abnormal troponin in view of the asymptomatic state. #2 the abnormalities in the troponin is likely related to hypotension as well as hypoxemia #3 follow-up on the echocardiogram
--- NOTE | 2020-02-14 07:50 | P.CNPUL ---
History of Present Illness Consult date: 02/14/20 Reason for consult: dyspnea, cough, pneumonia Chief complaint: Generalized weakness and fatigue History of present illness: Patient was incidentally discovered on my patient list, this patient is well- known to me due to end-stage lung disease and severe COPD, patient was admitted to hospital as he was at home found to be off of oxygen very weak and fatigued, patient was admitted on January 11, he was doing fairly well until this morning, neighbor found to be off of oxygen, due to weakness brought into the hospital for further evaluation, chest x-ray significant for pulmonary interstitial infiltrate along with pulmonary vascular congestion right lower lobe pneumonia, EKG revealed right bundle branch block with RVH old inferior wall [place], patient remains hypotensive requiring levo fed drip, cardiovascular services ID service has been following this patient as well, his x-ray from this morning continue show emphysematous and fibrotic changes with cardiomegaly and right-sided pneumonia, patient currently on bronchodilator continuation of his home medicine along with Zosyn and Levaquin, Review of Systems All systems: negative Past Medical History Past Medical History: Atrial Fibrillation, Asthma, Coronary Artery Disease (CAD), Cancer, COPD, GERD/Reflux, GI Bleed, Hyperlipidemia, Hypertension, Myocardial Infarction ([place]), Osteoarthritis (OA), Pneumonia, Vascular Disorder Additional Past Medical History / Comment(s): Pt recently admitted to [facility] on 05/10/19 with acute on chronic hypoxic respiratory failure/Afib with RVR/acute on chronic exacerbations of CHF and COPD. Other hx: Home oxygen at 2L/NC ATC, lower GI bleed, duodenal and antral ulcers, pt states he was told he had a [place] after CABG-saw area of damage, PAD bilateral legs, chronic arthritic pain in bilateral hands, squamous cell skin cancer removal, mono and shingelles as a child Last Myocardial Infarction Date:: unknown History of Any Multi-Drug Resistant Organisms: None Reported Past Surgical History: Cardiac Valve Replacement, Coronary Bypass/CABG, Heart Catheterization, Orthopedic Surgery, Tonsillectomy Additional Past Surgical History / Comment(s): 2010 AORTIC ANEURYSM REPAIR/aortobifem bypass, 1993 cardiac angioplasty, 2011 CABG 3 vessel with mitral valve replacement, EGD, colonoscopy, bilateral cataract removal with lens implants, right carpal tunnel release, bilateral facial cyst removed, cyst removed from back, skin cancer removal, aortobifemoral bypass, bilateral profundoplasty, EGD, colonoscopy. Past Anesthesia/Blood Transfusion Reactions: No Reported Reaction Additional Past Anesthesia/Blood Transfusion Reaction / Comment(s): Pt has had blood transfusion without reaction. Past Psychological History: No Psychological Hx Reported Past Alcohol Use History: Daily Additional Past Alcohol Use History / Comment(s): Patient used to smoke about a pack and a half a day since he was 21-year-old and he quit in 2010. Patient drinks 2 scotch mixed with water on a daily basis. - Past Family History Mother Family Medical History: Coronary Artery Disease (CAD) Additional Family Medical History / Comment(s): Mother at age of 77 from coronary artery disease and she also developed cardiac dysrhythmia and had permanent pacemaker placement as well as abdominal aortic aneurysm. Father Family Medical History: Coronary Artery Disease (CAD) Additional Family Medical History / Comment(s): Father at age 60 yrs after having Flu. Brother(s) Family Medical History: Vascular Disorder Additional Family Medical History / Comment(s): Brother of ruptured abdominal aortic anuerysm at age 64 yrs. Medications and Allergies Home Medications Medication Instructions Recorded Confirmed Type Ipratropium/Albuterol Sulfate 3 ml INHALATION RT-QID 11/13/13 02/13/20 History [Duoneb 0.5 mg-3 mg/3 ml Soln] Montelukast [Singulair] 10 mg PO HS 11/13/13 02/13/20 History Atorvastatin [Lipitor] 40 mg PO HS 08/14/14 02/13/20 History Aspirin EC [Ecotrin Low Dose] 81 mg PO DAILY #30 tablet.dr 08/19/14 02/13/20 Rx Metoprolol Tartrate [Lopressor] 25 mg PO BID #60 tab 08/19/14 02/13/20 Rx Budesonide [Pulmicort] 1 mg INHALATION RT-BID 01/25/18 02/13/20 History Cholecalciferol [Vitamin D3 (25 1,000 unit PO DAILY 01/25/18 02/13/20 History Mcg = 1000 Iu)] Magnesium 200 mg PO DAILY 01/25/18 02/13/20 History Potassium Chloride [Klor-Con 10] 10 meq PO DAILY 05/10/19 02/13/20 History Isosorbide Mononitrate ER [Imdur] 30 mg PO DAILY #30 tab.er.24h 06/07/19 02/13/20 Rx Pantoprazole [Protonix] 40 mg PO BID #60 tablet.dr 06/07/19 02/13/20 Rx Furosemide [Lasix] 40 mg PO DAILY 02/13/20 02/13/20 History Allergies Allergy/AdvReac Type Severity Reaction Status Date / Time prednisone Allergy Unknown Verified 02/13/20 08:24 Physical Exam Vitals: Vital Signs Temp Pulse Resp BP Pulse Ox 02/14/20 07:00 89 18 94/65 93 L 02/14/20 06:30 85 14 106/69 84 L 02/14/20 06:00 82 17 89/49 96 02/14/20 05:30 82 15 115/50 92 L 02/14/20 05:00 95 26 H 105/68 90 L 02/14/20 04:30 85 17 87/59 91 L 02/14/20 04:00 98.7 F 80 18 97/69 94 L 02/14/20 03:30 90 17 100/56 92 L 02/14/20 03:00 80 15 114/62 93 L 02/14/20 02:30 82 28 H 95 02/14/20 02:00 70 15 97/61 100 02/14/20 01:30 80 16 96/71 95 02/14/20 01:00 75 15 87/64 94 L 02/14/20 00:30 84 15 98/63 97 02/14/20 00:11 79 15 107/47 96 02/14/20 00:00 98.8 F 90 17 106/78 93 L 02/13/20 23:30 95 22 90/67 90 L 02/13/20 23:00 86 17 83/44 93 L 02/13/20 22:30 92 25 H 86/57 91 L 02/13/20 22:00 85 19 84/57 93 L 02/13/20 21:30 97 24 94/72 90 L 02/13/20 21:00 88 19 75/40 93 L 02/13/20 20:30 87 20 94 L 02/13/20 20:09 89 02/13/20 20:00 98.7 F 97 19 113/76 95 02/13/20 19:59 99 02/13/20 19:30 81 18 93/75 90 L 02/13/20 19:00 87 35 H 104/61 87 L 02/13/20 18:30 84 36 H 111/82 90 L 02/13/20 18:00 79 25 H 88 L 02/13/20 17:30 80 24 125/76 91 L 02/13/20 17:00 85 25 H 99/76 95 02/13/20 16:50 78 02/13/20 16:37 78 02/13/20 16:30 80 16 127/112 83 L 02/13/20 16:00 98.1 F 88 24 90 L 02/13/20 15:00 84 24 90/56 93 L 02/13/20 14:00 72 26 H 02/13/20 13:00 98.1 F 85 28 H 90/63 90 L 02/13/20 12:00 98.1 F 72 26 H 113/93 92 L 02/13/20 11:00 90 24 96/47 90 L 02/13/20 10:00 86 28 H 96/60 89 L 02/13/20 09:00 87 28 H 94/78 84 L 02/13/20 08:00 97.6 F 72 24 92 L 02/13/20 07:48 75 Intake and Output 02/13/20 02/14/20 02/14/20 22:59 06:59 14:59 Intake Total 600 852.409 75 Output Total 200 100 0 Balance 400 752.409 75 Intake: IV 225 600 75 Sodium Chloride 0.9% 1, 225 600 75 000 ml @ 75 mls/hr IV . [id number] [facility] Rx#:[id number] Intake, IV Titration 375 252.409 Amount Norepinephrine 4 mg In 240.816 Sodium Chloride 0.9% 250 ml @ 0.05 MCG/KG/MIN 9. 937 mls/hr IV .Q24H [facility] Rx#:[id number] Norepinephrine 4 mg In 11.593 Sodium Chloride 0.9% 250 ml @ 0.05 MCG/KG/MIN 9. 937 mls/hr IV .Q24H [facility] Rx#:[id number] Sodium Chloride 0.9% 1, 375 000 ml @ 75 mls/hr IV . [id number] [facility] Rx#:[id number] Output: Urine 200 100 0 Other: Voiding Method Urinal Urinal # Voids 1 Weight 51.8 kg - Constitutional General appearance: average body habitus, cooperative, disheveled, mild distress - EENT Eyes: PERRLA ENT: normal oropharynx Ears: bilateral: normal - Neck Neck: normal ROM Carotids: bilateral: upstroke normal Thyroid: bilateral: normal size - Respiratory Respiratory: bilateral: diminished, rales - Cardiovascular Rhythm: irregularly irregular Heart sounds: normal: S1, S2 - Gastrointestinal General gastrointestinal: normal bowel sounds - Neurologic Neurologic: CNII-XII intact - Musculoskeletal Musculoskeletal: gait normal, generalized weakness, strength equal bilaterally - Psychiatric Psychiatric: A&O x's 3, appropriate affect, intact judgment & insight Results - Laboratory Findings CBC and BMP: 02/14/20 05:12 02/14/20 05:12 PT/INR, D-dimer PT 12.4 sec (9.0-12.0) H 02/12/20 22:56 INR 1.2 (<1.2) H 02/12/20 22:56 Abnormal lab findings: Abnormal Labs 02/12/20 02/12/20 02/12/20 22:56 22:56 22:56 WBC 13.1 H Hgb 12.8 L Plt Count 128 L Neutrophils # (Manual) 11.10 H Lymphocytes # (Manual) 0.66 L Monocytes # (Manual) 1.31 H PT 12.4 H INR 1.2 H Sodium 130 L Chloride 94 L Carbon Dioxide BUN Plasma Lactic Acid Archie Calcium Magnesium 1.5 L Total Bilirubin 1.7 H Troponin I Albumin 3.3 L Urine Protein Urine Blood Ur Leukocyte Esterase Urine WBC Urine Bacteria 02/12/20 02/12/20 02/13/20 22:56 22:56 04:04 WBC Hgb Plt Count Neutrophils # (Manual) Lymphocytes # (Manual) Monocytes # (Manual) PT INR Sodium Chloride Carbon Dioxide BUN Plasma Lactic Acid Archie 3.1 H* Calcium Magnesium Total Bilirubin Troponin I 0.117 H* 0.483 H* Albumin Urine Protein Urine Blood Ur Leukocyte Esterase Urine WBC Urine Bacteria 02/13/20 02/13/20 02/14/20 04:36 10:30 05:12 WBC Hgb Plt Count Neutrophils # (Manual) Lymphocytes # (Manual) Monocytes # (Manual) PT INR Sodium 131 L Chloride Carbon Dioxide 20 L BUN 23 H Plasma Lactic Acid Archie Calcium 8.2 L Magnesium Total Bilirubin Troponin I 0.693 H* Albumin Urine Protein Trace H Urine Blood Small H Ur Leukocyte Esterase Large H Urine WBC >182 H Urine Bacteria Rare H 02/14/20 05:12 WBC 12.9 H Hgb 12.8 L Plt Count 124 L Neutrophils # (Manual) Lymphocytes # (Manual) Monocytes # (Manual) PT INR Sodium Chloride Carbon Dioxide BUN Plasma Lactic Acid Archie Calcium Magnesium Total Bilirubin Troponin I Albumin Urine Protein Urine Blood Ur Leukocyte Esterase Urine WBC Urine Bacteria - Diagnostic Findings Chest x-ray: report reviewed, image reviewed (Finding as noted above) Assessment and Plan Assessment: Acute on chronic hypoxic respiratory failure Severe sepsis and septic shock due to right-sided pneumonia Right-sided pneumonia Chronic atrial fibrillation with controlled ventricular response cardiovascular services following History of end-stage lung disease secondary severe COPD History of GI bleed with chronic anemia Plan: Continue supplemental oxygen Gentle rehydration Monitor closely A. asim Patient is off of anticoagulation due to GI bleed in the past Continue broad-spectrum antibiotics Continue breathing treatments PICC line Titrate vasopressors down as tolerated
[2020-02-14] MEDS: BUDESONIDE 1 MG/2 ML NEBU INHALATION SCH ×2 (08:40→20:18)
[2020-02-14] MEDS: IPRATROPIUM-ALBUTEROL 3 ML NEB INHALATION SCH ×4 (08:40→20:19)
[2020-02-14] MEDS ORDERED: FAMOTIDINE 20 MG/2 ML VIAL IV SCH (09:00)
[2020-02-14] MEDS: CHOLECALCIFEROL 1,000 UNIT TAB PO SCH (09:04)
[2020-02-14] MEDS: ASPIRIN 81 MG PO SCH (09:04)
[2020-02-14] MEDS: FUROSEMIDE 40 MG TAB PO SCH (09:04)
[2020-02-14] MEDS: POTASSIUM CHLORIDE ER 10 MEQ TAB.ER.PRT PO SCH (09:04)
[2020-02-14] MEDS: HEPARIN SODIUM,PORCINE 5,000 UNIT/ML 1 ML VIAL SQ SCH ×2 (09:04→19:56)
[2020-02-14] MEDS: MAGNESIUM OXIDE 400 MG TAB PO SCH (09:04)
[2020-02-14] MEDS: SODIUM CHLORIDE 0.9% 1,000 ML IV SCH ×2 (09:05→22:39)
--- NOTE | 2020-02-14 12:26 | P.PN ---
Subjective Progress Note Date: 02/14/20 History of Present Illness This is a 79-year-old male patient of Dr. Erasmo Mary, Dr. Hagan, Dr. 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 Patient presented to [facility] emergency center for generalized weakness and fatigue after he was found by the neighbor and was disconnected from his home oxygen supply. Patient presented with pulse ox of 81%, afebrile, heart rate 113, blood pressure was low initially 91/73 but then dropped to 71/34. EKG atrial fibrillation with diffuse nonspecific ST and T-wave abnormalities, right bundle branch block. WBC 13.1, hemoglobin 12.8, platelet count 128. Sodium 130, potassium 4.4, chloride 94, CO2 26, BUN 19 and creatinine 1.24, blood sugar 84. Blood sugar 84. Magnesium 1.5, total bilirubin 1.7, AST 39, a ALT 13, alkaline phosphatase 114. Lactic acid 3.1. Initial troponin 0.117. ProBNP 6600. Chest x-ray reveals pulmonary interstitial infiltrates. Mild pulmonary vascular congestion. Infiltrate in the right lower lobe is partly cleared compared to old exam. Appearance of the chest is consistent with mild heart failure and underlying pulmonary fibrosis. Patient was started on norepinephrine and admitted into the intensive care unit with consult for cardiology, infectious disease and pulmonary medicine. 02/13: Patient remains in the intensive care unit. He is still on norepinephrine and PICC line has been ordered this morning by Dr. Childers. He states his breathing is better today. No lower extremity edema. He denies any abdominal pain. No nausea or vomiting. Repeat chest x-ray reveals chronic emphysematous and pulmonary fibrotic changes along with cardiomegaly and right-sided volume loss. Worsening right mid and lower lung acute infiltrates noted on background of chronic change. Echocardiogram report is pending. Patient has been seen by cardiology and pulmonary medicine. Dr. Murphy is recommending continuing Zosyn and follow up on cultures. Patient has been afebrile, heart rate 90, blood pressure 105/80, pulse ox 94% on 5 L nasal cannula. Repeat blood work reveals WBC 12.9, hemoglobin 12.8, platelet count 124. Sodium 131, potassium 3.8, chloride 102, CO2 20, BUN 23 and creatinine 1.05. Blood culture reveals no growth at 24 hours and urine culture is in progress. COVID-19 testing in process. Review of Systems Constitutional: No fever, no chills, no night sweats. Reports weakness, Reports fatigue Reports lethargy. Reports daytime sleepiness. EENT: No headache. No blurred vision or double vision, no loss of vision. no dizziness. No nasal drainage or congestion. No epistaxis. No sore throat. Lungs: Reports shortness of breath, reports cough, no sputum production. Reports wheezing. Cardiovascular: No chest pain, no lower extremity edema. No palpitations. No paroxysmal nocturnal dyspnea. Abdominal: No abdominal pain. No nausea, vomiting. No diarrhea. No constipation. No bloody or tarry stools.. No loss of appetite. Genitourinary: No dysuria, increased frequency, urgency. No urinary retention. Musculoskeletal: No myalgias. No muscle weakness, no gait dysfunction, no frequent falls. No back pain. No neck pain. Integumentary: No wounds, no lesions. No rash or pruritus. No unusual bruising. No change in hair or nails. Neurologic: No aphasia. No facial droop. No change in mentation. No head injury. No headache. No paralysis. No paresthesia. Psychiatric: No depression. No anxiety. No mood swings. Endocrine: No abnormal blood sugars. No weight change. No excessive sweating or thirst. No cold intolerance. Physical Examination Gen: This is a 79-year-old thin male, he is resting in the ICU bed and appears to be comfortable at rest. HEENT: Head is atraumatic, normocephalic. Pupils equal, round. Sclerae is anicteric. NECK: Supple. No JVD. No lymphadenopathy. No thyromegaly. LUNGS: Diminished bilaterally with bibasilar rhonchi, prolonged expiration. No intercostal retractions. HEART: Regular rate and rhythm. No murmur. ABDOMEN: Soft. Bowel sounds are present. No masses. No tenderness. EXTREMITIES: No pedal edema. No calf tenderness. NEUROLOGICAL: Patient is awake, alert and oriented x3. Cranial nerves 2 through 12 are grossly intact. Assessment and Plan 1. Acute on chronic hypoxic respiratory failure secondary to COPD exacerbation, possible pneumonia, gram-negative pneumonia, chronic diastolic heart failure. Consult with pulmonary medicine, continue oxygen therapy. 2. Sepsis and lactic acidosis. Patient has required vasopressor support. PICC line has been ordered for norepinephrine. Continue Zosyn, Levaquin, consult with Dr. Childers and Dr. Murphy appreciated. 3. Persistent atrial fibrillation. Cardiology consult appreciated. 4. Mild elevation in troponin most likely secondary to sepsis and hypotension, ruled out non-ST elevated myocardial infarction. Cardiology consult appreciated. Echocardiogram has been ordered. 5. COPD exacerbation. Continue Pulmicort 1 mg twice daily, DuoNeb treatments 4 times daily and as needed, pulmonary consult. 6. History of CAD status post CABG as well as mitral regurgitation status post mitral valve replacement. Hold Imdur, Lasix and Lopressor secondary to hypotension. Continue aspirin 81 mg daily, Lipitor 40 mg daily. 7. Hypertension and hypertensive cardiovascular disease. Patient is currently hypotensive. 8. Abdominal aortic aneurysm status post repair in 2010, stable. 9. Hyperlipidemia. Continue Lipitor. 10. ALLERGIC rhinitis. Continue singulair 10 mg at bedtime. 11 Chronic thrombocytopenia. 12. Chronic kidney disease stage III. 13. Chronic hyponatremia and hypomagnesemia, status post replacement, recheck in the morning. 14. History of peptic ulcer disease and GI prophylaxis. Continue Protonix 40 mg oral twice daily. 15. Daily alcohol use. 16. Remote history of tobacco use and dependence. 17. DVT prophylaxis. Heparin subcu. 18. COVID-19 testing. CODE STATUS: No code Discharge plan: Possibly home with VNA. Impression and plan of care have been directed as dictated by the signing physician. Maylin Arcos nurse practitioner acting as scribe for signing physician. Objective - Vital Signs Vital signs: Vital Signs Temp 98.7 F 02/14/20 04:00 Pulse 86 02/14/20 08:40 Resp 18 02/14/20 07:00 BP 94/65 02/14/20 07:00 Pulse Ox 93 L 02/14/20 07:00 Intake & Output 02/13/20 02/14/20 02/14/20 18:59 06:59 18:59 Intake Total 3043.772 9694.409 75 Output Total 400 100 0 Balance 1125.316 977.409 75 Weight 52.163 kg 51.8 kg Intake: IV 330 825 75 Magnesium Sulfate-D5w Pmx 200 1 gm In Dextrose/Water 1 100ml.bag @ 100 mls/hr IVPB Q1H [facility] Rx#: [id number] Sodium Chloride 0.9% 1, 130 000 ml @ 130 mls/hr IV . [id number] [facility] Rx#:[id number] Sodium Chloride 0.9% 1, 825 75 000 ml @ 75 mls/hr IV . [id number] [facility] Rx#:[id number] Intake, IV Titration 955.316 252.409 Amount Norepinephrine 4 mg In 55.316 240.816 Sodium Chloride 0.9% 250 ml @ 0.05 MCG/KG/MIN 9. 937 mls/hr IV .Q24H [facility] Rx#:[id number] Norepinephrine 4 mg In 11.593 Sodium Chloride 0.9% 250 ml @ 0.05 MCG/KG/MIN 9. 937 mls/hr IV .Q24H [facility] Rx#:[id number] Sodium Chloride 0.9% 1, 900 000 ml @ 75 mls/hr IV . [id number] [facility] Rx#:[id number] Oral 240 Output: Urine 400 100 0 Other: Voiding Method Urinal Urinal # Voids 1 - Labs CBC & Chem 7: 02/14/20 05:12 02/14/20 11:22 Labs: Abnormal Lab Results - Last 24 Hours (Table) 02/13/20 02/14/20 02/14/20 Range/Units 10:30 05:12 05:12 WBC 12.9 H (3.8-10.6) k/uL Hgb 12.8 L (13.0-17.5) gm/dL Plt Count 124 L (150-450) k/uL Sodium 131 L (137-145) mmol/L Carbon Dioxide 20 L (22-30) mmol/L BUN 23 H (9-20) mg/dL Calcium 8.2 L (8.4-10.2) mg/dL Troponin I 0.693 H* (0.000-0.034) ng/mL Microbiology - Last 24 Hours (Table) 02/12/20 23:18 Blood Culture - Preliminary Blood No Growth after 24 hours 02/13/20 04:36 Urine Culture - Preliminary Urine,Voided
[2020-02-14] MEDS ORDERED: LIDOCAINE 1% INJ 10MG/ML (20 ML MDV) SQ ONE (14:20)
--- NOTE | 2020-02-14 15:23 | XR ---
EXAMINATION TYPE: XR chest 1V portable DATE OF EXAM: 02/14/2020 CLINICAL HISTORY: Post PICC line placement. TECHNIQUE: Single AP portable frontal view of the chest is obtained. COMPARISON: Chest x-ray from earlier today an older studies FINDINGS: New right-sided PICC line terminating near brachiocephalic confluence. Overlying sternal wires are redemonstrated. Background chronic emphysematous and fibrotic change with right-sided volume loss all again seen. Persistent right basilar and midlung opacities. Left lung re deneen predominantly clear. Vascular calcification bilateral axillary region. Cardiac silhouette size stable and mildly enlarged with atherosclerotic aorta. Osseous structures are demineralized. Suspect small right pleural effusion. IMPRESSION: New Right-sided PICC line terminates at brachiocephalic confluence. Other findings stable .
--- NOTE | 2020-02-14 17:27 | IR ---
EXAMINATION TYPE: IR cvc insert >=5 years DATE OF EXAM: 02/14/2020 COMPARISON: Chest radiograph 02/14/2020 HISTORY: Infection, need for antibiotics FINDINGS: Maximal barrier technique was utilized. Hand hygiene obtained with soap and water and alco hol-based hand rub. The skin overlying the right brachial vein was localized with ultrasound and note d to be compressible and patent by ultrasound. An ultrasound image was obtained and submitted on pat ient's chart. Sterile technique utilized with the ultrasound machine. The skin overlying was prepped and draped and Lidocaine used for local anesthesia. Access was gained to the vein under direct ultra sound guidance with a 21-gauge needle and a 0.018 inch wire was advanced. A skin iftikhar was made with a scalpel. Access site was dilated with a peel-away sheath and the catheter tailored to length. Cat heter advanced centrally and a post procedure chest x-ray verified placement with distal tip over the proximal SVC. Catheter was advanced another 3 cm. Catheter was fixed to the skin and a sterile dres sing placed. Hemostasis achieved and the catheter was aspirated and flushed with sterile saline. Th e patient remained in stable condition. IMPRESSION: STATUS POST ULTRASOUND GUIDED PICC LINE PLACEMENT, READY FOR USE. THIS PROCEDURE WAS PER FORMED BY THE UNDERSIGNED.
[2020-02-14] MEDS: MONTELUKAST 10 MG TAB PO SCH (19:56)
[2020-02-14] MEDS: ATORVASTATIN 40 MG TAB PO SCH (19:56)
[2020-02-14] MEDS ORDERED: ALPRAZolam 0.5 MG TAB PO STA (22:30)
[2020-02-14] MEDS ORDERED: ALPRAZolam 0.25 MG TAB PO PRN (22:31)
--- NOTE | 2020-02-14 23:33 | PN ---
PROGRESS NOTE DATE OF SERVICE: 02/14/2020 REASON FOR FOLLOWUP: Pneumonia and UTI. INTERVAL HISTORY: The patient is currently afebrile. The patient is breathing more comfortably. The patient denies having any chest pain. He did have some cough but no sputum. No nausea, no vomiting, no abdominal pain or diarrhea. He is still requiring some pressor support to maintain his blood pressure. PHYSICAL EXAMINATION: Blood pressure 92/50 with a pulse of 112, temperature 98. He is 92% on 6 L nasal cannula. General description is an elderly male lying in bed in no distress. RESPIRATORY SYSTEM: Unlabored breathing with decreased breath sounds at the base. No wheeze. HEART: S1, S2. Regular rate and rhythm. ABDOMEN: Soft. No tenderness. LABS: Hemoglobin is 12.8, white count 12.9, BUN of 23, creatinine 1.05. DIAGNOSTIC IMPRESSION AND PLAN: Patient admitted to hospital with generalized weakness, no energy in this patient who did have hypertension, fever and a white count with concern for pneumonia and a urinary tract infection. Patient is covered with Zosyn and Levaquin; to continue while waiting for the culture to finalize. Continue with supportive care. MMODL / IJN: [id number] /
[2020-02-15] MEDS: PIPERACILLIN-TAZOBACTAM 3.375 GM in SODIUM CHLORIDE 0.9% 100 ML IVPB SCH ×3 (04:46→20:00)
[2020-02-15] MEDS: NOREPINEPHRINE 4 MG in SODIUM CHLORIDE 0.9% 250 ML IV SCH ×2 (04:51→20:00)
[2020-02-15] MEDS: LEVOFLOXACIN 750MG-D5W PMX 750 MG in DEXTROSE/WATER 1 150ML.BAG IVPB SCH (05:42)
[2020-02-15 05:44] LABS: Basophils % (A) 0 %; Eosinophils # (A) 0.1 k/uL (0-0.7); Eosinophils % (A) 1 %; HCT 37.8 % (39.0-53.0); HGB 12.1 gm/dL (13.0-17.5); Lymphocytes # (A) 0.6 k/uL (1.0-4.8); Lymphocytes % (A) 7 %; MCH 28.2 pg (25.0-35.0); MCHC 31.9 g/dL (31.0-37.0); MCV 88.3 fL (80.0-100.0); Mean Platelet Volume 10.5; Monocytes # (A) 0.5 k/uL (0-1.0); Monocytes % (A) 5 %; Neutrophils # (A) 8.3 k/uL (1.3-7.7); Neutrophils % (A) 84 %; RBC 4.29 m/uL (4.30-5.90); RDW 14.6 % (11.5-15.5); WBC 9.8 k/uL (3.8-10.6)
[2020-02-15 05:57] LABS: Anisocytosis (M) Present; Ovalocytes Present; Poikilocytosis (M) Present
[2020-02-15 05:58] LABS: Large Platelets Present; Platelet Count 94 k/uL (150-450)
[2020-02-15] MEDS ORDERED: DEXTROSE 5% IN WATER 250 ML with AMIODARONE 300 MG IV ONE (06:09)
[2020-02-15] MEDS ORDERED: DEXTROSE 5% IN WATER 100 ML with AMIODARONE 150 MG IV ONE (06:09)
[2020-02-15] MEDS ORDERED: AMIODARONE 360 MG in DEXTROSE 5% IN WATER 200 ML IV ONE ×2 (06:10)
[2020-02-15] MEDS ORDERED: SODIUM CHLORIDE 0.9% 500 ML 250 ML IV ONE (06:11)
--- NOTE | 2020-02-15 06:33 | P.PN ---
Subjective Progress Note Date: 02/15/20 Principal diagnosis: Long-standing persistent atrial fibrillation This is a very pleasant 79-year-old gentleman who sees Dr. Hagan as an outpatient with a past medical history significant for coronary artery disease and status post CABG, aortic valve replacement using bioprosthetic valve, chronic obstructive pulmonary disease, chronic hypoxic respiratory failure on home oxygen, as well as long-standing persistent atrial fibrillation not on oral anticoagulation secondary to GI bleeding, was admitted to the hospital for further evaluation off increasing shortness of breath. The patient somewhat is a poor historian. For the last several days he has been experiencing symptoms of being more tired and fatigued and has no energy. Beside that he was experiencing increasing in the shortness of breath. No symptoms of fever or chills. No symptoms of chest pain or chest discomfort. No dizziness or lightheadedness or any loss of consciousness or syncope. He called his neighbor to come and check on him were the neighbor from the patient not on oxygen at home which she is normally on and ambulance was called and the patient was brought to the emergency department. When the ambulance was called the patient was hypoxic. He was admitted to the hospital for COPD exacerbation and possible underlying pneumonia/sepsis. As a matter of fact his lactic acid is elevated. Currently the patient is on small doses of norepinephrine. When he was seen this morning he was completely asymptomatic from the cardiovascular standpoint of view. He does have severe diminished breathing sounds bilaterally. The chest x-ray showed findings consistent with COPD may only. The troponin is slightly elevated. The EKG showed atrial fibrillation with diffuse nonspecific ST and T wave abnormalities. The patient remains hemodynamically unstable and requiring small dose of norepinephrine. The patient was seen today February 142019. He is hypotensive. I'm going to stop the metoprolol and give the patient a bolus of 1 50 mL of 0.9 normal saline. We'll try to wean her from the norepinephrine. Beside that and because the A. fib is not well controlled we will start the patient on amiodarone was bolus and drip. Objective - Vital Signs Vital signs: Vital Signs Temp 98.0 F 02/15/20 04:00 Pulse 97 02/15/20 06:15 Resp 13 02/15/20 06:15 BP 75/42 02/15/20 06:15 Pulse Ox 96 02/15/20 06:15 Intake & Output 02/14/20 02/14/20 02/15/20 06:59 18:59 06:59 Intake Total 3621.193 8865.692 1241.139 Output Total 100 600 400 Balance 140.753 5024.692 841.139 Weight 51.8 kg 52.2 kg Intake: IV 825 975 825 Sodium Chloride 0.9% 1, 825 975 825 000 ml @ 75 mls/hr IV . [id number] [facility] Rx#:[id number] Intake, IV Titration 252.409 148.692 316.139 Amount Norepinephrine 4 mg In 240.816 Sodium Chloride 0.9% 250 ml @ 0.05 MCG/KG/MIN 9. 937 mls/hr IV .Q24H [facility] Rx#:[id number] Norepinephrine 4 mg In 11.593 48.692 216.139 Sodium Chloride 0.9% 250 ml @ 0.05 MCG/KG/MIN 9. 937 mls/hr IV .Q24H [facility] Rx#:[id number] Piperacillin-Tazobactam 3 100 100 .375 gm In Sodium Chloride 0.9% 100 ml @ 25 mls/hr IVPB Q8H [facility] Rx#: [id number] Oral 480 100 Output: Urine 100 600 400 Other: Voiding Method Urinal Urinal Urinal # Voids 1 1 # Bowel Movements 1 - Constitutional General appearance: Present: no acute distress - Respiratory Respiratory: bilateral: diminished - Cardiovascular Rhythm: irregularly irregular Heart sounds: normal: S1, S2 - Labs CBC & Chem 7: 02/15/20 05:09 02/14/20 11:22 Labs: Abnormal Lab Results - Last 24 Hours (Table) 02/15/20 Range/Units 05:09 RBC 4.29 L (4.30-5.90) m/uL Hgb 12.1 L (13.0-17.5) gm/dL Hct 37.8 L (39.0-53.0) % Plt Count 94 L (150-450) k/uL Neutrophils # 8.3 H (1.3-7.7) k/uL Lymphocytes # 0.6 L (1.0-4.8) k/uL Microbiology - Last 24 Hours (Table) 02/12/20 23:18 Blood Culture - Preliminary Blood No Growth after 48 hours Assessment and Plan Assessment: Assessment #1 pneumonia/sepsis #2 COPD exacerbation #3 mildly abnormal troponin #4 coronary artery disease with prior revascularization #5 status post aortic valve replacement in the past #6 long-standing persistent atrial fibrillation was controlled heart rate #7 history of GI bleeding #8 multiple comorbid conditions Plan #1 DC metoprolol #2 start the patient on amiodarone #3 IV fluid bolus #4 wean from norepinephrine
[2020-02-15 07:09] LABS: ALT 14 U/L (4-49); AST 59 U/L (17-59); African American GFR (CKD) >90 (>60 ml/min/1.73 sqM); Albumin 2.7 g/dL (3.5-5.0); Alkaline Phosphatase 134 U/L (38-126); Anion Gap 5 mmol/L; Blood Urea Nitrogen 24 mg/dL (9-20); Calcium 8.2 mg/dL (8.4-10.2); Carbon Dioxide 21 mmol/L (22-30); Chloride 109 mmol/L (98-107); Glucose 96 mg/dL (74-99); Non-African American GFR(CKD) 82 (>60 ml/min/1.73 sqM); Sodium 135 mmol/L (137-145); Total Protein 5.5 g/dL (6.3-8.2)
[2020-02-15] MEDS: IPRATROPIUM-ALBUTEROL 3 ML NEB INHALATION SCH ×4 (07:31→19:30)
[2020-02-15] MEDS: BUDESONIDE 1 MG/2 ML NEBU INHALATION SCH ×2 (07:31→19:30)
--- NOTE | 2020-02-15 07:34 | XR ---
EXAMINATION TYPE: XR chest 1V portable DATE OF EXAM: 02/15/2020 COMPARISON: 02/14/2020 HISTORY: Line placement TECHNIQUE: Single frontal view of the chest is obtained. FINDINGS: Bilateral areas of consolidation are seen greater on the right small right effusion. Cardi omegaly and postoperative changes are seen. Vascular calcifications along the upper margin of the guillermo g smith. PICC line seen with the tip overlying the SVC. Atherosclerotic change aorta. IMPRESSION: Bilateral airspace disease with small effusion greater on the right. Correlate for CHF o therwise consider pneumonia.
[2020-02-15] MEDS: MAGNESIUM OXIDE 400 MG TAB PO SCH (08:36)
[2020-02-15] MEDS: POTASSIUM CHLORIDE ER 10 MEQ TAB.ER.PRT PO SCH (08:37)
[2020-02-15] MEDS: ASPIRIN 81 MG PO SCH (08:37)
[2020-02-15] MEDS: CHOLECALCIFEROL 1,000 UNIT TAB PO SCH (08:37)
[2020-02-15] MEDS: FUROSEMIDE 40 MG TAB PO SCH (08:37)
[2020-02-15] MEDS: PANTOPRAZOLE 40 MG TABLET PO SCH ×2 (08:37→18:16)
[2020-02-15] MEDS: HEPARIN SODIUM,PORCINE 5,000 UNIT/ML 1 ML VIAL SQ SCH ×2 (08:43→20:00)
--- NOTE | 2020-02-15 10:19 | P.PN ---
Subjective Progress Note Date: 02/15/20 (Critical care time 45 minutes) Principal diagnosis: Altered mental status Septic shock due to right-sided pneumonia Acute on chronic hypoxic respiratory failure Atrial fibrillation with RVR/rapid ventricular response History of end-stage lung disease secondary severe COPD History of GI bleed with chronic anemia 02/15/2020, patient seen eval reexamined during the rounds labs reviewed medications reviewed care plan discussed with RN at length, critical care time spent 45 minutes, patient is somewhat confused, but not combative, remains hypotensive continued to require levo fed drip currently on 4 mics, patient also developed severe with RVR requiring amiodarone infusion, the altered mental status appeared to be more related to severe sepsis and septic shock as 8 is coming on slowly in the last 24-48 hours patient does not manifest any signs of hemiparesis speech impairment is not there that goes against a central process, cardiovascular diseases have been following this patient closely patient is not on anticoagulation due to history of GI bleed, chest x-ray showing worsening of pneumonia on the right side involving the upper lobe as well as the lower lobe, chemistry is stable except some hyponatremia, patient remains on Levaquin and Zosyn, Patient was incidentally discovered on my patient list, this patient is well- known to me due to end-stage lung disease and severe COPD, patient was admitted to hospital as he was at home found to be off of oxygen very weak and fatigued, patient was admitted on January 11, he was doing fairly well until this morning, neighbor found to be off of oxygen, due to weakness brought into the hospital for further evaluation, chest x-ray significant for pulmonary interstitial infiltrate along with pulmonary vascular congestion right lower lobe pneumonia, EKG revealed right bundle branch block with RVH old inferior wall CA, patient remains hypotensive requiring levo fed drip, cardiovascular services ID service has been following this patient as well, his x-ray from this morning continue show emphysematous and fibrotic changes with cardiomegaly and right-sided pneumonia, patient currently on bronchodilator continuation of his home medicine along with Zosyn and Levaquin, Objective - Vital Signs Vital signs: Vital Signs Temp 96.7 F L 02/15/20 08:00 Pulse 78 02/15/20 10:01 Resp 20 02/15/20 08:30 BP 115/71 02/15/20 08:30 Pulse Ox 94 L 02/15/20 08:30 Intake & Output 02/14/20 02/15/20 02/15/20 18:59 06:59 18:59 Intake Total 5340.349 9051.139 150 Output Total 600 400 200 Balance 1003.692 841.139 -50 Weight 52.2 kg Intake: IV 975 825 150 Sodium Chloride 0.9% 1, 975 825 150 000 ml @ 75 mls/hr IV . [id number] [facility] Rx#:[id number] Intake, IV Titration 148.692 316.139 Amount Norepinephrine 4 mg In 48.692 216.139 Sodium Chloride 0.9% 250 ml @ 0.05 MCG/KG/MIN 9. 937 mls/hr IV .Q24H [facility] Rx#:[id number] Piperacillin-Tazobactam 3 100 100 .375 gm In Sodium Chloride 0.9% 100 ml @ 25 mls/hr IVPB Q8H [facility] Rx#: [id number] Oral 480 100 Output: Urine 600 400 200 Other: Voiding Method Urinal Urinal # Voids 1 # Bowel Movements 1 - Exam - Constitutional General appearance: average body habitus, cooperative, disheveled, mild distress - EENT Eyes: PERRLA ENT: normal oropharynx Ears: bilateral: normal - Neck Neck: normal ROM Carotids: bilateral: upstroke normal Thyroid: bilateral: normal size - Respiratory Respiratory: bilateral: diminished, rales - Cardiovascular Rhythm: irregularly irregular Heart sounds: normal: S1, S2 - Gastrointestinal General gastrointestinal: normal bowel sounds - Neurologic Neurologic: CNII-XII intact - Musculoskeletal Musculoskeletal: gait normal, generalized weakness, strength equal bilaterally - Psychiatric Psychiatric: A&O x's 3, appropriate affect, intact judgment & insight - Labs CBC & Chem 7: 02/15/20 05:09 02/15/20 05:09 Labs: Abnormal Lab Results - Last 24 Hours (Table) 02/15/20 02/15/20 Range/Units 05:09 05:09 RBC 4.29 L (4.30-5.90) m/uL Hgb 12.1 L (13.0-17.5) gm/dL Hct 37.8 L (39.0-53.0) % Plt Count 94 L (150-450) k/uL Neutrophils # 8.3 H (1.3-7.7) k/uL Lymphocytes # 0.6 L (1.0-4.8) k/uL Sodium 135 L (137-145) mmol/L Chloride 109 H (98-107) mmol/L Carbon Dioxide 21 L (22-30) mmol/L BUN 24 H (9-20) mg/dL Calcium 8.2 L (8.4-10.2) mg/dL Alkaline Phosphatase 134 H (38-126) U/L Total Protein 5.5 L (6.3-8.2) g/dL Albumin 2.7 L (3.5-5.0) g/dL Microbiology - Last 24 Hours (Table) 02/12/20 23:18 Blood Culture - Preliminary Blood No Growth after 48 hours Assessment and Plan Assessment: Altered mental status Septic shock due to right-sided pneumonia Right-sided multi lobar pneumonia Acute on chronic hypoxic respiratory failure Atrial fibrillation with RVR/rapid ventricular response History of end-stage lung disease secondary severe COPD History of GI bleed with chronic anemia Plan: Monitor mental status closely Urine sputum culture and arterial blood gas Continue vasopressors Continue amiodarone drip Continue supplemental oxygen Gentle rehydration Monitor closely A. fib as well as mental status Patient is off of anticoagulation due to GI bleed in the past Continue broad-spectrum antibiotics Continue breathing treatments PICC line Titrate vasopressors down as tolerated Patient is no code Time with Patient: Greater than 30
[2020-02-15] MEDS: AMIODARONE 300 MG in DEXTROSE 5% IN WATER 250 ML IV SCH ×4 (12:00→20:53)
[2020-02-15] MEDS: SODIUM CHLORIDE 0.9% 1,000 ML IV SCH (12:43)
--- NOTE | 2020-02-15 16:17 | P.PN ---
Subjective Progress Note Date: 02/15/20 History of Present Illness This is a 79-year-old male patient of Dr. Erasmo Mary, Dr. Hagan, Dr. 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 Patient presented to [facility] emergency [facility] for generalized weakness and fatigue after he was found by the neighbor and was disconnected from his home oxygen supply. Patient presented with pulse ox of 81%, afebrile, heart rate 113, blood pressure was low initially 91/73 but then dropped to 71/34. EKG atrial fibrillation with diffuse nonspecific ST and T-wave abnormalities, right bundle branch block. WBC 13.1, hemoglobin 12.8, platelet count 128. Sodium 130, potassium 4.4, chloride 94, CO2 26, BUN 19 and creatinine 1.24, blood sugar 84. Blood sugar 84. Magnesium 1.5, total bilirubin 1.7, AST 39, a ALT 13, alkaline phosphatase 114. Lactic acid 3.1. Initial troponin 0.117. ProBNP 6600. Chest x-ray reveals pulmonary interstitial infiltrates. Mild pulmonary vascular congestion. Infiltrate in the right lower lobe is partly cleared compared to old exam. Appearance of the chest is consistent with mild heart failure and underlying pulmonary fibrosis. Patient was started on norepinephrine and admitted into the intensive care unit with consult for cardiology, infectious disease and pulmonary medicine. 02/13: Patient remains in the intensive care unit. He is still on norepinephrine and PICC line has been ordered this morning by Dr. Childers. He states his breathing is better today. No lower extremity edema. He denies any abdominal pain. No nausea or vomiting. Repeat chest x-ray reveals chronic emphysematous and pulmonary fibrotic changes along with cardiomegaly and right-sided volume loss. Worsening right mid and lower lung acute infiltrates noted on background of chronic change. Echocardiogram report is pending. Patient has been seen by cardiology and pulmonary medicine. Dr. Murphy is recommending continuing Zosyn and follow up on cultures. Patient has been afebrile, heart rate 90, blood pressure 105/80, pulse ox 94% on 5 L nasal cannula. Repeat blood work reveals WBC 12.9, hemoglobin 12.8, platelet count 124. Sodium 131, potassium 3.8, chloride 102, CO2 20, BUN 23 and creatinine 1.05. Blood culture reveals no growth at 24 hours and urine culture is in progress. COVID-19 testing in process. 02/14: Patient was very confused last night, required 0.5 mg of Xanax, patient was hallucinating very confused, no combativeness noted, patient was seen this morning, and seems to be drowsy however she wakes to conversation, [id number] is at bedside, and was able to recognize his [id number]. Patient did not eat much for today, according to history, patient drinks at least a glass of whiskey per day, unknown amount, ammonia levels to be done, as well as B12 levels to be done, start thiamine 100 mg daily, check B12, patient is in ICU, without any rest or distress identified. ciwa protocol started, patient is on Zosyn him a Dr. Murphy following, as well as pulmonary and cardiology. Patient has A. fib with RVR on amiodarone IV Review of Systems Constitutional: No fever, no chills, no night sweats. Reports weakness, Reports fatigue Reports lethargy. Reports daytime sleepiness. EENT: No headache. No blurred vision or double vision, no loss of vision. no dizziness. No nasal drainage or congestion. No epistaxis. No sore throat. Lungs: Reports shortness of breath, reports cough, no sputum production. Reports wheezing. Cardiovascular: No chest pain, no lower extremity edema. No palpitations. No paroxysmal nocturnal dyspnea. Abdominal: No abdominal pain. No nausea, vomiting. No diarrhea. No constipation. No bloody or tarry stools.. No loss of appetite. Genitourinary: No dysuria, increased frequency, urgency. No urinary retention. Musculoskeletal: No myalgias. No muscle weakness, no gait dysfunction, no frequent falls. No back pain. No neck pain. Integumentary: No wounds, no lesions. No rash or pruritus. No unusual bruising. No change in hair or nails. Neurologic: No aphasia. No facial droop. No change in mentation. No head injury. No headache. No paralysis. No paresthesia. Psychiatric: No depression. No anxiety. No mood swings. Endocrine: No abnormal blood sugars. No weight change. No excessive sweating or thirst. No cold intolerance. Objective - Vital Signs Vital signs: Vital Signs Temp 95.7 F L 02/15/20 12:00 Pulse 72 02/15/20 13:00 Resp 21 02/15/20 13:00 BP 121/84 02/15/20 13:00 Pulse Ox 96 02/15/20 13:00 Intake & Output 02/14/20 02/15/20 02/15/20 18:59 06:59 18:59 Intake Total 4208.412 9625.139 645 Output Total 600 400 400 Balance 1003.692 841.139 245 Weight 52.2 kg Intake: IV 975 825 525 Sodium Chloride 0.9% 1, 975 825 525 000 ml @ 75 mls/hr IV . [id number] ELOISE Rx#:[id number] Intake, IV Titration 148.692 316.139 Amount Norepinephrine 4 mg In 48.692 216.139 Sodium Chloride 0.9% 250 ml @ 0.05 MCG/KG/MIN 9. 937 mls/hr IV .Q24H ELOISE Rx#:[id number] Piperacillin-Tazobactam 3 100 100 .375 gm In Sodium Chloride 0.9% 100 ml @ 25 mls/hr IVPB Q8H ELOISE Rx#: [id number] Oral 480 100 120 Output: Urine 600 400 400 Other: Voiding Method Urinal Urinal # Voids 1 # Bowel Movements 1 1 - Constitutional General appearance: Present: cooperative, no acute distress - EENT Eyes: Present: EOMI, PERRLA, poor dentition, normal appearance ENT: Present: NA/AT, normal oropharynx - Neck Neck: Present: normal ROM Thyroid: bilateral: normal size - Respiratory Respiratory: bilateral: CTA, diminished, negative: rhonchi, wheezing, prolonged expiration - Cardiovascular Rhythm: irregularly irregular Heart sounds: normal: S1, S2 Abnormal Heart Sounds: Present: systolic murmur - Gastrointestinal General gastrointestinal: Present: normal bowel sounds, soft - Neurologic Neurologic Comment(s): Alert oriented 3, however patient was confused last night, with some sedation this morning Neurologic: Present: CNII-XII intact - Labs CBC & Chem 7: 02/15/20 05:09 02/15/20 05:09 Labs: Abnormal Lab Results - Last 24 Hours (Table) 02/15/20 02/15/20 Range/Units 05:09 05:09 RBC 4.29 L (4.30-5.90) m/uL Hgb 12.1 L (13.0-17.5) gm/dL Hct 37.8 L (39.0-53.0) % Plt Count 94 L (150-450) k/uL Neutrophils # 8.3 H (1.3-7.7) k/uL Lymphocytes # 0.6 L (1.0-4.8) k/uL Sodium 135 L (137-145) mmol/L Chloride 109 H (98-107) mmol/L Carbon Dioxide 21 L (22-30) mmol/L BUN 24 H (9-20) mg/dL Calcium 8.2 L (8.4-10.2) mg/dL Alkaline Phosphatase 134 H (38-126) U/L Total Protein 5.5 L (6.3-8.2) g/dL Albumin 2.7 L (3.5-5.0) g/dL Microbiology - Last 24 Hours (Table) 02/12/20 23:18 Blood Culture - Preliminary Blood No Growth after 48 hours Assessment and Plan Plan: sessment and Plan 1. Acute on chronic hypoxic respiratory failure secondary to COPD exacerbation, possible pneumonia, gram-negative pneumonia, chronic diastolic heart failure. Consult with pulmonary medicine, continue oxygen therapy. 2. Sepsis and lactic acidosis. Patient has required vasopressor support. PICC line has been ordered for norepinephrine. Continue Zosyn, Levaquin, consult with Dr. Childers and Dr. Murphy appreciated. UA sent for analysis and culture 3. Persistent atrial fibrillation. Cardiology consult appreciated. 4. Mild elevation in troponin most likely secondary to sepsis and hypotension, ruled out non-ST elevated myocardial infarction. Cardiology consult ap preciated. Echocardiogram has been ordered. 5. COPD exacerbation. Continue Pulmicort 1 mg twice daily, DuoNeb treatments 4 times daily and as needed, pulmonary consult. 6. History of CAD status post CABG as well as mitral regurgitation status post mitral valve replacement. Hold Imdur, Lasix and Lopressor secondary to hypotension. Continue aspirin 81 mg daily, Lipitor 40 mg daily. 7. Hypertension and hypertensive cardiovascular disease. Patient is currently hypotensive. 8. Abdominal aortic aneurysm status post repair in 2010, stable. 9. Hyperlipidemia. Continue Lipitor. 10. ALLERGIC rhinitis. Continue singulair 10 mg at bedtime. 11 Chronic thrombocytopenia. 12. Chronic kidney disease stage III. 13. Chronic hyponatremia and hypomagnesemia, status post replacement, recheck in the morning. 14. History of peptic ulcer disease and GI prophylaxis. Continue Protonix 40 mg oral twice daily. 15. Daily alcohol use. 16. Remote history of tobacco use and dependence. 17. DVT prophylaxis. Heparin subcu. 18. COVID-19 testing. 19. Acute confusional state, related to possible chronic alcoholism, and acute illness, delirium. Patient would be started on thiamine 100 mg daily, B12 to be done, serum ammonia levels to be obtained, urinalysis sent for culture, patient at risk for aspirating events aspiration precautions, CODE STATUS: No code Discharge plan: Possibly home with [facility].
[2020-02-15] MEDS: THIAMINE 100 MG/ML 2 ML VIAL IVP SCH (20:01)
[2020-02-15] MEDS: MONTELUKAST 10 MG TAB PO SCH (20:01)
[2020-02-15] MEDS: ATORVASTATIN 40 MG TAB PO SCH (20:01)
[2020-02-15] MEDS ORDERED: THIAMINE 100 MG in SODIUM CHLORIDE 0.9% 50 ML IVPB SCH (21:00)
--- NOTE | 2020-02-15 22:34 | PN ---
PROGRESS NOTE REASON FOR FOLLOWUP: Pneumonia and UTI. INTERVAL HISTORY: Patient is currently afebrile. Patient is breathing more comfortably. The patient denies having any chest pain. No shortness of breath. Did have a cough, not bringing up any sputum. No nausea, no vomiting. No abdominal pain or diarrhea. PHYSICAL EXAMINATION: Blood pressure 126/84, pulse of 104, temperature 98, he is 91% on 6 L nasal cannula. General description is an elderly male up in the bed in no distress. Respiratory system: Unlabored breathing, decreased breath sounds in the base, no wheeze. Heart S1, S2. Regular rate and rhythm. Abdomen soft, no tenderness. LABS: Hemoglobin is 12.1, white count 9.9, BUN of 24, creatinine 0.90. Blood and sputum culture so far pending. DIAGNOSTIC IMPRESSION AND PLAN: Patient admitted to the hospital with sepsis, source is multifactorial in this patient with a component of pneumonia and urinary tract infection. Cultures are currently pending. Patient is covered with Zosyn and Levaquin to continue, adjusting antibiotics further based on culture report. Continue supportive care. MMODL / IJN: [id number] /
[2020-02-16] MEDS: SODIUM CHLORIDE 0.9% 1,000 ML IV SCH ×2 (01:52→17:36)
[2020-02-16 04:31] LABS: Basophils % (A) 1 %; Eosinophils # (A) 0.2 k/uL (0-0.7); Eosinophils % (A) 3 %; HCT 39.3 % (39.0-53.0); HGB 12.4 gm/dL (13.0-17.5); Hypochromasia Slight; Lymphocytes # (A) 0.7 k/uL (1.0-4.8); Lymphocytes % (A) 8 %; MCH 28.6 pg (25.0-35.0); MCHC 31.7 g/dL (31.0-37.0); MCV 90.2 fL (80.0-100.0); Mean Platelet Volume 10.4; Monocytes # (A) 0.6 k/uL (0-1.0); Monocytes % (A) 7 %; Neutrophils # (A) 6.4 k/uL (1.3-7.7); Neutrophils % (A) 79 %; Platelet Count 109 k/uL (150-450); RBC 4.35 m/uL (4.30-5.90); RDW 14.7 % (11.5-15.5); WBC 8.1 k/uL (3.8-10.6)
[2020-02-16 04:54] LABS: ALT 13 U/L (4-49); AST 41 U/L (17-59); African American GFR (CKD) >90 (>60 ml/min/1.73 sqM); Albumin 2.6 g/dL (3.5-5.0); Alkaline Phosphatase 79 U/L (38-126); Anion Gap 7 mmol/L; Blood Urea Nitrogen 17 mg/dL (9-20); Calcium 7.9 mg/dL (8.4-10.2); Carbon Dioxide 22 mmol/L (22-30); Chloride 107 mmol/L (98-107); Glucose 96 mg/dL (74-99); Non-African American GFR(CKD) 84 (>60 ml/min/1.73 sqM); Potassium 3.6 mmol/L (3.5-5.1); Sodium 136 mmol/L (137-145); Total Bilirubin 1.1 mg/dL (0.2-1.3); Total Protein 5.4 g/dL (6.3-8.2)
[2020-02-16] MEDS: PIPERACILLIN-TAZOBACTAM 3.375 GM in SODIUM CHLORIDE 0.9% 100 ML IVPB SCH ×3 (05:00→20:02)
[2020-02-16] MEDS: NOREPINEPHRINE 4 MG in SODIUM CHLORIDE 0.9% 250 ML IV SCH ×2 (06:25→20:01)
[2020-02-16] MEDS: PANTOPRAZOLE 40 MG TABLET PO SCH ×2 (06:25→17:37)
[2020-02-16] MEDS ORDERED: POTASSIUM CHLORIDE ER 20 MEQ TAB.ER PO SCH (07:00)
--- NOTE | 2020-02-16 07:05 | P.PN ---
Subjective Progress Note Date: 02/16/20 Principal diagnosis: Long-standing persistent atrial fibrillation This is a very pleasant 79-year-old gentleman who sees Dr. Hagan as an outpatient with a past medical history significant for coronary artery disease and status post CABG, aortic valve replacement using bioprosthetic valve, chronic obstructive pulmonary disease, chronic hypoxic respiratory failure on home oxygen, as well as long-standing persistent atrial fibrillation not on oral anticoagulation secondary to GI bleeding, was admitted to the hospital for further evaluation off increasing shortness of breath. The patient somewhat is a poor historian. For the last several days he has been experiencing symptoms of being more tired and fatigued and has no energy. Beside that he was experiencing increasing in the shortness of breath. No symptoms of fever or chills. No symptoms of chest pain or chest discomfort. No dizziness or lightheadedness or any loss of consciousness or syncope. He called his neighbor to come and check on him were the neighbor from the patient not on oxygen at home which she is normally on and ambulance was called and the patient was brought to the emergency department. When the ambulance was called the patient was hypoxic. He was admitted to the hospital for COPD exacerbation and possible underlying pneumonia/sepsis. The patient was seen today 02/16/2020. His mentation has improved compared to yesterday. He continues to be in atrial fibrillation was controlled heart rate without any AV jay marlen agents with marginally low blood pressure requiring small dose of norepinephrine. On physical examination he seems to be dry. I'm going to DC the Lasix and give the patient a bolus of 2 50 mL of 0.9 normal saline hoping that we will be able to get him off norepinephrine. Hemoglobin remains stable and kidney function and electrolytes are within normal limits. The chest x-ray was reviewed and showed improvement in the infiltrate involving the right lung. Objective - Vital Signs Vital signs: Vital Signs Temp 98.0 F 02/16/20 04:00 Pulse 96 02/16/20 06:00 Resp 27 H 02/16/20 06:00 BP 99/65 02/16/20 06:00 Pulse Ox 90 L 02/16/20 06:00 Intake & Output 02/15/20 02/16/20 02/16/20 18:59 06:59 18:59 Intake Total 9389.261 1936.699 Output Total 700 600 Balance 966.576 985.699 Weight 56.2 kg Intake: IV 975 825 Sodium Chloride 0.9% 1, 975 825 000 ml @ 75 mls/hr IV . [id number] ELOISE Rx#:[id number] Intake, IV Titration 331.576 540.699 Amount Amiodarone 300 mg In 222.083 Dextrose 5% in Water 250 ml @ 0.5 MG/MIN 25 mls/hr IV .Q10H ELOISE Rx#: [id number] Norepinephrine 4 mg In 231.576 218.616 Sodium Chloride 0.9% 250 ml @ 0.05 MCG/KG/MIN 9. 937 mls/hr IV .Q24H ELOISE Rx#:[id number] Piperacillin-Tazobactam 3 100 100 .375 gm In Sodium Chloride 0.9% 100 ml @ 25 mls/hr IVPB Q8H ELOISE Rx#: [id number] Oral 360 220 Output: Urine 700 600 Other: Voiding Method Urinal Urinal - Constitutional General appearance: Present: no acute distress - Respiratory Respiratory: bilateral: diminished - Cardiovascular Rhythm: irregularly irregular Heart sounds: normal: S1, S2 - Labs CBC & Chem 7: 02/16/20 04:08 02/16/20 04:08 Labs: Abnormal Lab Results - Last 24 Hours (Table) 02/15/20 02/16/20 02/16/20 Range/Units 05:09 04:08 04:08 Hgb 12.4 L (13.0-17.5) gm/dL Plt Count 109 L (150-450) k/uL Lymphocytes # 0.7 L (1.0-4.8) k/uL Sodium 135 L 136 L (137-145) mmol/L Chloride 109 H (98-107) mmol/L Carbon Dioxide 21 L (22-30) mmol/L BUN 24 H (9-20) mg/dL Calcium 8.2 L 7.9 L (8.4-10.2) mg/dL Alkaline Phosphatase 134 H (38-126) U/L Total Protein 5.5 L 5.4 L (6.3-8.2) g/dL Albumin 2.7 L 2.6 L (3.5-5.0) g/dL Microbiology - Last 24 Hours (Table) 02/12/20 23:18 Blood Culture - Preliminary Blood No Growth after 72 hours 02/15/20 09:00 Sputum Culture - Preliminary Sputum 02/15/20 08:20 Urine Culture - Preliminary Urine,Voided Assessment and Plan Assessment: Assessment #1 pneumonia/sepsis #2 COPD exacerbation #3 mildly abnormal troponin #4 coronary artery disease with prior revascularization #5 status post aortic valve replacement in the past #6 long-standing persistent atrial fibrillation was controlled heart rate #7 history of GI bleeding #8 hypertension requiring norepinephrine Plan #1 DC the Lasix #2 give the patient a bolus of 0.9 normal saline of 250 mL #3 the heart rate seems to be controlled without any AV jay marlen agents #4 follow-up with the patient
[2020-02-16] MEDS: IPRATROPIUM-ALBUTEROL 3 ML NEB INHALATION SCH ×4 (08:06→19:43)
[2020-02-16] MEDS: BUDESONIDE 1 MG/2 ML NEBU INHALATION SCH ×2 (08:06→19:46)
--- NOTE | 2020-02-16 08:43 | P.PN ---
Subjective Progress Note Date: 02/16/20 (Critical care time 35 minutes) Principal diagnosis: Altered mental status Septic shock due to right-sided pneumonia Acute on chronic hypoxic respiratory failure Atrial fibrillation with RVR/rapid ventricular response History of end-stage lung disease secondary severe COPD History of GI bleed with chronic anemia 02/16/2020, patient seen eval examined during the rounds labs reviewed medications reviewed care plan discussed with RN at length critical care time spent 35 minutes, patient is more calm now awake on sitting appropriately but remains slightly confused however, somewhat anxious, hemodynamics are marginal still require levo fed drip currently on 4 mics, systolic blood pressure about 100 210, patient is gently being rehydrated with fluids as patient appears to be slightly dry a bolus of 2 50 mL been given this morning, patient remains in atrial fibrillation however rate is slightly better, later on today will be changed from IV amiodarone to oral amiodarone, he is afebrile, labs reviewed, his chest x-ray reviewed, overall remains stable, patient is on 6 L oxygen, his sputum cultures and urine culture are pending, patient remains on Levaquin and Zosyn for multi lobar pneumonia mostly on the right side 02/15/2020, patient seen eval reexamined during the rounds labs reviewed medications reviewed care plan discussed with RN at length, critical care time spent 45 minutes, patient is somewhat confused, but not combative, remains hypotensive continued to require levo fed drip currently on 4 mics, patient also developed severe with RVR requiring amiodarone infusion, the altered mental status appeared to be more related to severe sepsis and septic shock as 8 is coming on slowly in the last 24-48 hours patient does not manifest any signs of hemiparesis speech impairment is not there that goes against a central process, cardiovascular diseases have been following this patient closely patient is not on anticoagulation due to history of GI bleed, chest x-ray showing worsening of pneumonia on the right side involving the upper lobe as well as the lower lobe, chemistry is stable except some hyponatremia, patient remains on Levaquin and Zosyn, Patient was incidentally discovered on my patient list, this patient is well- known to me due to end-stage lung disease and severe COPD, patient was admitted to hospital as he was at home found to be off of oxygen very weak and fatigued, patient was admitted on January 11, he was doing fairly well until this morning, neighbor found to be off of oxygen, due to weakness brought into the hospital for further evaluation, chest x-ray significant for pulmonary interstitial infiltrate along with pulmonary vascular congestion right lower lobe pneumonia, EKG revealed right bundle branch block with RVH old inferior wall OR, patient remains hypotensive requiring levo fed drip, cardiovascular services ID service has been following this patient as well, his x-ray from this morning continue show emphysematous and fibrotic changes with cardiomegaly and right-sided pneumonia, patient currently on bronchodilator continuation of his home medicine along with Zosyn and Levaquin, Objective - Vital Signs Vital signs: Vital Signs Temp 97.7 F 02/16/20 08:00 Pulse 100 02/16/20 08:28 Resp 22 02/16/20 08:00 BP 83/65 02/16/20 08:00 Pulse Ox 91 L 02/16/20 08:00 Intake & Output 02/15/20 02/16/20 02/16/20 18:59 06:59 18:59 Intake Total 1971.898 1014.699 195 Output Total 700 600 100 Balance 966.576 985.699 95 Weight 56.2 kg Intake: IV 975 825 75 Sodium Chloride 0.9% 1, 975 825 75 000 ml @ 75 mls/hr IV . [id number] ELOISE Rx#:[id number] Intake, IV Titration 331.576 540.699 Amount Amiodarone 300 mg In 222.083 Dextrose 5% in Water 250 ml @ 0.5 MG/MIN 25 mls/hr IV .Q10H ELOISE Rx#: [id number] Norepinephrine 4 mg In 231.576 218.616 Sodium Chloride 0.9% 250 ml @ 0.05 MCG/KG/MIN 9. 937 mls/hr IV .Q24H ELOISE Rx#:[id number] Piperacillin-Tazobactam 3 100 100 .375 gm In Sodium Chloride 0.9% 100 ml @ 25 mls/hr IVPB Q8H ELOISE Rx#: [id number] Oral 360 220 Tube Feeding 120 Output: Urine 700 600 100 Other: Voiding Method Urinal Urinal - Exam - Constitutional General appearance: average body habitus, cooperative, disheveled, mild distress - EENT Eyes: PERRLA ENT: normal oropharynx Ears: bilateral: normal - Neck Neck: normal ROM Carotids: bilateral: upstroke normal Thyroid: bilateral: normal size - Respiratory Respiratory: bilateral: diminished, rales - Cardiovascular Rhythm: irregularly irregular Heart sounds: normal: S1, S2 - Gastrointestinal General gastrointestinal: normal bowel sounds - Neurologic Neurologic: CNII-XII intact - Musculoskeletal Musculoskeletal: gait normal, generalized weakness, strength equal bilaterally - Psychiatric Psychiatric: A&O x's 3, appropriate affect, intact judgment & insight - Labs CBC & Chem 7: 02/16/20 04:08 02/16/20 04:08 Labs: Abnormal Lab Results - Last 24 Hours (Table) 02/16/20 02/16/20 Range/Units 04:08 04:08 Hgb 12.4 L (13.0-17.5) gm/dL Plt Count 109 L (150-450) k/uL Lymphocytes # 0.7 L (1.0-4.8) k/uL Sodium 136 L (137-145) mmol/L Calcium 7.9 L (8.4-10.2) mg/dL Total Protein 5.4 L (6.3-8.2) g/dL Albumin 2.6 L (3.5-5.0) g/dL Microbiology - Last 24 Hours (Table) 02/15/20 09:00 Gram Stain - Preliminary Sputum Sputum Culture - Preliminary 02/12/20 23:18 Blood Culture - Preliminary Blood No Growth after 72 hours 02/15/20 08:20 Urine Culture - Preliminary Urine,Voided Assessment and Plan Assessment: Altered mental status slowly improving Septic shock due to right-sided pneumonia Right-sided multi lobar pneumonia Acute on chronic hypoxic respiratory failure Atrial fibrillation with RVR/rapid ventricular response History of end-stage lung disease secondary severe COPD History of GI bleed with chronic anemia Chronic paroxysmal atrial fibrillation History of aneurysm involving thoracoabdominal aorta Coronary artery disease history of CABG in the past Plan: Intermittent fluid bolus Continue gentle rehydration Monitor mental status closely Follow-up on Urine sputum culture and arterial blood gas Continue vasopressors, tried to bring it down to keep the map over 65 Continue amiodarone drip, can be changed to oral once infusion is done Continue supplemental oxygen, try to keep saturation over 92% or above Gentle rehydration Monitor closely A. fib as well as mental status Patient is off of anticoagulation due to GI bleed in the past Continue broad-spectrum antibiotics Continue breathing treatments Status post PICC line Titrate vasopressors down as tolerated Patient is no code Time with Patient: Greater than 30
[2020-02-16] MEDS: HEPARIN SODIUM,PORCINE 5,000 UNIT/ML 1 ML VIAL SQ SCH ×2 (09:40→20:02)
[2020-02-16] MEDS: THIAMINE 100 MG/ML 2 ML VIAL IVP SCH (09:40)
[2020-02-16] MEDS: MAGNESIUM OXIDE 400 MG TAB PO SCH (09:40)
[2020-02-16] MEDS: POTASSIUM CHLORIDE ER 10 MEQ TAB.ER.PRT PO SCH (09:40)
[2020-02-16] MEDS: CHOLECALCIFEROL 1,000 UNIT TAB PO SCH (09:40)
[2020-02-16] MEDS: ASPIRIN 81 MG PO SCH (09:40)
--- NOTE | 2020-02-16 14:12 | XR ---
EXAMINATION TYPE: XR chest 1V portable DATE OF EXAM: 02/16/2020 CLINICAL HISTORY: Pneumonia. TECHNIQUE: Semiupright portable view of the chest obtained. COMPARISON: 02/15/2020 chest radiograph FINDINGS: Sternotomy wires. Right PICC distal tip over the mid superior vena cava. Cardiomegaly. Pat soco multilobar airspace opacities not significantly changed. Small right pleural effusion. Interval d evelopment of small left pleural effusion. No pneumothorax. Vascular calcifications. IMPRESSION: 1. Bilateral airspace opacities not significantly changed versus 02/15/2020. 2. Unchanged small right pleural effusion, and interval development of small left pleural effusion.
[2020-02-16] MEDS ORDERED: ONDANSETRON 4 MG/2 ML VIAL IVP PRN (14:39)
--- NOTE | 2020-02-16 14:42 | P.PN ---
Subjective Progress Note Date: 02/16/20 History of Present Illness This is a 79-year-old male patient of Dr. Erasmo Mary, Dr. Hagan, Dr. 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 Patient presented to [facility] emergency center for generalized weakness and fatigue after he was found by the neighbor and was disconnected from his home oxygen supply. Patient presented with pulse ox of 81%, afebrile, heart rate 113, blood pressure was low initially 91/73 but then dropped to 71/34. EKG atrial fibrillation with diffuse nonspecific ST and T-wave abnormalities, right bundle branch block. WBC 13.1, hemoglobin 12.8, platelet count 128. Sodium 130, potassium 4.4, chloride 94, CO2 26, BUN 19 and creatinine 1.24, blood sugar 84. Blood sugar 84. Magnesium 1.5, total bilirubin 1.7, AST 39, a ALT 13, alkaline phosphatase 114. Lactic acid 3.1. Initial troponin 0.117. ProBNP 6600. Chest x-ray reveals pulmonary interstitial infiltrates. Mild pulmonary vascular congestion. Infiltrate in the right lower lobe is partly cleared compared to old exam. Appearance of the chest is consistent with mild heart failure and underlying pulmonary fibrosis. Patient was started on norepinephrine and admitted into the intensive care unit with consult for cardiology, infectious disease and pulmonary medicine. 02/13: Patient remains in the intensive care unit. He is still on norepinephrine and PICC line has been ordered this morning by Dr. Childers. He states his breathing is better today. No lower extremity edema. He denies any abdominal pain. No nausea or vomiting. Repeat chest x-ray reveals chronic emphysematous and pulmonary fibrotic changes along with cardiomegaly and right-sided volume loss. Worsening right mid and lower lung acute infiltrates noted on background of chronic change. Echocardiogram report is pending. Patient has been seen by cardiology and pulmonary medicine. Dr. Murphy is recommending continuing Zosyn and follow up on cultures. Patient has been afebrile, heart rate 90, blood pressure 105/80, pulse ox 94% on 5 L nasal cannula. Repeat blood work reveals WBC 12.9, hemoglobin 12.8, platelet count 124. Sodium 131, potassium 3.8, chloride 102, CO2 20, BUN 23 and creatinine 1.05. Blood culture reveals no growth at 24 hours and urine culture is in progress. COVID-19 testing in process. 02/14: Patient was very confused last night, required 0.5 mg of Xanax, patient was hallucinating very confused, no combativeness noted, patient was seen this morning, and seems to be drowsy however she wakes to conversation, [id number] is at bedside, and was able to recognize his [id number]. Patient did not eat much for today, according to history, patient drinks at least a glass of whiskey per day, unknown amount, ammonia levels to be done, as well as B12 levels to be done, start thiamine 100 mg daily, check B12, patient is in ICU, without any rest or distress identified. ciwa protocol started, patient is on Zosyn him a Dr. Murphy following, as well as pulmonary and cardiology. Patient has A. fib with RVR on amiodarone IV 02/15, patient remains in ICU, his more reoriented today, was able to recognize me, is more conversant, with appropriate thought content, has slept better last night, no abnormal pain, has some nausea, urine culture growing staph epidermidis, sputum culture growing yeast, patient has oral candidal changes will switch IV thiamine to oral time in 100 mg daily. B12 level is currently pending TSH normal 1.2 albumin low at 2.6 start nutritional protein supplementation Review of Systems Constitutional: No fever, no chills, no night sweats. Reports weakness, Reports fatigue Reports lethargy. Reports daytime sleepiness. EENT: No headache. No blurred vision or double vision, no loss of vision. no dizziness. No nasal drainage or congestion. No epistaxis. No sore throat. Lungs: Reports shortness of breath, reports cough, no sputum production. Reports wheezing. Cardiovascular: No chest pain, no lower extremity edema. No palpitations. No paroxysmal nocturnal dyspnea. Abdominal: No abdominal pain. No nausea, vomiting. No diarrhea. No constipation. No bloody or tarry stools.. No loss of appetite. Genitourinary: No dysuria, increased frequency, urgency. No urinary retention. Musculoskeletal: No myalgias. No muscle weakness, no gait dysfunction, no f requent falls. No back pain. No neck pain. Integumentary: No wounds, no lesions. No rash or pruritus. No unusual bruising. No change in hair or nails. Neurologic: No aphasia. No facial droop. No change in mentation. No head injury. No headache. No paralysis. No paresthesia. Psychiatric: No depression. No anxiety. No mood swings. Endocrine: No abnormal blood sugars. No weight change. No excessive sweating or thirst. No cold intolerance. Objective - Vital Signs Vital signs: Vital Signs Temp 97.7 F 02/16/20 08:00 Pulse 98 02/16/20 13:30 Resp 24 02/16/20 13:30 BP 84/57 02/16/20 13:30 Pulse Ox 89 L 02/16/20 12:30 Intake & Output 02/15/20 02/16/20 02/16/20 18:59 06:59 18:59 Intake Total 1756.901 3971.699 686.602 Output Total 700 600 500 Balance 966.576 985.699 186.602 Weight 56.2 kg 56.2 kg Intake: IV 975 825 525 Sodium Chloride 0.9% 1, 975 825 525 000 ml @ 75 mls/hr IV . [id number] [facility] Rx#:[id number] Intake, IV Titration 331.576 540.699 41.602 Amount Amiodarone 300 mg In 222.083 Dextrose 5% in Water 250 ml @ 0.5 MG/MIN 25 mls/hr IV .Q10H [facility] Rx#: [id number] Norepinephrine 4 mg In 231.576 218.616 41.602 Sodium Chloride 0.9% 250 ml @ 0.05 MCG/KG/MIN 9. 937 mls/hr IV .Q24H [facility] Rx#:[id number] Piperacillin-Tazobactam 3 100 100 .375 gm In Sodium Chloride 0.9% 100 ml @ 25 mls/hr IVPB Q8H [facility] Rx#: [id number] Oral 360 220 Tube Feeding 120 Output: Urine 700 600 500 Other: Voiding Method Urinal Urinal - Constitutional General appearance: Present: cooperative, no acute distress - EENT Eyes: Present: EOMI, PERRLA, poor dentition ENT: Present: NA/AT, normal oropharynx - Neck Neck: Present: normal ROM - Respiratory Respiratory: bilateral: CTA, rhonchi, negative: diminished, dullness, rales - Cardiovascular Rhythm: regular Abnormal Heart Sounds: Absent: systolic murmur, diastolic murmur, rub, S3 Gallop, S4 Gallop, click, other - Gastrointestinal General gastrointestinal: Present: normal bowel sounds, soft - Integumentary Integumentary: Present: decreased turgor, normal - Musculoskeletal Musculoskeletal: Present: generalized weakness, strength equal bilaterally - Psychiatric Psychiatric: Present: A&O x's 3, appropriate affect - Labs CBC & Chem 7: 02/16/20 04:08 02/16/20 04:08 Labs: Abnormal Lab Results - Last 24 Hours (Table) 02/16/20 02/16/20 Range/Units 04:08 04:08 Hgb 12.4 L (13.0-17.5) gm/dL Plt Count 109 L (150-450) k/uL Lymphocytes # 0.7 L (1.0-4.8) k/uL Sodium 136 L (137-145) mmol/L Calcium 7.9 L (8.4-10.2) mg/dL Total Protein 5.4 L (6.3-8.2) g/dL Albumin 2.6 L (3.5-5.0) g/dL Microbiology - Last 24 Hours (Table) 02/15/20 09:00 Gram Stain - Preliminary Sputum Sputum Culture - Preliminary Vanna albicans Yeast species 02/13/20 04:36 Urine Culture - Final Urine,Voided Staphylococcus epidermidis 02/12/20 23:18 Blood Culture - Preliminary Blood No Growth after 72 hours 02/15/20 08:20 Urine Culture - Preliminary Urine,Voided Assessment and Plan Plan: sessment and Plan 1. Acute on chronic hypoxic respiratory failure secondary to COPD exacerbation, possible pneumonia, gram-negative pneumonia, chronic diastolic heart failure. Consult with pulmonary medicine, continue oxygen therapy. 2. Sepsis and lactic acidosis. Patient has required vasopressor support. PICC line has been ordered for norepinephrine. Continue Zosyn, Levaquin, consult with Dr. Childers and Dr. Murphy appreciated. UA sent for analysis and culture 3. Persistent atrial fibrillation. Cardiology consult appreciated. 4. Mild elevation in troponin most likely secondary to sepsis and hypotension, ruled out non-ST elevated myocardial infarction. Cardiology consult appreciated. Echocardiogram has been ordered. 5. COPD exacerbation. Continue Pulmicort 1 mg twice daily, DuoNeb treatments 4 times daily and as needed, pulmonary consult. 6. History of CAD status post CABG as well as mitral regurgitation status post mitral valve replacement. Hold Imdur, Lasix and Lopressor secondary to hypotension. Continue aspirin 81 mg daily, Lipitor 40 mg daily. 7. Hypertension and hypertensive cardiovascular disease. Patient is currently hypotensive. 8. Abdominal aortic aneurysm status post repair in 2010, stable. 9. Hyperlipidemia. Continue Lipitor. 10. ALLERGIC rhinitis. Continue singulair 10 mg at bedtime. 11 Chronic thrombocytopenia. 12. Chronic kidney disease stage III. 13. Chronic hyponatremia and hypomagnesemia, status post replacement, recheck in the morning. 14. History of peptic ulcer disease and GI prophylaxis. Continue Protonix 40 mg oral twice daily. 15. Daily alcohol use. 16. Remote history of tobacco use and dependence. 17. DVT prophylaxis. Heparin subcu. 18. COVID-19 testing. 19. Acute confusional state, related to possible chronic alcoholism, Korsakoff's and acute illness, delirium. Patient would be started on thiamine 100 mg daily, B12 to be done, serum ammonia levels to be obtained, urinalysis sent for culture, patient at risk for aspirating events aspiration precautions, 20. Oral vanna, nystatin swish and swallow started CODE STATUS: No code Discharge plan: Possibly home with [facility].
[2020-02-16] MEDS: NYSTATIN 100,000 UNIT/ML SUSP 500,000 UNIT/5 ML CUP PO SCH ×3 (14:45→21:18)
[2020-02-16] MEDS: ATORVASTATIN 40 MG TAB PO SCH (20:02)
[2020-02-16] MEDS: MONTELUKAST 10 MG TAB PO SCH (20:02)
[2020-02-16] MEDS ORDERED: DEXTROSE 5% IN WATER 100 ML with AMIODARONE 150 MG IV ONE (22:01)
[2020-02-16] MEDS ORDERED: AMIODARONE 360 MG in DEXTROSE 5% IN WATER 200 ML IV ONE ×2 (22:15)
--- NOTE | 2020-02-16 22:52 | PN ---
PROGRESS NOTE DATE OF SERVICE: 02/16/2020 REASON FOR FOLLOWUP: Pneumonia and urinary tract infection. INTERVAL HISTORY: The patient is currently afebrile. The patient is still requiring pressor support, about the same amount of Levophed as yesterday. The patient is breathing comfortably. Patient denies having any chest pain or shortness of breath. He continues to have a cough and is bringing up some sputum. No vomiting. No abdominal pain. No diarrhea. PHYSICAL EXAMINATION: Blood pressure 107/71 with a pulse of 96, temperature 96.9. He is 90% on 6 L nasal cannula. General description is an elderly male lying in bed in no distress. RESPIRATORY SYSTEM: Unlabored breathing, decreased breath sounds at the bases. No wheeze. HEART: S1, S2. Regular rate and rhythm. ABDOMEN: Soft, no tenderness. LABS: Hemoglobin 12.4, white count 8.1, BUN of 17, creatinine 0.83. DIAGNOSTIC IMPRESSION AND PLAN: Patient admitted to the hospital with sepsis. Source is likely pneumonia plus- minus component of urinary tract infection. Urine is showing a Staph epi though oxacillin sensitive. The patient is covered with Zosyn to continue and will monitor clinical course closely. MMODL / IJN: [id number] / MTDD
[2020-02-17] MEDS: NOREPINEPHRINE 4 MG in SODIUM CHLORIDE 0.9% 250 ML IV SCH ×2 (04:11→19:44)
[2020-02-17] MEDS: SODIUM CHLORIDE 0.9% 1,000 ML IV SCH ×2 (04:12→17:22)
[2020-02-17] MEDS ORDERED: AMIODARONE 300 MG in DEXTROSE 5% IN WATER 250 ML IV SCH ×2 (04:15)
[2020-02-17] MEDS: PIPERACILLIN-TAZOBACTAM 3.375 GM in SODIUM CHLORIDE 0.9% 100 ML IVPB SCH ×3 (04:28→20:10)
[2020-02-17 05:12] LABS: ALT 18 U/L (4-49); AST 51 U/L (17-59); African American GFR (CKD) >90 (>60 ml/min/1.73 sqM); Albumin 2.9 g/dL (3.5-5.0); Alkaline Phosphatase 82 U/L (38-126); Anion Gap 7 mmol/L; Blood Urea Nitrogen 15 mg/dL (9-20); Calcium 8.4 mg/dL (8.4-10.2); Carbon Dioxide 19 mmol/L (22-30); Chloride 110 mmol/L (98-107); Glucose 99 mg/dL (74-99); Non-African American GFR(CKD) 88 (>60 ml/min/1.73 sqM); Sodium 136 mmol/L (137-145); Total Bilirubin 1.2 mg/dL (0.2-1.3); Total Protein 5.8 g/dL (6.3-8.2)
[2020-02-17 05:31] LABS: Basophils % (A) 1 %; Eosinophils # (A) 0.1 k/uL (0-0.7); Eosinophils % (A) 2 %; HCT 40.9 % (39.0-53.0); HGB 12.9 gm/dL (13.0-17.5); Hypochromasia Moderate; Lymphocytes # (A) 0.7 k/uL (1.0-4.8); Lymphocytes % (A) 10 %; MCH 28.6 pg (25.0-35.0); MCHC 31.7 g/dL (31.0-37.0); MCV 90.3 fL (80.0-100.0); Mean Platelet Volume 12.3; Monocytes # (A) 0.6 k/uL (0-1.0); Monocytes % (A) 8 %; Neutrophils # (A) 5.6 k/uL (1.3-7.7); Neutrophils % (A) 77 %; Platelet Count 110 k/uL (150-450); RBC 4.52 m/uL (4.30-5.90); RDW 15.1 % (11.5-15.5); WBC 7.3 k/uL (3.8-10.6)
[2020-02-17] MEDS: PANTOPRAZOLE 40 MG TABLET PO SCH ×2 (06:43→17:22)
[2020-02-17] MEDS: BUDESONIDE 1 MG/2 ML NEBU INHALATION SCH ×2 (07:51→19:27)
[2020-02-17] MEDS: IPRATROPIUM-ALBUTEROL 3 ML NEB INHALATION SCH ×4 (07:51→19:27)
[2020-02-17 08:41] LABS: Magnesium 1.9 mg/dL (1.6-2.3); Phosphorus 2.3 mg/dL (2.5-4.5)
--- NOTE | 2020-02-17 08:48 | XR ---
EXAMINATION TYPE: XR chest 1V portable DATE OF EXAM: 02/17/2020 CLINICAL HISTORY: Pneumonia TECHNIQUE: Portable upright view of the chest obtained. COMPARISON: 02/16/2020 chest radiograph FINDINGS: Sternotomy wires and valvular prosthesis redemonstrated. There is redemonstrated fracture of the superior and inferior sternotomy wires. Left PICC distal tip over the SVC. Cardiomegaly. Media stinal silhouette normal. There are unchanged interstitial coarsened lung markings of the right lung, bibasilar airspace opacities, and small bilateral pleural effusions. No pneumothorax. Vascular calci fications. IMPRESSION: Unchanged bibasilar airspace opacities and small bilateral pleural effusions versus 02/16/2020 comparis on.
[2020-02-17] MEDS: CHOLECALCIFEROL 1,000 UNIT TAB PO SCH (08:53)
[2020-02-17] MEDS: NYSTATIN 100,000 UNIT/ML SUSP 500,000 UNIT/5 ML CUP PO SCH ×3 (08:53→17:22)
[2020-02-17] MEDS: ASPIRIN 81 MG PO SCH (08:53)
[2020-02-17] MEDS: LEVOFLOXACIN 750MG-D5W PMX 750 MG in DEXTROSE/WATER 1 150ML.BAG IVPB SCH (08:53)
[2020-02-17] MEDS: POTASSIUM CHLORIDE ER 10 MEQ TAB.ER.PRT PO SCH (08:53)
[2020-02-17] MEDS: HEPARIN SODIUM,PORCINE 5,000 UNIT/ML 1 ML VIAL SQ SCH ×2 (08:53→20:11)
[2020-02-17] MEDS: THIAMINE 100 MG TAB PO SCH (08:53)
[2020-02-17] MEDS: MAGNESIUM OXIDE 400 MG TAB PO SCH (08:53)
[2020-02-17] MEDS ORDERED: METOPROLOL TARTRATE 25 MG TAB PO SCH (09:00)
[2020-02-17] MEDS ORDERED: Phosphorus Replacement Protoco 1 EACH MISC MISCELLANE PRN (09:04)
[2020-02-17] MEDS ORDERED: SODIUM PHOSPHATE 10 MMOL in SODIUM CHLORIDE 0.9% 100 ML IVPB ONE (09:04)
--- NOTE | 2020-02-17 10:34 | P.PN ---
Subjective Progress Note Date: 02/17/20 (Critical care time 35 minutes) Principal diagnosis: Altered mental status Septic shock due to right-sided pneumonia Acute on chronic hypoxic respiratory failure Atrial fibrillation with RVR/rapid ventricular response History of end-stage lung disease secondary severe COPD History of GI bleed with chronic anemia 02/17/2020, patient seen eval examined during the rounds labs reviewed medications reviewed, care plan discussed the staff at length critical care time spent 35 minutes, patient remains on the vasopressors does is slightly escalated to keep systolic and map around 65, patient is awake and alert slightly [place] confused though, his oxygenation slightly declined, patient is now off of amiodarone is being started on beta blockers in the form of Lopressor now, due to persistent low blood pressure will consider and starting patient on hydrocortisone 100 mg IV every 8, midodrine is another consideration, labs reviewed, urine output is adequate, we'll put pneumatic compression device for DVT prophylaxis, chest x-ray reviewed by basilar pneumonia and small pleural effusion not much changed, continue DVT prophylaxis subcu heparin continue broad-spectrum antibiotics monitor closely on beta blockers keep oxygen to keep saturation over 90% above currently down to 6 L nasal cannula transiently was up to 10 L 02/16/2020, patient seen eval examined during the rounds labs reviewed medications reviewed care plan discussed with RN at length critical care time spent 35 minutes, patient is more calm now awake on sitting appropriately but remains slightly confused however, somewhat anxious, hemodynamics are marginal still require levo fed drip currently on 4 mics, systolic blood pressure about 100 210, patient is gently being rehydrated with fluids as patient appears to be slightly dry a bolus of 2 50 mL been given this morning, patient remains in atri al fibrillation however rate is slightly better, later on today will be changed from IV amiodarone to oral amiodarone, he is afebrile, labs reviewed, his chest x-ray reviewed, overall remains stable, patient is on 6 L oxygen, his sputum cultures and urine culture are pending, patient remains on Levaquin and Zosyn for multi lobar pneumonia mostly on the right side 02/15/2020, patient seen eval reexamined during the rounds labs reviewed medications reviewed care plan discussed with RN at length, critical care time spent 45 minutes, patient is somewhat confused, but not combative, remains hypotensive continued to require levo fed drip currently on 4 mics, patient also developed severe with RVR requiring amiodarone infusion, the altered mental status appeared to be more related to severe sepsis and septic shock as 8 is coming on slowly in the last 24-48 hours patient does not manifest any signs of hemiparesis speech impairment is not there that goes against a central process, cardiovascular diseases have been following this patient closely patient is not on anticoagulation due to history of GI bleed, chest x-ray showing worsening of pneumonia on the right side involving the upper lobe as well as the lower lobe, chemistry is stable except some hyponatremia, patient remains on Levaquin and Zosyn, Patient was incidentally discovered on my patient list, this patient is well- known to me due to end-stage lung disease and severe COPD, patient was admitted to hospital as he was at home found to be off of oxygen very weak and fatigued, patient was admitted on January 11, he was doing fairly well until this morning, neighbor found to be off of oxygen, due to weakness brought into the hospital for further evaluation, chest x-ray significant for pulmonary interstitial infiltrate along with pulmonary vascular congestion right lower lobe pneumonia, EKG revealed right bundle branch block with RVH old inferior wall AK, patient remains hypotensive requiring levo fed drip, cardiovascular services ID service has been following this patient as well, his x-ray from this morning continue show emphysematous and fibrotic changes with cardiomegaly and right-sided pneumonia, patient currently on bronchodilator continuation of his home medicine along with Zosyn and Levaquin, Objective - Vital Signs Vital signs: Vital Signs Temp 97.6 F 02/17/20 08:00 Pulse 72 02/17/20 10:15 Resp 16 02/17/20 10:15 BP 108/79 02/17/20 10:15 Pulse Ox 95 02/17/20 10:15 Intake & Output 02/16/20 02/17/20 02/17/20 18:59 06:59 18:59 Intake Total 2419.193 5264.964 601.131 Output Total 600 520 150 Balance 993.381 9980.964 451.131 Weight 56.2 kg 60.4 kg Intake: IV 900 900 300 Sodium Chloride 0.9% 1, 900 900 300 000 ml @ 75 mls/hr IV . [id number] [facility] Rx#:[id number] Intake, IV Titration 41.602 496.964 101.131 Amount Amiodarone 300 mg In 77.083 Dextrose 5% in Water 250 ml @ 0.5 MG/MIN 25 mls/hr IV .Q10H [facility] Rx#: [id number] Norepinephrine 4 mg In 41.602 396.964 24.048 Sodium Chloride 0.9% 250 ml @ 0.05 MCG/KG/MIN 9. 937 mls/hr IV .Q24H [facility] Rx#:[id number] Piperacillin-Tazobactam 3 100 .375 gm In Sodium Chloride 0.9% 100 ml @ 25 mls/hr IVPB Q8H [facility] Rx#: [id number] Oral 200 200 Tube Feeding 120 Output: Urine 600 520 100 Emesis 50 Other: Voiding Method Urinal Urinal # Voids 1 - Exam - Constitutional General appearance: average body habitus, cooperative, disheveled, mild distress - EENT Eyes: PERRLA ENT: normal oropharynx Ears: bilateral: normal - Neck Neck: normal ROM Carotids: bilateral: upstroke normal Thyroid: bilateral: normal size - Respiratory Respiratory: bilateral: diminished, rales - Cardiovascular Rhythm: irregularly irregular Heart sounds: normal: S1, S2 - Gastrointestinal General gastrointestinal: normal bowel sounds - Neurologic Neurologic: CNII-XII intact - Musculoskeletal Musculoskeletal: gait normal, generalized weakness, strength equal bilaterally - Psychiatric Psychiatric: A&O x's 3, appropriate affect, intact judgment & insight - Labs CBC & Chem 7: 02/17/20 04:30 02/17/20 04:30 Labs: Abnormal Lab Results - Last 24 Hours (Table) 02/17/20 02/17/20 02/17/20 Range/Units 04:30 04:30 04:30 Hgb 12.9 L (13.0-17.5) gm/dL Plt Count 110 L (150-450) k/uL Lymphocytes # 0.7 L (1.0-4.8) k/uL Sodium 136 L (137-145) mmol/L Chloride 110 H (98-107) mmol/L Carbon Dioxide 19 L (22-30) mmol/L Phosphorus 2.3 L (2.5-4.5) mg/dL Total Protein 5.8 L (6.3-8.2) g/dL Albumin 2.9 L (3.5-5.0) g/dL Microbiology - Last 24 Hours (Table) 02/15/20 09:00 Gram Stain - Final Sputum Sputum Culture - Final Vanna albicans Vanna sp,not albicans/galbr 02/12/20 23:18 Blood Culture - Preliminary Blood No Growth after 96 hours 02/15/20 08:20 Urine Culture - Final Urine,Voided 02/13/20 04:36 Urine Culture - Final Urine,Voided Staphylococcus epidermidis Assessment and Plan Assessment: Altered mental status slowly improving Septic shock due to right-sided pneumonia Right-sided multi lobar pneumonia Acute on chronic hypoxic respiratory failure Atrial fibrillation with RVR/rapid ventricular response History of end-stage lung disease secondary severe COPD History of GI bleed with chronic anemia Chronic paroxysmal atrial fibrillation History of aneurysm involving thoracoabdominal aorta Coronary artery disease history of CABG in the past Plan: Start hydrocortisone 100 mg IV every 8 and consider adding Midodrine and Florinef in next 24-48 hours Intermittent fluid bolus Continue gentle rehydration Monitor mental status closely Follow-up on Urine sputum culture and arterial blood gas Continue vasopressors, tried to bring it down to keep the map over 65 Off of amiodarone drip, being changed to oral Lopressor Continue supplemental oxygen, try to keep saturation over 92% or above Gentle rehydration Monitor closely A. fib as well as mental status Patient is off of anticoagulation due to GI bleed in the past Continue broad-spectrum antibiotics Continue breathing treatments Status post PICC line Titrate vasopressors down as tolerated Patient is no code Time with Patient: Greater than 30
[2020-02-17] MEDS: MAGNESIUM SULFATE-D5W PMX 1 GM in DEXTROSE/WATER 1 100ML.BAG IVPB SCH ×2 (10:39→12:24)
--- NOTE | 2020-02-17 12:06 | PN ---
PROGRESS NOTE Mr. Ac is a 79-year-old male with a known history of coronary artery disease, status post coronary artery bypass grafting, aortic valve replacement, chronic persistent atrial fibrillation, chronic obstructive lung disease, who presented with progressive symptoms of dyspnea, was diagnosed with right-sided multilobar pneumonia. He had episode of confusion. He is feeling better overall today. He is still in atrial fibrillation with some episode of rapid ventricular response. He was on low- dose IV amiodarone. Hemodynamically stable. He denies any chest pain. He denies any dizziness. He continues to be on aspirin once a day, Lipitor 40 mg daily in addition to antibiotics and bronchodilators. PHYSICAL EXAMINATION: Blood pressure running in the low 100s with a heart rate in the 80s. LUNGS: With decreased air exchange bilaterally and few crackles. HEART: Irregular, regular, S1, S2. No S3 with a systolic murmur, no diastolic murmur, no rub. ABDOMEN: Soft, nontender. No organomegaly. EXTREMITIES: No edema. LAB DATA: Revealed BUN and creatinine 15 and 0.76, potassium 4.0, hemoglobin 12.9. His platelets count are 110. White blood cell of 7.3. Chest x-ray revealed right-sided infiltrate. IMPRESSION: 1. Severe pneumonia with progressive dyspnea, improving. 2. History of coronary artery disease, status post coronary artery bypass grafting and aortic valve placement. 3. Chronic persistent atrial fibrillation, not anticoagulated because of recurrent episode of GI bleeding in the past. 4. Episode of hypotension, resolved. 5. Mild troponin elevation related to the pneumonia and does not reflect an acute coronary artery syndrome. RECOMMENDATION: I will stop the IV amiodarone. I will start him back on a low-dose beta marlen, continuous his medical regimen, increase his level of activity gradually and depending on his progress, further recommendation will be made. MMODL / IJN: [id number] /
--- NOTE | 2020-02-17 12:40 | P.PN ---
Subjective Progress Note Date: 02/17/20 History of Present Illness This is a 79-year-old male patient of Dr. Erasmo Mary, Dr. Hagan, Dr. 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 Patient presented to [facility] emergency center for generalized weakness and fatigue after he was found by the neighbor and was disconnected from his home oxygen supply. Patient presented with pulse ox of 81%, afebrile, heart rate 113, blood pressure was low initially 91/73 but then dropped to 71/34. EKG atrial fibrillation with diffuse nonspecific ST and T-wave abnormalities, right bundle branch block. WBC 13.1, hemoglobin 12.8, platelet count 128. Sodium 130, potassium 4.4, chloride 94, CO2 26, BUN 19 and creatinine 1.24, blood sugar 84. Blood sugar 84. Magnesium 1.5, total bilirubin 1.7, AST 39, a ALT 13, alkaline phosphatase 114. Lactic acid 3.1. Initial troponin 0.117. ProBNP 6600. Chest x-ray reveals pulmonary interstitial infiltrates. Mild pulmonary vascular congestion. Infiltrate in the right lower lobe is partly cleared compared to old exam. Appearance of the chest is consistent with mild heart failure and underlying pulmonary fibrosis. Patient was started on norepinephrine and admitted into the intensive care unit with consult for cardiology, infectious disease and pulmonary medicine. 02/13: Patient remains in the intensive care unit. He is still on norepinephrine and PICC line has been ordered this morning by Dr. Childers. He states his breathing is better today. No lower extremity edema. He denies any abdominal pain. No nausea or vomiting. Repeat chest x-ray reveals chronic emphysematous and pulmonary fibrotic changes along with cardiomegaly and right-sided volume loss. Worsening right mid and lower lung acute infiltrates noted on background of chronic change. Echocardiogram report is pending. Patient has been seen by cardiology and pulmonary medicine. Dr. Murphy is recommending continuing Zosyn and follow up on cultures. Patient has been afebrile, heart rate 90, blood pressure 105/80, pulse ox 94% on 5 L nasal cannula. Repeat blood work reveals WBC 12.9, hemoglobin 12.8, platelet count 124. Sodium 131, potassium 3.8, chloride 102, CO2 20, BUN 23 and creatinine 1.05. Blood culture reveals no growth at 24 hours and urine culture is in progress. COVID-19 testing in process. 02/14: Patient was very confused last night, required 0.5 mg of Xanax, patient was hallucinating very confused, no combativeness noted, patient was seen this morning, and seems to be drowsy however she wakes to conversation, [id number] is at bedside, and was able to recognize his [id number]. Patient did not eat much for today, according to history, patient drinks at least a glass of whiskey per day, unknown amount, ammonia levels to be done, as well as B12 levels to be done, start thiamine 100 mg daily, check B12, patient is in ICU, without any rest or distress identified. ciwa protocol started, patient is on Zosyn him a Dr. Murphy following, as well as pulmonary and cardiology. Patient has A. fib with RVR on amiodarone IV 02/15, patient remains in ICU, his more reoriented today, was able to recognize me, is more conversant, with appropriate thought content, has slept better last night, no abnormal pain, has some nausea, urine culture growing staph epidermidis, sputum culture growing yeast, patient has oral candidal changes will switch IV thiamine to oral time in 100 mg daily. B12 level is currently pending TSH normal 1.2 albumin low at 2.6 start nutritional protein supplementation 02/16: Patient remains in the intensive care unit. He is currently off the amiodarone drip but on norepinephrine. Cardiology started him on low-dose beta marlen. quality assurance monitor chassis is atrial fibrillation with controlled rate. Patient is currently eating very little. Repeat chest x-ray is unchanged bibasilar airspace opacities and small bilateral pleural effusions. Mental status seems improved from yesterday. PT and OT evaluations will be added. He has been afebrile, heart rate 66, blood pressure 81/67, pulse ox 94% on O2. Repeat lab work reveals WBC 7.3, hemoglobin 12.9, platelet count 110. Sodium 136, potassium 4.0, chloride 110, CO2 19, BUN 15 creatinine 0.76. Review of Systems Constitutional: No fever, no chills, no night sweats. Reports weakness, Reports fatigue Reports lethargy. Reports daytime sleepiness. EENT: No headache. No blurred vision or double vision, no loss of vision. no dizziness. No nasal drainage or congestion. No epistaxis. No sore throat. Lungs: Reports shortness of breath, reports cough, no sputum production. Reports wheezing. Cardiovascular: No chest pain, no lower extremity edema. No palpitations. No paroxysmal nocturnal dyspnea. Abdominal: No abdominal pain. No nausea, vomiting. No diarrhea. No constipation. No bloody or tarry stools.. No loss of appetite. Genitourinary: No dysuria, increased frequency, urgency. No urinary retention. Musculoskeletal: No myalgias. No muscle weakness, no gait dysfunction, no frequent falls. No back pain. No neck pain. Integumentary: No wounds, no lesions. No rash or pruritus. No unusual brui sing. No change in hair or nails. Neurologic: No aphasia. No facial droop. No change in mentation. No head injury. No headache. No paralysis. No paresthesia. Psychiatric: No depression. No anxiety. No mood swings. Endocrine: No abnormal blood sugars. No weight change. No excessive sweating or thirst. No cold intolerance. Physical Examination Gen: This is a 79-year-old thin male, he is resting in the ICU bed and appears to be comfortable at rest. HEENT: Head is atraumatic, normocephalic. Pupils equal, round. Sclerae is anicteric. NECK: Supple. No JVD. No lymphadenopathy. No thyromegaly. LUNGS: Diminished bilaterally with bibasilar rhonchi, prolonged expiration. No intercostal retractions. HEART: Irregular rate and rhythm. No murmur. ABDOMEN: Soft. Bowel sounds are present. No masses. No tenderness. EXTREMITIES: No pedal edema. No calf tenderness. NEUROLOGICAL: Patient is awake, alert and oriented x3. Cranial nerves 2 through 12 are grossly intact. Assessment and Plan 1. Acute on chronic hypoxic respiratory failure secondary to COPD exacerbation, possible pneumonia, gram-negative pneumonia, chronic diastolic heart failure. Consult with pulmonary medicine, continue oxygen therapy. 2. Sepsis and lactic acidosis. Patient has required vasopressor support. PICC line for norepinephrine. Continue Zosyn, Levaquin, consult with Dr. Childers and Dr. Murphy appreciated. Urine culture pending. 3. Persistent atrial fibrillation, episode of RVR. Cardiology consult appreciated. Off amiodarone drip and started on Lopressor 25 mg twice daily. 4. Mild elevation in troponin most likely secondary to sepsis and hypotension, ruled out non-ST elevated myocardial infarction. Cardiology consult appreciated. Echocardiogram has been ordered. 5. COPD exacerbation. Continue Pulmicort 1 mg twice daily, DuoNeb treatments 4 times daily and as needed, pulmonary consult. 6. History of CAD status post CABG as well as mitral regurgitation status post mitral valve replacement. Hold Imdur, Lasix and Lopressor secondary to hypotension. Continue aspirin 81 mg daily, Lipitor 40 mg daily. 7. Hypertension and hypertensive cardiovascular disease. Patient is currently hypotensive. 8. Abdominal aortic aneurysm status post repair in 2010, stable. 9. Hyperlipidemia. Continue Lipitor. 10. ALLERGIC rhinitis. Continue singulair 10 mg at bedtime. 11 Chronic thrombocytopenia. 12. Chronic kidney disease stage III. 13. Chronic hyponatremia and hypomagnesemia, status post replacement, recheck in the morning. 14. History of peptic ulcer disease and GI prophylaxis. Continue Protonix 40 mg oral twice daily. 15. Daily alcohol use. 16. Remote history of tobacco use and dependence. 17. DVT prophylaxis. Heparin subcu. 18. COVID-19 testing. 19. Acute confusional state, related to possible chronic alcoholism, Korsakoff's and acute illness, delirium. Patient would be started on thiamine 100 mg daily, B12 to be done, serum ammonia levels to be obtained, urinalysis sent for culture, patient at risk for aspirating events aspiration precautions, 20. Oral mario, nystatin swish and swallow started CODE STATUS: No code Discharge plan: Possibly home with VNA. Anticipate need for subacute rehab. PT and OT added. Impression and plan of care have been directed as dictated by the signing physician. Maylin Arcos nurse practitioner acting as scribe for signing physician. Objective - Vital Signs Vital signs: Vital Signs Temp 97.5 F L 02/17/20 04:00 Pulse 98 02/17/20 08:05 Resp 20 02/17/20 07:00 BP 91/38 02/17/20 07:00 Pulse Ox 93 L 02/17/20 07:00 Intake & Output 02/16/20 02/17/20 02/17/20 18:59 06:59 18:59 Intake Total 9247.880 4516.964 152.083 Output Total 600 520 100 Balance 613.760 2091.964 52.083 Weight 56.2 kg 60.4 kg Intake: IV 900 900 75 Sodium Chloride 0.9% 1, 900 900 75 000 ml @ 75 mls/hr IV . [id number] ELOISE Rx#:[id number] Intake, IV Titration 41.602 496.964 77.083 Amount Amiodarone 300 mg In 77.083 Dextrose 5% in Water 250 ml @ 0.5 MG/MIN 25 mls/hr IV .Q10H ELOISE Rx#: [id number] Norepinephrine 4 mg In 41.602 396.964 Sodium Chloride 0.9% 250 ml @ 0.05 MCG/KG/MIN 9. 937 mls/hr IV .Q24H ELOISE Rx#:[id number] Piperacillin-Tazobactam 3 100 .375 gm In Sodium Chloride 0.9% 100 ml @ 25 mls/hr IVPB Q8H ELOISE Rx#: [id number] Oral 200 Tube Feeding 120 Output: Urine 600 520 100 Other: Voiding Method Urinal Urinal # Voids 1 - Labs CBC & Chem 7: 02/17/20 04:30 02/17/20 04:30 Labs: Abnormal Lab Results - Last 24 Hours (Table) 02/17/20 02/17/20 Range/Units 04:30 04:30 Hgb 12.9 L (13.0-17.5) gm/dL Plt Count 110 L (150-450) k/uL Lymphocytes # 0.7 L (1.0-4.8) k/uL Sodium 136 L (137-145) mmol/L Chloride 110 H (98-107) mmol/L Carbon Dioxide 19 L (22-30) mmol/L Total Protein 5.8 L (6.3-8.2) g/dL Albumin 2.9 L (3.5-5.0) g/dL Microbiology - Last 24 Hours (Table) 02/12/20 23:18 Blood Culture - Preliminary Blood No Growth after 96 hours 02/15/20 08:20 Urine Culture - Final Urine,Voided 02/15/20 09:00 Gram Stain - Preliminary Sputum Sputum Culture - Preliminary Mario albicans Yeast species 02/13/20 04:36 Urine Culture - Final Urine,Voided Staphylococcus epidermidis
--- NOTE | 2020-02-17 17:18 | PN ---
PROGRESS NOTE DATE OF SERVICE: 02/17/2020 REASON FOR FOLLOWUP: Pneumonia and urinary tract infection. INTERVAL HISTORY: Patient is currently afebrile. The patient is requiring more medication to support his blood pressure. The patient denies having any chest pain. No shortness of breath. Occasional cough. No abdominal pain, no diarrhea. PHYSICAL EXAMINATION: Blood pressure 96/30 with a pulse of 75, temperature is 97. General description is an elderly male, up in the bed in no distress. RESPIRATORY SYSTEM: Unlabored breathing, decreased breath sounds at the base, no wheeze. HEART: S1, S2. Regular rate and rhythm. ABDOMEN: Soft, no tenderness. LABS: Hemoglobin is 12.8, white count 7.3, BUN of 15, creatinine 0.76. Sputum is Vanna albicans. Urine repeat is negative. IMPRESSION/PLAN: 1. Patient with sepsis. Source is likely pneumonia, sputum with Vanna likely colonizer. The patient is covered with Zosyn, Levaquin to continue. 2. Oral thrush. Nystatin swish and swallow. 3. Positive culture with Staph epi. Repeat is negative. Continue with supportive care. MMODL / IJN: [id number] /
[2020-02-17] MEDS: MIDODRINE 5 MG TAB PO SCH (17:22)
[2020-02-17] MEDS: MONTELUKAST 10 MG TAB PO SCH (20:11)
[2020-02-17] MEDS: ATORVASTATIN 40 MG TAB PO SCH (20:11)
[2020-02-17] MEDS ORDERED: SODIUM CHLORIDE 0.9% 500 ML 500 ML IV ONE (23:16)
[2020-02-18] MEDS: SODIUM CHLORIDE 0.9% 1,000 ML IV SCH ×2 (00:18→13:41)
[2020-02-18] MEDS: NYSTATIN 100,000 UNIT/ML SUSP 500,000 UNIT/5 ML CUP PO SCH ×5 (00:19→23:04)
[2020-02-18] MEDS: NOREPINEPHRINE 4 MG in SODIUM CHLORIDE 0.9% 250 ML IV SCH ×5 (01:11→20:46)
[2020-02-18] MEDS ORDERED: SODIUM CHLORIDE 0.9% 500 ML 500 ML IV ONE (01:20)
[2020-02-18] MEDS: PIPERACILLIN-TAZOBACTAM 3.375 GM in SODIUM CHLORIDE 0.9% 100 ML IVPB SCH ×3 (05:04→20:38)
[2020-02-18 05:30] LABS: Basophils % (A) 0 %; Eosinophils % (A) 0 %; HCT 38.5 % (39.0-53.0); HGB 11.9 gm/dL (13.0-17.5); Hypochromasia Marked; Lymphocytes # (A) 0.6 k/uL (1.0-4.8); Lymphocytes % (A) 5 %; MCH 28.4 pg (25.0-35.0); MCHC 30.8 g/dL (31.0-37.0); MCV 92.1 fL (80.0-100.0); Mean Platelet Volume 11.1; Monocytes # (A) 1.3 k/uL (0-1.0); Monocytes % (A) 10 %; Neutrophils % (A) 84 %; Platelet Count 119 k/uL (150-450); RBC 4.18 m/uL (4.30-5.90); RDW 15.3 % (11.5-15.5); WBC 13.2 k/uL (3.8-10.6)
[2020-02-18 05:31] LABS: African American GFR (CKD) 88 (>60 ml/min/1.73 sqM); Anion Gap 10 mmol/L; Blood Urea Nitrogen 17 mg/dL (9-20); Calcium 6.8 mg/dL (8.4-10.2); Carbon Dioxide 14 mmol/L (22-30); Chloride 115 mmol/L (98-107); Magnesium 2.2 mg/dL (1.6-2.3); Non-African American GFR(CKD) 76 (>60 ml/min/1.73 sqM); Potassium 4.3 mmol/L (3.5-5.1); Sodium 139 mmol/L (137-145)
[2020-02-18 05:58] LABS: Glucose <20 mg/dL (74-99)
[2020-02-18] MEDS ORDERED: DEXTROSE 50% SYRINGE 50 ML IVP ONE (06:07)
[2020-02-18] MEDS ORDERED: DEXTROSE 50% SYRINGE 50 ML IVP STA (06:27)
[2020-02-18 06:30] LABS: Glucose,Whole Blood 103 mg/dL (75-99)
[2020-02-18] MEDS: DEXTROSE 5%-0.9% NACL 1,000 ML IV SCH ×2 (06:30→15:43)
--- NOTE | 2020-02-18 07:49 | XR ---
EXAMINATION TYPE: XR chest 1V portable DATE OF EXAM: 02/18/2020 CLINICAL HISTORY: Difficulty breathing progress study. TECHNIQUE: Single AP portable semiupright view of the chest is obtained. COMPARISON: Chest x-ray from one day earlier and older studies. CTA chest January 25, 2018. FINDINGS: Stable right-sided PICC line. Overlying sternal wires along with cardiac mitral valvular p rosthesis redemonstrated. Osseous structures remain demineralized. Prominent vascular calcification b ilateral axillary region. Persistent cardiomegaly with atherosclerotic thoracic aorta. Background chronic emphysematous and pul monary fibrotic changes. Redemonstration of right-sided volume loss with mediastinal shift. Stable sm all right pleural effusion. Diffuse right lung and left basilar alveolar and interstitial opacities r edemonstrated. IMPRESSION: Background cardiomegaly and moderate to advanced underlying emphysematous changes with mi ld/moderate pulmonary fibrotic changes. Stable small right pleural effusion with diffuse right lung a nd left lower lung areas of alveolar and interstitial edema and/or infiltrate and right-sided volume loss are all redemonstrated. No significant change from study one day earlier.
[2020-02-18] MEDS: BUDESONIDE 1 MG/2 ML NEBU INHALATION SCH ×2 (08:01→21:11)
[2020-02-18] MEDS: IPRATROPIUM-ALBUTEROL 3 ML NEB INHALATION SCH ×4 (08:01→21:11)
--- NOTE | 2020-02-18 09:39 | PN ---
PROGRESS NOTE Mr. Ac is a 79-year-old male with a history of coronary artery disease, aortic valve replacement, history of chronic persistent atrial fibrillation, not anticoagulated because of recurrent GI bleeding. History of chronic obstructive lung disease and peripheral vascular disease who presented with pneumonia and symptoms of progressive dyspnea. He had episode of rapid ventricular response with atrial fibrillation yesterday under better control this morning. He feels tired. He is on low-dose on norepinephrine. He has no chest discomfort. No dizziness. He has no palpitation. He is scheduled to undergo upper endoscopy today. He continues to be at this time on aspirin 81 mg daily, Lipitor 40 mg daily, norepinephrine, midodrine 10 mg 3 times a day, Singulair 10 mg daily. PHYSICAL EXAMINATION: Blood pressure running in the 110s with the heart in the 80s. LUNGS: With decreased air exchange, no wheezes. HEART: Irregular, regular, S1, S2. No S3. No rub. ABDOMEN: Soft, mild tenderness in the right upper quadrant. No rebound. EXTREMITIES: No edema. LAB DATA: Revealed a blood sugar of 120, BUN and creatinine 17 and 0.96, hemoglobin of 11.9, white blood cells 13.2. IMPRESSION: 1. Multilobar pneumonia. 2. History of severe chronic obstructive lung disease. 3. Chronic persistent atrial fibrillation not anticoagulated because of prior bleeding. 4. Status post coronary artery bypass grafting and aortic valve replacement. 5. Peripheral vascular disease. 6. Episode of hypotension. RECOMMENDATION: I will start him back on the metoprolol 12.5 mg twice a day. Continue rest of his medical regimen. Will await the results of his endoscopy and depending on that, further recommendation will be made. MMODL / IJN: [id number] /
--- NOTE | 2020-02-18 10:14 | P.PN ---
Subjective Progress Note Date: 02/18/20 (Critical care time 40 minutes) Principal diagnosis: Hypoglycemia Dysphagia Relative adrenal insufficiency Altered mental status Septic shock due to right-sided pneumonia Acute on chronic hypoxic respiratory failure Atrial fibrillation with RVR/rapid ventricular response History of end-stage lung disease secondary severe COPD History of GI bleed with chronic anemia 02/18/2020, patient seen eval examined during the rounds labs reviewed medications reviewed care plan discussed, patient is arousable opens eyes follow simple commands, patient urine output has been inadequate is still, dark urine is coming, unable to spontaneously urinate so Vargas's catheter has been placed by urology, overnight blood pressure remains low requiring escalation of vasopressors, we will give another fluid bolus, sugars have been noted low patient's by mouth intake has been poor, there is a problem with swallowing function the barium swallow has been ordered, discussed with family about PEG tube as well, labs are reviewed white cell count is up to 11 13,000 stable hemoglobin, due to low sugar D50 has been given IV fluids she is to D5 normal saline 100 mL an hour, and additional fluid boluses are being given as well, chest x-ray continue show cardiomegaly emphysematous changes with the pneumonia and finding right upper lobe and lower lobe along with small pleural effusion, e chocardiograms done and results are pending, patient remains in A. fib with controlled ventricular response, beta blockers have been discontinued due to severe bradycardia and hypotension, patient has been started on midodrine as well as Florinef continue antibiotics 02/17/2020, patient seen eval examined during the rounds labs reviewed medications reviewed, care plan discussed the staff at length critical care time spent 35 minutes, patient remains on the vasopressors does is slightly escalated to keep systolic and map around 65, patient is awake and alert slightly [place] confused though, his oxygenation slightly declined, patient is now off of amiodarone is being started on beta blockers in the form of Lopressor now, due to persistent low blood pressure will consider and starting patient on hydrocortisone 100 mg IV every 8, midodrine is another consideration, labs reviewed, urine output is adequate, we'll put pneumatic compression device for DVT prophylaxis, chest x-ray reviewed by loren pneumonia and small pleural effusion not much changed, continue DVT prophylaxis subcu heparin continue broad-spectrum antibiotics monitor closely on beta blockers keep oxygen to keep saturation over 90% above currently down to 6 L nasal cannula transiently was up to 10 L 02/16/2020, patient seen eval examined during the rounds labs reviewed medications reviewed care plan discussed with RN at length critical care time spent 35 minutes, patient is more calm now awake on sitting appropriately but remains slightly confused however, somewhat anxious, hemodynamics are marginal still require levo fed drip currently on 4 mics, systolic blood pressure about 100 210, patient is gently being rehydrated with fluids as patient appears to be slightly dry a bolus of 2 50 mL been given this morning, patient remains in atrial fibrillation however rate is slightly better, later on today will be changed from IV amiodarone to oral amiodarone, he is afebrile, labs reviewed, his chest x-ray reviewed, overall remains stable, patient is on 6 L oxygen, his sputum cultures and urine culture are pending, patient remains on Levaquin and Zosyn for multi lobar pneumonia mostly on the right side 02/15/2020, patient seen eval reexamined during the rounds labs reviewed medications reviewed care plan discussed with RN at length, critical care time spent 45 minutes, patient is somewhat confused, but not combative, remains hypotensive continued to require levo fed drip currently on 4 mics, patient also developed severe with RVR requiring amiodarone infusion, the altered mental status appeared to be more related to severe sepsis and septic shock as 8 is coming on slowly in the last 24-48 hours patient does not manifest any signs of hemiparesis speech impairment is not there that goes against a central process, cardiovascular diseases have been following this patient closely patient is not on anticoagulation due to history of GI bleed, chest x-ray showing worsening of pneumonia on the right side involving the upper lobe as well as the lower lobe, chemistry is stable except some hyponatremia, patient remains on Levaquin and Zosyn, Patient was incidentally discovered on my patient list, this patient is well- known to me due to end-stage lung disease and severe COPD, patient was admitted to hospital as he was at home found to be off of oxygen very weak and fatigued, patient was admitted on January 11, he was doing fairly well until this morning, neighbor found to be off of oxygen, due to weakness brought into the hospital for further evaluation, chest x-ray significant for pulmonary interstitial infiltrate along with pulmonary vascular congestion right lower lobe pneumonia, EKG revealed right bundle branch block with RVH old inferior wall ND, patient remains hypotensive requiring levo fed drip, cardiovascular services ID service has been following this patient as well, his x-ray from this morning continue show emphysematous and fibrotic changes with cardiomegaly and right-sided p neumonia, patient currently on bronchodilator continuation of his home medicine along with Zosyn and Levaquin, Objective - Vital Signs Vital signs: Vital Signs Temp 96.9 F L 02/18/20 08:00 Pulse 82 02/18/20 09:00 Resp 16 02/18/20 09:00 BP 94/83 02/18/20 09:00 Pulse Ox 95 02/18/20 09:00 Intake & Output 02/17/20 02/18/20 02/18/20 18:59 06:59 18:59 Intake Total 7723.543 6252.222 597.093 Output Total 580 230 55 Balance 3345.969 0568.222 542.093 Weight 69.9 kg Intake: IV 900 300 Sodium Chloride 0.9% 1, 900 300 000 ml @ 75 mls/hr IV . [id number] ELOISE Rx#:[id number] Intake, IV Titration 012.513 6959.222 597.093 Amount Amiodarone 300 mg In 77.083 Dextrose 5% in Water 250 ml @ 0.5 MG/MIN 25 mls/hr IV .Q10H ELOISE Rx#: [id number] Dextrose 5%-0.9% NaCl 1, 100 200 000 ml @ 100 mls/hr IV . Q10H ELOISE Rx#:[id number] Magnesium Sulfate-D5w Pmx 200 1 gm In Dextrose/Water 1 100ml.bag @ 100 mls/hr IVPB Q1H ELOISE Rx#: [id number] Norepinephrine 4 mg In 212.861 417.222 397.093 Sodium Chloride 0.9% 250 ml @ 0.05 MCG/KG/MIN 9. 937 mls/hr IV .Q24H ELOISE Rx#:[id number] Piperacillin-Tazobactam 3 100 .375 gm In Sodium Chloride 0.9% 100 ml @ 25 mls/hr IVPB Q8H ELOISE Rx#: [id number] Sodium Chloride 0.9% 1, 600 000 ml @ 100 mls/hr IV . Q10H ELOISE Rx#:[id number] Sodium Chloride 0.9% 500 250 ml 250 ml @ 999 mls/hr IV .Q16M ONE Rx#:[id number] Sodium Chloride 0.9% 500 1000 ml 500 ml @ 999 mls/hr IV .Q31M ONE Rx#:[id number] Oral 200 Output: Urine 530 230 55 Emesis 50 Other: Voiding Method Urinal Indwelling Catheter Indwelling Catheter - Exam - Constitutional General appearance: average body habitus, cooperative, disheveled, mild distress - EENT Eyes: PERRLA ENT: normal oropharynx Ears: bilateral: normal - Neck Neck: normal ROM Carotids: bilateral: upstroke normal Thyroid: bilateral: normal size - Respiratory Respiratory: bilateral: diminished, rales - Cardiovascular Rhythm: irregularly irregular Heart sounds: normal: S1, S2 - Gastrointestinal General gastrointestinal: normal bowel sounds - Neurologic Neurologic: CNII-XII intact - Musculoskeletal Musculoskeletal: gait normal, generalized weakness, strength equal bilaterally - Psychiatric Psychiatric: A&O x's 3, appropriate affect, intact judgment & insight - Labs CBC & Chem 7: 02/18/20 04:55 02/18/20 04:55 Labs: Abnormal Lab Results - Last 24 Hours (Table) 02/18/20 02/18/20 02/18/20 Range/Units 04:55 04:55 06:20 WBC 13.2 H (3.8-10.6) k/uL RBC 4.18 L (4.30-5.90) m/uL Hgb 11.9 L (13.0-17.5) gm/dL Hct 38.5 L (39.0-53.0) % MCHC 30.8 L (31.0-37.0) g/dL Plt Count 119 L (150-450) k/uL Neutrophils # 11.0 H (1.3-7.7) k/uL Lymphocytes # 0.6 L (1.0-4.8) k/uL Monocytes # 1.3 H (0-1.0) k/uL Chloride 115 H (98-107) mmol/L Carbon Dioxide 14 L (22-30) mmol/L Glucose <20 L* (74-99) mg/dL POC Glucose (mg/dL) 103 H (75-99) mg/dL Calcium 6.8 L (8.4-10.2) mg/dL Microbiology - Last 24 Hours (Table) 02/12/20 23:18 Blood Culture - Preliminary Blood No Growth after 120 hours 02/15/20 09:00 Gram Stain - Final Sputum Sputum Culture - Final Vanna albicans Vanna sp,not albicans/galbr Assessment and Plan Assessment: Severe hypoglycemia likely related to poor hepatic reserve Altered mental status slowly improving Septic shock due to right-sided pneumonia Right-sided multi lobar pneumonia Severe bradycardia and hypotension related to beta blockers Suspected adrenal insufficiency Acute on chronic hypoxic respiratory failure Atrial fibrillation with RVR/rapid ventricular response History of end-stage lung disease secondary severe COPD History of GI bleed with chronic anemia Chronic paroxysmal atrial fibrillation History of aneurysm involving thoracoabdominal aorta Coronary artery disease history of CABG in the past Plan: Hydrocortisone cannot be started due to history of ALLERGY to prednisone have asked pharmacy to look into it in more detail In the meantime we'll put patient on midodrine and Florinef IV fluid changed to D5 normal saline monitor sugar closely Intermittent fluid bolus Continue gentle rehydration Monitor mental status closely Follow-up on Urine sputum culture and arterial blood gas Continue vasopressors, tried to bring it down to keep the map over 65 Off of amiodarone drip, being changed to oral Lopressor stopped due to bradycardia and hypotension Continue supplemental oxygen, try to keep saturation over 92% or above Gentle rehydration Monitor closely A. fib as well as mental status Patient is off of anticoagulation due to GI bleed in the past Continue broad-spectrum antibiotics Continue breathing treatments Status post PICC line Titrate vasopressors down as tolerated Patient is no code Time with Patient: Greater than 30
--- NOTE | 2020-02-18 11:08 | CDI ---
Documentation Clarification Form Date: 02/18/2020 10:42:07 AM From: Ivet Gan RN, CCDS Admit Date: 02/13/2020 03:34:00 AM Patient Name: Grant Ac Visit Number: [id number] ATTENTION: The Clinical Documentation Specialists (CDI) and [facility] Coding Staff appreciate your assistance in clarifying documentation. Please respond to the clarification below the line at the bottom and electronically sign. The CDI & [facility] Coding staff will review the response and follow-up if needed. Please note: Queries are made part of the Legal Health Record. If you have any questions, please contact the author of this message via ITS. Dr. Berta Mojica Covid 19 testing is documented by the attending and requires clinical significance. Patient history/risk factors Home O2, COPD, acute on chronic hypoxic respiratory failure, cad w CABG, HTN, HTN CVD, Clinical Indicators: 02/11 Patient presented to ER with generalized weakness and fatigue with dyspnea 02/12 Coronavirus PCR not detected 02/12-02/16 H&P and Progress Notes: "History of Present Illness: COVID-19 testing in process. Assessment and Plan: COVID-19 testing." CXR 02/17: Background cardiomegaly and moderate to advanced underlying emphysematous changes with mild/moderate pulmonary fibrotic changes. Stable small right pleural effusion with diffuse right lung and left lower lung areas of alveolar and interstitial edema and/or infiltrate and right-sided volume loss are all redemonstrated. No significant change from study one day earlier." 02/11-02/15 Labs: Lactic acid: 3.1/1.3, WBC: 13.1/12.9/9.8/8.1, Neutrophils 11.10/8.3 02/11 2223 Vital Signs: Temp 98.5, Hr 113, RR 18, B/P 91/73, Spo2 96% 3L NC Treatment: Duoneb Pulmoncort INH BID Ceftriaxone 1gm IVPB x 1 dose Levaquin 750 mg IVPB QD 02/12 to Current Zosyn 3.375 gm IVPB Q 8 hrs In order to capture the severity of condition, please clarify if the above treatment/clinical indicators signify: COVID-19 ruled out COVID-19 confirmed Other, please specify Unable to determine (Last Form Revision: September 2019) covid ruled out MTDD
--- NOTE | 2020-02-18 11:22 | CDI ---
Documentation Clarification Form Date: 02/18/2020 11:13:30 AM From: Ivet Gan RN, CCDS Admit Date: 02/13/2020 03:34:00 AM Patient Name: Grnat Ac Visit Number: [id number] ATTENTION: The Clinical Documentation Specialists (CDI) and [facility] Coding Staff appreciate your assistance in clarifying documentation. Please respond to the clarification below the line at the bottom and electronically sign. The CDI & [facility] Coding staff will review the response and follow-up if needed. Please note: Queries are made part of the Legal Health Record. If you have any questions, please contact the author of this message via ITS. Dr. Berta Mojica Anemia is documented in the 02/13 Pulmonary Consult and following progress notes and requires further specificity. History/Risk Factors: Peptic ulcer with GIB and chronic anemia, HTN, HTN CVD, Cad w CABG, chronic hypoxic respiratory failure with home O2, COPD, daily ETOH, CKD Stage 3 Clinical indicators: 02/13-02/17 H&P and Pulmonary Progress Notes: "History of GI bleed with chronic anemia 02/11-02/17 Hemoglobin: 12.8/12.1/12.4/12.9/11.9 02/11-02/17 Hematocrit: 40/40.1/37.8/39.3/40.9/38.5 02/15 B-12 Level 906 Treatment: Labs AM Daily In order to capture the severity of condition, please clarify the type of anemia and etiology if known. Chronic blood loss anemia Iron deficiency anemia Drug induced anemia Nutritional anemia Anemia of chronic kidney disease xxxxxxxxx Anemia of chronic disease xxxxxxxxxx Unable to determine Other, please specify (Last Form Revision: September 2019) MTDD
--- NOTE | 2020-02-18 11:31 | FL ---
EXAMINATION TYPE: FL barium swallow DATE OF EXAM: 02/18/2020 CLINICAL HISTORY: Frequent vomiting. Recurrent pneumonia. Patient scheduled for endoscopy tomorrow. TECHNIQUE: A single contrast esophagram is performed utilizing barium. A total of 1.45 minutes of f luoroscopic time was utilized during procedure. 47 spot images are saved to PACS. COMPARISON: CT chest January 25, 2018. Same day chest x-ray on older chest x-rays. FINDINGS: Exam is suboptimal as due to patient's underlying medical condition, only able to perform s lightly upright supine imaging with patient unable to drink from straw or cup. Patient given a few sp oons of contrast and then imaging is performed. Overlying sternal wires along with metallic mitral va lvular ring are redemonstrated. There is underlying esophageal dysmotility with abnormal secondary and tertiary contractions. Some in traluminal debris is seen. There is stasis with reflux filling the esophagus. The distal esophagus sh ows gradual tapering with smooth margin. This favors product of underlying esophageal dysmotility and limited bolus, [id number] long segment stricture not excluded though felt less likely. Smooth margins once again noted. Some emptying into the stomach is observed. IMPRESSION: Suboptimal study. No suspicious malignant stricture. 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 Possible mild long segment smooth stricture or narrowing distal esophagus though f avor product of limitation of this study along with underlying dysmotility.
--- NOTE | 2020-02-18 12:05 | CDI ---
Documentation Clarification Form Date: 02/18/2020 11:25:13 AM From: Ivet Gan RN, CCDS Admit Date: 02/13/2020 03:34:00 AM Patient Name: Grant Ac Visit Number: [id number] ATTENTION: The Clinical Documentation Specialists (CDI) and [facility] Coding Staff appreciate your assistance in clarifying documentation. Please respond to the clarification below the line at the bottom and electronically sign. The CDI & [facility] Coding staff will review the response and follow-up if needed. Please note: Queries are made part of the Legal Health Record. If you have any questions, please contact the author of this message via ITS. Dr. Berta Mojica Altered Mental Status was documented in the 02/14-02/17 Pulmonary Progress Notes and requires further specificity. History/Risk Factors: Acute on chronic hypoxic respiratory failure, COPD exacerbation, Sepsis, lactic acidosis, hypotension, CKD stage 3, chronic hyponatremia and hypomagnesaemia." Clinical Indicators: 02/14-02/17 Pulmonary Progress notes: "patient is awake and alert slightly lethargic confused though, his oxygenation slightly declined, patient is now off of Amiodarone is being started on beta blockers in the form of Lopressor now, due to persistent low blood pressure will consider and starting patient on hydrocortisone 100 mg IV every 8, midodrine is another consideration, labs reviewed, Altered mental status slowly improving." 02/15 Attending Progress Note: "Patient was very confused last night, required 0.5 mg of Xanax, patient was hallucinating very confused, no combativeness noted, patient was seen this morning, and seems to be drowsy" 02/16 Attending Progress note: ".Acute confusional state, related to possible chronic alcoholism, Korsakoff's and acute illness, delirium. Patient would be started on thiamine 100 mg daily, B12 to be done, serum ammonia levels to be obtained, urinalysis sent for culture, patient at risk for aspirating events aspiration precautions." 02/11-02/17 Labs: WBC 13.1/12.9/9.8/8.1/7.3/13.2, Hgb 12.8/12.1/12.4/12.9/11.9, Neutrophils 11.1/8.3/6.4/5.6/11, NA+ 130/131/135/136/139, Lactic Acid 3.1/1.3, Mag 1.5/1.9/2.2, Ammonia 12 02/14 Sputum Cx: Vanna Albicans 02/12 Urine Cx: staph epidermis 02/17 CXR: "Background cardiomegaly and moderate to advanced underlying emphysematous changes with mild/moderate pulmonary fibrotic changes. Stable small right pleural effusion with diffuse right lung and left lower lung areas of alveolar and interstitial edema and/or infiltrate and right-sided volume loss are all redemonstrated. No significant change from study one day earlier." Treatment: [place] 5-325 PO QD PRN Pain Xanax 0.5mg Po BID Amio Gtt Protocol Ceftriaxone 1gm IVPB x 1 dose Levaquin 750 mg IVPB QD Mag protocol K+ protocol Levophed gtt titrate for B/P 02/12- current Zosyn 3.375 gm IVPB Q 8 hrs 02/11 0.9% NS IVF bolus 1200cc 02/14 0.9%NS IVF bolus 250 cc 02/16 0.9% NS IVF Bolus 500 cc 02/17 0.9% NS IVF Bolus 500 cc followed by 100/hr In your professional opinion, please clarify the etiology of the Altered Mental Status, if known. Metabolic Encephalopathy (Underlying Medical Illness) Toxic Encephalopathy (Underlying Medical Illness) Other condition (please specify) Unable to determine (Last Revision: October 2017) metabolic encephalopathy MTDD
[2020-02-18] MEDS: MIDODRINE 5 MG TAB PO SCH ×3 (13:09→17:50)
[2020-02-18] MEDS: PANTOPRAZOLE 40 MG TABLET PO SCH ×2 (13:09→17:50)
[2020-02-18] MEDS: METOPROLOL TARTRATE 12.5 MG TAB PO SCH ×2 (13:10→23:03)
[2020-02-18] MEDS: POTASSIUM CHLORIDE ER 10 MEQ TAB.ER.PRT PO SCH (13:10)
[2020-02-18] MEDS: CHOLECALCIFEROL 1,000 UNIT TAB PO SCH (13:10)
[2020-02-18] MEDS: ASPIRIN 81 MG PO SCH (13:10)
[2020-02-18] MEDS: MAGNESIUM OXIDE 400 MG TAB PO SCH (13:10)
[2020-02-18] MEDS: THIAMINE 100 MG TAB PO SCH (13:10)
[2020-02-18] MEDS: HEPARIN SODIUM,PORCINE 5,000 UNIT/ML 1 ML VIAL SQ SCH ×2 (13:40→20:38)
[2020-02-18] MEDS: LEVOFLOXACIN 750MG-D5W PMX 750 MG in DEXTROSE/WATER 1 150ML.BAG IVPB SCH (13:40)
--- NOTE | 2020-02-18 14:54 | P.PN ---
Subjective Progress Note Date: 02/18/20 History of Present Illness This is a 79-year-old male patient of Dr. Erasmo Mary, Dr. Hagan, Dr. 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 Patient presented to [facility] emergency center for generalized weakness and fatigue after he was found by the neighbor and was disconnected from his home oxygen supply. Patient presented with pulse ox of 81%, afebrile, heart rate 113, blood pressure was low initially 91/73 but then dropped to 71/34. EKG atrial fibrillation with diffuse nonspecific ST and T-wave abnormalities, right bundle branch block. WBC 13.1, hemoglobin 12.8, platelet count 128. Sodium 130, potassium 4.4, chloride 94, CO2 26, BUN 19 and creatinine 1.24, blood sugar 84. Blood sugar 84. Magnesium 1.5, total bilirubin 1.7, AST 39, a ALT 13, alkaline phosphatase 114. Lactic acid 3.1. Initial troponin 0.117. ProBNP 6600. Chest x-ray reveals pulmonary interstitial infiltrates. Mild pulmonary vascular congestion. Infiltrate in the right lower lobe is partly cleared compared to old exam. Appearance of the chest is consistent with mild heart failure and underlying pulmonary fibrosis. Patient was started on norepinephrine and admitted into the intensive care unit with consult for cardiology, infectious disease and pulmonary medicine. 02/13: Patient remains in the intensive care unit. He is still on norepinephrine and PICC line has been ordered this morning by Dr. Childers. He states his breathing is better today. No lower extremity edema. He denies any abdominal pain. No nausea or vomiting. Repeat chest x-ray reveals chronic emphysematous and pulmonary fibrotic changes along with cardiomegaly and right-sided volume loss. Worsening right mid and lower lung acute infiltrates noted on background of chronic change. Echocardiogram report is pending. Patient has been seen by cardiology and pulmonary medicine. Dr. Murphy is recommending continuing Zosyn and follow up on cultures. Patient has been afebrile, heart rate 90, blood pressure 105/80, pulse ox 94% on 5 L nasal cannula. Repeat blood work reveals WBC 12.9, hemoglobin 12.8, platelet count 124. Sodium 131, potassium 3.8, chloride 102, CO2 20, BUN 23 and creatinine 1.05. Blood culture reveals no growth at 24 hours and urine culture is in progress. COVID-19 testing in process. 02/14: Patient was very confused last night, required 0.5 mg of Xanax, patient was hallucinating very confused, no combativeness noted, patient was seen this morning, and seems to be drowsy however she wakes to conversation, [id number] is at bedside, and was able to recognize his [id number]. Patient did not eat much for today, according to history, patient drinks at least a glass of whiskey per day, unknown amount, ammonia levels to be done, as well as B12 levels to be done, start thiamine 100 mg daily, check B12, patient is in ICU, without any rest or distress identified. ciwa protocol started, patient is on Zosyn him a Dr. Murphy following, as well as pulmonary and cardiology. Patient has A. fib with RVR on amiodarone IV 02/15, patient remains in ICU, his more reoriented today, was able to recognize me, is more conversant, with appropriate thought content, has slept better last night, no abnormal pain, has some nausea, urine culture growing staph epidermidis, sputum culture growing yeast, patient has oral candidal changes will switch IV thiamine to oral time in 100 mg daily. B12 level is currently pending TSH normal 1.2 albumin low at 2.6 start nutritional protein supplementation 02/16: Patient remains in the intensive care unit. He is currently off the amiodarone drip but on norepinephrine. Cardiology started him on low-dose beta marlen. pigs feet cleaner is atrial fibrillation with controlled rate. Patient is currently eating very little. Repeat chest x-ray is unchanged bibasilar airspace opacities and small bilateral pleural effusions. Mental status seems improved from yesterday. PT and OT evaluations will be added. He has been afebrile, heart rate 66, blood pressure 81/67, pulse ox 94% on O2. Repeat lab work reveals WBC 7.3, hemoglobin 12.9, platelet count 110. Sodium 136, potassium 4.0, chloride 110, CO2 19, BUN 15 creatinine 0.76. 02/17: Patient remains in the intensive care unit. He is off amiodarone drip. He is on Lopressor. Patient is currently on norepinephrine at the time of our evaluation. Blood pressure is very stable. Levo to be weaned off. He did have a drop in his blood sugar to 20 this morning and received D50 and is on D5 0.9 normal saline. He is scheduled for barium swallow today. GI consult was added for possible EGD. Contacted patient [id number] is his next of kin and gave her an update, patient may require PEG tube feeding. Patient has been afebrile, blood pressure 114/98, heart rate 96, pulse ox 96%. Repeat blood work reveals W BC 13.2, hemoglobin 11.9, platelet count 119. Sodium 139, potassium 4.3, chloride 115, CO2 14, BUN 17 creatinine 0.96. Review of Systems Constitutional: No fever, no chills, no night sweats. Reports weakness, Reports fatigue Reports lethargy. Reports daytime sleepiness. EENT: No headache. No blurred vision or double vision, no loss of vision. no dizziness. No nasal drainage or congestion. No epistaxis. No sore throat. Lungs: Reports shortness of breath, reports cough, no sputum production. Reports wheezing. Cardiovascular: No chest pain, no lower extremity edema. No palpitations. No paroxysmal nocturnal dyspnea. Abdominal: No abdominal pain. No nausea, vomiting. No diarrhea. No constipation. No bloody or tarry stools.. No loss of appetite. Genitourinary: No dysuria, increased frequency, urgency. No urinary retention. Musculoskeletal: No myalgias. No muscle weakness, no gait dysfunction, no frequent falls. No back pain. No neck pain. Integumentary: No wounds, no lesions. No rash or pruritus. No unusual bruising. No change in hair or nails. Neurologic: No aphasia. No facial droop. Reports change in mentation. No head injury. No headache. No paralysis. No paresthesia. Psychiatric: No depression. No anxiety. No mood swings. Endocrine: No abnormal blood sugars. No weight change. No excessive sweating or thirst. No cold intolerance. Physical Examination Gen: This is a 79-year-old thin male, he is resting in the ICU bed and appears to be comfortable at rest. HEENT: Head is atraumatic, normocephalic. Pupils equal, round. Sclerae is anicteric. NECK: Supple. No JVD. No lymphadenopathy. No thyromegaly. LUNGS: Diminished bilaterally with bibasilar rhonchi, prolonged expiration. No intercostal retractions. HEART: Irregular rate and rhythm. No murmur. ABDOMEN: Soft. Bowel sounds are present. No masses. No tenderness. EXTREMITIES: No pedal edema. No calf tenderness. NEUROLOGICAL: Patient is awake, alert and oriented person and place. Cranial nerves 2 through 12 are grossly intact. Assessment and Plan 1. Acute on chronic hypoxic respiratory failure secondary to COPD exacerbation, possible pneumonia, gram-negative pneumonia, chronic diastolic heart failure. Consult with pulmonary medicine, continue oxygen therapy. 2. Sepsis and lactic acidosis. Patient has required vasopressor support. PICC line for norepinephrine. Continue Zosyn, Levaquin, consult with Dr. Childers and Dr. Murphy appreciated. Urine culture pending. 3. Persistent atrial fibrillation, episode of RVR. Cardiology consult appreciated. Off amiodarone drip and started on Lopressor 25 mg twice daily. 4. Mild elevation in troponin most likely secondary to sepsis and hypotension, ruled out non-ST elevated myocardial infarction. Cardiology consult appreciated. Echocardiogram has been ordered. 5. COPD exacerbation. Continue Pulmicort 1 mg twice daily, DuoNeb treatments 4 times daily and as needed, pulmonary consult. 6. History of CAD status post CABG as well as mitral regurgitation status post mitral valve replacement. Hold Imdur, Lasix and Lopressor secondary to hypoten chase. Continue aspirin 81 mg daily, Lipitor 40 mg daily. 7. Hypertension and hypertensive cardiovascular disease. Patient is currently hypotensive. 8. Abdominal aortic aneurysm status post repair in 2010, stable. 9. Hyperlipidemia. Continue Lipitor. 10. ALLERGIC rhinitis. Continue singulair 10 mg at bedtime. 11 Chronic thrombocytopenia. 12. Chronic kidney disease stage III. 13. Chronic hyponatremia and hypomagnesemia, status post replacement, recheck in the morning. 14. History of peptic ulcer disease and GI prophylaxis. Continue Protonix 40 mg oral twice daily. 15. Daily alcohol use. 16. Remote history of tobacco use and dependence. 17. DVT prophylaxis. Heparin subcu. 18. COVID-19 infection not present. 19. Acute metabolic encephalopathy, related to possible chronic alcoholism, Korsakoff's and acute illness, delirium. Patient would be started on thiamine 100 mg daily, B12 to be done, serum ammonia levels to be obtained, urinalysis sent for culture, patient at risk for aspirating events aspiration precautions, 20. Oral mario, nystatin swish and swallow started 21. Anemia of chronic disease. 22. Dysphagia. Modified barium swallow CODE STATUS: No code Discharge plan: Anticipate need for subacute rehab. PT and OT added. Impression and plan of care have been directed as dictated by the signing physician. Maylin Arcos nurse practitioner acting as scribe for signing physician. Objective - Vital Signs Vital signs: Vital Signs Temp 96.6 F L 02/18/20 04:00 Pulse 91 02/18/20 07:30 Resp 14 02/18/20 07:30 BP 119/51 02/18/20 07:30 Pulse Ox 96 02/18/20 07:30 Intake & Output 02/17/20 02/18/20 02/18/20 18:59 06:59 18:59 Intake Total 3703.878 9109.222 254 Output Total 580 230 15 Balance 8076.204 8010.222 239 Weight 69.9 kg Intake: IV 900 300 Sodium Chloride 0.9% 1, 900 300 000 ml @ 75 mls/hr IV . [id number] [facility] Rx#:[id number] Intake, IV Titration 709.239 1722.222 254 Amount Amiodarone 300 mg In 77.083 Dextrose 5% in Water 250 ml @ 0.5 MG/MIN 25 mls/hr IV .Q10H [facility] Rx#: [id number] Dextrose 5%-0.9% NaCl 1, 100 000 ml @ 100 mls/hr IV . Q10H [facility] Rx#:[id number] Magnesium Sulfate-D5w Pmx 200 1 gm In Dextrose/Water 1 100ml.bag @ 100 mls/hr IVPB Q1H [facility] Rx#: [id number] Norepinephrine 4 mg In 212.861 417.222 254 Sodium Chloride 0.9% 250 ml @ 0.05 MCG/KG/MIN 9. 937 mls/hr IV .Q24H [facility] Rx#:[id number] Piperacillin-Tazobactam 3 100 .375 gm In Sodium Chloride 0.9% 100 ml @ 25 mls/hr IVPB Q8H [facility] Rx#: [id number] Sodium Chloride 0.9% 1, 600 000 ml @ 100 mls/hr IV . Q10H [facility] Rx#:[id number] Sodium Chloride 0.9% 500 250 ml 250 ml @ 999 mls/hr IV .Q16M ONE Rx#:[id number] Sodium Chloride 0.9% 500 1000 ml 500 ml @ 999 mls/hr IV .Q31M ONE Rx#:[id number] Oral 200 Output: Urine 530 230 15 Emesis 50 Other: Voiding Method Urinal Indwelling Catheter - Labs CBC & Chem 7: 02/18/20 04:55 02/18/20 04:55 Labs: Abnormal Lab Results - Last 24 Hours (Table) 02/17/20 02/18/20 02/18/20 Range/Units 04:30 04:55 04:55 WBC 13.2 H (3.8-10.6) k/uL RBC 4.18 L (4.30-5.90) m/uL Hgb 11.9 L (13.0-17.5) gm/dL Hct 38.5 L (39.0-53.0) % MCHC 30.8 L (31.0-37.0) g/dL Plt Count 119 L (150-450) k/uL Neutrophils # 11.0 H (1.3-7.7) k/uL Lymphocytes # 0.6 L (1.0-4.8) k/uL Monocytes # 1.3 H (0-1.0) k/uL Chloride 115 H (98-107) mmol/L Carbon Dioxide 14 L (22-30) mmol/L Glucose <20 L* (74-99) mg/dL POC Glucose (mg/dL) (75-99) mg/dL Calcium 6.8 L (8.4-10.2) mg/dL Phosphorus 2.3 L (2.5-4.5) mg/dL 02/18/20 Range/Units 06:20 WBC (3.8-10.6) k/uL RBC (4.30-5.90) m/uL Hgb (13.0-17.5) gm/dL Hct (39.0-53.0) % MCHC (31.0-37.0) g/dL Plt Count (150-450) k/uL Neutrophils # (1.3-7.7) k/uL Lymphocytes # (1.0-4.8) k/uL Monocytes # (0-1.0) k/uL Chloride (98-107) mmol/L Carbon Dioxide (22-30) mmol/L Glucose (74-99) mg/dL POC Glucose (mg/dL) 103 H (75-99) mg/dL Calcium (8.4-10.2) mg/dL Phosphorus (2.5-4.5) mg/dL Microbiology - Last 24 Hours (Table) 02/12/20 23:18 Blood Culture - Preliminary Blood No Growth after 120 hours 02/15/20 09:00 Gram Stain - Final Sputum Sputum Culture - Final Mario albicans Mario sp,not albicans/galbr
--- NOTE | 2020-02-18 15:24 | PN ---
PROGRESS NOTE DATE OF SERVICE: 02/18/2020 REASON FOR FOLLOWUP: Recurrent aspiration pneumonia. INTERVAL HISTORY: The patient is currently afebrile. The patient is still requiring pressor support to maintain his blood pressure. He was noted to have abnormal video esophagogram and has been made n.p.o. with a plan for a PEG tube placement. The patient denies having any chest pain. Some cough. No diarrhea. PHYSICAL EXAMINATION: Blood pressure is 88/58 with a pulse of 80, temperature 98. He is 92% on 2 L nasal cannula. General description is an elderly male up in the bed in no distress. RESPIRATORY SYSTEM: Unlabored breathing. Decreased breath sounds at the bases. No wheeze. HEART: S1, S2. Regular rate and rhythm. ABDOMEN: Soft. No tenderness. LABS: Hemoglobin 11.9, white count 13.2, BUN of 17, creatinine 0.96. DIAGNOSTIC IMPRESSION AND PLAN: Patient with aspiration pneumonia. This patient did have an abnormal barium swallow, for PEG tube placement. Currently covered with Zosyn; to continue and we will his monitor clinical course closely. MMODL / IJN: [id number] /
[2020-02-18 16:11] LABS: Glucose,Whole Blood 138 mg/dL (75-99)
--- NOTE | 2020-02-18 22:38 | P.CONS ---
History of Present Illness - Reason for Consult Consult date: 02/18/20 PEG tube Requesting physician: Berta Mojica - Chief Complaint Weakness - History of Present Illness 79-year-old male with multiple medical comorbidities including hypertension, coronary artery disease, aortic aneurysm status post repair, atrial fibrillation, chronic diastolic heart failure, hyperlipidemia, peptic ulcer disease, end-stage COPD on home oxygen and prior history of tobacco abuse who presented to the hospital due to complaints of weakness and fatigue. Currently the patient has been treated in the intensive care unit for right-sided pneumonia with sepsis and exacerbation of underlying COPD. Patient was noted to have difficulty with vomiting of food and intolerance to oral intake. He was seen by speech language pathology but was unable to complete evaluation as he was immediately bringing up food which she swallowed and suspicion was for esophageal dysmotility. Previously the patient was seen in 2019 for GI bleed with findings of 2 nonbleeding antral ulcers, gastritis and a small hiatal hernia and also had an EGD in 2014 also significant for peptic ulcer disease. Laboratory evaluation significant for WBC 13.2, hemoglobin 11.9, platelet count 119,000, total bilirubin 1.2, alkaline phosphatase 82, AST 51 and ALT 18. The patient had a barium swallow in evaluation of the dysphagia with findings of no evidence of malignant stricture but moderate to severe esophageal dysmotility noted. Review of Systems REVIEW OF SYSTEMS: CONSTITUTIONAL: Denies any fevers, chills, weight change the patient did report weakness and fatigue on presentation. CARDIOVASCULAR: Denies any chest pain, palpitations high or low blood pressures. Chronic atrial fibrillation. RESPIRATORY: Denies any shortness of breath and cough on presentation with a known history of COPD oxygen-dependent.. GENITOURINARY: No dysuria or hematuria. MUSCULOSKELETAL: No weakness reported. SKIN: Denies any new rashes or lesions, jaundice or pallor. PSYCHIATRIC: Denies any depression or anxiety. NEUROLOGY: Denies headache, denies any new focal deficits. EARS/NOSE/THROAT: No recent hearing change, congestion, nasal discharge or sore throat. EYES: No pain in eyes, discharge or change in vision. GASTROINTESTINAL: As per HPI. Past Medical History Past Medical History: Atrial Fibrillation, Asthma, Coronary Artery Disease (CAD), Cancer, COPD, GERD/Reflux, GI Bleed, Hyperlipidemia, Hypertension, Myocardial Infarction (NM), Osteoarthritis (OA), Pneumonia, Vascular Disorder Additional Past Medical History / Comment(s): Pt recently admitted to [facility] on 05/10/19 with acute on chronic hypoxic respiratory failure/Afib with RVR/acute on chronic exacerbations of CHF and COPD. Other hx: Home oxygen at 2L/NC ATC, lower GI bleed, duodenal and antral ulcers, pt states he was told he had a NM after CABG-saw area of damage, PAD bilateral legs, chronic arthritic pain in bilateral hands, squamous cell skin cancer removal, mono and shingelles as a child Last Myocardial Infarction Date:: unknown History of Any Multi-Drug Resistant Organisms: None Reported Past Surgical History: Cardiac Valve Replacement, Coronary Bypass/CABG, Heart Catheterization, Orthopedic Surgery, Tonsillectomy Additional Past Surgical History / Comment(s): 2010 AORTIC ANEURYSM REPAIR/aortobifem bypass, 1993 cardiac angioplasty, 2011 CABG 3 vessel with mitral valve replacement, EGD, colonoscopy, bilateral cataract removal with lens implants, right carpal tunnel release, bilateral facial cyst removed, cyst removed from back, skin cancer removal, aortobifemoral bypass, bilateral profundoplasty, EGD, colonoscopy. Past Anesthesia/Blood Transfusion Reactions: No Reported Reaction Additional Past Anesthesia/Blood Transfusion Reaction / Comm: Pt has had blood transfusion without reaction. Past Psychological History: No Psychological Hx Reported Past Alcohol Use History: Daily Additional Past Alcohol Use History / Comment(s): Patient used to smoke about a pack and a half a day since he was 21-year-old and he quit in 2010. Patient drinks 2 scotch mixed with water on a daily basis. - Past Family History Mother Family Medical History: Coronary Artery Disease (CAD) Additional Family Medical History / Comment(s): Mother at age of 77 from coronary artery disease and she also developed cardiac dysrhythmia and had permanent pacemaker placement as well as abdominal aortic aneurysm. Father Family Medical History: Coronary Artery Disease (CAD) Additional Family Medical History / Comment(s): Father at age 60 yrs after having Flu. Brother(s) Family Medical History: Vascular Disorder Additional Family Medical History / Comment(s): Brother of ruptured abdominal aortic anuerysm at age 64 yrs. Medications and Allergies Home Medications Medication Instructions Recorded Confirmed Type Ipratropium/Albuterol Sulfate 3 ml INHALATION RT-QID 11/13/13 02/13/20 History [Duoneb 0.5 mg-3 mg/3 ml Soln] Montelukast [Singulair] 10 mg PO HS 11/13/13 02/13/20 History Atorvastatin [Lipitor] 40 mg PO HS 08/14/14 02/13/20 History Aspirin EC [Ecotrin Low Dose] 81 mg PO DAILY #30 tablet. 08/19/14 02/13/20 Rx Metoprolol Tartrate [Lopressor] 25 mg PO BID #60 tab 08/19/14 02/13/20 Rx Budesonide [Pulmicort] 1 mg INHALATION RT-BID 01/25/18 02/13/20 History Cholecalciferol [Vitamin D3 (25 1,000 unit PO DAILY 01/25/18 02/13/20 History Mcg = 1000 Iu)] Magnesium 200 mg PO DAILY 01/25/18 02/13/20 History Potassium Chloride [Klor-Con 10] 10 meq PO DAILY 05/10/19 02/13/20 History Isosorbide Mononitrate ER [Imdur] 30 mg PO DAILY #30 tab.er.24h 06/07/19 02/13/20 Rx Pantoprazole [Protonix] 40 mg PO BID #60 tablet. 06/07/19 02/13/20 Rx Furosemide [Lasix] 40 mg PO DAILY 02/13/20 02/13/20 History Allergies Allergy/AdvReac Type Severity Reaction Status Date / Time prednisone Allergy Unknown Verified 02/13/20 08:24 Physical Exam Vitals: Vital Signs Temp Pulse Resp BP Pulse Ox 02/18/20 12:04 90 02/18/20 11:57 84 02/18/20 09:00 82 16 94/83 95 02/18/20 08:45 82 17 99/73 97 02/18/20 08:30 83 15 97 02/18/20 08:15 96 18 114/98 96 02/18/20 08:01 88 02/18/20 08:00 96.9 F L 96 18 114/98 94 L 02/18/20 07:30 91 14 119/51 96 02/18/20 07:15 94 12 102/84 93 L 02/18/20 07:00 104 H 13 100/81 93 L 02/18/20 06:45 110 H 13 99/67 94 L 02/18/20 06:30 84 18 120/73 92 L 02/18/20 06:15 85 14 92/78 94 L 02/18/20 06:00 85 13 100/81 93 L 02/18/20 05:45 76 24 80/67 94 L 02/18/20 05:30 80 17 123/67 93 L 02/18/20 05:15 77 22 63/38 91 L 02/18/20 05:00 79 15 92/74 92 L 02/18/20 04:45 77 18 93/81 94 L 02/18/20 04:30 80 16 88/54 93 L 02/18/20 04:15 75 15 104/73 90 L 02/18/20 04:00 96.6 F L 77 15 69/37 91 L 02/18/20 03:53 91 L 02/18/20 03:45 78 15 104/64 91 L 02/18/20 03:30 77 19 181/61 92 L 02/18/20 03:15 78 30 H 92/68 92 L 02/18/20 03:00 80 21 88/71 93 L 02/18/20 02:45 80 19 113/84 91 L 02/18/20 02:30 81 20 108/53 91 L 02/18/20 02:15 81 19 91/75 88 L 02/18/20 02:00 74 20 109/90 91 L 02/18/20 01:45 80 25 H 126/93 91 L 02/18/20 01:30 77 20 95/67 93 L 02/18/20 01:15 81 18 68/54 02/18/20 01:00 75 18 105/55 02/18/20 00:45 75 19 128/37 02/18/20 00:30 78 13 78/48 02/18/20 00:16 74 13 78/48 02/18/20 00:15 77 19 77/43 02/18/20 00:00 96.6 F L 76 17 92/70 96 02/17/20 23:52 97 02/17/20 23:45 75 14 79/38 98 02/17/20 23:30 71 23 89/60 94 L 02/17/20 23:15 75 18 111/28 84 L 02/17/20 23:00 68 19 72/62 97 02/17/20 22:45 66 13 86/72 97 02/17/20 22:30 84 19 126/114 97 02/17/20 22:15 72 19 118/101 96 02/17/20 22:00 70 15 124/111 97 02/17/20 21:45 74 15 126/114 95 02/17/20 21:30 71 16 96/67 97 02/17/20 21:15 74 21 105/94 97 02/17/20 21:00 68 12 85/57 93 L 02/17/20 20:45 22 75/53 84 L 02/17/20 20:30 70 19 74/58 83 L 02/17/20 20:15 70 24 83/56 02/17/20 20:00 96.9 F L 74 13 92/67 02/17/20 19:45 72 16 81/52 02/17/20 19:41 72 02/17/20 19:30 66 18 81/53 02/17/20 19:27 74 02/17/20 19:00 68 9 L 105/66 02/17/20 18:45 73 27 H 92/48 02/17/20 18:30 73 15 86/70 02/17/20 18:15 76 18 70/52 86 L 02/17/20 18:00 71 15 70/54 02/17/20 17:45 68 14 101/73 02/17/20 17:30 73 16 85/63 92 L 02/17/20 17:15 75 16 108/78 02/17/20 17:00 73 13 97/82 89 L 02/17/20 16:45 27 H 75/64 88 L 02/17/20 16:30 74 18 69/52 90 L 02/17/20 16:15 75 22 96/30 86 L 02/17/20 16:00 97.0 F L 78 19 75/55 82 L 02/17/20 15:45 81 15 86/69 92 L 02/17/20 15:43 74 02/17/20 15:30 70 23 77/59 87 L 02/17/20 15:29 72 93 L 02/17/20 15:15 77 15 88/67 02/17/20 15:00 72 16 69/52 02/17/20 14:45 69 35 H 76/44 83 L 02/17/20 14:30 78 23 79/57 02/17/20 14:15 76 13 89/75 83 L 02/17/20 14:00 75 24 85 L 02/17/20 13:45 75 19 98/74 86 L Intake and Output 02/17/20 02/18/20 02/18/20 22:59 06:59 14:59 Intake Total 894.060 5273.222 997.093 Output Total 510 150 135 Balance 030.258 8412.222 862.093 Intake: IV 600 75 Sodium Chloride 0.9% 1, 600 75 000 ml @ 75 mls/hr IV . [id number] ELOISE Rx#:[id number] Intake, IV Titration 887.154 2169.222 997.093 Amount Dextrose 5%-0.9% NaCl 1, 100 600 000 ml @ 100 mls/hr IV . Q10H ELOISE Rx#:[id number] Norepinephrine 4 mg In 64.598 417.222 397.093 Sodium Chloride 0.9% 250 ml @ 0.05 MCG/KG/MIN 9. 937 mls/hr IV .Q24H ELOISE Rx#:[id number] Sodium Chloride 0.9% 1, 600 000 ml @ 100 mls/hr IV . Q10H ELOISE Rx#:[id number] Sodium Chloride 0.9% 500 250 ml 250 ml @ 999 mls/hr IV .Q16M ONE Rx#:[id number] Sodium Chloride 0.9% 500 1000 ml 500 ml @ 999 mls/hr IV .Q31M ONE Rx#:[id number] Output: Urine 510 150 135 Other: Voiding Method Indwelling Catheter Indwelling Catheter Indwelling Catheter Weight 69.9 kg On physical examination, patient appears comfortable in no apparent distress. HEAD: Normocephalic, atraumatic. EYES: No scleral icterus. No conjunctival injection. MOUTH: No lesions, tongue midline. NECK: Trachea midline, no gross abnormalities. CHEST: Decreased air entry in all lung smith, course respiratory noises in right lower lung smith. HEART: S1-S2 appreciated Gastrointestinal: Soft and nontender to palpation, bowel sounds are positive. No organomegaly. No guarding or rigidity. EXTREMITIES: Bilateral pedal edema. SKIN: No rashes, no jaundice. NEUROLOGIC: Alert and oriented x3. No focal deficits. Results CBC & Chem 7: 02/18/20 04:55 02/18/20 04:55 Labs: Abnormal Lab Results - Last 24 Hours (Table) 02/18/20 02/18/20 02/18/20 Range/Units 04:55 04:55 06:20 WBC 13.2 H (3.8-10.6) k/uL RBC 4.18 L (4.30-5.90) m/uL Hgb 11.9 L (13.0-17.5) gm/dL Hct 38.5 L (39.0-53.0) % MCHC 30.8 L (31.0-37.0) g/dL Plt Count 119 L (150-450) k/uL Neutrophils # 11.0 H (1.3-7.7) k/uL Lymphocytes # 0.6 L (1.0-4.8) k/uL Monocytes # 1.3 H (0-1.0) k/uL Chloride 115 H (98-107) mmol/L Carbon Dioxide 14 L (22-30) mmol/L Glucose <20 L* (74-99) mg/dL POC Glucose (mg/dL) 103 H (75-99) mg/dL Calcium 6.8 L (8.4-10.2) mg/dL Microbiology - Last 24 Hours (Table) 02/12/20 23:18 Blood Culture - Preliminary Blood No Growth after 120 hours Chest x-ray: report reviewed (X-ray barium swallow with findings of moderate to severe esophageal dysmotility.) Assessment and Plan (1) Esophageal dysmotility Narrative/Plan: 79-year-old male with multiple medical comorbidities presenting for weakness and currently being treated for an exacerbation of his COPD as well as multifocal right lung pneumonia and sepsis. Patient had issues with swallowing with frequent episodes of regurgitation of food and liquids quickly after swallowing. Speech evaluation by speech language pathology service with concerns for esophageal phase dysmotility and dysphagia. Barium swallow showed moderate to severe esophageal dysmotility and patient is interested in PEG tube placement. Current Visit: Yes Status: Acute Code(s): K22.4 - DYSKINESIA OF ESOPHAGUS SNOMED Code(s): 120258645 (2) Esophageal dysphagia Current Visit: Yes Status: Acute Code(s): R13.10 - DYSPHAGIA, UNSPECIFIED SNOMED Code(s): 86852598 (3) History of peptic ulcer disease Current Visit: Yes Status: Acute Code(s): Z87.11 - PERSONAL HISTORY OF PEPTIC ULCER DISEASE SNOMED Code(s): 639219639 Plan: Supportive care Nothing by mouth except for a few ice chips Continue broad-spectrum antibiotic therapy as per recommendations by infectious disease Continue optimization of breathing as per pulmonology service X-ray barium swallow reviewed Plan for EGD with PEG tube placement tomorrow Antibiotics ordered before procedure Ultrasound of the abdomen ordered to assess for ascites Patient for allowing us to participate in the care of the patient
[2020-02-18] MEDS: ATORVASTATIN 40 MG TAB PO SCH (23:03)
[2020-02-18] MEDS: MONTELUKAST 10 MG TAB PO SCH (23:03)
[2020-02-19] MEDS: NOREPINEPHRINE 4 MG in SODIUM CHLORIDE 0.9% 250 ML IV SCH ×3 (02:30→21:32)
[2020-02-19 04:28] LABS: Calcium 6.8 mg/dL (8.4-10.2); Phosphorus 3.1 mg/dL (2.5-4.5); Potassium 3.5 mmol/L (3.5-5.1)
[2020-02-19 04:44] LABS: HCT 36.3 % (39.0-53.0); HGB 11.3 gm/dL (13.0-17.5); Hypochromasia Marked; MCH 28.7 pg (25.0-35.0); MCHC 31.1 g/dL (31.0-37.0); MCV 92.3 fL (80.0-100.0); Mean Platelet Volume 10.9; Platelet Count 102 k/uL (150-450); RBC 3.94 m/uL (4.30-5.90); RDW 15.3 % (11.5-15.5); WBC 13.2 k/uL (3.8-10.6)
[2020-02-19] MEDS ORDERED: Potassium Replacement Protocol 1 EACH MISC MISCELLANE PRN (04:57)
[2020-02-19 05:10] LABS: Lymphocytes # (M) 0.66 k/uL (1.0-4.8); Monocytes # (M) 1.45 k/uL (0-1.0); Neutrophils # (M) 11.09 k/uL (1.3-7.7); Neutrophils % (M) 84 %; Nucleated Red Blood Cells 0 /100 WBC (0-0); Total Cells Counted 100
[2020-02-19 05:11] LABS: Crenated RBC Present
[2020-02-19] MEDS: PIPERACILLIN-TAZOBACTAM 3.375 GM in SODIUM CHLORIDE 0.9% 100 ML IVPB SCH ×3 (05:15→21:32)
[2020-02-19] MEDS: POTASSIUM CHLORIDE 20 MEQ in WATER FOR INJECTION 1 100ML.BAG IVPB SCH ×2 (05:43→08:06)
[2020-02-19] MEDS: ASPIRIN 81 MG PO SCH (07:26)
[2020-02-19] MEDS: MIDODRINE 5 MG TAB PO SCH ×3 (07:26→14:04)
[2020-02-19] MEDS: CHOLECALCIFEROL 1,000 UNIT TAB PO SCH (07:26)
[2020-02-19] MEDS: PANTOPRAZOLE 40 MG TABLET PO SCH ×2 (07:26→14:05)
[2020-02-19] MEDS: NYSTATIN 100,000 UNIT/ML SUSP 500,000 UNIT/5 ML CUP PO SCH ×4 (07:27→22:16)
[2020-02-19] MEDS: POTASSIUM CHLORIDE ER 10 MEQ TAB.ER.PRT PO SCH (07:27)
[2020-02-19] MEDS: MAGNESIUM OXIDE 400 MG TAB PO SCH (07:27)
[2020-02-19] MEDS: METOPROLOL TARTRATE 12.5 MG TAB PO SCH ×2 (07:27→21:33)
[2020-02-19] MEDS: THIAMINE 100 MG TAB PO SCH (07:27)
[2020-02-19] MEDS: BUDESONIDE 1 MG/2 ML NEBU INHALATION SCH ×2 (07:47→19:41)
[2020-02-19] MEDS: IPRATROPIUM-ALBUTEROL 3 ML NEB INHALATION SCH ×4 (07:47→19:41)
[2020-02-19] MEDS: DEXTROSE 5%-0.9% NACL 1,000 ML IV SCH ×2 (08:06→14:03)
[2020-02-19] MEDS: HEPARIN SODIUM,PORCINE 5,000 UNIT/ML 1 ML VIAL SQ SCH ×2 (08:07→21:32)
[2020-02-19] MEDS: LEVOFLOXACIN 750MG-D5W PMX 750 MG in DEXTROSE/WATER 1 150ML.BAG IVPB SCH (08:07)
--- NOTE | 2020-02-19 08:12 | XR ---
EXAMINATION TYPE: XR chest 1V portable DATE OF EXAM: 02/19/2020 COMPARISON: Prior chest x-ray 02/18/2020 HISTORY: Shortness of breath TECHNIQUE: Single frontal view of the chest is obtained. FINDINGS: Right-sided PICC line is stable. There are extensive vascular calcifications present espec ially along the axillary and subclavian vein, aorta is dense. Heart is enlarged, patient is post medi an sternotomy and cardiac valve replacement. Contrast material present within the stomach, prior lauren um study 02/18/2020. No evident pneumothorax. Patient is rotated. Interstitium is increased. Bibasilar increased attenuation obscures the hemidiaphragms. Patchy bilateral airspace disease also suspected. IMPRESSION: Correlate for congestive heart failure. There are likely basilar effusions and associate d edema or atelectasis.
--- NOTE | 2020-02-19 08:16 | US ---
EXAMINATION TYPE: US abdomen limited DATE OF EXAM: 02/19/2020 COMPARISON: NONE CLINICAL HISTORY: Assess for ascites, scheduled for PEG placement. Tiny amount of ascites visualized in the RUQ IMPRESSION: Limited abdomen ultrasound, only minimal ascites
--- NOTE | 2020-02-19 09:27 | PN ---
PROGRESS NOTE Mr. Ac is a 79-year-old male with a history of coronary artery disease, status post coronary artery bypass grafting, history of aortic valve replacement, chronic persistent atrial fibrillation who presented with pneumonia. He continues to feel weak today, but he has no chest pain. He is scheduled to undergo PEG tube placement because of the inability to swallow. He denies any dizziness, palpitation. He denies any nausea. He continues to be on aspirin 81 mg daily, Lipitor 80 mg daily, metoprolol tartrate 12.5 mg twice a day. PHYSICAL EXAMINATION: Blood pressure 115/70 with a heart rate in the 80s. LUNGS: With decreased breath sounds with crackles in the right base. HEART: Irregular, regular, S1, S2. No S3 with systolic murmur, no diastolic murmur, no rub. ABDOMEN: Soft, nontender. EXTREMITIES +1 to 2 edema. LAB DATA: Reveled BUN and creatinine 23 and 1.1, potassium is 3.5. Hemoglobin of 11.3, white blood cell of 13.2. IMPRESSION: 1. Pneumonia, improving gradually. 2. Chronic persistent atrial fibrillation, not ventricular because GI bleeding. 3. History of chronic obstructive lung disease. 4. Status post coronary artery bypass grafting aortic valve replacement. No peripheral disease. 5. Inability to swallow with esophageal dysmotility. RECOMMENDATION: We will continue present therapy. Patient is scheduled to undergo a PEG tube placement today. Some of his edema could be related to malnutrition. Will continue to follow his heart rate and his blood pressure to make further adjustment of his medication. The patient will require a long-term rehab considering his overall status at this point. MMODL / IJN: [id number] /
[2020-02-19 10:50] VITALS: BMI 27.3
--- NOTE | 2020-02-19 11:12 | P.PN ---
Subjective Progress Note Date: 02/19/20 (Critical care time 35 minutes) Principal diagnosis: Hypoglycemia Dysphagia Relative adrenal insufficiency Altered mental status Septic shock due to right-sided pneumonia Acute on chronic hypoxic respiratory failure Atrial fibrillation with RVR/rapid ventricular response History of end-stage lung disease secondary severe COPD History of GI bleed with chronic anemia Ideas 2019, patient seen eval examined during the rounds labs reviewed medications reviewed and is still mildly confused but mental status stable, levo fed has been tapered down to 0.14 mics from 0.2 mics, is still require vasopressors to keep a reasonable systolic blood pressure, he is nothing by mouth for PEG tube placement later on, FiO2 has been titrated down to 5 L nasal cannula, his labs and x-rays were reviewed, white cell count remains stable 13,000 along with hemoglobin, ovarian renal functions are stable, patient has been found to have a stricture and lower part of the esophagus he is going for EGD and possible PEG placement for the nutritional impairment and deficiency and malnutrition, remains in A. fib with controlled ventricular response, 02/18/2020, patient seen eval examined during the rounds labs reviewed medications reviewed care plan discussed, patient is arousable opens eyes follow simple commands, patient urine output has been inadequate is still, dark urine is coming, unable to spontaneously urinate so Vargas's catheter has been placed by urology, overnight blood pressure remains low requiring escalation of vasopressors, we will give another fluid bolus, sugars have been noted low patient's by mouth intake has been poor, there is a problem with swallowing f unction the barium swallow has been ordered, discussed with family about PEG tube as well, labs are reviewed white cell count is up to 11 13,000 stable hemoglobin, due to low sugar D50 has been given IV fluids she is to D5 normal saline 100 mL an hour, and additional fluid boluses are being given as well, chest x-ray continue show cardiomegaly emphysematous changes with the pneumonia and finding right upper lobe and lower lobe along with small pleural effusion, echocardiograms done and results are pending, patient remains in A. fib with controlled ventricular response, beta blockers have been discontinued due to severe bradycardia and hypotension, patient has been started on midodrine as wel l as Florinef continue antibiotics 02/17/2020, patient seen eval examined during the rounds labs reviewed medications reviewed, care plan discussed the staff at length critical care time spent 35 minutes, patient remains on the vasopressors does is slightly escalated to keep systolic and map around 65, patient is awake and alert slightly [place] confused though, his oxygenation slightly declined, patient is now off of amiodarone is being started on beta blockers in the form of Lopressor now, due to persistent low blood pressure will consider and starting patient on hydrocortisone 100 mg IV every 8, midodrine is another consideration, labs reviewed, urine output is adequate, we'll put pneumatic compression device for DVT prophylaxis, chest x-ray reviewed by loren pneumonia and small pleural effusion not much changed, continue DVT prophylaxis subcu heparin continue broad-spectrum antibiotics monitor closely on beta blockers keep oxygen to keep saturation over 90% above currently down to 6 L nasal cannula transiently was up to 10 L 02/16/2020, patient seen eval examined during the rounds labs reviewed medications reviewed care plan discussed with RN at length critical care time sp ent 35 minutes, patient is more calm now awake on sitting appropriately but remains slightly confused however, somewhat anxious, hemodynamics are marginal still require levo fed drip currently on 4 mics, systolic blood pressure about 100 210, patient is gently being rehydrated with fluids as patient appears to be slightly dry a bolus of 2 50 mL been given this morning, patient remains in atrial fibrillation however rate is slightly better, later on today will be changed from IV amiodarone to oral amiodarone, he is afebrile, labs reviewed, his chest x-ray reviewed, overall remains stable, patient is on 6 L oxygen, his sputum cultures and urine culture are pending, patient remains on Levaquin and Zosyn for multi lobar pneumonia mostly on the right side 02/15/2020, patient seen eval reexamined during the rounds labs reviewed medications reviewed care plan discussed with RN at length, critical care time spent 45 minutes, patient is somewhat confused, but not combative, remains hypotensive continued to require levo fed drip currently on 4 mics, patient also developed severe with RVR requiring amiodarone infusion, the altered mental status appeared to be more related to severe sepsis and septic shock as 8 is coming on slowly in the last 24-48 hours patient does not manifest any signs of hemiparesis speech impairment is not there that goes against a central process, cardiovascular diseases have been following this patient closely patient is not on anticoagulation due to history of GI bleed, chest x-ray showing worsening of pneumonia on the right side involving the upper lobe as well as the lower lobe, chemistry is stable except some hyponatremia, patient remains on Levaquin and Zosyn, Patient was incidentally discovered on my patient list, this patient is well- known to me due to end-stage lung disease and severe COPD, patient was admitted to hospital as he was at home found to be off of oxygen very weak and fatigued, patient was admitted on January 11, he was doing fairly well until this morning, neighbor found to be off of oxygen, due to weakness brought into the hospital for further evaluation, chest x-ray significant for pulmonary interstitial infiltrate along with pulmonary vascular congestion right lower lobe pneumonia, EKG revealed right bundle branch block with RVH old inferior wall NE, patient remains hypotensive requiring levo fed drip, cardiovascular services ID service has been following this patient as well, his x-ray from this morning continue show emphysematous and fibrotic changes with cardiomegaly and right-sided pneumonia, patient currently on bronchodilator continuation of his home medicine along with Zosyn and Levaquin, Objective - Vital Signs Vital signs: Vital Signs Temp 97.9 F 02/19/20 08:00 Pulse 84 02/19/20 10:45 Resp 13 02/19/20 10:45 BP 82/70 02/19/20 10:45 Pulse Ox 94 L 02/19/20 10:45 Intake & Output 02/18/20 02/19/20 02/19/20 18:59 06:59 18:59 Intake Total 9916.090 3875.909 986.798 Output Total 285 265 65 Balance 8194.954 5416.909 921.798 Weight 74.7 kg 74.7 kg Intake: Intake, IV Titration 6414.130 4929.909 986.798 Amount Dextrose 5%-0.9% NaCl 1, 1200 1100 400 000 ml @ 100 mls/hr IV . Q10H [facility] Rx#:[id number] Levofloxacin 750Mg-D5w 150 Pmx 750 mg In Dextrose/ Water 1 150ml.bag @ 100 mls/hr IVPB DAILY [facility] Rx# :[id number] Norepinephrine 4 mg In 508.000 504.909 336.798 Sodium Chloride 0.9% 250 ml @ 0.05 MCG/KG/MIN 9. 937 mls/hr IV .Q24H [facility] Rx#:[id number] Piperacillin-Tazobactam 3 100 .375 gm In Sodium Chloride 0.9% 100 ml @ 25 mls/hr IVPB Q8H [facility] Rx#: [id number] Potassium Chloride 20 meq 100 In Water For Injection 1 100ml.bag @ 50 mls/hr IVPB Q2H [facility] Rx#: [id number] Output: Urine 285 265 65 Other: Voiding Method Indwelling Catheter Indwelling Catheter Indwelling Catheter - Exam - Constitutional General appearance: average body habitus, cooperative, disheveled, mild distress - EENT Eyes: PERRLA ENT: normal oropharynx Ears: bilateral: normal - Neck Neck: normal ROM Carotids: bilateral: upstroke normal Thyroid: bilateral: normal size - Respiratory Respiratory: bilateral: diminished, rales - Cardiovascular Rhythm: irregularly irregular Heart sounds: normal: S1, S2 - Gastrointestinal General gastrointestinal: normal bowel sounds - Neurologic Neurologic: CNII-XII intact - Musculoskeletal Musculoskeletal: gait normal, generalized weakness, strength equal bilaterally - Psychiatric Psychiatric: A&O x's 3, appropriate affect, intact judgment & insight - Labs CBC & Chem 7: 02/19/20 03:47 02/19/20 04:02 Labs: Abnormal Lab Results - Last 24 Hours (Table) 02/18/20 02/19/20 02/19/20 Range/Units 16:10 03:47 04:02 WBC 13.2 H (3.8-10.6) k/uL RBC 3.94 L (4.30-5.90) m/uL Hgb 11.3 L (13.0-17.5) gm/dL Hct 36.3 L (39.0-53.0) % Plt Count 102 L (150-450) k/uL Neutrophils # (Manual) 11.09 H (1.3-7.7) k/uL Lymphocytes # (Manual) 0.66 L (1.0-4.8) k/uL Monocytes # (Manual) 1.45 H (0-1.0) k/uL Chloride 118 H (98-107) mmol/L Carbon Dioxide 17 L (22-30) mmol/L BUN 23 H (9-20) mg/dL Glucose 121 H (74-99) mg/dL POC Glucose (mg/dL) 138 H (75-99) mg/dL Calcium 6.8 L (8.4-10.2) mg/dL Microbiology - Last 24 Hours (Table) 02/12/20 23:18 Blood Culture - Final Blood No Growth after 144 hours Assessment and Plan Assessment: Esophageal stricture Inability to swallow fluid and water completely due to stricture lower part of the esophagus for EGD and possible PEG tube placement later on today Severe hypoglycemia likely related to poor hepatic reserve Altered mental status slowly improving Septic shock due to right-sided pneumonia Right-sided multi lobar pneumonia Severe bradycardia and hypotension related to beta blockers Suspected adrenal insufficiency Acute on chronic hypoxic respiratory failure Atrial fibrillation with RVR/rapid ventricular response History of end-stage lung disease secondary severe COPD History of GI bleed with chronic anemia Chronic paroxysmal atrial fibrillation History of aneurysm involving thoracoabdominal aorta Coronary artery disease history of CABG in the past Plan: PEG tube possible followed by EGD and biopsies if needed later on today for esophageal stricture Hydrocortisone cannot be started due to history of ALLERGY to prednisone have asked pharmacy to look into it in more detail Continue patient on midodrine and Florinef IV fluid changed to D5 normal saline monitor sugar closely Intermittent fluid bolus Continue gentle rehydration Monitor mental status closely Follow-up on Urine sputum culture and arterial blood gas Continue vasopressors, tried to bring it down to keep the map over 65 Off of amiodarone drip, being changed to oral Lopressor stopped due to bradycardia and hypotension Continue supplemental oxygen, try to keep saturation over 92% or above Gentle rehydration Monitor closely A. fib as well as mental status Patient is off of anticoagulation due to GI bleed in the past Continue broad-spectrum antibiotics Continue breathing treatments Status post PICC line Titrate vasopressors down as tolerated Patient is no code Time with Patient: Greater than 30
[2020-02-19] MEDS ORDERED: ceFAZolin 3 GM in SODIUM CHLORIDE 0.9% 100 ML IVPB ONE (12:00)
[2020-02-19] MEDS ORDERED: PROPOFOL 10 MG/ML 20 ML VIAL IV ONE (12:20)
--- NOTE | 2020-02-19 13:48 | P.PCN ---
Date of Procedure: 02/19/20 Description of Procedure: Brief history: 79-year-old male with multiple medical comorbidities including hypertension, coronary artery disease, aortic aneurysm status post repair, atrial fibrillation, chronic diastolic heart failure, hyperlipidemia, peptic ulcer disease, end-stage COPD on home oxygen and prior history of tobacco abuse who presented to the hospital due to complaints of weakness and fatigue. Currently the patient has been treated in the intensive care unit for right-sided pneu monia with sepsis and exacerbation of underlying COPD. Patient was noted to have difficulty with vomiting of food and intolerance to oral intake. He was seen by speech language pathology but was unable to complete evaluation as he was immediately bringing up food which she swallowed and suspicion was for esophageal dysmotility. Previously the patient was seen in 2019 for GI bleed with findings of 2 nonbleeding antral ulcers, gastritis and a small hiatal hernia and also had an EGD in 2014 also significant for peptic ulcer disease. Laboratory evaluation significant for WBC 13.2, hemoglobin 11.9, platelet count 119,000, total bilirubin 1.2, alkaline phosphatase 82, AST 51 and ALT 18. The patient had a barium swallow in evaluation of the dysphagia with findings of no evidence of malignant stricture but moderate to severe esophageal dysmotility noted. Procedure performed: EGD with PEG tube placement Preoperative diagnosis: Esophageal dysmotility, esophageal dysphagia IV sedation by anesthesia Estimated blood loss: Minimal. Procedure: After informed consent was obtained with the patient as well as the family the patient was brought into the endoscopy unit. IV conscious sedation was administered by anesthesia under continuous monitoring. The Olympus GF 190 video endoscope was inserted into the mouth and esophagus intubated without any difficulty and was gradually advanced to the stomach and duodenum. The bulb and second part of the duodenum was visualized which appeared normal. The scope at this time was withdrawn to the stomach adequately insufflated with air. Ad equate transillumination was achieved onto the anterior abdominal wall. At the site of adequate transillumination and maximal finger indentation, on the anterior abdominal wall, this area was sterilely prepped and draped. One percent Lidocaine was infiltrated into the skin and a small incision was made. Trocar and cannula was passed through the incision into the stomach cavity. The trocar was removed. The insertion wire was passed through the cannula into the stomach. Insertion wire was snared and then the insertion wire, snare and endoscope were withdrawn from the mouth. The insertion wire was then attached to a 20[employer] PEG tube. The insertion wire was then pulled with the PEG tube through the incision site. PEG tube was pulled until the internal bolster was sitting snugly against the gastric mucosa which was confirmed with repeat EGD. On repeat EGD the esophagus was intubated without any difficulty and was advanced into the stomach. The internal bumper appeared to be in secure position. The visualized portions of the antrum body cardia and fundus of the stomach appeared normal. The esophagus was carefully examined as the scope was gradually being withdrawn which appeared normal. At this time external bumper was placed on the PEG tube closer to the anterior abdominal wall at 3 cm piper. The patient tolerated the procedure well. Impression: Successful 20[employer] PEG tube placement as described above. Recommendations: Findings of this examination were discussed with the patient's family. The patient will be started on tube feeds tomorrow. Post-PEG tube orders were written. Ancef given prior to the PEG tube placement. Okay for meds and flushes tonight and tube feeds tomorrow.
--- NOTE | 2020-02-19 14:22 | P.PN ---
Subjective Progress Note Date: 02/19/20 History of Present Illness This is a 79-year-old male patient of Dr. Erasmo Mary, Dr. Hagan, Dr. 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 Patient presented to [facility] emergency center for generalized weakness and fatigue after he was found by the neighbor and was disconnected from his home oxygen supply. Patient presented with pulse ox of 81%, afebrile, heart rate 113, blood pressure was low initially 91/73 but then dropped to 71/34. EKG atrial fibrillation with diffuse nonspecific ST and T-wave abnormalities, right bundle branch block. WBC 13.1, hemoglobin 12.8, platelet count 128. Sodium 130, potassium 4.4, chloride 94, CO2 26, BUN 19 and creatinine 1.24, blood sugar 84. Blood sugar 84. Magnesium 1.5, total bilirubin 1.7, AST 39, a ALT 13, alkaline phosphatase 114. Lactic acid 3.1. Initial troponin 0.117. ProBNP 6600. Chest x-ray reveals pulmonary interstitial infiltrates. Mild pulmonary vascular congestion. Infiltrate in the right lower lobe is partly cleared compared to old exam. Appearance of the chest is consistent with mild heart failure and underlying pulmonary fibrosis. Patient was started on norepinephrine and admitted into the intensive care unit with consult for cardiology, infectious disease and pulmonary medicine. 02/13: Patient remains in the intensive care unit. He is still on norepinephrine and PICC line has been ordered this morning by Dr. Childers. He states his breathing is better today. No lower extremity edema. He denies any abdominal pain. No nausea or vomiting. Repeat chest x-ray reveals chronic emphysematous and pulmonary fibrotic changes along with cardiomegaly and right-sided volume loss. Worsening right mid and lower lung acute infiltrates noted on background of chronic change. Echocardiogram report is pending. Patient has been seen by cardiology and pulmonary medicine. Dr. Murphy is recommending continuing Zosyn and follow up on cultures. Patient has been afebrile, heart rate 90, blood pressure 105/80, pulse ox 94% on 5 L nasal cannula. Repeat blood work reveals WBC 12.9, hemoglobin 12.8, platelet count 124. Sodium 131, potassium 3.8, chloride 102, CO2 20, BUN 23 and creatinine 1.05. Blood culture reveals no growth at 24 hours and urine culture is in progress. COVID-19 testing in process. 02/14: Patient was very confused last night, required 0.5 mg of Xanax, patient was hallucinating very confused, no combativeness noted, patient was seen this morning, and seems to be drowsy however she wakes to conversation, [id number] is at bedside, and was able to recognize his [id number]. Patient did not eat much for today, according to history, patient drinks at least a glass of whiskey per day, unknown amount, ammonia levels to be done, as well as B12 levels to be done, start thiamine 100 mg daily, check B12, patient is in ICU, without any rest or distress identified. ciwa protocol started, patient is on Zosyn him a Dr. Murphy following, as well as pulmonary and cardiology. Patient has A. fib with RVR on amiodarone IV 02/15, patient remains in ICU, his more reoriented today, was able to recognize me, is more conversant, with appropriate thought content, has slept better last night, no abnormal pain, has some nausea, urine culture growing staph epidermidis, sputum culture growing yeast, patient has oral candidal changes will switch IV thiamine to oral time in 100 mg daily. B12 level is currently pending TSH normal 1.2 albumin low at 2.6 start nutritional protein supplementation 02/16: Patient remains in the intensive care unit. He is currently off the amiodarone drip but on norepinephrine. Cardiology started him on low-dose beta marlen. 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 Patient is currently eating very little. Repeat chest x-ray is unchanged bibasilar airspace opacities and small bilateral pleural effusions. Mental status seems improved from yesterday. PT and OT evaluations will be added. He has been afebrile, heart rate 66, blood pressure 81/67, pulse ox 94% on O2. Repeat lab work reveals WBC 7.3, hemoglobin 12.9, platelet count 110. Sodium 136, potassium 4.0, chloride 110, CO2 19, BUN 15 creatinine 0.76. 02/17: Patient remains in the intensive care unit. He is off amiodarone drip. He is on Lopressor. Patient is currently on norepinephrine at the time of our evaluation. Blood pressure is very stable. Levo to be weaned off. He did have a drop in his blood sugar to 20 this morning and received D50 and is on D5 0.9 normal saline. He is scheduled for barium swallow today. GI consult was added for possible EGD. Contacted patient [id number] is his next of kin and gave her an update, patient may require PEG tube feeding. Patient has been afebrile, blood pressure 114/98, heart rate 96, pulse ox 96%. Repeat blood work reveals W BC 13.2, hemoglobin 11.9, platelet count 119. Sodium 139, potassium 4.3, chloride 115, CO2 14, BUN 17 creatinine 0.96. 02/18: Patient remains in the intensive care unit and is on norepinephrine. He is scheduled for EGD and PEG tube placement today with Dr. Lucero. Patient has been afebrile, heart rate 87, blood pressure 104/54, pulse ox 95% on 6 L nasal cannula. Repeat blood work reveals WBC 13.2, hemoglobin 11.3, platelet count 102. Sodium 140, potassium 3.5, chloride 118, CO2 17, BUN 23 and creati nine 1.10. Blood sugar running between 64 and 138. Review of Systems Constitutional: No fever, no chills. Reports weakness, Reports fatigue Reports lethargy. Reports daytime sleepiness. EENT: No headache. No blurred vision or double vision, no loss of vision. no dizziness. No nasal drainage or congestion. No epistaxis. No sore throat. Lungs: Reports shortness of breath, reports cough, no sputum production. Reports wheezing. Cardiovascular: No chest pain, no lower extremity edema. No palpitations. No paroxysmal nocturnal dyspnea. Abdominal: No abdominal pain. No nausea, vomiting. No diarrhea. No constipation. No bloody or tarry stools.. No loss of appetite. Genitourinary: No dysuria, increased frequency, urgency. No urinary retention. Musculoskeletal: No myalgias. No muscle weakness, no gait dysfunction, no frequent falls. No back pain. No neck pain. Integumentary: No wounds, no lesions. No rash or pruritus. No unusual bruising. No change in hair or nails. Neurologic: No aphasia. No facial droop. Reports change in mentation. No head injury. No headache. No paralysis. No paresthesia. Psychiatric: No depression. No anxiety. No mood swings. Endocrine: No abnormal blood sugars. No weight change. No excessive sweating or thirst. No cold intolerance. Physical Examination Gen: This is a 79-year-old thin male, he is resting in the ICU bed and appears to be comfortable at rest. HEENT: Head is atraumatic, normocephalic. Pupils equal, round. Sclerae is anicteric. NECK: Supple. No JVD. No lymphadenopathy. No thyromegaly. LUNGS: Diminished bilaterally with bibasilar rhonchi, prolonged expiration. No intercostal retractions. HEART: Irregular rate and rhythm. No murmur. ABDOMEN: Soft. Bowel sounds are present. No masses. No tenderness. EXTREMITIES: No pedal edema. No calf tenderness. NEUROLOGICAL: Patient is awake, alert and oriented person and place. Cranial nerves 2 through 12 are grossly intact. Assessment and Plan 1. Acute on chronic hypoxic respiratory failure secondary to COPD exacerbation, possible pneumonia, gram-negative pneumonia, chronic diastolic heart failure. Consult with pulmonary medicine, continue oxygen therapy. 2. Sepsis, septic shock and lactic acidosis. Patient has required vasopressor support. PICC line for norepinephrine. Continue Zosyn, Levaquin, consult with Dr. Childers and Dr. Murphy appreciated. Urine culture pending. 3. Persistent atrial fibrillation, episode of RVR. Cardiology consult appreciated. Off amiodarone drip and started on Lopressor 25 mg twice daily. 4. Mild elevation in troponin most likely secondary to sepsis and hypotension, ruled out non-ST elevated myocardial infarction. Cardiology consult appreciated. Echocardiogram has been ordered. 5. COPD exacerbation. Continue Pulmicort 1 mg twice daily, DuoNeb treatments 4 times daily and as needed, pulmonary consult. 6. History of CAD status post CABG as well as mitral regurgitation status post mitral valve replacement. Hold Imdur, Lasix and Lopressor secondary to hypotension. Continue aspirin 81 mg daily, Lipitor 40 mg daily. 7. Hypertension and hypertensive cardiovascular disease. Patient is currently hypotensive. 8. Abdominal aortic aneurysm status post repair in 2010, stable. 9. Hyperlipidemia. Continue Lipitor. 10. ALLERGIC rhinitis. Continue singulair 10 mg at bedtime. 11 Chronic thrombocytopenia. 12. Chronic kidney disease stage III. 13. Chronic hyponatremia and hypomagnesemia, status post replacement, recheck in the morning. 14. History of peptic ulcer disease and GI prophylaxis. Continue Protonix 40 mg oral twice daily. 15. Daily alcohol use. 16. Remote history of tobacco use and dependence. 17. DVT prophylaxis. Heparin subcu. 18. COVID-19 infection not present. 19. Acute metabolic encephalopathy, related to possible chronic alcoholism, Korsakoff's and acute illness, delirium. Patient would be started on thiamine 100 mg daily, B12 to be done, serum ammonia levels to be obtained, urinalysis sent for culture, patient at risk for aspirating events aspiration precautions, 20. Oral mario, nystatin swish and swallow started 21. Anemia of chronic disease. 22. Dysphagia. EGD and PEG tube today. CODE STATUS: No code Discharge plan: Anticipate need for subacute rehab. PT and OT added. Impression and plan of care have been directed as dictated by the signing physician. Maylin Arcos nurse practitioner acting as scribe for signing physician. Objective - Vital Signs Vital signs: Vital Signs Temp 97.9 F 02/19/20 08:00 Pulse 89 02/19/20 08:15 Resp 14 02/19/20 08:15 BP 88/67 02/19/20 08:15 Pulse Ox 97 02/19/20 08:15 Intake & Output 02/18/20 02/19/20 02/19/20 18:59 06:59 18:59 Intake Total 6451.062 5138.909 448.954 Output Total 285 265 20 Balance 2114.796 1962.909 428.954 Weight 74.7 kg Intake: Intake, IV Titration 1235.176 4103.909 448.954 Amount Dextrose 5%-0.9% NaCl 1, 1200 1100 200 000 ml @ 100 mls/hr IV . Q10H ELOISE Rx#:[id number] Norepinephrine 4 mg In 508.000 504.909 248.954 Sodium Chloride 0.9% 250 ml @ 0.05 MCG/KG/MIN 9. 937 mls/hr IV .Q24H ELOISE Rx#:[id number] Piperacillin-Tazobactam 3 100 .375 gm In Sodium Chloride 0.9% 100 ml @ 25 mls/hr IVPB Q8H ELOISE Rx#: [id number] Output: Urine 285 265 20 Other: Voiding Method Indwelling Catheter Indwelling Catheter Indwelling Catheter - Labs CBC & Chem 7: 02/19/20 03:47 02/19/20 04:02 Labs: Abnormal Lab Results - Last 24 Hours (Table) 02/18/20 02/19/20 02/19/20 Range/Units 16:10 03:47 04:02 WBC 13.2 H (3.8-10.6) k/uL RBC 3.94 L (4.30-5.90) m/uL Hgb 11.3 L (13.0-17.5) gm/dL Hct 36.3 L (39.0-53.0) % Plt Count 102 L (150-450) k/uL Neutrophils # (Manual) 11.09 H (1.3-7.7) k/uL Lymphocytes # (Manual) 0.66 L (1.0-4.8) k/uL Monocytes # (Manual) 1.45 H (0-1.0) k/uL Chloride 118 H (98-107) mmol/L Carbon Dioxide 17 L (22-30) mmol/L BUN 23 H (9-20) mg/dL Glucose 121 H (74-99) mg/dL POC Glucose (mg/dL) 138 H (75-99) mg/dL Calcium 6.8 L (8.4-10.2) mg/dL Microbiology - Last 24 Hours (Table) 02/12/20 23:18 Blood Culture - Final Blood No Growth after 144 hours
[2020-02-19] MEDS: LACTATED RINGERS 1,000 ML IV SCH (15:16)
--- NOTE | 2020-02-19 20:44 | PN ---
PROGRESS NOTE DATE OF SERVICE: 02/19/2020 REASON FOR FOLLOWUP: Aspiration pneumonia. INTERVAL HISTORY: Patient is currently afebrile. The patient is hemodynamically slightly better as the Levophed was slightly cut down. The patient is breathing comfortably. Denies having any chest pain. Did have some cough. No sputum. Did have a PEG tube placement today. The patient tolerated the procedure. PHYSICAL EXAMINATION: Blood pressure 103/83, pulse of 89, temperature 98. He is 92% on 3 L nasal cannula. General description is an elderly male lying in bed in no distress. Respiratory system: Unlabored breathing, decreased breath sounds at the bases. No wheeze. Heart S1, S2. Regular rate and rhythm. Abdomen soft, no tenderness. LABS: Hemoglobin 11.8, white count 13.2, BUN of 23, creatinine 1.10. Sputum is Vanna albicans vanna species. DIAGNOSTIC IMPRESSION AND PLAN: 1. Patient with recurrent aspiration pneumonia in this patient who is status post PEG tube placement. He is currently covered with Zosyn. Sputum has been negative for any resistant pathogen. Levaquin will be discontinued. 2. Positive urine culture with Staph Epi, repeat is negative. No need for further workup for the same. MMODL / IJN: [id number] /
[2020-02-19] MEDS: MONTELUKAST 10 MG TAB PO SCH (21:32)
[2020-02-19] MEDS: ATORVASTATIN 40 MG TAB PO SCH (21:32)
[2020-02-20 05:39] LABS: Anisocytosis Slight; HCT 38.9 % (39.0-53.0); Hypochromasia Marked; MCH 28.6 pg (25.0-35.0); MCHC 30.7 g/dL (31.0-37.0); MCV 93.1 fL (80.0-100.0); Mean Platelet Volume 11.6; RBC 4.18 m/uL (4.30-5.90); RDW 16.1 % (11.5-15.5); WBC 9.6 k/uL (3.8-10.6)
[2020-02-20] MEDS: PIPERACILLIN-TAZOBACTAM 3.375 GM in SODIUM CHLORIDE 0.9% 100 ML IVPB SCH ×2 (05:48→12:41)
[2020-02-20] MEDS: DEXTROSE 5%-0.9% NACL 1,000 ML IV SCH ×2 (05:49→08:26)
[2020-02-20 05:55] LABS: Calcium 7.6 mg/dL (8.4-10.2); Potassium 4.3 mmol/L (3.5-5.1)
[2020-02-20 06:05] LABS: Platelet Count 78 k/uL (150-450)
[2020-02-20] MEDS: PANTOPRAZOLE 40 MG TABLET PO SCH (06:41)
[2020-02-20] MEDS: MIDODRINE 5 MG TAB PO SCH ×2 (06:41→12:41)
[2020-02-20] MEDS: BUDESONIDE 1 MG/2 ML NEBU INHALATION SCH (07:55)
[2020-02-20] MEDS: IPRATROPIUM-ALBUTEROL 3 ML NEB INHALATION SCH ×3 (07:55→16:26)
[2020-02-20] MEDS: POTASSIUM CHLORIDE ER 10 MEQ TAB.ER.PRT PO SCH (08:25)
[2020-02-20] MEDS: NYSTATIN 100,000 UNIT/ML SUSP 500,000 UNIT/5 ML CUP PO SCH ×2 (08:25→12:42)
[2020-02-20] MEDS: CHOLECALCIFEROL 1,000 UNIT TAB PO SCH (08:25)
[2020-02-20] MEDS: ASPIRIN 81 MG PO SCH (08:25)
[2020-02-20] MEDS: THIAMINE 100 MG TAB PO SCH (08:25)
[2020-02-20] MEDS: MAGNESIUM OXIDE 400 MG TAB PO SCH (08:26)
[2020-02-20] MEDS: HEPARIN SODIUM,PORCINE 5,000 UNIT/ML 1 ML VIAL SQ SCH (08:26)
[2020-02-20] MEDS: METOPROLOL TARTRATE 12.5 MG TAB PO SCH (08:26)
[2020-02-20] MEDS ORDERED: FUROSEMIDE 10 MG/ML 4 ML VIAL IV SCH (09:00)
--- NOTE | 2020-02-20 10:12 | PN ---
PROGRESS NOTE Mr. Ac is a 79-year-old male, known history of coronary artery disease, status post coronary artery bypass grafting, aortic valve replacement, history of abdominal aortic aneurysm, chronic persistent atrial fibrillation, not anticoagulated because of GI bleeding, history of severe chronic obstructive lung disease, who presented with symptoms of progressive dyspnea, was diagnosed with pneumonia. He continues to feel weak. He is in atrial fibrillation with relatively controlled ventricular response. He is on the low dose of norepinephrine. His chest x-ray continues to show evidence of an infiltrate as well as fluid overload. He does not feel significantly short of breath. He denies any dizziness, palpitation. He denies any nausea. His urine output is poor. He had a PEG tube placed yesterday because of inability to swallow. He continues to be on aspirin once a day, Lipitor 40 mg daily, metoprolol tartrate 12.5 mg twice a day. PHYSICAL EXAMINATION: Blood pressure running in the 100s with a heart rate in the 80s. LUNGS: With decreased breath sounds at the bases with no wheezes. HEART: Irregular, regular, S1, S2. No S3 with systolic ejection murmur, no diastolic murmur, no rub. ABDOMEN: Soft, nontender. PEG tube in place. EXTREMITIES: With 2 to 3+ edema bilaterally. IMPRESSION: 1. Pneumonia, improving. 2. Worsening peripheral edema with fluid overload. 3. Chronic persistent atrial fibrillation, not anticoagulated because in GI bleeding. 4. Status post coronary artery bypass grafting and aortic valve replacement. 5. History of peripheral vascular disease and abdominal aortic aneurysm. 6. Chronic obstructive lung disease. RECOMMENDATION: I will start him on IV Lasix. Some of his edema could be related to low protein. Depending on his progress, further recommendation will be made. The prognosis remains guarded. Patient will benefit from physical therapy. MMODL / IJN: [id number] /
[2020-02-20 12:38] VITALS: TEMP 97
[2020-02-20] MEDS: NOREPINEPHRINE 4 MG in SODIUM CHLORIDE 0.9% 250 ML IV SCH (12:50)
--- NOTE | 2020-02-20 14:48 | P.PN ---
Subjective Progress Note Date: 02/20/20 History of Present Illness This is a 79-year-old male patient of Dr. Erasmo Mary, Dr. Hagan, Dr. 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 Patient presented to [facility] emergency center for generalized weakness and fatigue after he was found by the neighbor and was disconnected from his home oxygen supply. Patient presented with pulse ox of 81%, afebrile, heart rate 113, blood pressure was low initially 91/73 but then dropped to 71/34. EKG atrial fibrillation with diffuse nonspecific ST and T-wave abnormalities, right bundle branch block. WBC 13.1, hemoglobin 12.8, platelet count 128. Sodium 130, potassium 4.4, chloride 94, CO2 26, BUN 19 and creatinine 1.24, blood sugar 84. Blood sugar 84. Magnesium 1.5, total bilirubin 1.7, AST 39, a ALT 13, alkaline phosphatase 114. Lactic acid 3.1. Initial troponin 0.117. ProBNP 6600. Chest x-ray reveals pulmonary interstitial infiltrates. Mild pulmonary vascular congestion. Infiltrate in the right lower lobe is partly cleared compared to old exam. Appearance of the chest is consistent with mild heart failure and underlying pulmonary fibrosis. Patient was started on norepinephrine and admitted into the intensive care unit with consult for cardiology, infectious disease and pulmonary medicine. 02/13: Patient remains in the intensive care unit. He is still on norepinephrine and PICC line has been ordered this morning by Dr. Childers. He states his breathing is better today. No lower extremity edema. He denies any abdominal pain. No nausea or vomiting. Repeat chest x-ray reveals chronic emphysematous and pulmonary fibrotic changes along with cardiomegaly and right-sided volume loss. Worsening right mid and lower lung acute infiltrates noted on background of chronic change. Echocardiogram report is pending. Patient has been seen by cardiology and pulmonary medicine. Dr. Murphy is recommending continuing Zosyn and follow up on cultures. Patient has been afebrile, heart rate 90, blood pressure 105/80, pulse ox 94% on 5 L nasal cannula. Repeat blood work reveals WBC 12.9, hemoglobin 12.8, platelet count 124. Sodium 131, potassium 3.8, chloride 102, CO2 20, BUN 23 and creatinine 1.05. Blood culture reveals no growth at 24 hours and urine culture is in progress. COVID-19 testing in process. 02/14: Patient was very confused last night, required 0.5 mg of Xanax, patient was hallucinating very confused, no combativeness noted, patient was seen this morning, and seems to be drowsy however she wakes to conversation, [id number] is at bedside, and was able to recognize his [id number]. Patient did not eat much for today, according to history, patient drinks at least a glass of whiskey per day, unknown amount, ammonia levels to be done, as well as B12 levels to be done, start thiamine 100 mg daily, check B12, patient is in ICU, without any rest or distress identified. ciwa protocol started, patient is on Zosyn him a Dr. Murphy following, as well as pulmonary and cardiology. Patient has A. fib with RVR on amiodarone IV 02/15, patient remains in ICU, his more reoriented today, was able to recognize me, is more conversant, with appropriate thought content, has slept better last night, no abnormal pain, has some nausea, urine culture growing staph epidermidis, sputum culture growing yeast, patient has oral candidal changes will switch IV thiamine to oral time in 100 mg daily. B12 level is currently pending TSH normal 1.2 albumin low at 2.6 start nutritional protein supplementation 02/16: Patient remains in the intensive care unit. He is currently off the amiodarone drip but on norepinephrine. Cardiology started him on low-dose beta marlen. surveillance system monitor is atrial fibrillation with controlled rate. Patient is currently eating very little. Repeat chest x-ray is unchanged bibasilar airspace opacities and small bilateral pleural effusions. Mental status seems improved from yesterday. PT and OT evaluations will be added. He has been afebrile, heart rate 66, blood pressure 81/67, pulse ox 94% on O2. Repeat lab work reveals WBC 7.3, hemoglobin 12.9, platelet count 110. Sodium 136, potassium 4.0, chloride 110, CO2 19, BUN 15 creatinine 0.76. 02/17: Patient remains in the intensive care unit. He is off amiodarone drip. He is on Lopressor. Patient is currently on norepinephrine at the time of our evaluation. Blood pressure is very stable. Levo to be weaned off. He did have a drop in his blood sugar to 20 this morning and received D50 and is on D5 0.9 normal saline. He is scheduled for barium swallow today. GI consult was added for possible EGD. Contacted patient [id number] is his next of kin and gave her an update, patient may require PEG tube feeding. Patient has been afebrile, blood pressure 114/98, heart rate 96, pulse ox 96%. Repeat blood work reveals W BC 13.2, hemoglobin 11.9, platelet count 119. Sodium 139, potassium 4.3, chloride 115, CO2 14, BUN 17 creatinine 0.96. 02/18: Patient remains in the intensive care unit and is on norepinephrine. He is scheduled for EGD and PEG tube placement today with Dr. Lucero. Patient has been afebrile, heart rate 87, blood pressure 104/54, pulse ox 95% on 6 L nasal cannula. Repeat blood work reveals WBC 13.2, hemoglobin 11.3, platelet count 102. Sodium 140, potassium 3.5, chloride 118, CO2 17, BUN 23 and creati nine 1.10. Blood sugar running between 64 and 138. 02/19: Patient remains in the intensive care unit and remains on Levophed. Patient had a PEG tube placed yesterday and to start PEG tube feedings today. Patient is known to be guardedly today and Dr. Hagan is started him on Lasix 40 mg IV every 12 hours. Patient is on Zosyn managed by Dr. Murphy. Patient has been afebrile, heart rate 90, blood pressure 101/77, pulse ox 93% on 7 L nasal cannula. Oxygen needs seemed to be slowly worsening since admission. WBC 9.6, hemoglobin 12, platelet count 78. Sodium 143, potassium 4.3, chloride 120, CO2 16, BUN 25 and creatinine 1.16. Blood sugar 112. Urine culture is positive for Staphylococcus epidermidis. Sputum culture is Mario. Review of Systems Constitutional: No fever, no chills. Reports weakness, Reports fatigue Reports lethargy. Reports daytime sleepiness. EENT: No headache. No blurred vision or double vision, no loss of vision. no dizziness. No nasal drainage or congestion. No epistaxis. No sore throat. Lungs: Reports shortness of breath, reports cough, no sputum production. Reports wheezing. Cardiovascular: No chest pain, no lower extremity edema. No palpitations. No paroxysmal nocturnal dyspnea. Abdominal: No abdominal pain. No nausea, vomiting. No diarrhea. No constipation. No bloody or tarry stools.. No loss of appetite. Genitourinary: No dysuria, increased frequency, urgency. No urinary retention. Musculoskeletal: No myalgias. No muscle weakness, no gait dysfunction, no frequent falls. No back pain. No neck pain. Integumentary: No wounds, no lesions. No rash or pruritus. No unusual bruising. No change in hair or nails. Neurologic: No aphasia. No facial droop. Reports change in mentation seems to be worsening. No head injury. No headache. No paralysis. No paresthesia. Psychiatric: No depression. No anxiety. No mood swings. Endocrine: No abnormal blood sugars. No weight change. No excessive sweating or thirst. No cold intolerance. Physical Examination Gen: This is a 79-year-old thin male, he is resting in the ICU bed and appears to be comfortable at rest. HEENT: Head is atraumatic, normocephalic. Pupils equal, round. Sclerae is anicteric. NECK: Supple. No JVD. No lymphadenopathy. No thyromegaly. LUNGS: Diminished bilaterally with bibasilar rhonchi, prolonged expiration. No intercostal retractions. HEART: Irregular rate and rhythm. No murmur. ABDOMEN: Soft. Bowel sounds are present. No masses. No tenderness. PEG tube in place. EXTREMITIES: No pedal edema. No calf tenderness. NEUROLOGICAL: Patient is awake, alert and oriented person and place. Cranial nerves 2 through 12 are grossly intact. Patient follow simple commands. Assessment and Plan 1. Acute on chronic hypoxic respiratory failure secondary to COPD exacerbation, possible pneumonia, gram-negative pneumonia, chronic diastolic heart failure. Consult with pulmonary medicine, continue oxygen therapy. 2. Sepsis, septic shock and lactic acidosis. Patient has required vasopressor support. PICC line for norepinephrine. Continue Zosyn, consult with Dr. Childers and Dr. Murphy appreciated. Urine culture pending. 3. Persistent atrial fibrillation, episode of RVR. Cardiology consult appreciated. Off amiodarone drip and started on Lopressor 25 mg twice daily. 4. Mild elevation in troponin most likely secondary to sepsis and hypotension, ruled out non-ST elevated myocardial infarction. Cardiology consult appreciated. Echocardiogram has been ordered. 5. COPD exacerbation. Continue Pulmicort 1 mg twice daily, DuoNeb treatments 4 times daily and as needed, pulmonary consult. 6. History of CAD status post CABG as well as mitral regurgitation status post mitral valve replacement. Hold Imdur, Lasix and Lopressor secondary to hypotension. Continue aspirin 81 mg daily, Lipitor 40 mg daily. 7. Hypertension and hypertensive cardiovascular disease. Patient is currently hypotensive. 8. Abdominal aortic aneurysm status post repair in 2010, stable. 9. Hyperlipidemia. Continue Lipitor. 10. ALLERGIC rhinitis. Continue singulair 10 mg at bedtime. 11 Chronic thrombocytopenia. 12. Chronic kidney disease stage III. 13. Chronic hyponatremia and hypomagnesemia, status post replacement, recheck in the morning. 14. History of peptic ulcer disease and GI prophylaxis. Continue Protonix 40 mg oral twice daily. 15. Daily alcohol use. 16. Remote history of tobacco use and dependence. 17. DVT prophylaxis. Heparin subcu. 18. COVID-19 infection not present. 19. Acute metabolic encephalopathy, related to possible chronic alcoholism, Korsakoff's and acute illness, delirium. Patient would be started on thiamine 100 mg daily, B12 to be done, serum ammonia levels to be obtained, urinalysis sent for culture, patient at risk for aspirating events aspiration precautions, 20. Oral mario, nystatin swish and swallow started 21. Anemia of chronic disease. 22. Dysphagia. Status post PEG tube, start PEG tube feedings today. CODE STATUS: No code [place] [facility] [place]ression and plan of care have been directed as dictated by the signing physician. Maylin Arcos nurse practitioner acting as scribe for signing physician. Objective - Vital Signs Vital signs: Vital Signs Temp 97.6 F 02/20/20 04:00 Pulse 87 02/20/20 08:20 Resp 15 02/20/20 07:00 BP 109/79 02/20/20 07:00 Pulse Ox 91 L 02/20/20 07:56 Intake & Output 02/19/20 02/20/20 02/20/20 18:59 06:59 18:59 Intake Total 2401.371 7950.866 Output Total 260 480 Balance 1032.623 8248.866 Weight 74.7 kg 76 kg Intake: IV 1200 Dextrose 5%-0.9% NaCl 1, 1200 000 ml @ 100 mls/hr IV . Q10H [facility] Rx#:[id number] Intake, IV Titration 1886.798 469.866 Amount Dextrose 5%-0.9% NaCl 1, 1200 100 000 ml @ 100 mls/hr IV . Q10H [facility] Rx#:[id number] Levofloxacin 750Mg-D5w 150 Pmx 750 mg In Dextrose/ Water 1 150ml.bag @ 100 mls/hr IVPB DAILY [facility] Rx# :[id number] Norepinephrine 4 mg In 336.798 369.866 Sodium Chloride 0.9% 250 ml @ 0.05 MCG/KG/MIN 9. 937 mls/hr IV .Q24H [facility] Rx#:[id number] Potassium Chloride 20 meq 100 In Water For Injection 1 100ml.bag @ 50 mls/hr IVPB Q2H [facility] Rx#: [id number] ceFAZolin 3 gm In Sodium 100 Chloride 0.9% 100 ml @ 200 mls/hr IVPB ONCE ONE Rx#:[id number] Other 50 Output: Urine 260 480 Other: Voiding Method Indwelling Catheter Indwelling Catheter - Labs CBC & Chem 7: 02/20/20 05:22 02/20/20 05:22 Labs: Abnormal Lab Results - Last 24 Hours (Table) 02/20/20 02/20/20 Range/Units 05:22 05:22 RBC 4.18 L (4.30-5.90) m/uL Hgb 12.0 L (13.0-17.5) gm/dL Hct 38.9 L (39.0-53.0) % MCHC 30.7 L (31.0-37.0) g/dL RDW 16.1 H (11.5-15.5) % Plt Count 78 L (150-450) k/uL Chloride 120 H (98-107) mmol/L Carbon Dioxide 16 L (22-30) mmol/L BUN 25 H (9-20) mg/dL Glucose 112 H (74-99) mg/dL Calcium 7.6 L (8.4-10.2) mg/dL
[2020-02-20] MEDS: LACTATED RINGERS 1,000 ML IV SCH (15:08)
[2020-02-20] MEDS ORDERED: FLUDROCORTISONE 0.1 MG TAB PO SCH (15:15)
--- NOTE | 2020-02-20 15:41 | P.PN ---
Subjective Progress Note Date: 02/20/20 (Critical care time spent 35 minutes) Principal diagnosis: Hypoglycemia Dysphagia Relative adrenal insufficiency Altered mental status Septic shock due to right-sided pneumonia Acute on chronic hypoxic respiratory failure Atrial fibrillation with RVR/rapid ventricular response History of end-stage lung disease secondary severe COPD History of GI bleed with chronic anemia 02/20/2020, patient is status post PEG tube yesterday has been started on tube feed currently is on 10 mL an hour patient remains intravascularly depleted however third spacing anasarca is present, patient has been given Lasix this morning adequate urine output has been noted, still hypotensive levo fed drip escalated 2.21 now with the map barely 65, patient is awake and arousable follow simple commands, midodrine has been on hold for last few days, patient remains afebrile, high flow oxygen 10 L is present, echocardiogram revealed ejection fraction of 70% with significant pulmonary hypertension, likely croup 2-3 February 19 2020, patient seen eval examined during the rounds labs reviewed medications reviewed and is still mildly confused but mental status stable, levo fed has been tapered down to 0.14 mics from 0.2 mics, is still require vasopressors to keep a reasonable systolic blood pressure, he is nothing by mouth for PEG tube placement later on, FiO2 has been titrated down to 5 L nasal cannula, his labs and x-rays were reviewed, white cell count remains stable 13,000 along with hemoglobin, ovarian renal functions are stable, patient has been found to have a stricture and lower part of the esophagus he is going for EGD and possible PEG placement for the nutritional impairment and deficiency and malnutrition, remains in A. fib with controlled ventricular response, labs r eviewed 02/18/2020, patient seen eval examined during the rounds labs reviewed medications reviewed care plan discussed, patient is arousable opens eyes follow simple commands, patient urine output has been inadequate is still, dark urine is coming, unable to spontaneously urinate so Vargas's catheter has been placed by urology, overnight blood pressure remains low requiring escalation of vasopressors, we will give another fluid bolus, sugars have been noted low patient's by mouth intake has been poor, there is a problem with swallowing function the barium swallow has been ordered, discussed with family about PEG tube as well, labs are reviewed white cell count is up to 11 13,000 stable hemo globin, due to low sugar D50 has been given IV fluids she is to D5 normal saline 100 mL an hour, and additional fluid boluses are being given as well, chest x- ray continue show cardiomegaly emphysematous changes with the pneumonia and finding right upper lobe and lower lobe along with small pleural effusion, echocardiograms done and results are pending, patient remains in A. fib with controlled ventricular response, beta blockers have been discontinued due to severe bradycardia and hypotension, patient has been started on midodrine as well as Florinef continue antibiotics 02/17/2020, patient seen eval examined during the rounds labs reviewed medications reviewed, care plan discussed the staff at length critical care time spent 35 minutes, patient remains on the vasopressors does is slightly escalated to keep systolic and map around 65, patient is awake and alert slightly [place] confused though, his oxygenation slightly declined, patient is now off of amiodarone is being started on beta blockers in the form of Lopressor now, due to persistent low blood pressure will consider and starting patient on hydrocortisone 100 mg IV every 8, midodrine is another consideration, labs reviewed, urine output is adequate, we'll put pneumatic compression device for DVT prophylaxis, chest x-ray reviewed by loren pneumonia and small pleural effusion not much changed, continue DVT prophylaxis subcu heparin continue broad-spectrum antibiotics monitor closely on beta blockers keep oxygen to keep saturation over 90% above currently down to 6 L nasal cannula transiently was up to 10 L 02/16/2020, patient seen eval examined during the rounds labs reviewed medications reviewed care plan discussed with RN at length critical care time spent 35 minutes, patient is more calm now awake on sitting appropriately but remains slightly confused however, somewhat anxious, hemodynamics are marginal s till require levo fed drip currently on 4 mics, systolic blood pressure about 100 210, patient is gently being rehydrated with fluids as patient appears to be slightly dry a bolus of 2 50 mL been given this morning, patient remains in atrial fibrillation however rate is slightly better, later on today will be changed from IV amiodarone to oral amiodarone, he is afebrile, labs reviewed, his chest x-ray reviewed, overall remains stable, patient is on 6 L oxygen, his sputum cultures and urine culture are pending, patient remains on Levaquin and Zosyn for multi lobar pneumonia mostly on the right side 02/15/2020, patient seen eval reexamined during the rounds labs reviewed medications reviewed care plan discussed with RN at length, critical care time spent 45 minutes, patient is somewhat confused, but not combative, remains hypotensive continued to require levo fed drip currently on 4 mics, patient also developed severe with RVR requiring amiodarone infusion, the altered mental status appeared to be more related to severe sepsis and septic shock as 8 is coming on slowly in the last 24-48 hours patient does not manifest any signs of hemiparesis speech impairment is not there that goes against a central process, cardiovascular diseases have been following this patient closely patient is not on anticoagulation due to history of GI bleed, chest x-ray showing worsening of pneumonia on the right side involving the upper lobe as well as the lower lobe, chemistry is stable except some hyponatremia, patient remains on Levaquin and Zosyn, Patient was incidentally discovered on my patient list, this patient is well- known to me due to end-stage lung disease and severe COPD, patient was admitted to hospital as he was at home found to be off of oxygen very weak and fatigued, patient was admitted on January 11, he was doing fairly well until this morning, neighbor found to be off of oxygen, due to weakness brought into the hospital for further evaluation, chest x-ray significant for pulmonary interstitial infiltrate along with pulmonary vascular congestion right lower lobe pneumonia, EKG revealed right bundle branch block with RVH old inferior wall [place], patient remains hypotensive requiring levo fed drip, cardiovascular services ID service has been following this patient as well, his x-ray from this morning continue show emphysematous and fibrotic changes with cardiomegaly and right-sided pneumonia, patient currently on bronchodilator continuation of his home medicine along with Zosyn and Levaquin, Objective - Vital Signs Vital signs: Vital Signs Temp 97.0 F L 02/20/20 12:15 Pulse 92 02/20/20 15:00 Resp 14 02/20/20 15:00 BP 74/58 02/20/20 15:00 Pulse Ox 91 L 02/20/20 15:00 Intake & Output 02/19/20 02/20/20 02/20/20 18:59 06:59 18:59 Intake Total 9273.573 8854.866 410.29 Output Total 622 455 1048 Balance 6187.467 1062.866 -699.71 Weight 74.7 kg 76 kg Intake: IV 1200 300 Dextrose 5%-0.9% NaCl 1, 1200 300 000 ml @ 100 mls/hr IV . Q10H [facility] Rx#:[id number] Intake, IV Titration 1886.798 469.866 50.29 Amount Dextrose 5%-0.9% NaCl 1, 1200 100 000 ml @ 100 mls/hr IV . Q10H [facility] Rx#:[id number] Levofloxacin 750Mg-D5w 150 Pmx 750 mg In Dextrose/ Water 1 150ml.bag @ 100 mls/hr IVPB DAILY [facility] Rx# :[id number] Norepinephrine 4 mg In 336.798 369.866 50.29 Sodium Chloride 0.9% 250 ml @ 0.05 MCG/KG/MIN 9. 937 mls/hr IV .Q24H [facility] Rx#:[id number] Potassium Chloride 20 meq 100 In Water For Injection 1 100ml.bag @ 50 mls/hr IVPB Q2H [facility] Rx#: [id number] ceFAZolin 3 gm In Sodium 100 Chloride 0.9% 100 ml @ 200 mls/hr IVPB ONCE ONE Rx#:[id number] Tube Feeding 60 Other 50 Output: Urine 812 567 6367 Other: Voiding Method Indwelling Catheter Indwelling Catheter - Exam - Constitutional General appearance: average body habitus, cooperative, disheveled, mild distress - EENT Eyes: PERRLA ENT: normal oropharynx Ears: bilateral: normal - Neck Neck: normal ROM Carotids: bilateral: upstroke normal Thyroid: bilateral: normal size - Respiratory Respiratory: bilateral: diminished, rales - Cardiovascular Rhythm: irregularly irregular Heart sounds: normal: S1, S2 - Gastrointestinal General gastrointestinal: normal bowel sounds - Neurologic Neurologic: CNII-XII intact - Musculoskeletal Musculoskeletal: gait normal, generalized weakness, strength equal bilaterally - Psychiatric Psychiatric: A&O x's 3, appropriate affect, intact judgment & insight - Labs CBC & Chem 7: 02/20/20 05:22 02/20/20 05:22 Labs: Abnormal Lab Results - Last 24 Hours (Table) 02/20/20 02/20/20 Range/Units 05:22 05:22 RBC 4.18 L (4.30-5.90) m/uL Hgb 12.0 L (13.0-17.5) gm/dL Hct 38.9 L (39.0-53.0) % MCHC 30.7 L (31.0-37.0) g/dL RDW 16.1 H (11.5-15.5) % Plt Count 78 L (150-450) k/uL Chloride 120 H (98-107) mmol/L Carbon Dioxide 16 L (22-30) mmol/L BUN 25 H (9-20) mg/dL Glucose 112 H (74-99) mg/dL Calcium 7.6 L (8.4-10.2) mg/dL Assessment and Plan Assessment: Esophageal stricture Inability to swallow fluid and water completely due to stricture lower part of the esophagus for EGD and possible PEG tube placement later on today Severe hypoglycemia likely related to poor hepatic reserve Altered mental status slowly improving Septic shock due to right-sided pneumonia Right-sided multi lobar pneumonia Severe bradycardia and hypotension related to beta blockers Suspected adrenal insufficiency History of aortic valve replacement and CABG Acute on chronic hypoxic respiratory failure Atrial fibrillation with RVR/rapid ventricular response History of end-stage lung disease secondary severe COPD History of GI bleed with chronic anemia Chronic paroxysmal atrial fibrillation History of aneurysm involving thoracoabdominal aorta Coronary artery disease history of CABG in the past Plan: Continue tube feed gradually increase, Lower down the IV fluids Will give free water through the PEG tube Hydrocortisone cannot be started due to history of ALLERGY to prednisone have asked pharmacy to look into it in more detail Continue patient on midodrine and Florinef Change IV fluid to KVO Intermittent fluid bolus if needed Continue gentle diuresis Monitor mental status closely Continue vasopressors, tried to bring it down to keep the map over 65 Off of amiodarone drip, being changed to oral Lopressor stopped due to bradycardia and hypotension Continue supplemental oxygen, try to keep saturation over 92% or above Gentle rehydration Monitor closely A. fib as well as mental status Patient is off of anticoagulation due to GI bleed in the past Continue broad-spectrum antibiotics Continue breathing treatments Status post PICC line Titrate vasopressors down as tolerated Patient is no code
[2020-02-20 17:23] VITALS: BP 139/111; PULSE 19; RESP 0
[2020-02-20] MEDS ORDERED: PIPERACILLIN-TAZOBACTAM 3.375 GM in SODIUM CHLORIDE 0.9% 100 ML IVPB SCH (20:00)
[2020-02-21] MEDS ORDERED: LEVOFLOXACIN 750MG-D5W PMX 750 MG in DEXTROSE/WATER 1 150ML.BAG IVPB SCH (09:00)
--- NOTE | 2020-02-23 08:30 | CDI ---
Documentation Clarification Form Date: 02/23/20 From: Letty Monique Phone: If you have a question about this query, please contact Sonia Willis, Logging Equipment Operator at [phone] between 8am and 5pm. Admit Date: 02/13/20 Discharge Date: 02/20/20 Patient Name: LANI FRYE Visit Number: [id number] ATTENTION: The Clinical Documentation Specialists (CDI) and [facility] Coding Staff appreciate your assistance in clarifying documentation. Please respond to the clarification below the line at the bottom and electronically sign. The CDI & [facility] Coding staff will review the response and follow-up if needed. Please note: Queries are made part of the Legal Health Record. If you have any questions, please contact the author of this message via ITS. Dear Dr. Farhad Grullon, Cachexia has been documented in ED note. Per H&P, & PNs state the patient is thin, History/Risk Factors: 79 year old male with septic shock from gram-negative pneumonia, UTI and end-stage COPD. Clinical Indicators: Presented with complaints of weakness and fatigue. He developed difficulty with vomiting food and intolerance to oral intake. Barium swallow-dysphagia with findings of no evidence of malignant stricture but moderate to severe esophageal dysmotility. Difficulty chewing due to missing teeth. Consuming 31% of meals. Labs: Current BMI: 19.1, 20.6, 27.3 Albumin: 3.3, 2.7, 2.6, 2.9 Total Protein: 6.3, 5.5, 5.4, 5.8 Treatment: PEG placed 02/18 Dietary Consult: Malnutrition, MST=2, dysphagia level 3 chopped Supplements: Ensure Enlive In your professional opinion, can you please clarify if these findings signify one of the following conditions? Mild Protein-Calorie Malnutrition xx Moderate Protein-Calorie Malnutrition Severe Protein-Calorie Malnutrition Malnutrition, unspecified Other condition, please specify Unable to determine MTDD
--- NOTE | 2020-02-23 08:44 | CDI ---
Documentation Clarification Form Date: 02/23/20 From: Letty Monique Phone: If you have a question about this query, please contact Sonia Willis, Vocational Education Professional at [phone] between 8am and 5pm. Admit Date: 02/13/20 Discharge Date: 02/20/20 Patient Name: LANI FRYE Visit Number: [id number] ATTENTION: The Clinical Documentation Specialists (CDI) and [facility] Coding Staff appreciate your assistance in clarifying documentation. Please respond to the clarification below the line at the bottom and electronically sign. The CDI & [facility] Coding staff will review the response and follow-up if needed. Please note: Queries are made part of the Legal Health Record. If you have any questions, please contact the author of this message via ITS. Dear Dr. Farhad Grullon, Patient presented with troponin of: 0.117, 0.483, 0.693 Patient history/risk factors: Septic shock d/t gram negative pneumonia, UTI, end-stage COPD Clinical indicators: Mild elevation in troponin most likely secondary to sepsis and hypotension, ruled out Treatment: In your professional opinion, can you please specify the diagnosis, if any, indicated by the above clinical indicators and treatment? Type II IL Abnormal troponin Other, please specify xxUnable to determine MTDD
--- NOTE | 2020-02-23 11:00 | P.DS ---
Providers Date of admission: 02/13/20 03:34 Expected date of discharge: 02/20/20 Attending physician: Berta Mojica Consults: 02/13/20 03:47 Consult Physician Routine Consulting Provider: Dane Boo Consult Reason/Comments: elevated troponin Do you want consulting provider notified?: Yes 02/13/20 06:52 Consult Physician Routine Consulting Provider: Madison Murphy Consult Reason/Comments: sepsis. urinary tract infection Do you want consulting provider notified?: Yes 02/13/20 08:41 Consult Physician Routine Consulting Provider: Hermelindo Childers Consult Reason/Comments: COPD exac Do you want consulting provider notified?: Yes [facility] Course: History of Present Illness This is a 79-year-old male patient of Dr. Erasmo Mary, Dr. Hagan, Dr. 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 Patient presented to [facility] emergency center for generalized weakness and fatigue after he was found by the neighbor and was disconnected from his home oxygen supply. Patient presented with pulse ox of 81%, afebrile, heart rate 113, blood pressure was low initially 91/73 but then dropped to 71/34. EKG atrial fibrillation with diffuse nonspecific ST and T-wave abnormalities, right bundle branch block. WBC 13.1, hemoglobin 12.8, platelet count 128. Sodi um 130, potassium 4.4, chloride 94, CO2 26, BUN 19 and creatinine 1.24, blood sugar 84. Blood sugar 84. Magnesium 1.5, total bilirubin 1.7, AST 39, a ALT 13, alkaline phosphatase 114. Lactic acid 3.1. Initial troponin 0.117. ProBNP 6600. Chest x-ray reveals pulmonary interstitial infiltrates. Mild pulmonary vascular congestion. Infiltrate in the right lower lobe is partly cleared compared to old exam. Appearance of the chest is consistent with mild heart failure and underlying pulmonary fibrosis. Patient was started on norepinephrine and admitted into the intensive care unit with consult for cardiology, infectious disease and pulmonary medicine. 02/13: Patient remains in the intensive care unit. He is still on norepinephrine and PICC line has been ordered this morning by Dr. Childers. He states his breathing is better today. No lower extremity edema. He denies any abdominal pain. No nausea or vomiting. Repeat chest x-ray reveals chronic emphysematous and pulmonary fibrotic changes along with cardiomegaly and right-sided volume loss. Worsening right mid and lower lung acute infiltrates noted on background of chronic change. Echocardiogram report is pending. Patient has been seen by cardiology and pulmonary medicine. Dr. Murphy is recommending continuing Zosyn and follow up on cultures. Patient has been afebrile, heart rate 90, blood pressure 105/80, pulse ox 94% on 5 L nasal cannula. Repeat blood work reveals WBC 12.9, hemoglobin 12.8, platelet count 124. Sodium 131, potassium 3.8, chloride 102, CO2 20, BUN 23 and creatinine 1.05. Blood culture reveals no marlene wth at 24 hours and urine culture is in progress. COVID-19 testing in process. 02/14: Patient was very confused last night, required 0.5 mg of Xanax, patient was hallucinating very confused, no combativeness noted, patient was seen this morning, and seems to be drowsy however she wakes to conversation, [id number] is at bedside, and was able to recognize his [id number]. Patient did not eat much for today, according to history, patient drinks at least a glass of whiskey per day, unknown amount, ammonia levels to be done, as well as B12 levels to be done, start thiamine 100 mg daily, check B12, patient is in ICU, without any rest or distress identified. ciwa protocol started, patient is on Zosyn him a Dr. Murphy following, as well as pulmonary and cardiology. Patient has A. fib with RVR on amiodarone IV 02/15, patient remains in ICU, his more reoriented today, was able to recognize me, is more conversant, with appropriate thought content, has slept better last night, no abnormal pain, has some nausea, urine culture growing staph epidermidis, sputum culture growing yeast, patient has oral candidal changes will switch IV thiamine to oral time in 100 mg daily. B12 level is currently pending TSH normal 1.2 albumin low at 2.6 start nutritional protein supplementation 02/16: Patient remains in the intensive care unit. He is currently off the amiodarone drip but on norepinephrine. Cardiology started him on low-dose beta marlen. media monitor is atrial fibrillation with controlled rate. Patient is currently eating very little. Repeat chest x-ray is unchanged bibasilar airspace opacities and small bilateral pleural effusions. Mental status seems improved from yesterday. PT and OT evaluations will be added. He has been afebrile, heart rate 66, blood pressure 81/67, pulse ox 94% on O2. Repeat lab work reveals WBC 7.3, hemoglobin 12.9, platelet count 110. Sodium 136, potassium 4.0, chloride 110, CO2 19, BUN 15 creatinine 0.76. 02/17: Patient remains in the intensive care unit. He is off amiodarone drip. He is on Lopressor. Patient is currently on norepinephrine at the time of our evaluation. Blood pressure is very stable. Levo to be weaned off. He did have a drop in his blood sugar to 20 this morning and received D50 and is on D5 0.9 normal saline. He is scheduled for barium swallow today. GI consult was added for possible EGD. Contacted patient [id number] is his next of kin and gave her an update, patient may require PEG tube feeding. Patient has been afebrile, blood pressure 114/98, heart rate 96, pulse ox 96%. Repeat blood work reveals W BC 13.2, hemoglobin 11.9, platelet count 119. Sodium 139, potassium 4.3, chloride 115, CO2 14, BUN 17 creatinine 0.96. 02/18: Patient remains in the intensive care unit and is on norepinephrine. He is scheduled for EGD and PEG tube placement today with Dr. Lucero. Patient has been afebrile, heart rate 87, blood pressure 104/54, pulse ox 95% on 6 L nasal cannula. Repeat blood work reveals WBC 13.2, hemoglobin 11.3, platelet count 102. Sodium 140, potassium 3.5, chloride 118, CO2 17, BUN 23 and creatinine 1.10. Blood sugar running between 64 and 138. 02/19: Patient remains in the intensive care unit and remains on Levophed. Patient had a PEG tube placed yesterday and to start PEG tube feedings today. Patient is known to be guardedly today and Dr. Hagan is started him on Lasix 40 mg IV every 12 hours. Patient is on Zosyn managed by Dr. Murphy. Patient has been afebrile, heart rate 90, blood pressure 101/77, pulse ox 93% on 7 L nasal cannula. Oxygen needs seemed to be slowly worsening since admission. WBC 9.6, hemoglobin 12, platelet count 78. Sodium 143, potassium 4.3, chloride 120, CO2 16, BUN 25 and creatinine 1.16. Blood sugar 112. Urine culture is positive for Staphylococcus epidermidis. Sputum culture is Mario. In the afternoon, patient became hypotensive and bradycardic with agonal respirations. Norepinephrine was titrated. Patient subsequently developed PEA and was DO NOT RESUSCITATE. Patient was pronounced at 1615. Please see nursing documentation for details. Discharge diagnoses: 1. Acute on chronic hypoxic respiratory failure secondary to COPD exacerbation, possible pneumonia, aspiration pneumonia, chronic diastolic heart failure. 2. Sepsis, septic shock and lactic acidosis, aspiration pneumonia. 3. Persistent atrial fibrillation, episode of RVR. 4. Mild elevation in troponin most likely secondary to sepsis and hypotension, ruled out acute coronary syndrome. 5. COPD exacerbation. 6. History of CAD status post CABG as well as mitral regurgitation status post mitral valve replacement. 7. Hypertension and hypertensive cardiovascular disease. 8. Abdominal aortic aneurysm status post repair in 2010, stable. 9. Hyperlipidemia. 10. ALLERGIC rhinitis. 11 Chronic thrombocytopenia. 12. Chronic kidney disease stage III. 13. Chronic hyponatremia and hypomagnesemia. 14. History of peptic ulcer disease. 15. Daily alcohol use. 16. Remote history of tobacco use and dependence. 17. Acute metabolic encephalopathy, related to possible chronic alcoholism, Korsakoff's and acute illness, acute delirium. 18. COVID-19 infection not present. 19. Anemia of chronic disease. 20. Oral mario not septic from Rito. 21. Dysphagia status post PEG tube 22. Severe protein calorie malnutrition Impression and plan of care have been directed as dictated by the signing physician. Maylin Arcos nurse practitioner acting as scribe for signing physician. Patient Condition at Discharge: Undetermined Plan - Discharge Summary Discharge Rx Participant: No New Discharge Prescriptions: No Action Ipratropium/Albuterol Sulfate [Duoneb 0.5 mg-3 mg/3 ml Soln] 3 ml INHALATION RT-QID Montelukast [Singulair] 10 mg PO HS Atorvastatin [Lipitor] 40 mg PO HS Metoprolol Tartrate [Lopressor] 25 mg PO BID #60 tab Aspirin EC [Ecotrin Low Dose] 81 mg PO DAILY #30 tablet. Magnesium 200 mg PO DAILY Cholecalciferol [Vitamin D3 (25 Mcg = 1000 Iu)] 1,000 unit PO DAILY Budesonide [Pulmicort] 1 mg INHALATION RT-BID Potassium Chloride [Klor-Con 10] 10 meq PO DAILY Pantoprazole [Protonix] 40 mg PO BID #60 tablet. Isosorbide Mononitrate ER [Imdur] 30 mg PO DAILY #30 tab.er.24h Furosemide [Lasix] 40 mg PO DAILY Discharge Medication List Ipratropium/Albuterol Sulfate [Duoneb 0.5 mg-3 mg/3 ml Soln] 3 ml INHALATION RT- QID 11/13/13 [History] Montelukast [Singulair] 10 mg PO HS 11/13/13 [History] Atorvastatin [Lipitor] 40 mg PO HS 08/14/14 [History] Aspirin EC [Ecotrin Low Dose] 81 mg PO DAILY #30 tablet. 08/19/14 [Rx] Metoprolol Tartrate [Lopressor] 25 mg PO BID #60 tab 08/19/14 [Rx] Budesonide [Pulmicort] 1 mg INHALATION RT-BID 01/25/18 [History] Cholecalciferol [Vitamin D3 (25 Mcg = 1000 Iu)] 1,000 unit PO DAILY 01/25/18 [Hi story] Magnesium 200 mg PO DAILY 01/25/18 [History] Potassium Chloride [Klor-Con 10] 10 meq PO DAILY 05/10/19 [History] Isosorbide Mononitrate ER [Imdur] 30 mg PO DAILY #30 tab.er.24h 06/07/19 [Rx] Pantoprazole [Protonix] 40 mg PO BID #60 tablet. 06/07/19 [Rx] Furosemide [Lasix] 40 mg PO DAILY 02/13/20 [History] Follow up Appointment(s)/Referral(s): Erasmo Mary MD [Primary Care Provider] - 1-2 days [facility] Visiting Nurse, [NON-STAFF] - 1-2 Days Discharge Disposition: - Preliminary Cause of Preliminary Cause of : Sepsis, septic shock and lactic acidosis, aspiration pneumonia
--- NOTE | 2020-02-25 08:27 | ECHOF ---
Referral Reason:CHF MEASUREMENTS -------- HEIGHT: 162.6 cm WEIGHT: 50.8 kg BP: 75/55 IVSd: 1.3 cm (0.6 - 1.1) LVIDd: 3.2 cm (3.9 - 5.3) LVPWd: 1.1 cm (0.6 - 1.1) IVSs: 1.5 cm LVIDs: 2.5 cm LVPWs: 1.4 cm LA Diam: 3.9 cm (2.7 - 3.8) RVIDd: 4.5 cm (< 3.3) Ao Diam: 3.8 cm (2.0 - 3.7) AV Cusp: 1.4 cm (1.5 - 2.6) EPSS: 0.3 cm AV maxP.56 mmHg AV meanP.72 mmHg AR PHT: 613 ms RAP: 5.00 mmHg RVSP: 71.39 mmHg MV EF SLOPE: 67.10 mm/s (70 - 150) MV EXCURSION: 9.37 mm (> 18.000) FINDINGS -------- This was a technically difficult study with suboptimal views. The left ventricular size is normal. There is mild concentric left ventricular hypertrophy. Left ventricular systolic function is hyperdynamic with an estimated EF of >70%. There is septal flatten ing in diastole and systole which is consistent with right ventricular pressure and volume overload. The right ventricle is severely enlarged. The left atrium is mildly dilated. The right atrium is normal in size. Interatrial and interventricular septum intact. There is mild aortic valve sclerosis. There is moderate aortic regurgitation. The mitral valve leaflets are mildly thickened. Mild mitral annular calcification present. MV rep air Moderate tricuspid regurgitation present. There is severe pulmonary hypertension. The right ventr icular systolic pressure, as measured by Doppler, is 71.39mmHg. Moderate pulmonic regurgitation. The aortic root is dilated measuring 3.8cm. The inferior vena cava is mildly dilated. There is no pericardial effusion. CONCLUSIONS -------- 1. The left ventricular size is normal. 2. There is mild concentric left ventricular hypertrophy. 3. Left ventricular systolic function is hyperdynamic with an estimated EF of >70%. 4. There is septal flattening in diastole and systole which is consistent with right ventricular pres sure and volume overload. 5. The right ventricle is severely enlarged. 6. The left atrium is mildly dilated. 7. There is mild aortic valve sclerosis. 8. There is moderate aortic regurgitation. 9. The mitral valve leaflets are mildly thickened. 10. Mild mitral annular calcification present. 11. MV repair 12. Moderate tricuspid regurgitation present. 13. There is severe pulmonary hypertension. 14. The right ventricular systolic pressure, as measured by Doppler, is 71.39mmHg. 15. Moderate pulmonic regurgitation. 16. The aortic root is dilated measuring 3.8cm. 17. The inferior vena cava is mildly dilated. 18. There is no pericardial effusion. SHIPPING INSPECTOR: Latrice Akbar RDCS
== END 2020-02-20 17:53 | disposition expired | DRG 871 ==
LOC: EC 22:16 → 3SCARD 02-13 03:34 → 2SICU 02-13 04:01
PROVIDERS: ADMIT Family Medicine; ATTEND Family Medicine
PROC: 3E033XZ Introduction of Vasopressor into Peripheral Vein, Percutaneous Approach (ICD-10-PCS; principal; 2020-02-13)
PROC: 02HV33Z Insertion of Infusion Device into Superior Vena Cava, Percutaneous Approach (ICD-10-PCS; 2020-02-14)
PROC: 0DH63UZ Insertion of Feeding Device into Stomach, Percutaneous Approach (ICD-10-PCS; 2020-02-19)
PROC: 3E0G76Z Introduction of Nutritional Substance into Upper GI, Via Natural or Artificial Opening (ICD-10-PCS; 2020-02-20)
DX: A41.50 Gram-negative sepsis, unspecified (principal); R65.21 Severe sepsis with septic shock; J96.21 Acute and chronic respiratory failure with hypoxia; J69.0 Pneumonitis due to inhalation of food and vomit; J15.6 Pneumonia due to other Gram-negative bacteria; E43 Unspecified severe protein-calorie malnutrition; G92 Toxic encephalopathy; R64 Cachexia; I13.0 Hypertensive heart and chronic kidney disease with heart failure and stage 1 through stage 4 chronic kidney disease, or unspecified chronic kidney disease; I48.11 Longstanding persistent atrial fibrillation; J44.0 Chronic obstructive pulmonary disease with (acute) lower respiratory infection; J44.1 Chronic obstructive pulmonary disease with (acute) exacerbation; E87.2 Acidosis; E87.1 Hypo-osmolality and hyponatremia; I50.32 Chronic diastolic (congestive) heart failure; N39.0 Urinary tract infection, site not specified; E27.40 Unspecified adrenocortical insufficiency; B37.0 Candidal stomatitis; F10.251 Alcohol dependence with alcohol-induced psychotic disorder with hallucinations; F05 Delirium due to known physiological condition; Z68.1 Body mass index [BMI] 19.9 or less, adult; Z66 Do not resuscitate; Z20.828 Contact with and (suspected) exposure to other viral communicable diseases; I27.20 Pulmonary hypertension, unspecified; D69.6 Thrombocytopenia, unspecified; N18.3 Chronic kidney disease, stage 3 (moderate); J84.10 Pulmonary fibrosis, unspecified; I73.9 Peripheral vascular disease, unspecified; K22.4 Dyskinesia of esophagus; R13.14 Dysphagia, pharyngoesophageal phase; D63.1 Anemia in chronic kidney disease; E83.42 Hypomagnesemia; R00.1 Bradycardia, unspecified; R40.2144 Coma scale, eyes open, spontaneous, 24 hours or more after hospital admission; R40.2364 Coma scale, best motor response, obeys commands, 24 hours or more after hospital admission; R40.2244 Coma scale, best verbal response, confused conversation, 24 hours or more after hospital admission; E16.2 Hypoglycemia, unspecified; B95.7 Other staphylococcus as the cause of diseases classified elsewhere; I45.10 Unspecified right bundle-branch block; E78.5 Hyperlipidemia, unspecified; I25.10 Atherosclerotic heart disease of native coronary artery without angina pectoris; K44.9 Diaphragmatic hernia without obstruction or gangrene; K21.9 Gastro-esophageal reflux disease without esophagitis; M19.042 Primary osteoarthritis, left hand; M19.041 Primary osteoarthritis, right hand; J30.9 Allergic rhinitis, unspecified; I25.2 Old myocardial infarction; R79.89 Other specified abnormal findings of blood chemistry; Z99.81 Dependence on supplemental oxygen; Z79.82 Long term (current) use of aspirin; Z79.51 Long term (current) use of inhaled steroids; Z79.899 Other long term (current) drug therapy; Z87.891 Personal history of nicotine dependence; Z87.01 Personal history of pneumonia (recurrent); Z87.19 Personal history of other diseases of the digestive system; Z87.11 Personal history of peptic ulcer disease; Z95.1 Presence of aortocoronary bypass graft; Z85.828 Personal history of other malignant neoplasm of skin; Z86.19 Personal history of other infectious and parasitic diseases; Z95.3 Presence of xenogenic heart valve; Z90.89 Acquired absence of other organs; Z95.828 Presence of other vascular implants and grafts; Z98.890 Other specified postprocedural states; Z98.61 Coronary angioplasty status; Z96.1 Presence of intraocular lens; Z98.41 Cataract extraction status, right eye; Z98.42 Cataract extraction status, left eye; Z86.69 Personal history of other diseases of the nervous system and sense organs; Z87.2 Personal history of diseases of the skin and subcutaneous tissue; Z86.79 Personal history of other diseases of the circulatory system; Z88.8 Allergy status to other drugs, medicaments and biological substances; Z82.49 Family history of ischemic heart disease and other diseases of the circulatory system
CPT/HCPCS: 36415; 36573; 43246; 71045; 74220; 76705; 80048; 80053; 81001; 82140; 82607; 83605; 83735; 83880; 84100; 84132; 84443; 84484; 85025; 85027; 85610; 85730; 87040; 87070; 87077; 87086; 87186; 87205; 93005; 93306; 94640; 96361; 96365; 96367; 99291